=== PATIENT | female | born 1960 | race Caucasian/White ===

== ENCOUNTER 2018-12-04 14:02 | Outpatient (REF) | payer OTHER, SELFPAY ==
[2018-12-04 21:56] LABS: Abs Immature Grans 0.01 k/cumm (0.0-0.09); Absolute Basophil Count 0.02 k/cumm (0.0-0.2); Absolute Eosinophil Count 0.11 k/cumm (0.0-0.7); Absolute Monocyte Count 0.43 k/cumm (0.11-0.7); Absolute Neutrophil Count 2.83 k/cumm (1.2-6.7); Basophils % 0.4; Eosinophils % 2.3; HCT 44.7 % (36.0-46.0); HGB 14.9 g/dL (12.0-15.5); Immature Grans % 0.2; Lymphocytes % 27.7; Mean Corp. HGB Concentration 33.3 g/dL (32.0-36.0); Mean Corpuscular Volume 87.1 fL (80-95); Mean Platelet Volume 10.5 fL (8.0-11.0); Monocytes % 9.1; Neutrophils % 60.3; Platelet Count 174 x1000/uL (130-400); RBC 5.13 m/cumm (4.00-5.20); RBC Distribution Width 13.4 % (11.7-14.6)
[2018-12-04 22:00] LABS: Anion Gap 6.9 mmol/L (3-11); BUN 14 mg/dL (7-18); CO2 31.1 mmol/L (21.0-32.0); CREATININE 0.82 mg/dL (0.55-1.02); Calcium 9.5 mg/dL (8.5-10.1); Chloride 102 mmol/L (98-107); Glucose 89 mg/dL (70-100); Potassium 4.2 mmol/L (3.5-5.1); Sodium 140 mmol/L (136-145); TSH (W/Ref FT4) 2.33 uIU/mL (0.36-3.74)
[2018-12-05 05:48] LABS: Vitamin D 25 Total 16.3 ng/ml (30-100)
== END 2018-12-04 14:22 ==
LOC: NCHCN 14:02
PROVIDERS: PCP Physician Assistant Medical; Visit Provider Nurse Practitioner Family
DX: R53.83 Other fatigue (principal); R40.0 Somnolence
CPT/HCPCS: 80048; 82306; 84443; 85025

== ENCOUNTER 2020-01-02 01:05 | Outpatient (CLI) | payer OTHER, SELFPAY ==
--- NOTE | 2020-02-13 08:27 | ZIOP_ITS ---
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 Minimum heart rate was 53, maximum 119. There were very rare ventricular ectopic beats. There were rare atrial premature beats There was no atrial fibrillation. There was no supraventricular tachycardia. There were no pauses greater than 3 seconds. There was no high-grade AV block Patient events corresponded to sinus rhythm
== END 2020-01-02 01:25 ==
PROVIDERS: PCP Physician Assistant Medical; Visit Provider Nurse Practitioner Family
DX: R00.2 Palpitations (principal)
CPT/HCPCS: 0296T

== ENCOUNTER 2020-02-27 02:24 | Outpatient (CLI) | payer OTHER, SELFPAY ==
[2020-02-27 17:25] LABS: TSH 1.63 uIU/mL (0.36-3.74)
[2020-03-01 09:55] LABS: Hepatitis C Ab w Rflx HCV PCR Negative (Negative)
== END 2020-02-27 02:44 ==
LOC: LBO 02:24 → NCHCO 15:42
PROVIDERS: PCP Physician Assistant Medical; Visit Provider Family Medicine
DX: Z00.00 Encounter for general adult medical examination without abnormal findings (principal); Z13.29 Encounter for screening for other suspected endocrine disorder; Z11.59 Encounter for screening for other viral diseases
CPT/HCPCS: 36415; 86803; 84443

== ENCOUNTER 2020-03-31 17:29 | Outpatient (REF) | payer OTHER, SELFPAY ==
[2020-04-01 21:14] LABS: COVID-19 RT-PCR UVMMC Result Negative (Negative)
== END 2020-03-31 17:49 ==
LOC: NCHCN 17:29
PROVIDERS: PCP Physician Assistant Medical; Visit Provider Nurse Practitioner Family
DX: Z20.828 Contact with and (suspected) exposure to other viral communicable diseases (principal)
CPT/HCPCS: U0003

== ENCOUNTER 2020-05-21 16:50 | Outpatient (REF) | payer OTHER, SELFPAY ==
[2020-05-21 21:04] LABS: HCT 43.6 % (36.0-46.0); HGB 14.6 g/dL (11.2-15.7); MCH 29.5 pg (27.0-33.0); MCHC 33.5 % (32.0-36.0); MCV 88.1 fL (80-95); MPV 9.9 fL (8.0-11.0); Platelet Count 178 10^3/uL (130-400); RBC 4.95 10^6/uL (3.93-5.22); RDW 12.3 % (11.7-14.6); RDW-SD 39.6 fL; WBC 5.19 10^3/uL (4.4-10.8)
[2020-05-21 21:14] LABS: Anion Gap 4.8 mmol/L (3-11); BUN 13 mg/dL (7-18); CO2 31.2 mmol/L (21.0-32.0); CREATININE 0.7 mg/dL (0.55-1.02); Calcium 9.3 mg/dL (8.5-10.1); Chloride 103 mmol/L (98-107); Glucose 94 mg/dL (74-106); Potassium 4.1 mmol/L (3.5-5.1); Sodium 139 mmol/L (136-145)
== END 2020-05-21 16:51 | disposition home or self-care (01) ==
LOC: NCHCN 16:50
PROVIDERS: PCP Physician Assistant Medical; Visit Provider Nurse Practitioner Family
DX: I10 Essential (primary) hypertension (principal)
CPT/HCPCS: 80048; 85027

== ENCOUNTER 2020-08-17 01:26 | Outpatient (CLI) | payer OTHER, SELFPAY ==
--- NOTE | 2020-08-17 | DI.MAMMO_ITS ---
Exam(s) MAMMO SCREENING EXAM: MAMMO SCREENING CLINICAL HISTORY: SCREENING MAMMO Z12.31. TECHNIQUE: Bilateral full field digital CC and MLO mammographic images were obtained with 3D tomosyn thesis and utilizing computer aided detection (CAD). COMPARISON: Prior mammograms dating back to 2011, the most recent being May 2018. FINDINGS: There appears to been breast reduction after the May 2015 and prior to the May 2018 mammogram. No new spiculated masses. Increasing microcalcifications noted in both breasts which are possibly re lated to fat necrosis postop change. No new significant architectural distortion. IMPRESSION: Increasing microcalcifications which are probably related to postop changes. Recommend repeat bilate ral mammogram in 6 months. BI-RADS Category 3 - 6 month - Probably Benign Finding: Recommend follow-up mammography in 6 months Breast Density - Category B - Scattered areas of fibroglandular density Breast density Category C or D implies that the patient has dense breast tissue. Dense breast tissue can make it harder to find cancer on a mammogram. Dense breast tissue is also associated with an incr eased risk of breast cancer. This information about the result of the mammogram report was provided to the patient to raise their awareness. Use this report when you speak with the patient about their risks for breast cancer, which includes their family history. At that time, you may recommend additional screening tests (Ultrasoun d or MRI) as these tests may add significant information. A negative radiographic report should not delay biopsy if a dominant or clinically suspicious mass is present. Up to ten percent of cancers are not identified on mammography. A negative report may reinforce clinical impression. Adenosis and dense breasts may obscure an underlying neoplasm. False positive reports average 6 to 10%. Patient will receive a letter notifying them of these results.
== END 2020-08-17 01:46 ==
PROVIDERS: PCP Nurse Practitioner Family; Visit Provider Nurse Practitioner Family
DX: Z12.31 Encounter for screening mammogram for malignant neoplasm of breast (principal); R92.0 Mammographic microcalcification found on diagnostic imaging of breast
CPT/HCPCS: 77063; 77067

== ENCOUNTER 2021-05-12 00:46 | Outpatient (CLI) | payer OTHER, SELFPAY ==
--- NOTE | 2021-05-12 | DI.MAMMO_ITS ---
Exam(s) US BREAST RT LIMITED MG MAMMO DIAGNOSTIC BI EXAM: MG MAMMO DIAGNOSTIC BI and U/S breast RT limited CLINICAL HISTORY: F/U ABNL KARLA JULY 2020,INCREASING YANG CALCIFICATIONS, RT BREAST PAIN, N64.4. TECHNIQUE: Craniocaudal and mediolateral oblique Full Field Digital Mammography views of the right b reast with Computer Aided Diagnosis followed by Tomosynthesis and right breast ultrasound. COMPARISON: Priors available for comparison. FINDINGS: Mammography/Tomosynthesis: Masses/Architectural Distortion: None seen. Microcalcifictions: No suspicious pleomorphic-type are seen. Skin Thickening/Nipple Retraction: None. Limited right breast US: Echotexture: Normal appearance of the glandular tissue. Shadowing: No suspicious foci. Cyst: None. Solid lesions: None seen. Ductal dilation: None. IMPRESSION: 1. No evidence of malignancy is noted. 2. Unless there is more urgent need, follow-up screening mammography is recommended, as per [place] [employer] guidelines. 3. The findings were discussed with the patient on the date of the examination. BI-RADS Category 1 - Negative Breast Density - Category B - Scattered areas of fibroglandular density Breast density Category C or D implies that the patient has dense breast tissue. Dense breast tissue can make it harder to find cancer on a mammogram. Dense breast tissue is also associated with an incr eased risk of breast cancer. This information about the result of the mammogram report was provided to the patient to raise their awareness. Use this report when you speak with the patient about their risks for breast cancer, which includes their family history. At that time, you may recommend additional screening tests (Ultrasoun d or MRI) as these tests may add significant information. A negative radiographic report should not delay biopsy if a dominant or clinically suspicious mass is present. Up to ten percent of cancers are not identified on mammography. A negative report may reinforce clinical impression. Adenosis and dense breasts may obscure an underlying neoplasm. False positive reports average 6 to 10%. Patient will receive a letter notifying them of these results.
--- NOTE | 2021-05-12 15:24 | DI.RAD_ITS ---
Exam(s) XR THUMB LT EXAM: XR THUMB LT EXAM DATE/TIME: CLINICAL HISTORY: LT THUMB PAIN, M79.645. TECHNIQUE: 2D digital imaging was performed of the left finger. Three views were obtained. PA/AP, oblique, and lateral views were obtained. COMPARISON: None. FINDINGS: BONES: No acute fracture is present. No bony destructive lesion is seen. JOINTS: No dislocation is present. Mild degenerative changes are seen at the interphalangeal joint. SOFT TISSUE: Normal. IMPRESSION: Mild degenerative changes at the interphalangeal joint of the thumb. DATA REPOSITORY: RADIATION DOSE DELIVERED:
== END 2021-05-12 01:06 ==
PROVIDERS: PCP Nurse Practitioner Family; Visit Provider Nurse Practitioner Family
DX: M79.645 Pain in left finger(s) (principal); M19.042 Primary osteoarthritis, left hand; R92.8 Other abnormal and inconclusive findings on diagnostic imaging of breast; N64.59 Other signs and symptoms in breast; N64.4 Mastodynia
CPT/HCPCS: 76642; 77062; 77066; 73140; G0279

== ENCOUNTER 2021-06-08 18:55 | Outpatient (REF) | payer OTHER, SELFPAY ==
[2021-06-10 15:56] LABS: COVID-19 RT-PCR UVMMC Result Negative (Negative)
== END 2021-06-08 18:56 | disposition home or self-care (01) ==
LOC: NCHCN 18:55
PROVIDERS: PCP Nurse Practitioner Family; Visit Provider Nurse Practitioner Family
DX: R05.9 Cough, unspecified (principal); R06.02 Shortness of breath; R53.83 Other fatigue; Z20.822 Contact with and (suspected) exposure to COVID-19
CPT/HCPCS: U0003

== ENCOUNTER 2022-03-01 07:24 | Day surgery (SDC) | payer OTHER, SELFPAY ==
[2022-03-01] VITALS (13 sets, daily range): BP systolic 84–132; BP diastolic 41–68; PULSE 63–75; RESP 13–27; TEMP 36.1–36.5; O2SAT 89–100; BMI 39.2
--- NOTE | 2022-03-01 07:32 | W.PM.DSUDISC ---
Date of service: 03/01/22 Time of Service: 10:27 Discharge Plan Disposition Patient Disposition: HOME Condition: Good Discharge Details Reason For Visit: Left CMC DJD Attending Provider: Manuel Lyman Primary Care Provider: Qian Alejandra Home Meds and New Rx's Prescriptions: New acetaminophen 500 mg tablet 500 mg PO Q6H PRN (Reason: pain) Qty: 60 2RF ibuprofen 600 mg tablet 600 mg PO TID PRN (Reason: pain) Qty: 60 0RF oxycodone 5 mg tablet 5 mg PO Q6H PRN (Reason: severe post-operative pain) Qty: 6 0RF Rx Instructions: Take one tablet up to every 6 hours as needed for severe pain Continued sertraline 25 mg tablet 25 mg PO DAILY albuterol sulfate [ProAir HFA] 90 mcg/actuation HFA aerosol inhaler 2 puff inhalation Q6H PRN losartan [Cozaar] 100 mg tablet 50 mg PO DAILY hydrochlorothiazide 25 MG tablet 25 mg PO DAILY Discharge Instructions Additional Instructions: Thumb CMC Discharge Instructions Activity: You should keep the hand/thumb elevated as much as possible for the first few days. You may use the other fingers as tolerated but avoid trying to do too much too soon. You may perform light activities with the splint in place. Dressing/Cast: Your splint should stay in place at all times. Do NOT get it wet. You may loosen the JESUS wrap if you feel it is too tight and then rewrap more loosely. Medications: - You should take Tylenol and Ibuprofen for baseline pain control. - You have Oxycodone for breakthrough pain. - You may apply ice over the thumb. Follow-up: 10-14 days Equipment/Supplies: Splint Activity:: Elevate Remove Dressings/Wound Care:: Do Not Remove Shower/Bathe:: Cover Activity:: Activity as Tolerated Diet:: As Tolerated
--- NOTE | 2022-03-01 08:37 | ANES.PREOP_ITS ---
General Info Date of Service Date Performed: 03/01/22 Height: 5 ft 2 in Weight: 97.3 kg Body Mass Index (BMI): 39.2 Surgical Procedure: Operation Date: 03/01/22 09:55 Proposed Procedure Side Surgeon p CMC Arthroplasty 1st Finger Left Manuel Lyman MD Meds Allergies and Home Medications Allergies Allergy/AdvReac Type Severity Reaction Status Date / Time latex Allergy Mild Skin Rash Verified 03/01/22 07:35 steroids AdvReac Severe Other (See Uncoded 02/28/22 12:11 Comment) Home Medication Medication Instructions Recorded hydrochlorothiazide 25 mg tablet 25 mg PO DAILY 06/07/12 albuterol sulfate 90 mcg/actuation 2 puff inhalation Q6H PRN 05/25/21 aerosol inhaler (ProAir HFA) losartan 100 mg tablet (Cozaar) 50 mg PO DAILY 05/25/21 sertraline 25 mg tablet 25 mg PO DAILY 05/25/21 acetaminophen 500 mg tablet 500 mg PO Q6H PRN pain #60 tabs 03/01/22 ibuprofen 600 mg tablet 600 mg PO TID PRN pain #60 tabs 03/01/22 oxycodone 5 mg tablet 5 mg PO Q6H PRN severe 03/01/22 post-operative pain #6 tabs Current Visit Medications: Current Medications Generic Name Dose Route Start Last Admin Trade Name Andrez PRN Reason Stop Dose Admin Acetaminophen 650 mg 03/01/22 07:38 Acetaminophen 325 Mg Tab PO Q4H PRN PRN Ringer's Solution 1,000 mls @ 80 mls/hr 03/01/22 06:00 IV 03/30/22 23:59 [facility] Cefazolin Sodium/Dextrose 2 gm in 50 mls @ 100 mls/hr 03/01/22 06:00 Ancef Duplex IVPB 03/01/22 16:00 PREOP TIMMY IV Miscellaneous Supplies 1 each 03/01/22 06:00 Iv Access IV 03/30/22 23:59 DIRECTED TIMMY Oxycodone HCl 5 mg 03/01/22 07:38 Oxycodone 5 Mg Tab PO Q3H PRN PRN Pain Sodium Chloride 0 ml 03/01/22 06:00 Normal Saline Flush 10 Ml Syr IV 03/30/22 23:59 PRN PRN Sodium Chloride 0 ml 03/01/22 06:00 Normal Saline 10 Ml Vial IJ 03/30/22 23:59 DIRECTED PRN Sterile Water 0 ml 03/01/22 06:00 Water,Injection,Sterile 10 Ml Vial IJ 03/30/22 23:59 DIRECTED PRN PFSH Active Problems Active Problems: Problem Status Onset Code Abnormal mammogram of both breasts R92.8 Osteopenia M85.80 Hypertension I10 Obesity E66.9 Vitamin D deficiency E55.9 Depression with anxiety F41.8 Asthma, mild intermittent J45.20 Hyperlipidemia E78.5 GERD (gastroesophageal reflux disease) K21.9 Degenerative arthritis of carpometacarpal joint of thumb M18.9 Left carpal tunnel syndrome G56.02 Medical History Medical History Tobacco use Surgical History Surgical History H/O reduction mammoplasty H/O: hysterectomy History of section Tobacco Smoking/Tobacco Use Status: Former Tobacco Use Alcohol Alcohol Intake: never Substance Use Substance use: Never Substance use type: does not use Vital Signs and Lab Results Vital Signs Most Recent Vital Signs in EMR: Most Recent Vital Signs Temp Pulse Resp BP Pulse Ox 36.5 C 74 16 132/68 95 03/01/22 07:37 03/01/22 07:37 03/01/22 07:37 03/01/22 07:37 03/01/22 07:37 Lab Results Blood Type / Crossmatch: No Data to Display Complete Blood Count: No Data to Display Complete Metabolic Panel: No Data to Display Liver Function Panel: No Data to Display Coagulation Panel: No Data to Display Cardiac Panel: No Data to Display Arterial Blood Gas: No Data to Display Venous Blood Gas: No Data to Display Pancreas Panel: No Data to Display Thyroid Panel: No Data to Display Infectious Disease: No Data to Display Blood Cultures: No Data to Display Toxicology Panel: No Data to Display Anesthesia Assessment and Plan Anesthesia History Personal History: No History of Anesthesia Complications Family History: No Family History of Anesthesia Complications Exercise Tolerance Exercise Tolerance: Metabolic Equivalents>4 Pertinent Negatives Pertinent Negatives: No Symptoms of GERD and No Major Cardiovascular Symptoms or Complaints Cardiac & Pulmonary Exam Cardiac Exam: Normal S1/S2 Heart Sounds Pulmonary Exam: Clear Bilateral Breath Sounds Implantable Cardiac Device Does patient have a Pacemaker or an ICD?: No Airway Exam Known Difficult Airway: No Mallampati Class: 2 Mouth Opening: Normal (> 3cm) Thyromental Distance: Greater than 3 cm Neck Range of Motion: Full ROM Neck Circumference: Normal Teeth Condition: Normal Dentition ASA Classification ASA Score: ASA 2 Emergency Case?: No NPO Status NPO Status: NPO Clears >2 hours, Solids >8 hours Anesthesia Plan Resuscitation Status: Full Code Anesthesia Technique: General Anesthesia Airway Planned: LMA Monitors Used: Standard Monitors
--- NOTE | 2022-03-01 09:38 | W.PREOPHP ---
Assessment and Plan Assessment and plan (1) Degenerative arthritis of carpometacarpal joint of thumb: Status: Acute Assessment and plan: Gina is a 62-year-old [id number] female who has left thumb CMC arthritis. She has had continued pain about the left thumb which is interfering with daily activities and work. She has had an injection which provided relief but unfortunately symptoms returned. She has tried a host of nonoperative options but once again continues have pain about the left thumb. Therefore, I recommended CMC arthroplasty of the left thumb. I reviewed the technical details once again. I discussed the risk of the procedure to include bleeding, infection, pain, stiffness, subsidence, hardware prominence, heart failure, tendon rupture, damage nerves and vessels, damage to muscle and tendons, need for repeat procedures. Despite these risk, she elected to proceed. History of Present Illness History of Present Illness Chief Complaint: Left Thumb CMC arthroplasty Narrative: Gina is a 62-year-old who has had a persistent left thumb pain. She has been diagnosed with thumb CMC arthritis about the left hand. She also has some symptoms of carpal tunnel which are intermittent at this time. She is here today for left thumb CMC arthroplasty with suture suspension plasty. She is had no changes to her health. No change in her symptoms except continued pain at the base of the left thumb. She denies any numbness or tingling about the thumb on a persistent basis. She denies any new trauma. No sick contacts. No chest pain or shortness of breath. Review of Systems All systems reviewed & are unremarkable except as noted in HPI and below PFSH All Active Problems Abnormal mammogram of both breasts (Acute) Osteopenia (Acute) Hypertension (Chronic) Obesity (Chronic) Vitamin D deficiency (Acute) Depression with anxiety (Acute) Asthma, mild intermittent (Acute) Hyperlipidemia (Acute) GERD (gastroesophageal reflux disease) (Chronic) Degenerative arthritis of carpometacarpal joint of thumb (Acute) left thumb Injection: 07/04/2021 Left carpal tunnel syndrome (Acute) Medical History Tobacco use Surgical History H/O reduction mammoplasty H/O: hysterectomy History of section Social History Smoking/Tobacco Use Status: Former Tobacco Use Smoking risk assessment performed?: Yes Alcohol Intake: never Drug use: Never Substance use type: does not use Do you feel safe at home: Yes Do you feel safe in your relationship?: Yes Meds Allergies and Home Medications Allergies Allergy/AdvReac Type Severity Reaction Status Date / Time latex Allergy Mild Skin Rash Verified 03/01/22 07:35 steroids AdvReac Severe Other (See Uncoded 02/28/22 12:11 Comment) Home Medications Medication Instructions Recorded Confirmed Type hydrochlorothiazide 25 mg tablet 25 mg PO DAILY 06/07/12 02/28/22 History albuterol sulfate 90 mcg/actuation 2 puff inhalation Q6H PRN 05/25/21 02/28/22 History aerosol inhaler (ProAir HFA) losartan 100 mg tablet (Cozaar) 50 mg PO DAILY 05/25/21 02/28/22 History sertraline 25 mg tablet 25 mg PO DAILY 05/25/21 02/28/22 History acetaminophen 500 mg tablet 500 mg PO Q6H PRN pain #60 tabs 03/01/22 Rx ibuprofen 600 mg tablet 600 mg PO TID PRN pain #60 tabs 03/01/22 Rx oxycodone 5 mg tablet 5 mg PO Q6H PRN severe 03/01/22 Rx post-operative pain #6 tabs Exam Const General: cooperative, healthy appearing and comfortable Nutritional Appearance: average body habitus Resp Effort & Inspection: normal respiratory effort Auscultation: clear to auscultation bilaterally Cardio Rate: regular rate Rhythm: regular rhythm Results Last Vital Signs Temp 36.5 C 03/01/22 07:37 Pulse 74 03/01/22 07:37 Resp 16 03/01/22 07:37 BP 132/68 03/01/22 07:37 Pulse Ox 95 03/01/22 07:37
[2022-03-01] MEDS: ceFAZolin 2 GM/50 ML BAG IVPB (10:14)
[2022-03-01] MEDS: Lactated Ringers 1,000 ML 80 ML IV (11:00)
[2022-03-01] MEDS: Bupivacaine 0.25% Pres-Free 30 ML VIAL (11:16)
--- NOTE | 2022-03-01 12:09 | W.ANESPOSTOP ---
Postoperative Evaluation Date, Time and Location Date Performed: 03/01/22 Time Performed: 12:10 Patient Location: PACU Vital Signs Most Recent Imported Vital Signs: Most Recent Vital Signs Temp Pulse Resp BP Pulse Ox 36.4 C L 64 27 H 94/52 L 95 03/01/22 11:45 03/01/22 11:55 03/01/22 11:55 03/01/22 11:55 03/01/22 11:55 Pain Score Most Recent Pain Score: Most Recent Pain Score Pain Level 0 03/01/22 11:55 Assessment Mental Status: Awake (Alert & Oriented to Patient Baseline) Airway and Respiratory Function: Patent airway with normal (patient baseline) respiratory exam Cardiovascular Function: Hemodynamically Stable Hydration Status: Adequately Hydrated Nausea & Vomiting: No Nausea or Vomiting Pain: Pt. Denies Any Pain Peripheral Nerve Block: Patient did not receive a nerve block
[2022-03-01] MEDS: ePHEDrine 25 MG/5 ML Syringe IVP (12:20)
--- NOTE | 2022-03-01 12:57 | W.PM.OP ---
Date of service: 03/01/22 Time of Service: 11:00 Operative Note Operative Note DATE OF PROCEDURE: 03/01/22 PRE-OP DIAGNOSIS: Left Thumb CMC Arthritis POST-OP DIAGNOSIS: same PROCEDURE: Left trapezial resection arthroplasty with suture suspensionplasty SURGEON: Manuel Lyman NEW CLIENT BANKING SERVICES CLERK: Zoey Juarez ANESTHESIA TYPE: General LMA/ETT Refer to Anesthesia Record ESTIMATED BLOOD LOSS: 50 PATHOLOGY: none sent TOURNIQUET TIME: 0 COMPLICATIONS: None Patient was transported to: PACU Patient's condition: stable Indications: Gina is a 62 year old female who has had symptoms of thumb CMC arthritis with pain and decreased mobility. Nonoperative treatment options had been trialed. Given their failure, I offered operative intervention. I reviewed the technical details. I reviewed the risk of the procedure to include bleeding, infection, pain, stiffness, instability, subsidence, damage to neighboring arteries, damage to the superficial radial nerve, and weakness. Despite these risks, the patient elected to proceed. Findings: There is notable arthrosis between the trapezium and the first metacarpal. There was also a significant amount of synovitis which made visualization challenging. There are large osteophytes around the entirety of the trapezium. Procedure Description: Gina was greeted in the preoperative holding area. Name and surgical site were confirmed. The history and physical was completed. The consent was reviewed the patient and signed. She was taken back to the operating room. The patient was placed and monitored anesthesia care. The left was then prepped with ChloraPrep and draped in a standard fashion after a nonsterile tourniquet was placed high up onto the arm. Prophylactic antibiotics in the form of cefazolin were administered. A timeout was performed for safe surgery. The surgical site was drawn on the skin overlying the dorsal radial border of the wrist. The planned surgical field was anesthetized with 0.25% bupivacaine with epinephrine. A 3 cm incision was made longitudinally over the radial wrist from the level of the radial styloid to just past the base of the first metacarpal. The skin was incised only. The deep tissue and subcutaneous fat was dissected with a tenotomy scissors trying to protect branches of the superficial radial nerve. Any branches that were identified were retracted out of the way. The first compartment extensor tendons were then identified. The first extensor compartment was released. The interval between EPL and EPB was identified. The base of the first metacarpal was palpated. A needle was placed into the joint between the first metacarpal and the trapezium. A single x-ray was used to confirm appropriate positioning. The capsule of the trapezium was then incised. The radial border of the bone was identified. Soft tissues around trapezium were dissected bluntly to allow relaxation of vital arterial structures traversing the trapezium. Using a [place] blade the capsule was elevated off the trapezium in a subperiosteal fashion. Once it appeared to have all the capsular attachments released, the trapezium was then removed using a rongeur. The wound was inspected to make sure all portions of the trapezium were removed. X-ray was used to confirm appropriate removal of all bony fragments. The wound was then thoroughly irrigated. Using a 2-0 FiberWire then performed a suture suspension plasty. This was done by incorporating capsule and attachments of the APL at the base of the first metacarpal and creating a sling connected to the deep flexor carpi radialis tendon seen traversing deep within the wound towards the second metacarpal. This was done twice to create a crossing network of 2-0 suture. This was then tied overlying the base of the first metacarpal making sure not to over tighten and hourglass the tendons. This provided support to the first metacarpal to prevent any excessive subsidence. There was a consistent ooze during the case but no significant arterial bleeding. No tourniquet was used. The capsule of the trapezium was unable to be reapproximated. The deep tissues were closed with a 3-0 Vicryl and the skin was closed with a running 4-0 Monocryl in a subcuticular fashion. This was reinforced with skin glue. The hand was dressed with 4 x 4's, web roll, and JESUS wrap to make a soft thumb spica splint. All counts were correct. She was transferred back to PACU in a stable condition.
[2022-03-01] MEDS: Acetaminophen 325 MG TAB 650 MG PO (12:58)
== END 2022-03-01 13:33 | disposition home or self-care (01) ==
PROVIDERS: PCP Nurse Practitioner Family; Visit Provider Student in an Organized Health Care Education/Training Program
PROC: (CPT 25447; principal; 2022-03-01 09:45)
DX: M18.12 Unilateral primary osteoarthritis of first carpometacarpal joint, left hand (principal); J45.20 Mild intermittent asthma, uncomplicated; K21.9 Gastro-esophageal reflux disease without esophagitis
CPT/HCPCS: 25447; 26480; 76000; J0690; J1100; J1885; J2250; J2405; J2704

== ENCOUNTER 2022-04-07 11:27 | Emergency (ER) | payer OTHER, SELFPAY ==
--- NOTE | 2022-04-07 11:30 | RT.EKG_ITS ---
APPROVED REPORT Exam: Resting ECG Reason for Exam: [id number] Patient Location: E HR:100 bpm ECG Measurements Heart Rate 100 AXIS AL 147 P 60 QRSd 81 QRS 4 QT 339 T 55 QTc 438 Conclusion Sinus tachycardia...rate> 99 sinus tachycardia, normal axis, normal intervals, non ischemic
[2022-04-07 11:32] VITALS: BP 134/78; PULSE 102; RESP 20; TEMP 37.3; O2SAT 93
--- NOTE | 2022-04-07 11:45 | DI.RAD_ITS ---
Exam(s) XR PORTABLE CHEST AP EXAM: XR PORTABLE CHEST AP CLINICAL HISTORY: cough TECHNIQUE: 2D digital imaging was performed of the chest. One image was obtained. An AP view was ob tained. COMPARISON: CR CHEST 2 VIEWS PA,LAT from 05/10/2017 FINDINGS: MEDIASTINUM: Normal. HEART: Normal. PULMONARY VASCULATURE: Normal. LUNGS: Clear. PLEURAL SPACE: No pleural effusion or pneumothorax. BONE:Within normal limits for the patient's age. OTHER FINDINGS:Normal. IMPRESSION: No acute pulmonary findings. DATA REPOSITORY: RADIATION DOSE DELIVERED:
--- NOTE | 2022-04-07 11:47 | ED.GENADUL_ITS ---
Discharge Plan Disposition Patient Disposition: Home Condition: Improving Discharge Details Chief Complaint: RespSymp Clinical Impression: Cough Primary Care Provider: Qian Alejandra ED Provider: Richardson Gold Home Meds and New Rx's Prescriptions: No Action sertraline 25 mg tablet 25 mg PO DAILY albuterol sulfate [ProAir HFA] 90 mcg/actuation HFA aerosol inhaler 2 puff inhalation Q6H PRN losartan [Cozaar] 100 mg tablet 50 mg PO DAILY hydrochlorothiazide 25 MG tablet 25 mg PO DAILY acetaminophen 500 mg tablet 500 mg PO Q6H PRN (Reason: pain) Qty: 60 2RF ibuprofen 600 mg tablet 600 mg PO TID PRN (Reason: pain) Qty: 60 0RF Discharge Instructions Instructions: Acute Cough (ED) Additional Instructions: Please continue with albuterol at home. Follow-up with your primary care physician. Medical Decision Making 62-year-old female history of asthma, presents with dry cough, congestion, similar symptomatology to her currently, afebrile nontoxic slightly tachycardic on arrival dry cough during examination, lungs clear however slightly diminished bilaterally no wheezing appreciated. Likely viral syndrome exacerbating asthma must also consider early pneumonia. Will obtain flu COVID, will administer albuterol ipratropium. Likely home with close follow-up. Lower suspicion for cardiac process PE pneumothorax or pleural effusion 13: 14 patient resting comfortably no acute distress. Feeling improvement after nebs. X-ray clear. HPI General Date/Time Provider Initiated Documentation: 04/07/22 11:38 . HPI Narrative: 61-year-old female history of asthma presents with cough congestion over the past several days of note her has similar symptomatology. Nonproductive cough. Patient has had a bad reaction to steroids in the past. Has been taking albuterol at home Related Data Home Medications Medication Instructions Recorded Confirmed hydrochlorothiazide 25 mg tablet 25 mg PO DAILY 06/07/12 04/07/22 albuterol sulfate 90 mcg/actuation 2 puff inhalation Q6H PRN 05/25/21 04/07/22 aerosol inhaler (ProAir HFA) losartan 100 mg tablet (Cozaar) 50 mg PO DAILY 05/25/21 04/07/22 sertraline 25 mg tablet 25 mg PO DAILY 05/25/21 04/07/22 acetaminophen 500 mg tablet 500 mg PO Q6H PRN pain #60 tabs 03/01/22 04/07/22 ibuprofen 600 mg tablet 600 mg PO TID PRN pain #60 tabs 03/01/22 04/07/22 Previous Rx's Medication Instructions Recorded acetaminophen 500 mg tablet 500 mg PO Q6H PRN pain #60 tabs 03/01/22 ibuprofen 600 mg tablet 600 mg PO TID PRN pain #60 tabs 03/01/22 Allergies Allergy/AdvReac Type Severity Reaction Status Date / Time latex Allergy Mild Skin Rash Verified 04/07/22 11:35 steroids AdvReac Severe Other (See Uncoded 04/07/22 11:35 Comment) General Stated Complaint: RespSymp SARITA: 3 Review of Systems Narrative: Review of Systems Constitutional: negative Eyes: negative ENT: negative Cardiovascular: negative Respiratory: Cough, congestion Gastrointestinal: negative : negative Musculoskeletal: negative Skin: negative Neurologic: negative Psych: negative PFSH All Active Problems (Updated 04/07/22 @ 13:17 by Richardson Gold MD) Cough (Acute) Degenerative arthritis of carpometacarpal joint of thumb (Acute) status post left trapezial resection arthroplasty with suture suspensionplasty on 03/01/22. Injection: 07/04/2021 Abnormal mammogram of both breasts (Acute) Osteopenia (Acute) Hypertension (Chronic) Obesity (Chronic) Vitamin D deficiency (Acute) Depression with anxiety (Acute) Asthma, mild intermittent (Acute) Hyperlipidemia (Acute) GERD (gastroesophageal reflux disease) (Chronic) Left carpal tunnel syndrome (Acute) Medical History Tobacco use Surgical History H/O reduction mammoplasty H/O: hysterectomy History of section Social History Smoking/Tobacco Use Status: Former Tobacco Use Smoking risk assessment performed?: Yes Alcohol Intake: current Alcohol Intake frequency: holidays/special occasions only Drug use: Never Substance use type: does not use Do you feel safe at home: Yes Do you feel safe in your relationship?: Yes Exam Narrative Exam Narrative: Physical Examination General: alert, awake, cooperative, resting comfortably, no acute distress HEENT: normocephalic, atraumatic; PERRL, EOM intact, conjunctiva normal; no nasal discharge; moist mucous membranes, oral and pharyngeal mucosa normal, tolerating secretions Neck: supple, trachea midline; full ROM Chest: normal to inspection Respiratory: normal respiratory effort, speaking in full sentences, clear lungs however slightly diminished bilaterally, dry cough Cardiac: regular rate, regular rhythm, S1S2 intact, no murmurs rubs or gallops GI: abdomen soft, non-tender, non-distended; no palpable mass or hepatosplenomegaly Skin: no lesions, rashes or trauma appreciated Neuro: AAOx3, normal speech, moving all extremities Psych: Appropriate mood and affect Course Vital Signs Vital signs: Vital Signs Temperature 37.3 C 04/07/22 11:32 Pulse 102 H 04/07/22 11:32 Respiratory Rate 20 04/07/22 11:32 Blood Pressure 134/78 04/07/22 11:32 Pulse Oximetry 93 04/07/22 11:32 Temperature 37.3 C 04/07/22 11:32 Pulse 102 H 04/07/22 11:32 Respiratory Rate 20 04/07/22 11:32 Respiratory Effort 04/07/22 11:37 Blood Pressure 134/78 04/07/22 11:32 Blood Pressure Position Sitting 04/07/22 11:32 Pulse Oximetry 93 04/07/22 11:32 Oxygen Delivery Method Room Air 04/07/22 11:32 Oxygen Flow Rate 0 04/07/22 11:32 PAWSS Have you Been Recently Intoxicated or Drunk Within the Last 30 days?: No Have you Ever Experienced Previous Episodes of Alcohol Withdrawal?: No Have you ever Experienced Withdrawal Seizures?: No Have you ever Experienced Delirium Tremens(DT)s?: No Have you ever undergone Alcohol Rehabilitation Treatment (i.e, inpt ot outpatient treatment programs)?: No Have you ever Experienced Blackouts?: No Have you ever Combined Alcohol with other Downers within the last 90 days?: No Have you ever Combined Alcohol with any other Substance of Abuse during the last 90 days?: No Positive Blood Alcohol level on Presentation? [PCS.BAL]: No Evidence of Increased Autonomic Activity (i.e. HR>120, tremor, sweating, agitation, nausea)?: No Result: 0
[2022-04-07] MEDS: Albuterol/Ipratropium 3 ML UPD VIAL 9 ML UPD (12:06)
[2022-04-07 13:35] VITALS: BP 137/60; PULSE 91; RESP 20; O2SAT 93
== END 2022-04-07 13:37 | disposition home or self-care (01) ==
PROVIDERS: Emergency Provider Emergency Medicine; PCP Nurse Practitioner Family
DX: R05.9 Cough, unspecified (principal); J45.909 Unspecified asthma, uncomplicated; Z20.822 Contact with and (suspected) exposure to COVID-19
CPT/HCPCS: 93005; 94640; 99284; 71045; 93010; 99285; J7620

== ENCOUNTER 2022-04-25 13:55 | Outpatient (REF) | payer OTHER, SELFPAY ==
[2022-04-25 15:12] LABS: ALT 22 U/L (14-59); AST 21 U/L (15-37); Alkaline Phosphatase 97 U/L (46-116); Anion Gap 8.6 mmol/L (3-11); BUN 16 mg/dL (7-18); CO2 28.4 mmol/L (21.0-32.0); CREATININE 0.7 mg/dL (0.55-1.02); Calcium 9.8 mg/dL (8.5-10.1); Calculated LDL 144 mg/dL (<100); Chloride 103 mmol/L (98-107); Cholesterol 228 mg/dL (<200); Estimated GFR 97.12 (mL/min/1.73m2); Glucose 87 mg/dL (74-106); HDL Cholesterol 71 mg/dL (40-60); Potassium 3.8 mmol/L (3.5-5.1); Sodium 140 mmol/L (136-145); Triglyceride 69 mg/dL (<150)
[2022-04-25 15:57] LABS: Vitamin D 25 Total 19.1 ng/mL (30-100)
== END 2022-04-25 13:56 | disposition home or self-care (01) ==
LOC: NCHCN 13:55
PROVIDERS: PCP Nurse Practitioner Family; Visit Provider Nurse Practitioner Family
DX: Z00.00 Encounter for general adult medical examination without abnormal findings (principal); E78.5 Hyperlipidemia, unspecified; E66.8 Other obesity; E55.9 Vitamin D deficiency, unspecified
CPT/HCPCS: 80053; 80061; 82306; 85027

== ENCOUNTER 2022-05-01 15:48 | Outpatient (REF) | payer OTHER, SELFPAY ==
[2022-05-01 14:35] LABS: HCT 44.2 % (36.0-46.0); HGB 14.8 g/dL (11.2-15.7); MCH 28.9 pg (27.0-33.0); MCHC 33.5 % (32.0-36.0); MCV 86 fL (80-95); MPV 9.7 fL (8.0-11.0); Platelet Count 192 10^3/uL (130-400); RBC 5.12 10^6/uL (3.93-5.22); RDW-SD 40.5 fL; WBC 7.03 10^3/uL (4.4-10.8)
== END 2022-05-01 15:49 | disposition home or self-care (01) ==
LOC: NCHCN 15:48
PROVIDERS: PCP Nurse Practitioner Family; Visit Provider Nurse Practitioner Family
DX: R53.83 Other fatigue (principal)
CPT/HCPCS: 85027

== ENCOUNTER 2022-05-02 06:11 | Day surgery (SDC) | payer OTHER, SELFPAY ==
[2022-05-02 06:15] VITALS: BP 144/70; PULSE 74; RESP 18; TEMP 36.5; O2SAT 95
--- NOTE | 2022-05-02 06:39 | W.PM.DSUDISC ---
Date of service: 05/02/22 Time of Service: 06:40 Discharge Plan Disposition Patient Disposition: Home Condition: Good Discharge Details Reason For Visit: left carpal tunnel syndrome Attending Provider: Manuel Lyman Primary Care Provider: Qian Alejandra Home Meds and New Rx's Prescriptions: New hydrocodone-acetaminophen 5-325 mg tablet 1 tab PO Q6H PRN (Reason: pain) Qty: 4 0RF Continued sertraline 25 mg tablet 25 mg PO DAILY albuterol sulfate [ProAir HFA] 90 mcg/actuation HFA aerosol inhaler 2 puff inhalation Q6H PRN losartan [Cozaar] 100 mg tablet 50 mg PO DAILY hydrochlorothiazide 25 MG tablet 25 mg PO DAILY acetaminophen 500 mg tablet 500 mg PO Q6H PRN (Reason: pain) Qty: 60 2RF ibuprofen 600 mg tablet 600 mg PO TID PRN (Reason: pain) Qty: 60 0RF Discharge Instructions Stand Alone Forms: Jiska Amarjit. Tunnel Release Activity:: Elevate Remove Dressings/Wound Care:: 48 hours Shower/Bathe:: 48 hours Diet:: As Tolerated Discharge Orders Discharge Orders: Discharge Order (Routine); Ordered 05/02/22 Ordered By: Zoey Juarez
[2022-05-02] MEDS: Lactated Ringers 1,000 ML 80 ML IV (06:55)
--- NOTE | 2022-05-02 07:04 | ANES.PREOP_ITS ---
General Info Date of Service Date Performed: 05/02/22 Height: 5 ft 1 in Weight: 95.4 kg Body Mass Index (BMI): 39.7 Surgical Procedure: Operation Date: 05/02/22 07:40 Proposed Procedure Side Surgeon p Wrist ECTR Left Manuel Lyman MD Meds Allergies and Home Medications Allergies Allergy/AdvReac Type Severity Reaction Status Date / Time latex Allergy Mild Skin Rash Verified 05/02/22 06:26 steroids AdvReac Severe Other (See Uncoded 05/02/22 06:26 Comment) Home Medication Medication Instructions Recorded hydrochlorothiazide 25 mg tablet 25 mg PO DAILY 06/07/12 albuterol sulfate 90 mcg/actuation 2 puff inhalation Q6H PRN 05/25/21 aerosol inhaler (ProAir HFA) losartan 100 mg tablet (Cozaar) 50 mg PO DAILY 05/25/21 sertraline 25 mg tablet 25 mg PO DAILY 05/25/21 acetaminophen 500 mg tablet 500 mg PO Q6H PRN pain #60 tabs 03/01/22 ibuprofen 600 mg tablet 600 mg PO TID PRN pain #60 tabs 03/01/22 hydrocodone 5 mg-acetaminophen 325 1 tab PO Q6H PRN pain #4 tabs 05/02/22 mg tablet Current Visit Medications: Current Medications Generic Name Dose Route Start Last Admin Trade Name Freq PRN Reason Stop Dose Admin Acetaminophen 650 mg 05/02/22 06:38 Acetaminophen 325 Mg Tab PO Q4H PRN PRN Hydrocodone Bitart/Acetaminophen 0 tab 05/02/22 06:38 Hydrocodone 5/Acetaminophen 325 Tab PO Q3H PRN PRN Pain Ringer's Solution 1,000 mls @ 80 mls/hr 05/02/22 06:00 05/02/22 06:55 IV 05/31/22 23:59 80 mls/hr INFUSION TIMMY Administration Cefazolin Sodium/Dextrose 2 gm in 50 mls @ 100 mls/hr 05/02/22 06:00 Ancef Duplex IVPB 05/31/22 23:59 PREOP TIMMY IV Miscellaneous Supplies 1 each 05/02/22 06:00 Iv Access IV 05/31/22 23:59 DIRECTED TIMMY Sodium Chloride 0 ml 05/02/22 06:00 Normal Saline Flush 10 Ml Syr IV 05/31/22 23:59 PRN PRN Sodium Chloride 0 ml 05/02/22 06:00 Normal Saline 10 Ml Vial IJ 05/31/22 23:59 DIRECTED PRN Sterile Water 0 ml 05/02/22 06:00 Water,Injection,Sterile 10 Ml Vial IJ 05/31/22 23:59 DIRECTED PRN PFSH Active Problems Active Problems: Problem Status Onset Code Cough R05.9 Degenerative arthritis of carpometacarpal joint of thumb M18.9 Abnormal mammogram of both breasts R92.8 Osteopenia M85.80 Hypertension I10 Obesity E66.9 Vitamin D deficiency E55.9 Depression with anxiety F41.8 Asthma, mild intermittent J45.20 Hyperlipidemia E78.5 GERD (gastroesophageal reflux disease) K21.9 Left carpal tunnel syndrome G56.02 Medical History Medical History Tobacco use Surgical History Surgical History H/O reduction mammoplasty H/O: hysterectomy History of section Tobacco Smoking/Tobacco Use Status: Former Tobacco Use Alcohol Alcohol Intake: current Alcohol intake frequency: holidays/special occasions only Substance Use Substance use: Never Substance use type: does not use Vital Signs and Lab Results Vital Signs Most Recent Vital Signs in EMR: Most Recent Vital Signs Temp Pulse Resp BP Pulse Ox 36.5 C 74 18 144/70 H 95 05/02/22 06:15 05/02/22 06:15 05/02/22 06:15 05/02/22 06:15 05/02/22 06:15 Lab Results Blood Type / Crossmatch: No Data to Display Complete Blood Count: White Blood Count 7.03 10^3/uL (4.4-10.8) 05/01/22 12:50 Red Blood Count 5.12 10^6/uL (3.93-5.22) 05/01/22 12:50 Hemoglobin 14.8 g/dL (11.2-15.7) 05/01/22 12:50 Hematocrit 44.2 % (36.0-46.0) 05/01/22 12:50 Platelet Count 192 10^3/uL (130-400) 05/01/22 12:50 Complete Metabolic Panel: Sodium 140 mmol/L (136-145) 04/25/22 09:40 Potassium 3.8 mmol/L (3.5-5.1) 04/25/22 09:40 Chloride 103 mmol/L (98-107) 04/25/22 09:40 Carbon Dioxide 28.4 mmol/L (21.0-32.0) 04/25/22 09:40 BUN 16 mg/dL (7-18) 04/25/22 09:40 Creatinine 0.7 mg/dL (0.55-1.02) 04/25/22 09:40 Est GFR (CKD-EPI 2020) 97.12 (mL/min/1.73m2) 04/25/22 09:40 Calcium 9.8 mg/dL (8.5-10.1) 04/25/22 09:40 Albumin 4.0 g/dL (3.4-5.0) 04/25/22 09:40 Glucose 87 mg/dL (74-106) 04/25/22 09:40 Liver Function Panel: Alanine Aminotransferase (ALT/SGPT) 22 U/L (14-59) 04/25/22 09: 40 Aspartate Amino Transf (AST/SGOT) 21 U/L (15-37) 04/25/22 09:40 Coagulation Panel: No Data to Display Cardiac Panel: No Data to Display Arterial Blood Gas: No Data to Display Venous Blood Gas: No Data to Display Pancreas Panel: No Data to Display Thyroid Panel: No Data to Display Infectious Disease: No Data to Display Blood Cultures: No Data to Display Toxicology Panel: No Data to Display Anesthesia Assessment and Plan Anesthesia History Personal History: No History of Anesthesia Complications Family History: No Family History of Anesthesia Complications Exercise Tolerance Exercise Tolerance: Metabolic Equivalents>4 Pertinent Negatives Pertinent Negatives: No Symptoms of GERD, No Major Cardiovascular Symptoms or Complaints, No Major Pulmonary Symptoms or Complaints and No History of CVA/TIA Cardiac & Pulmonary Exam Cardiac Exam: Normal S1/S2 Heart Sounds Pulmonary Exam: Clear Bilateral Breath Sounds Implantable Cardiac Device Does patient have a Pacemaker or an ICD?: No Airway Exam Known Difficult Airway: No Mallampati Class: 3 Mouth Opening: Normal (> 3cm) Thyromental Distance: Greater than 3 cm Neck Range of Motion: Full ROM Neck Circumference: Normal Teeth Condition: Generalized Poor Dentition (one missing) ASA Classification ASA Score: ASA 2 Emergency Case?: No NPO Status NPO Status: NPO Clears >2 hours, Solids >8 hours Anesthesia Plan Resuscitation Status: Full Code Anesthesia Technique: General Anesthesia Airway Planned: Natural Airway Monitors Used: Standard Monitors
--- NOTE | 2022-05-02 07:16 | HPE_ITS ---
Assessment and Plan Assessment and plan (1) Left carpal tunnel syndrome: Status: Acute Assessment and plan: Gina is a 62-year-old who has carpal tunnel syndrome on the left side. He has failed other conservative options and is here today for carpal tunnel release. Due to the persistence of symptoms and their daily limitations with normal function, I offered a carpal tunnel release. I discussed the technical details of carpal tunnel release and that I perform an endoscopic release, but would make a larger, open, incision if necessary for visualization. I discussed the risks of the procedure to include, but not limited to, bleeding, infection, palmar pain, stiffness, damage to nerves, damage to vessels, damage to tendons, weakness, recurrence, and incomplete release. Given these risks, Gina desires to proceed. History of Present Illness History of Present Illness Chief Complaint: Left Carpal Tunnel Narrative: Gina is a 62-year-old [id number] female who had seen previously for left thumb CMC arthroplasty. She also has some complaints of numbness and tingling of the left hand which were consistent with carpal tunnel. This was initially treated conservatively as she underwent left thumb CMC arthroplasty. However, unfortunately she continued to have numbness and tingling. If anything , the symptoms have worsened. Given the persistence, I recommend we proceed with carpal tunnel release. She is here today for that procedure. She denies any changes to her health profile. No new medical issues. She has tolerated her left thumb surgery well. Review of Systems All systems reviewed & are unremarkable except as noted in HPI and below PFSH All Active Problems Cough (Acute) Degenerative arthritis of carpometacarpal joint of thumb (Acute) status post left trapezial resection arthroplasty with suture suspensionplasty on 03/01/22. Injection: 07/04/2021 Abnormal mammogram of both breasts (Acute) Osteopenia (Acute) Hypertension (Chronic) Obesity (Chronic) Vitamin D deficiency (Acute) Depression with anxiety (Acute) Asthma, mild intermittent (Acute) Hyperlipidemia (Acute) GERD (gastroesophageal reflux disease) (Chronic) Left carpal tunnel syndrome (Acute) Medical History Tobacco use Surgical History H/O reduction mammoplasty H/O: hysterectomy History of section Social History Smoking/Tobacco Use Status: Former Tobacco Use Quit Date: 03/26/91 Smoking risk assessment performed?: Yes Alcohol Intake: current Alcohol Intake frequency: holidays/special occasions only Drug use: Never Substance use type: does not use Do you feel safe at home: Yes Do you feel safe in your relationship?: Yes Meds Allergies and Home Medications Allergies Allergy/AdvReac Type Severity Reaction Status Date / Time latex Allergy Mild Skin Rash Verified 05/02/22 06:26 steroids AdvReac Severe Other (See Uncoded 05/02/22 06:26 Comment) Home Medications Medication Instructions Recorded Confirmed Type hydrochlorothiazide 25 mg tablet 25 mg PO DAILY 06/07/12 05/02/22 History albuterol sulfate 90 mcg/actuation 2 puff inhalation Q6H PRN 05/25/21 05/01/22 History aerosol inhaler (ProAir HFA) losartan 100 mg tablet (Cozaar) 50 mg PO DAILY 05/25/21 05/02/22 History sertraline 25 mg tablet 25 mg PO DAILY 05/25/21 05/02/22 History acetaminophen 500 mg tablet 500 mg PO Q6H PRN pain #60 tabs 03/01/22 05/01/22 Rx ibuprofen 600 mg tablet 600 mg PO TID PRN pain #60 tabs 03/01/22 05/01/22 Rx hydrocodone 5 mg-acetaminophen 325 1 tab PO Q6H PRN pain #4 tabs 05/02/22 Rx mg tablet Exam Const General: cooperative, healthy appearing, comfortable and no acute distress Resp Auscultation: clear to auscultation bilaterally Cardio Rate: regular rate Rhythm: regular rhythm Results Last Vital Signs Temp 36.5 C 05/02/22 06:15 Pulse 74 05/02/22 06:15 Resp 18 05/02/22 06:15 BP 144/70 H 05/02/22 06:15 Pulse Ox 95 05/02/22 06:15
[2022-05-02] MEDS: ceFAZolin 2 GM/50 ML BAG IVPB (07:27)
[2022-05-02 07:29] VITALS: BMI 39.7
[2022-05-02] MEDS: Lidocaine 1% Pres-Free W/EPI 1/200,000 10 ML VIAL (07:34)
[2022-05-02 07:47] VITALS: BP 144/70; PULSE 74; RESP 18; TEMP 36.5; O2SAT 94
[2022-05-02 08:06] VITALS: BP 105/55; PULSE 66; RESP 16; TEMP 36.3; O2SAT 95
--- NOTE | 2022-05-02 10:39 | W.ANESPOSTOP ---
Postoperative Evaluation Date, Time and Location Date Performed: 05/02/22 Time Performed: 08:06 Patient Location: Day Surgery Unit Vital Signs Most Recent Imported Vital Signs: Most Recent Vital Signs Temp Pulse Resp BP Pulse Ox 36.3 C L 66 16 105/55 L 95 05/02/22 08:06 05/02/22 08:06 05/02/22 08:06 05/02/22 08:06 05/02/22 08:06 Assessment Mental Status: Awake (Alert & Oriented to Patient Baseline) Airway and Respiratory Function: Patent airway with normal (patient baseline) respiratory exam Cardiovascular Function: Hemodynamically Stable Hydration Status: Adequately Hydrated Nausea & Vomiting: No Nausea or Vomiting Pain: Pt. Denies Any Pain Peripheral Nerve Block: Patient did not receive a nerve block
--- NOTE | 2022-05-02 13:29 | ROE_ITS ---
Date of service: 05/02/22 Time of Service: 07:45 Operative Note Operative Note DATE OF PROCEDURE: 05/02/22 PRE-OP DIAGNOSIS: Left Carpal Tunnel Syndrome POST-OP DIAGNOSIS: same PROCEDURE: Left Endoscopic Carpal Tunnel Release SURGEON: Manuel Lyman ANESTHESIA TYPE: General:No Airway Refer to Anesthesia Record ESTIMATED BLOOD LOSS: 0 PATHOLOGY: none sent TOURNIQUET TIME: 4 COMPLICATIONS: None Patient was transported to: same day Patient's condition: stable Indications: I have seen Gina in clinic for symptoms of carpal tunnel syndrome. The numbness, tingling, and pain limited function. Clinical exam findings with nerve conduction tests confirmed the diagnosis of carpal tunnel syndrome. Nonoperative measures such as bracing, time, activity modifications had been tried but disability and pain persisted. I discussed carpal tunnel release with the patient. I reviewed the risks of the procedure to include, but not limited to, bleeding, infection, pain, stiffness, incomplete release, damage to nerves or vessels, persistent numbness, recurrence. Despite these risks, the patient elected to proceed. Findings: There was tightened carpal tunnel. This was dilated and released successfully with the endoscopic with increased space within the tunnel. The antebrachial fascia was released proximally freeing the median nerve at the wrist. Procedure Description: Gina was greeted in the preoperative holding area where the correct side was identified and marked. The consent was reviewed with the patient and signed. The history and physical was updated. All questions were answered. She was taken back to the operating room. The patient was placed into the supine position on the operating room table with the left arm on an arm board. A nonsterile tourniquet was placed high onto the arm. All bony prominences were well padded. Prophylactic antibiotics in the form of Cefazolin were administered. The left arm was then prepped with Chloraprep and draped in a standard fashion with stockinette and extremity drape. A timeout to confirm correct identity, side and site, procedure, allergies, anesthesia, and medical concerns was performed. The surgical site was marked in the volar wrist creases in line with the radial border of the fourth ray. This area was anesthetized with approximately 6cc of 1% Lidocaine. The limb was then exsanguinated with an Esmarch. The skin was incised with a 15 blade, approximately 1cm. The skin only was cut and the deeper tissue was dissected bluntly with a tenotomy scissor, avoiding passing nerve and venous structures. The fascia was penetrated and opened bluntly. A two-prong skin hook was placed under this proximal fascial edge. A series of hamate finders were used to identify and dilate the carpal tunnel. Synovial elevator was used to free synovial attachments to the underside of the transverse carpal ligament. My thumb was kept in the palm to eliseo the distal extent of the carpal tunnel and correctly position the hand. The [employer] endoscope was inserted without difficulty and without resistance. Excellent visualization showed horizontally running fibers of the transverse carpal ligament (TCL). The distal extent of the TCL was visualized and the end of the scope palpated with the thumb. The blade was elevated and withdrawn from distal to proximal. The TCL was split into two flaps. The endoscope was reinserted to confirm complete release and any remnant ligament was incised. The scope was withdrawn and the proximal aspect of the carpal tunnel was grossly inspected and appeared release with the median nerve visible. The antebrachial fascia at the level of the wrist was then freed from the overlying skin and then the underlying median nerve with blunt dissection. This was transected longitudinally for about 3cm proximal to the wrist incision. The wound was then irrigated with easy flow of irrigant distally and proximally. The incision was closed with a single 4-0 Nylon suture. The wound was dressed w ith Xeroform, Gauze, Kerlix and Clayton. The tourniquet was deflated with the initial dressing and held with some pressure. Blood flow returned easily to all digits with capillary refill less than 2 seconds. The patient tolerated the procedure well and was returned to the Same Day Surgery area in a stable condition suffering no known complication.
== END 2022-05-02 09:00 | disposition home or self-care (01) ==
PROVIDERS: PCP Nurse Practitioner Family; Visit Provider Student in an Organized Health Care Education/Training Program
PROC: 01N54ZZ Release Median Nerve, Percutaneous Endoscopic Approach (ICD-10-PCS; CPT 29848; principal; 2022-05-02 07:30)
DX: G56.02 Carpal tunnel syndrome, left upper limb (principal)
CPT/HCPCS: 29848; J0690; J2250

== ENCOUNTER 2022-06-04 08:05 | Emergency (ER) | payer OTHER, SELFPAY ==
[2022-06-04 08:09] VITALS: BP 148/99; PULSE 85; RESP 25; TEMP 37; O2SAT 93
--- NOTE | 2022-06-04 08:56 | ED.GENADUL_ITS ---
Discharge Plan Disposition Patient Disposition: Home Condition: Stable Discharge Details Clinical Impression: Acute asthma exacerbation, Bronchitis, Otitis media Primary Care Provider: Qian Alejandra ED Provider: Solo Cavazos Home Meds and New Rx's Prescriptions: New doxycycline hyclate 100 mg tablet 100 mg PO BID Qty: 20 0RF Continued sertraline 25 mg tablet 25 mg PO DAILY albuterol sulfate [ProAir HFA] 90 mcg/actuation HFA aerosol inhaler 2 puff inhalation Q6H PRN losartan [Cozaar] 100 mg tablet 50 mg PO DAILY hydrochlorothiazide 25 MG tablet 25 mg PO DAILY acetaminophen 500 mg tablet 500 mg PO Q6H PRN (Reason: pain) Qty: 60 2RF ibuprofen 600 mg tablet 600 mg PO TID PRN (Reason: pain) Qty: 60 0RF fluticasone propionate [Flovent HFA] 44 mcg/actuation HFA aerosol inhaler 2 puff INHALATION BID Patient Comments: INHALE TWO PUFFS BY MOUTH TWICE A DAY Discharge Instructions Instructions: Asthma (ED), Ear Infection (ED), Acute Bronchitis (ED) Additional Instructions: Please drink plenty of fluid to stay hydrated. Allow for plenty of rest. Use your inhaler as prescribed 2 puffs every 4 hours. Be sure to use spacer with this device. Please contact your primary care physician to arrange follow-up. Return to the ER immediately for any worsening or new concerning symptoms. Stand Alone Forms: Work Release Referrals: Qian Alejandra [Primary Care Provider] - Medical Decision Making 62-year-old female with history of intermittent asthma, here with cough for the past 4 days, left greater than right earache, subjective fever and wheezing refractory to albuterol inhaler. Concern for acute asthma exacerbation with acute bronchitis. Plan to treat with DuoNeb and reassess. Patient has allergy to prednisone. I will cover for potential early bacterial infection given your findings with doxycycline. Chest x-ray was reviewed and interpreted by me: No acute process. Patient given initial neb treatment and wheeze significantly improved. She continues to have pulse ox in the low 90s. A second neb was given and she remained stable. Patient saturating 93% on room air with no respiratory distress. Plan for discharge with close outpatient follow-up. Disposition decision was made weighing the risks and benefits of hospitalization versus outpatient treatment, the risk for further decompensation, and the patient's wishes. The patient was stable and requested discharge. Prior to discharge, my usual and customary return precautions were reviewed with the patient - this included follow-up instructions and reason to return to the emergency department if condition worsens, does not improve as expected, or other new concerns arise. HPI General Date/Time Provider Initiated Documentation: 06/04/22 08:23 . Limitations to Documentation: no limitations . Information obtained by: patient . HPI Narrative: 62-year-old female with history of asthma, here with chief complaint of cough. Patient notes cough for the past 4 days. Cough seems croupy. She has asso ciated wheezing. She has been using her albuterol inhaler intermittently. She does not have a spacer. She notes associated subjective fever. She also notes earache left greater than right. No chest pain. No swelling. Related Data Home Medications Medication Instructions Recorded Confirmed hydrochlorothiazide 25 mg tablet 25 mg PO DAILY 06/07/12 06/04/22 albuterol sulfate 90 mcg/actuation 2 puff inhalation Q6H PRN 05/25/21 06/04/22 aerosol inhaler (ProAir HFA) losartan 100 mg tablet (Cozaar) 50 mg PO DAILY 05/25/21 06/04/22 sertraline 25 mg tablet 25 mg PO DAILY 05/25/21 06/04/22 acetaminophen 500 mg tablet 500 mg PO Q6H PRN pain #60 tabs 03/01/22 06/04/22 ibuprofen 600 mg tablet 600 mg PO TID PRN pain #60 tabs 03/01/22 06/04/22 doxycycline hyclate 100 mg tablet 100 mg PO BID #20 tabs 06/04/22 fluticasone propionate 44 2 puff inhalation BID 06/04/22 06/04/22 mcg/actuation HFA aerosol inhaler (Flovent HFA) Previous Rx's Medication Instructions Recorded acetaminophen 500 mg tablet 500 mg PO Q6H PRN pain #60 tabs 03/01/22 ibuprofen 600 mg tablet 600 mg PO TID PRN pain #60 tabs 03/01/22 doxycycline hyclate 100 mg tablet 100 mg PO BID #20 tabs 06/04/22 Allergies Allergy/AdvReac Type Severity Reaction Status Date / Time latex Allergy Mild Skin Rash Verified 06/04/22 08:13 steroids AdvReac Severe Other (See Uncoded 06/04/22 08:13 Comment) General Stated Complaint: RespSymp SARITA: 3 Review of Systems Constitutional Constitutional: Reports as per HPI and Reports fever(s) Respiratory Respiratory: Reports as per HPI PFSH All Active Problems Acute asthma exacerbation (Acute) Bronchitis (Acute) Otitis media (Acute) Degenerative arthritis of carpometacarpal joint of thumb (Acute) status post left trapezial resection arthroplasty with suture suspensionplasty on 03/01/22. Injection: 07/04/2021 Abnormal mammogram of both breasts (Acute) Osteopenia (Acute) Hypertension (Chronic) Obesity (Chronic) Vitamin D deficiency (Acute) Depression with anxiety (Acute) Asthma, mild intermittent (Acute) Hyperlipidemia (Acute) GERD (gastroesophageal reflux disease) (Chronic) Left carpal tunnel syndrome (Acute) S/P ECTR: 05/02/2022 Medical History Tobacco use Surgical History H/O reduction mammoplasty H/O: hysterectomy History of section Social History Smoking/Tobacco Use Status: Former Tobacco Use Quit Date: 03/26/91 Smoking risk assessment performed?: Yes Alcohol Intake: current Alcohol Intake frequency: holidays/special occasions only Drug use: Never Substance use type: does not use Do you feel safe at home: Yes Do you feel safe in your relationship?: Yes Exam Const General: cooperative and no acute distress HENMT Mouth: moist mucous membranes Eyes Conjunctivae: normal conjunctivae Sclera: normal sclerae Neck Neck: trachea midline and supple Resp Effort & Inspection: cough, not labored and not tachypneic Auscultation: no rales, no rhonchi and wheezes expiratory wheezes Cardio Rate: regular rate and not tachycardic Rhythm: regular rhythm Skin General skin exam: no rashes or lesions noted Neuro General: patient alert, patient awake and tone normal Extrem General: no calf tenderness bilaterally and no edema Course Vital Signs Vital signs: Vital Signs Temperature 37.0 C 06/04/22 08:09 Pulse 85 06/04/22 08:09 Respiratory Rate 25 H 06/04/22 08:09 Blood Pressure 148/99 H 06/04/22 08:09 Pulse Oximetry 93 06/04/22 08:09 Temperature 37.0 C 06/04/22 08:09 Temperature Source Oral 06/04/22 08:09 Pulse 85 06/04/22 08:09 Respiratory Rate 25 H 06/04/22 08:09 Respiratory Effort Normal 06/04/22 08:12 Blood Pressure 148/99 H 06/04/22 08:09 Blood Pressure Position Sitting 06/04/22 08:09 Pulse Oximetry 93 06/04/22 08:09 Oxygen Delivery Method Room Air 06/04/22 08:09 Oxygen Flow Rate 0 06/04/22 08:09 Pain Level 2 06/04/22 08:09
[2022-06-04] MEDS: Albuterol/Ipratropium 3 ML UPD VIAL UPD ×2 (09:03→10:27)
[2022-06-04 09:08] LABS: Source Nasal/Nares
[2022-06-04 09:41] LABS: COVID-19 PCR Negative (Negative)
--- NOTE | 2022-06-04 10:00 | DI.RAD_ITS ---
Exam(s) XR CHEST 2V PA LATERAL EXAM: XR CHEST 2V PA LATERAL CLINICAL HISTORY: cough TECHNIQUE: 2D digital imaging was performed. COMPARISON: CR XR PORTABLE CHEST AP from 04/07/2022 FINDINGS: HEART: Normal size. Aorta: Not dilated. PULMONARY VASCULATURE: Normal. LUNGS: Minimal scarring left lung base, clear. PLEURAL SPACE: No pleural effusion or pneumothorax. BONE:Unremarkable for age. IMPRESSION: No acute abnormality. DATA REPOSITORY: RADIATION DOSE DELIVERED:
--- NOTE | 2022-06-04 10:11 | DI.VRAD_ITS ---
PROCEDURE INFORMATION: Exam: XR Chest Exam date and time: 06/04/2022 9:54 AM Age: 62 years old Clinical indication: Cough TECHNIQUE: Imaging protocol: Radiologic exam of the chest. Views: 2 views. COMPARISON: CR XR PORTABLE CHEST AP 04/07/2022 11:34 AM FINDINGS: Lungs: Unremarkable. No consolidation. Pleural spaces: Unremarkable. No pleural effusion. No pneumothorax. Heart/Mediastinum: Unremarkable. No cardiomegaly. Bones/joints: Unremarkable. IMPRESSION: No acute findings. Dictated and Authenticated by: Rhys Posada MD. Ordering:MARIA R Banda MD
[2022-06-04] MEDS: Doxycycline Hyclate 100 MG CAP PO (10:27)
[2022-06-04 11:38] VITALS: BP 138/71; PULSE 88; RESP 16; O2SAT 95
== END 2022-06-04 11:42 | disposition home or self-care (01) ==
PROVIDERS: Emergency Provider Student in an Organized Health Care Education/Training Program; PCP Nurse Practitioner Family
DX: J45.901 Unspecified asthma with (acute) exacerbation (principal); H66.93 Otitis media, unspecified, bilateral; Z20.822 Contact with and (suspected) exposure to COVID-19
CPT/HCPCS: 87635; 94640; 99283; 71046; J7620

== ENCOUNTER 2022-06-07 17:46 | Emergency (ER) | payer OTHER, SELFPAY ==
[2022-06-07 17:58] VITALS: BP 157/74; PULSE 77; RESP 20; TEMP 36.8; O2SAT 96
--- NOTE | 2022-06-07 18:15 | DI.RAD_ITS ---
Exam(s) XR CHEST 2V PA LATERAL EXAM: XR CHEST 2V PA LATERAL CLINICAL HISTORY: cough, persistent TECHNIQUE: 2D digital imaging was performed. COMPARISON: CR,XR XR CHEST 2V PA LATERAL from 06/04/2022 FINDINGS: HEART: Normal size. Aorta: Not dilated. PULMONARY VASCULATURE: Normal. LUNGS: Minimal linear scarring at the left lung base as seen on prior. Lungs are other clear. PLEURAL SPACE: No pleural effusion or pneumothorax. BONE:Unremarkable for age. IMPRESSION: No acute abnormality. DATA REPOSITORY: RADIATION DOSE DELIVERED:
[2022-06-07] MEDS: Dexamethasone 4 MG/ML VIAL PO (18:39)
[2022-06-07] MEDS: Benzonatate 100 MG CAP 200 MG PO (18:40)
[2022-06-07] MEDS: Albuterol/Ipratropium 3 ML UPD VIAL 6 ML UPD (19:44)
--- NOTE | 2022-06-07 19:56 | DI.VRAD_ITS ---
PROCEDURE INFORMATION: Exam: XR Chest Exam date and time: 06/07/2022 7:32 PM Age: 62 years old Clinical indication: Cough; Additional info: Cough, persistent TECHNIQUE: Imaging protocol: Radiologic exam of the chest. Views: 2 views. COMPARISON: CR XR CHEST 2V PA LATERAL 06/04/2022 9:54 AM FINDINGS: Lungs: Unremarkable. No consolidation. Pleural spaces: Unremarkable. No pleural effusion. No pneumothorax. Heart/Mediastinum: Unremarkable. No cardiomegaly. Bones/joints: Unremarkable. IMPRESSION: No acute findings. Dictated and Authenticated by: Denys Walker MD. Ordering:YENIFER Chawla MD
[2022-06-07 20:33] VITALS: BP 149/61; PULSE 78; RESP 20; TEMP 36.6; O2SAT 93
--- NOTE | 2022-06-07 20:42 | ED.GENADUL_ITS ---
Discharge Plan Disposition Patient Disposition: Home Discharge Details Clinical Impression: Bronchitis, Asthma exacerbation Primary Care Provider: Qian Alejandra ED Provider: Cammy Rodrigues Home Meds and New Rx's Prescriptions: New dexamethasone 4 mg tablet 4 mg PO DAILY Qty: 3 0RF Continued sertraline 25 mg tablet 25 mg PO DAILY albuterol sulfate [ProAir HFA] 90 mcg/actuation HFA aerosol inhaler 2 puff inhalation Q6H PRN losartan [Cozaar] 100 mg tablet 50 mg PO DAILY hydrochlorothiazide 25 MG tablet 25 mg PO DAILY acetaminophen 500 mg tablet 500 mg PO Q6H PRN (Reason: pain) Qty: 60 2RF ibuprofen 600 mg tablet 600 mg PO TID PRN (Reason: pain) Qty: 60 0RF fluticasone propionate [Flovent HFA] 44 mcg/actuation HFA aerosol inhaler 2 puff INHALATION BID Patient Comments: INHALE TWO PUFFS BY MOUTH TWICE A DAY azithromycin 250 mg tablet 250 mg PO DAILY Patient Comments: TAKE TWO TABLETS BY MOUTH AT ONCE ON THE FIRST DAY THEN TAKE ONE DAILY THEREAFTER Discharge Instructions Instructions: Asthma (ED), Acute Bronchitis (ED) Additional Instructions: Use the Combivent inhaler 1 puff every 6 hours with spacer Stop using the albuterol inhaler Stop using the Flovent inhaler while you are on steroids, use the steroid once daily, you received a dose today, your next dose will be tomorrow I gave you a tablet of Ativan, you may take half a tablet as needed for anxiety if you feel jittery with the prednisone, I think this will help your symptoms Use a humidifier in your room at night, you may take some Mucinex [id number] for sputum production You may drink hot tea herbal tea at night with honey and lemon, I recommend having several cups of tea daily as this will help with the mucus production, drink at least eight 8 ounce glasses of water daily Please return earlier should you have new or worsening complaints Stand Alone Forms: Work Release Referrals: Qian Alejandra [Primary Care Provider] - Discharge Data Discharge Date/Time-TO BE ENTERED AT DEPARTURE: 06/07/22 21:18 Medical Decision Making This 62-year-old female presents for reassessment for cough, wheeze, shortness of breath Denies any dramatic change in symptoms, specifically states her symptoms have not improved and would like reassessment She states that she has been using her Flovent and albuterol as prescribed, she states she is unable to take prednisone as it makes her jittery She denies any current nausea, vomiting, or diarrhea. While this patient is a return visit, she is quite stable, her oxygenation is between 93 and 97% even with ambulation She is in no acute respiratory distress I considered pulmonary embolism, but she has no pleuritic chest pain and no hypoxia, no tachycardia, and no tachypnea, my suspicion for PE is low I did repeat chest x-ray to evaluate for pneumonia, this chest x-ray per radiology interpretation and my review does not show evidence of acute abnormal ity Patient received 2 DuoNeb treatments, Decadron, we discussed the risk of jitteriness with Decadron as it is a steroid, however she is willing to give this a try and I think the benefit outweighs the risk with her persistence of symptoms I will place her on 4 mg for the next several days She will continue on her azithromycin She will need recheck in 24 to 48 hours and return precautions reviewed and patient expressed understanding Low suspicion clinically for cardiac etiology of patient's complaints, she is declining having any current chest discomfort Medical Records Medical records reviewed: Yes I reviewed the patient's medical records. Lab Data Lab results reviewed: Yes I reviewed the patient's lab results. HPI General Date/Time Provider Initiated Documentation: 06/07/22 17:47 . HPI Narrative: This 62-year-old female presents with report of upper respiratory symptoms for which she was evaluated on Sunday. She received antibiotics, doxycycline for suspected bronchitis. She denies any improvement in symptoms. She actually had worsening symptoms initially secondary to nausea and vomiting which is likely induced by the doxycycline for patient. She was changed to azithromycin by her doctor. She presents tonight secondary to persistent cough and some shortness of breath. She adamantly denies any chest pain, calf pain, recent flights, surgeries, long drives. Related Data Home Medications Medication Instructions Recorded Confirmed hydrochlorothiazide 25 mg tablet 25 mg PO DAILY 06/07/12 06/07/22 albuterol sulfate 90 mcg/actuation 2 puff inhalation Q6H PRN 05/25/21 06/07/22 aerosol inhaler (ProAir HFA) losartan 100 mg tablet (Cozaar) 50 mg PO DAILY 05/25/21 06/07/22 sertraline 25 mg tablet 25 mg PO DAILY 05/25/21 06/07/22 acetaminophen 500 mg tablet 500 mg PO Q6H PRN pain #60 tabs 03/01/22 06/07/22 ibuprofen 600 mg tablet 600 mg PO TID PRN pain #60 tabs 03/01/22 06/07/22 fluticasone propionate 44 2 puff inhalation BID 06/04/22 06/07/22 mcg/actuation HFA aerosol inhaler (Flovent HFA) azithromycin 250 mg tablet 250 mg PO DAILY 06/07/22 06/07/22 dexamethasone 4 mg tablet 4 mg PO DAILY #3 tabs 06/07/22 Previous Rx's Medication Instructions Recorded acetaminophen 500 mg tablet 500 mg PO Q6H PRN pain #60 tabs 03/01/22 ibuprofen 600 mg tablet 600 mg PO TID PRN pain #60 tabs 03/01/22 dexamethasone 4 mg tablet 4 mg PO DAILY #3 tabs 06/07/22 Allergies Allergy/AdvReac Type Severity Reaction Status Date / Time latex Allergy Mild Skin Rash Verified 06/07/22 18:03 steroids AdvReac Severe Other (See Uncoded 06/07/22 18:03 Comment) General Stated Complaint: RespSymp SARITA: 3 PFSH All Active Problems Acute asthma exacerbation (Acute) Bronchitis (Acute) Otitis media (Acute) Bronchitis (Acute) Asthma exacerbation (Acute) Degenerative arthritis of carpometacarpal joint of thumb (Acute) status post left trapezial resection arthroplasty with suture suspensionplasty on 03/01/22. Injection: 07/04/2021 Abnormal mammogram of both breasts (Acute) Osteopenia (Acute) Hypertension (Chronic) Obesity (Chronic) Vitamin D deficiency (Acute) Depression with anxiety (Acute) Asthma, mild intermittent (Acute) Hyperlipidemia (Acute) GERD (gastroesophageal reflux disease) (Chronic) Left carpal tunnel syndrome (Acute) S/P ECTR: 05/02/2022 Medical History Tobacco use Surgical History H/O reduction mammoplasty H/O: hysterectomy History of section Social History Smoking/Tobacco Use Status: Former Tobacco Use Quit Date: 03/26/91 Smoking risk assessment performed?: Yes Alcohol Intake: current Alcohol Intake frequency: holidays/special occasions only Drug use: Never Substance use type: does not use Do you feel safe at home: Yes Do you feel safe in your relationship?: Yes Exam Const General: cooperative, comfortable and no acute distress Orientation: alert and oriented x3 Resp Effort & Inspection: normal respiratory effort and able to speak in complete sentences Auscultation: wheezes Cardio Rate: regular rate Rhythm: regular rhythm Heart Sounds: no murmurs Skin General skin exam: no rashes or lesions noted Neuro General: patient alert and patient oriented x3 Extrem Other: No calf swelling or tenderness, distal pulses intact Course Vital Signs Vital signs: Vital Signs Temperature 36.8 C 06/07/22 17:58 Pulse 77 06/07/22 17:58 Respiratory Rate 20 06/07/22 17:58 Blood Pressure 157/74 H 06/07/22 17:58 Pulse Oximetry 96 06/07/22 17:58 Temperature 36.6 C 06/07/22 20:33 Temperature Source Oral 06/07/22 20:33 Pulse 78 06/07/22 20:33 Respiratory Rate 20 06/07/22 20:33 Respiratory Effort Normal 06/07/22 18:09 Respiratory Depth Normal 06/07/22 18:09 Blood Pressure 149/61 H 06/07/22 20:33 Blood Pressure Position Sitting 06/07/22 17:58 Pulse Oximetry 93 06/07/22 20:33 Oxygen Delivery Method Room Air 06/07/22 20:33 Oxygen Flow Rate 0 06/07/22 20:33 Pain Level 0 06/07/22 20:33
[2022-06-07] MEDS: Ipratropium/Albuterol 4 GM 120 PUFF INH IH (21:01)
[2022-06-07] MEDS: LORazepam 1 MG TAB PO (21:01)
== END 2022-06-07 21:18 | disposition home or self-care (01) ==
PROVIDERS: Emergency Provider Physician Assistant; PCP Nurse Practitioner Family
DX: J45.901 Unspecified asthma with (acute) exacerbation (principal); Z79.51 Long term (current) use of inhaled steroids; Z87.891 Personal history of nicotine dependence
CPT/HCPCS: 94640; 96374; 99284; 71046; J1100; J3490; J7620

== ENCOUNTER 2022-06-19 13:06 | Outpatient (CLI) | payer OTHER, SELFPAY ==
[2022-06-19] MEDS: Albuterol HFA 18 GM 200 PUFF INH IH (16:30)
[2022-06-19] MEDS: Inhaler, Assist Device 1 EACH MC (16:31)
--- NOTE | 2022-06-20 09:13 | W.PFT ---
Date of service: 06/19/22 Time of Service: 13:09 Pulmonary Function Test Result Requesting Provider Qian Alejandra Indications: Asthma Interpretation Spirometry: There is moderate airflow limitation. There is no significant bronchodilator response. Lung Volumes: Normal lung volumes. Diffusion Capacity: Normal diffusion. Airway Pressure: Normal airways resistance Impression Moderate airflow obstruction with normal diffusion. This may represent COPD (chronic bronchitis) or poorly controlled asthma. Note: When compared to 07/19/2010, lung function has declined, even when accounting for aging. Clinical Correlation therefore is recommended.
== END 2022-06-19 13:07 | disposition home or self-care (01) ==
PROVIDERS: PCP Nurse Practitioner Family; Visit Provider Nurse Practitioner Family
DX: J45.20 Mild intermittent asthma, uncomplicated (principal)
CPT/HCPCS: 94060; 94726; 94729

== ENCOUNTER 2023-08-03 21:01 | Outpatient (REF) | payer OTHER, SELFPAY ==
[2023-08-03 21:24] LABS: Bacteria Rare HPF (Negative); C & S Indicated? C&S Done As Ordered; Casts Negative LPF (Negative); Crystals Negative HPF (Negative); Epithelial Cells Rare HPF (Negative); Mucus Trace (Negative); RBC Negative HPF (0-2); WBC 0-2 HPF (0-5)
== END 2023-08-03 21:02 | disposition home or self-care (01) ==
LOC: LBN 21:01
PROVIDERS: PCP Nurse Practitioner Family; Visit Provider Physician Assistant Medical
DX: R30.0 Dysuria (principal); R82.89 Other abnormal findings on cytological and histological examination of urine
CPT/HCPCS: 81015; 87086

== ENCOUNTER 2023-08-22 21:40 | Outpatient (REF) | payer OTHER, SELFPAY ==
[2023-08-22 22:33] LABS: Epithelial Cells Few HPF (Negative); Other Cells Rare Transitional (Negative); RBC Negative HPF (0-2)
[2023-08-22 22:34] LABS: Bacteria Rare HPF (Negative); C & S Indicated? C&S Done As Ordered; Casts Negative LPF (Negative); Crystals Negative HPF (Negative); Mucus Negative (Negative)
== END 2023-08-22 21:41 | disposition home or self-care (01) ==
LOC: NCHCN 21:40
PROVIDERS: PCP Nurse Practitioner Family; Visit Provider Physician Assistant Medical
DX: R35.0 Frequency of micturition (principal)
CPT/HCPCS: 81015; 87086

== ENCOUNTER 2023-11-12 12:44 | Emergency (ER) | payer OTHER, SELFPAY ==
[2023-11-12 12:59] VITALS: BP 154/78; PULSE 73; RESP 14; TEMP 36.6; O2SAT 95
--- NOTE | 2023-11-12 13:19 | ED.GENADUL_ITS ---
Discharge Plan Disposition Patient Disposition: Home Discharge Details Clinical Impression: Cordoba cyst Primary Care Provider: Qian Alejandra ED Provider: Jocelyn Maldonado Home Meds and New Rx's Prescriptions: Continued sertraline 25 mg tablet 25 mg PO DAILY albuterol sulfate [ProAir HFA] 90 mcg/actuation HFA aerosol inhaler 2 puff inhalation Q6H PRN losartan [Cozaar] 100 mg tablet 50 mg PO DAILY hydrochlorothiazide 25 MG tablet 25 mg PO DAILY acetaminophen 500 mg tablet 500 mg PO Q6H PRN (Reason: pain) Qty: 60 2RF ibuprofen 600 mg tablet 600 mg PO TID PRN (Reason: pain) Qty: 60 0RF fluticasone propionate [Flovent HFA] 44 mcg/actuation HFA aerosol inhaler 2 puff INHALATION BID Patient Comments: INHALE TWO PUFFS BY MOUTH TWICE A DAY azithromycin 250 mg tablet 250 mg PO DAILY Patient Comments: TAKE TWO TABLETS BY MOUTH AT ONCE ON THE FIRST DAY THEN TAKE ONE DAILY THEREAFTER Discharge Instructions Instructions: Cordoba's Cyst (DC) Additional Instructions: Please call your primary care provider for reassessment if you do not feel significantly better in 1 to 2 weeks. I recommend that you use ibuprofen 400 mg 2-3 times a day as needed for discomfort. Ice packs for 20 minuts at a time, rest, and knee support with an JESUS bandage may be helpful. Return to emergency care if developing new weakness or coolness/color change in your foot, difficulty extending your leg or bending your leg, fevers associated with knee pain, redness and swelling all over your knee, or if you are very worried and need to be rechecked in 1 week Stand Alone Forms: Work Release HPI General Date/Time Provider Initiated Documentation: 11/12/23 12:58 . HPI Narrative: Gina is a 63-year-old female presents to the emergency department today for evaluation of left lower leg pain. She reports this started a couple weeks ago, has been on and off but described as a feeling like a toothache. Today she noticed that her calf appeared bit swollen. She spends a lot of time standing up and squatting down at work. No known trauma or previous history of pain like this. She denies associated fever/chills, chest pain, shortness of breath, dizziness, distal numbness/tingling, change. No history of blood clots, hormone use, recent surgery/immobility, malignancy. Physical exam reassuring. Patient is alert and oriented, no acute distress. Left calf circumference 41 cm versus 40 cm on the right. No obvious warmth or redness. Mild tenderness with palpation of calf, significant swelling and discomfort behind the knee in the popliteal fossa. Normal gait. Sensation intact to foot, distal pulses intact. DDx includes but is not limited to DVT, Cordoba's cyst, muscle strain Ultrasound performed ; cordoba's cyst noted. No red flags concerning for neurovascular compromise. Discussed findings with patient, including follow-up with PCP, symptomatic management, and red flags indicate need for return to emergency care. She voices agreement with plan of care, will follow-up with PCP as needed. Related Data Home Medications ?Medication ?Instructions ?Recorded ?Confirmed hydrochlorothiazide 25 mg tablet 25 mg PO DAILY 06/07/12 09/18/22 albuterol sulfate 90 mcg/actuation 2 puff inhalation Q6H PRN 05/25/21 09/18/22 aerosol inhaler (ProAir HFA) losartan 100 mg tablet (Cozaar) 50 mg PO DAILY 05/25/21 09/18/22 sertraline 25 mg tablet 25 mg PO DAILY 05/25/21 09/18/22 acetaminophen 500 mg tablet 500 mg PO Q6H PRN pain #60 tabs 03/01/22 09/18/22 ibuprofen 600 mg tablet 600 mg PO TID PRN pain #60 tabs 03/01/22 09/18/22 fluticasone propionate 44 2 puff inhalation BID 06/04/22 09/18/22 mcg/actuation HFA aerosol inhaler (Flovent HFA) azithromycin 250 mg tablet 250 mg PO DAILY 06/07/22 09/18/22 Previous Rx's ?Medication ?Instructions ?Recorded acetaminophen 500 mg tablet 500 mg PO Q6H PRN pain #60 tabs 03/01/22 ibuprofen 600 mg tablet 600 mg PO TID PRN pain #60 tabs 03/01/22 Allergies Allergy/AdvReac Type Severity Reaction Status Date / Time latex Allergy Mild Skin Rash Verified 06/19/22 08:28 steroids AdvReac Severe Other (See Uncoded 06/19/22 08:28 Comment) General Stated Complaint: Vascular SARITA: 3 Review of Systems Narrative: see HPI Exam Const General: cooperative, healthy appearing, comfortable, no acute distress and well developed Nutritional Appearance: average body habitus Resp Effort & Inspection: normal respiratory effort and able to speak in complete sentences Skin General skin exam: no rashes or lesions noted Neuro Gait: normal gait Motor: muscle tone normal throughout Sensory Exam: no sensory deficits noted Extrem General: normal to inspection, full ROM, no pedal edema and normal gait Left lower extremity: knee Details: swelling Location: of the popliteal fossa and lower leg Details: tenderness; no erythema, no localized swelling, no palpable cords, no ecchymosis, no crepitus, no deformity and no unusual warmth Course Vital Signs Vital signs: Vital Signs Temperature 36.6 C 11/12/23 12:59 Pulse 73 11/12/23 12:59 Respiratory Rate 14 11/12/23 12:59 Blood Pressure 154/78 H 11/12/23 12:59 Pulse Oximetry 95 11/12/23 12:59 Temperature 36.6 C 11/12/23 12:59 Temperature Source Oral 11/12/23 12:59 Pulse 73 11/12/23 12:59 Respiratory Rate 14 11/12/23 12:59 Blood Pressure 154/78 H 11/12/23 12:59 Blood Pressure Position Sitting 11/12/23 12:59 Pulse Oximetry 95 11/12/23 12:59 Oxygen Delivery Method Room Air 11/12/23 12:59 Oxygen Flow Rate 0 11/12/23 12:59 Pain Level 8 11/12/23 12:59 Medical Decision Making Imaging Data Radiologic Study: Radiologist's impression: Exam(s) US LOWER EXTREMITY VENOUS LT EXAM: US LOWER EXTREMITY VENOUS LT CLINICAL HISTORY: DVT vs bakers cyst, swelling to L calf x 2 weeks. TECHNIQUE: Lower extremity venous ultrasound performed using grayscale, color- flow, and spectral Doppler analysis. COMPARISON: No exams were available for comparison FINDINGS: The common femoral, femoral and popliteal veins demonstrate normal compressibility, augmentation, and color Doppler. The posterior tibial veins are patent. No saphenous vein thrombosis or other superficial venous thrombosis is seen. Cordoba's cyst measuring 2.7 x 1.6 x 1.5 centimeter. IMPRESSION: Cordoba cyst. No evidence of DVT. Quality:SDOH Health Related Social Needs: No Data to Display PFSH All Active Problems (Updated 11/12/23 @ 14:46 by Jocelyn Fleming Cordoba cyst (Acute) Abnormal mammogram of both breasts (Acute) Osteopenia (Acute) Hypertension (Chronic) Obesity (Chronic) Vitamin D deficiency (Acute) Depression with anxiety (Acute) Asthma, mild intermittent (Acute) Hyperlipidemia (Acute) GERD (gastroesophageal reflux disease) (Chronic) Medical History Tobacco use Surgical History (Updated 09/18/22 @ 20:04 by RAQUEL Wick) History of section Left carpal tunnel syndrome S/P ECTR: 05/02/2022 Degenerative arthritis of carpometacarpal joint of thumb status post left trapezial resection arthroplasty with suture suspensionplasty on 03/01/22. Injection: 07/04/2021 H/O reduction mammoplasty H/O: hysterectomy Social History Smoking/Tobacco Use Status: Former Tobacco Use Quit Date: 03/26/91 Smoking risk assessment performed?: Yes Alcohol Intake: current Alcohol Intake frequency: holidays/special occasions only Drug use: Never Substance use type: does not use Do you feel safe at home: Yes Do you feel safe in your relationship?: Yes
--- NOTE | 2023-11-12 13:30 | DI.US_ITS ---
Exam(s) US LOWER EXTREMITY VENOUS LT EXAM: US LOWER EXTREMITY VENOUS LT CLINICAL HISTORY: DVT vs bakers cyst, swelling to L calf x 2 weeks. TECHNIQUE: Lower extremity venous ultrasound performed using grayscale, color-flow, and spectral Do ppler analysis. COMPARISON: No exams were available for comparison FINDINGS: The common femoral, femoral and popliteal veins demonstrate normal compressibility, augmentation, and color Doppler. The posterior tibial veins are patent. No saphenous vein thrombosis or other superfi cial venous thrombosis is seen. Cordoba's cyst measuring 2.7 x 1.6 x 1.5 centimeter. IMPRESSION: Cordoba cyst. No evidence of DVT. DATA REPOSITORY:
--- OUTSIDE RECORDS SUMMARY | 2023-11-12 14:58 | XMS_ITS | Encounter Summary ---
Author Organization [facility] Address [address] [place] [address] Care Team Providers Care Nurse Case Manager Name Role Phone NoblesAmara benavides [place] Primary Care Provider [phone] Encounter Details Date Type Department Care Team (Late st Contact Info) Description 06/09/2021 Lab Requisition [facility] Pathology & Laboratory Medicine - [facility] [address] [place] [address] Outr Resulting Lab, Provider Social History Tobacco Use Types Packs/Day Years Used Date Smoking Tobacco: Never Assessed Sex and Gender Information Value Date Recorded Sex Assigned at Not on file Gender Identity Not on file Sexual Orientation Not on file documented as of this encounter Plan of Treatment Not on file documented as of this encounter Procedures Procedure Name Priority Date/Time Associated Diagnosis Comments [facility]OVID[facility]19 TEST [facility] Today 06/08/2021 11:30 EDT COVID-19 TESTING Routine 06/08/2021 11:3 0 EDT documented in this encounter Results * COVID-19 TEST [facility] PCR (06/08/2021 11:30 EDT) Swab 06/08/2021 11:3 0 EDT 06/09/2021 21:38 EDT Provider Outr Resulting Lab MICROBIOLOGY - GENERAL ORDERABLES [facility] [address] [place] [address] * COVID-19 TESTING (06/08/2021 11:30 EDT) COVID-19 rt-PCR Result Negative Negative 06/10/2021 15:51 EDT [facility] Comment: This test has not been FDA cleared or approved. This test has been authorized by FDA under an EUA for use by authorized laboratories. This test has been authorized only for detection of nucleic acid from 2019-nCoV, not for any other viruses or pathogens. This test is only authorized for the duration of the declaration that circumstances exist justifying the authorization of emergency use of in vitro diagnostic tests for detection and/or diagnosis of 2019-nCoV under section 564(b)(1) of Act, 21 U.S.C ?? 360bbb-3(b) (1), unless the authorization is terminated or revoked sooner. Negative results do not preclude 2019-nCoV infection and should not be used as the sole basis for treatment or other patient management decisions. Negative results must be combined with clinical observations, patient history, and epidemiological information. Testing was performed using the maria eugenia SARS-CoV-2 assay ([employer] on the Maria Eugenia 6800 System Performing Lab Maria Eugenia [address] [facility] Lab 06/10/2021 15:51 EDT [facility] Swab 06/08/2021 11:3 0 EDT 06/09/2021 21:38 EDT Provider Outr Resulting Lab MICROBIOLOGY - GENERAL ORDERABLES [facility] [address] [place] [address] documented in this encounter Visit Diagnoses Not on filedocumented in this encounter Care Teams Nurse Case Manager Relationship Specialty Start Date End Date Amara Dign NP [facility] [address] [place], [place] [id number] PCP - General 01/30/15 documented as of this encounter
--- OUTSIDE RECORDS SUMMARY | 2023-11-12 14:58 | XMS_ITS | Clinical Summary ---
Author Organization [facility] Address [address] [place] [address] Care Team Providers Care Oncology Navigator Name Role Phone Amara Ding NP Primary Care Provider [phone] Social History Tobacco Use Types Packs/Day Years Used Date Smoking Tobacco: Never Assessed Sex and Gender Information Value Date Recorded Sex Assigned at Not on file Gender Identity Not on file Sexual Orientation Not on file Plan of Treatment Health Maintenance Due Date Last Done Comments RSV Immunization ( o r 60+ Years) (1 - 1-dose 60+ series) 2019 COVID-19 Vaccine ( season) 2022 Hepatitis C Screen Completed 02/27/2020 Procedures Procedure Name Priority Date/Time Associated Diagnosis Comments HEPATITIS C AB W REFLEX TO HCV RNA BY PCR Routine 02/27/2020 15:46 EST from Last 3 Months or Most Recently Relevant to Health Maintenance Results * HEPATITIS C AB W REFLEX TO HCV RNA BY PCR (02/27/2020 15:46 EST) Hep C Antibody Negative Negative 03/01/2020 9:51 EST [facility] Blood VENOUS BLOOD / Unknown 02/27/2020 15:46 EST 02/29/2020 17:20 EST Provider Outr Resulting Lab CHEMISTRY & BLOOD GAS ORDERABLES [facility] [address] [place] [address] from Last 3 Months or Most Recently Relevant to Health Maintenance Care Teams Oncology Navigator Relationship Specialty Start Date End Date Amara Ding NP [facility] [address] [place] [address] PCP - General 01/30/15
--- OUTSIDE RECORDS SUMMARY | 2023-11-12 14:58 | XMS_ITS | Referral Summary ---
Author Organization [facility] Address [address] [place] [address] Care Team Providers Care Director Private Music Therapy Agency Name Role Phone Amara Ding NP Primary Care Provider [phone] Social History Tobacco Use Types Packs/Day Years Used Date Smoking Tobacco: Never Assessed Sex and Gender Information Value Date Recorded Sex Assigned at Not on file Gender Identity Not on file Sexual Orientation Not on file Plan of Treatment Not on file Procedures Procedure Name Priority Date/Time Associated Diagnosis Comments HEPATITIS C AB W REFLEX TO HCV RNA BY PCR Routine 02/27/2020 15:46 EST from Last 3 Months or Most Recently Relevant to Health Maintenance Results * HEPATITIS C AB W REFLEX TO HCV RNA BY PCR (02/27/2020 15:46 EST) Hep C Antibody Negative Negative 03/01/2020 9:[address] [facility] Blood VENOUS BLOOD / Unknown 02/27/2020 15:46 EST 02/29/2020 17:20 EST Provider Outr Resulting Lab CHEMISTRY & BLOOD GAS ORDERABLES [facility] [address] [place] [address] from Last 3 Months or Most Recently Relevant to Health Maintenance Care Teams Director Private Music Therapy Agency Relationship Specialty Start Date End Date Amara Ding, [facility] [address] [place] [address] PCP - General 01/30/15
--- OUTSIDE RECORDS SUMMARY | 2023-11-12 14:59 | XMS_ITS | Encounter Summary ---
[place] [address] Care Team Providers Care Delivery Analyst Name Role Phone Jelena Harris Primary Care Provider [phone] Reason for Visit * Reason Comments Skin Check Encounter Details Date Type Department Care Team (Late st Contact Info) Description 05/27/2014 2:45 PM EST Office Visit Dermatology at [address] [phone] Wilder Holt MD [address] [facility] [place] [address] Irritant hand dermatitis Discharge Disposition: Home Social History Tobacco Use Types Packs/Day Years Used Date Smoking Tobacco: Never Sex and Gender Information Value Date Recorded Sex Assigned at Not on file Gender Identity Not on file Sexual Orientation Not on file documented as of this encounter Patient Instructions * Patient Instructions* Jaymie Peoples LPN - 05/27/2014 2:59 PM EST Images from the original note were not included. [facility] Dermatitis: After Your Visit Your Care Instructions Dermatitis is the general name used for any rash or inflammation of the skin. Different kinds of dermatitis cause different kinds of rashes. Common causes of a rash include new medicines, plants (such as poison oak or poison robina), heat, stress, and allergies to soaps, cosmetics, detergents, chemicals, and fabrics. Certain illnesses can also cause a rash. Unless caused by an infection, these rashes cannot be spread from person to person. How long your rash will last depends on what caused it. Rashes may last a few days or months. Follow-up care is a lomeli part of your treatment and safety. Be sure to make and go to all appointments, and call your doctor if you are having problems. It???s also a good idea to know your test results and keep a list of the medicines you take. How can you care for yourself at home? ?? Do not scratch. Cut your nails short, and file them smooth. Or you may wear gloves if this helpskeep you from scratching. ?? If you use soap on the rash, choose a gentle soap and use as little as possible. ?? Put cold, wet cloths on the rash to reduce itching. ?? Keep cool, and stay out of the sun. Heat makes itching worse. ?? Leave the rash open to the air when you can. If your clothes have to cover the rash, wear cottonor silk. ?? If the rash itches, use hydrocortisone cream. Follow the directions on the label. Calamine lotion may help for plant rashes. ?? Try an elss-rvu-nhyebui antihistamine such as diphenhydramine (Benadryl) or chlorpheniramine (Chlor-Trimeton). Follow the directions on the label. ?? If you get a prescription steroid cream or pills, use them as directed. When should you call for help? Call your doctor now or seek immediate medical care if: ?? You have signs of infection, such as: ?? Increased pain, swelling, warmth, or redness. ?? Red streaks leading from the rash. ?? Pus draining from the rash. ?? A fever. ?? You have joint pain along with the rash. ?? The rash gets worse or spreads to other parts of your body. Watch closely for changes in your health, and be sure to contact your doctor if: ?? You do not get better after 2 to 3 weeks of home treatment. Where can you learn more? Visit our health information library at [email or web address] You can also view health information on [employer], your personal patient account. Log in or sign up today. Enter F270 in the search box to learn more about Dermatitis: After Your Visit. ?? [id number] [facility] [employer]. Care instructions adapted under license by [facility]. This care instruction is for use with your licensed healthcare professional. If you have questions about a medical condition or this instruction, always ask your healthcare professional. [employer] disclaims any warranty or liability for your use of this information. Content Version: 10.3.440771; Current as of: June 04, 2013 documented in this encounter Progress Notes * Wilder Holt MD - 05/27/2014 3:08 PM EST Problem: Irritant hand dermatitis. Gina follows up after last seeing me in 2007. 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 She is exposed to some grease and dust and so does wear Nitrile powder-free, non-sterile, ambidextrous gloves, which are entirely latex free, and under these she wears a cotton glove. About three weeks ago, she started developing an itchy rash on her hands, which she has been unable to clear with regular emollient creams. She has had no problems with hand dermatitis since I last saw her in May 2007. Physical examination reveals a pleasant, 54-year-old woman who has irritant, eczematous dermatitis most prominently over the left dorsal hand, mostly sparing the fingers, but with erythematous patches in between the joint spaces dorsally. She has a few small, erythematous patches on the right dorsal hand. There are a few spongiotic, excoriated papules, but for the most part this is non-exudative. She does not have any involvement on her palmar hands. Assessment and Plan: Eczematous dermatitis, dorsal hands, new onset. a. I suspect irritant contact dermatitis, although localization to dorsal hands is certainly good for allergic contactant. However, despite careful history taking, no obvious triggers for her dermatitis. b. I recommended that she begin Topicort 0.25% ointment, applying on a b.i.d. basis to affected hands for the next couple of weeks; 45 grams dispensed with two refills. I expect that this will bring about good resolution of her dermatitis, and then switch to simple good emollient cream. She is using a [place] product. c. Continue to wear cotton gloves with Nitrile gloves over these at work to keep her hands out of grease, etc. Avoid water contact at home. Her will again help her by doing the dishes. They do have a picking machine operator helper. d. Return to clinic here p.r.n. for new lesions/concerns. COPY: Jelena Kennedy P.A.-C. documented in this encounter Plan of Treatment Not on file documented as of this encounter Visit Diagnoses Diagnosis Irritant hand dermatitis Contact dermatitis and other eczema, due to unspecified cause documented in this encounter Care Teams Delivery Analyst Relationship Specialty Start Date End Date Jelena Harris PA [address] [place] [address] PCP - General 05/27/14 06/04/18 documented as of this encounter
--- OUTSIDE RECORDS SUMMARY | 2023-11-12 14:59 | XMS_ITS | Encounter Summary ---
[place] [address] Care Team Providers Care Behavior Interventionist Name Role Phone Jelena Harris Primary Care Provider [phone] Reason for Visit * Auth/Cert Specialty Diagnoses / Procedures Referred By Tonya hall Referred To Contact Diagnoses N62 - macromastia Tentative DOS - 02/21/2016 CPT: 31173 - yang Procedures PRO REDUCTION OF LARGE BREAST REDUCTION MAMMOPLASTY, YANG Referral ID Status Reason Start Date Expiration Date Visits Re quested Visits Authorized [id number] 1 1 Encounter Details Date Type Department Care Team (Late st Contact Info) Description 03/23/2016 7:30 AM EST - 03/23/2016 10:13 AM EST Surgery [place] [address] Michael Jenkins MD [facility] [place] [place] [address] REDUCTION MAMMOPLASTY, YANG (WRVU 16.03) Social History Tobacco Use Types Packs/Day Years Used Date Smoking Tobacco: Former Smokeless Tobacco: Never Alcohol Use Standard Drinks/Week Comments Yes 0 (1 standard drink = 0.6 oz pur e alcohol) Sex and Gender Information Value Date Recorded Sex Assigned at Not on file Gender Identity Not on file Sexual Orientation Not on file documented as of this encounter Last Filed Vital Signs Vital Sign Reading Time Taken Comments Blood Pressure 134/75 03/23/2016 10:00 AM EST Pulse 72 03/23/2016 6:09 AM EST Temperature 36.3 ??C (97.3 ??F) 03/23/2016 10:[address] Respiratory Rate 20 03/23/2016 10:00 AM EST Oxygen Saturation 91% 03/23/2016 10:00 AM EST Inhaled Oxygen Concentration - - Weight 95.5 kg (210 lb 8.6 oz) 03/23/2016 6:09 A M EST Height 154.9 cm (5' 1) 03/23/2016 6:09 AM EST Body Mass Index 39.78 03/23/2016 6:09 AM EST documented in this encounter Discharge Summaries * Dagoberto Alexis MD - 03/24/2016 3:11 PM EST Images from the original note were not included. PLASTIC SURGERY DISCHARGE SUMMARY Patient Name: Gina Henderson Patient Age: 56 y.o. Language: Russian Race: White Ethnicity: Not nor Admit date: 03/23/2016 Discharge date: 03/25/16 Attending Physician: Michael Jenkins MD Discharge Physician: Same Discharge Diagnoses (Hospital Problems) and Secondary Diagnoses (Chronic Problems): Active Hospital Problems Diagnosis ??? Macromastia Resolved Hospital Problems Diagnosis Date Resolved No resolved problems to display. Active Non-Hospital Problems Diagnosis ??? Irritant hand dermatitis Operations/Major Procedures: Procedure(s): REDUCTION MAMMOPLASTY, YANG (WRVU 16.03) MODIFIER ROBERTS 03/23/2016 History of Presentation: History obtained through patient interview, review of relevant records, and/or discussion with referring provider. Symptomatic macromastia Past Medical History Past Medical History Diagnosis Date ??? HTN (hypertension) Past Surgical History Past Surgical History Procedure Laterality Date ??? Hysterectomy ??? section ??? Pro reduction of large breast Bilateral 03/23/2016 REDUCTION MAMMOPLASTY, YANG (WRVU 16.03) performed by Michael Jenkins MD at [facility] MAIN OR Procedures: 03/23/2016 Surgeon(s) and Role: * Michael Jenkins MD - Primary * Dagoberto Alexis MD - Resident-Surgeon Ishaan * Ortiz Lopez MD - Resident-Surgeon Ishaan: Procedure(s): REDUCTION MAMMOPLASTY, YANG (WRVU 16.03) MODIFIER ROBERTS Hospital Course: [place] [facility] [place] and underwent the above procedure. The patient tolerated the above procedure well and was admitted post-operatively for low oxygen sats. CXR negative. Patient seen by medicine who believe her low oxygen sats are secondary to obesity hypoventilation syndrome. Her hospital course was uncomplicated. Pt remainedafebrile, with stable vital signs throughout her hospital stay. Today, POD#2 she has met all criteria for discharge home: her pain is well controlled with medications by mouth, she is tolerating a regular diet, is voiding spontaneously without difficulties, and is up and ambulating without complicat ions. Pt has been deemed safe for discharge to home. Drains removed prior to discharge. Patient instructed to see PCP regarding nocturnal oxygen sat evaluation. Vital Signs at Discharge: Wt Readings from Last 1 Encounters: 03/23/16 95.5 kg (210 lb 8.6 oz) Ht Readings from Last 1 Encounters: 03/23/16 154.9 cm (5' 1) Body mass index is 39.78 kg/(m^2). Last value Range last 24 hrs Temperature Temp: 36.9 ??C (98.4 ??F) Temp: [36.8 ??C (98.2 ??F)-37.1 ??C (98.8 ??F)] Heart Rate Heart Rate: 72 Heart Rate: -- Blood Pressure BP: 131/71 BP: (93-141)/(56-73) Respiratory Rate Resp: 18 Resp: [15-18] SpO2 SpO2: 90 % SpO2: [85 %-97 %] Physical Exam on d/c: Intake/Output Summary (Last 24 hours) at 03/25/16 0844 Last data filed at 03/25/16 0745 Gross per 24 hour Intake 1585 ml Output 70 ml Net 1515 ml General: well developed, well nourished, appearing in no acute distress Respiratory: nonlabored, symmetric chest movement, 95% on RA Cardiovascular: no peripheral edema, no clubbing Abdomen: soft, nontender, nondistended Breasts: postop bra in place, NAC insensate bilaterally, incisions clean/dry/intact, stable ecchymosis at IMF bilaterally and vertical incisions bilaterally, no evidence of infection/hematoma/seromaExtremities: no cyanosis, no edema Functional and Cognitive Status: Ambulating and cognitively intact. Important Studies and Lab Data: Labs:Last 3 wbc, hgb, hct plt No results for input(s): WBC, HGB, HCT, PLATELET in the last 7068 hours. Recent Results (from the past 72 hour(s)) POCT HGB Result Value Ref Range POC Hemoglobin 15 g/dL BLOOD GAS 2 ARTERIAL Result Value Ref Range pH Art 7.25 (CRIT) 7.35 - 7.45 pCO2 Art 64 (CRIT) 35 - 45 mmHg pO2 Art 47 (CRIT) 85 - 104 mmHg HCO3 Art 27.0 (H) 20.0 - 26.0 mmol/L BE Art -0.4 -3.0 - 3.0 mmol/L Hgb Blood Gas 14.2 11.7 - 15.5 gm/dL O2HB Art 80.4 (L) 94.0 - 97.0 % COHB Art 0.9 % METHB Art 0.3 <=1.5 % Na Whole Blood 139 135 - 145 mmol/L K Whole Blood 4.1 3.5 - 5.0 mmol/L ICa Whole Blood 1.22 1.15 - 1.33 mmol/L CL Whole Blood 102 98 - 107 mmol/L Gluc Whole Bld 148 65 - 199 mg/dL Lactate WB 2.0 0.5 - 2.2 mmol/L EKG 12 Lead Result Value Ref Range Ventricular rate 92 BPM Atrial Rate 92 BPM P-R Interval 134 ms QRS Duration 80 ms Q-T Interval 346 ms QTC Calculated (Bezet) 427 ms Calculated P Comstock 54 degrees Calculated R Comstock -2 degrees Calculated T Comstock 32 degrees INTERPRETATION Normal sinus rhythm Normal ECG No previous ECGs available Confirmed by MD SALGADO BRUCE ([id number]) on 03/24/2016 5:38:41 PM Studies: CXR 03/23 FINDINGS: Lung volumes are low. No focal consolidation, pleural effusion, or pneumothorax. Cardiomediastinal silhouette, lee ann, and pulmonary vasculature are normal. No acute osseous abnormalities. Pending Studies and Lab Data: No current labs Medications: Your Medications Notice Some of the medications listed here do not show instructions, such as how often to take the medication. Ask your doctor or nurse how to use these medications. Specifically ask about this and similar medications: CIS Free Text Med - Inderal New Medications Dose Details oxyCODONE 5 mg Tab Commonly known as: ROXICODONE Take 1 tablet by mouth every 4 hours as needed for Pain. 5 mg Quantity: 40 tablet Refills: 0 Continued medications, unchanged Dose Details CIS FREE TEXT MED ?nk?wn!?? Refills: 0 hydroCHLOROthiazide 12.5 mg Tab Commonly known as: HYDRODIURIL Take 12.5 mg by mouth daily. 12.5 mg Refills: 0 losartan 100 mg Tab Commonly known as: COZAAR Take 100 mg by mouth daily. 100 mg Refills: 0 Allergies: No Known Allergies Immunizations Given this Hospitalization: There is no immunization history on file for this patient. Smoking Status at Discharge: History Smoking Status ??? Former Smoker Smokeless Tobacco ??? Never Used Discharge to: Home Discharge Instructions: Patient Instructions PLASTIC SURGERY DISCHARGE INSTRUCTIONS What to Expect.... ?? The healing process after breast reduction surgery varies with each person. You should expect tofeel tired for the first 2 - 3 weeks due to anesthesia and the healing process. Rest often during the day and get a good night sleep. Pain (short term and rn long term care) ?? With any surgery there is some discomfort or pain. We will prescribe pain medication. Take as prescribed and only as needed. OK to take prescription medication or Tylenol. Do not take both. ?? We recommend taking an hedj-geh-Zjfurid stool softener, such as Colace (docusate) or a gentle laxative while taking your narcotic pain reliever. This will help to maintain bowel regularity and prevent straining. Drink plenty of water. ?? You will may have nerve pain after your surgery because the nerve endings have been disturbed. Nerve pain may feel like a burning sensation, itching or a shooting, electric shock pain. This is normal and will get better as you heal. Swelling ?? Moderate bruising and swelling is normal in the first few weeks after surgery. The swelling willgradually go down, but it may remain for 3 to 6 months. ?? To help with swelling wear your compression bra. Drains ?? Record drain output and bring to your first clinic appointment with you. Based on the nursing assessment, your drain will likely be removed at this appointment. ?? The nurses will show you how to care for the drains Showering ?? You may shower tomorrow. ?? Do not take a bath or use a hot tub until incisions are completely healed. ?? If you have drains in place, tie a shoe lace or string around your neck and attach the drains tothis to prevent accidental removal. ?? Have someone nearby during your first shower. Incisions/Dressings ?? You may have some red, pink, yellow/clear drainage from your incisions for the first 1-2 weeks. Change gauze as needed. Continue to use dressings until there is no more drainage. ?? You had a vertical reduction (lollipop incision) and you have a xeroform gauze with tape at the bottom of your incision. You need to make sure xeroform gauze is always in place and paper tape to encourage the dog-ear to settle. DO???S AND DON???TS FOR THE NEXT 6 WEEKS ?? Do not drive a motor vehicle for 1-2 weeks or until you can handle the steering wheel without discomfort. Do not drive while taking your narcotic. You will be able to wear a seat belt if you placea small pillow over your chest area. ?? Do not engage in sexual activity for at least 1 week. ?? Do not smoke or be around anyone who smokes for 2 weeks after your surgery. Smoking delays healing and can lead to infection. ?? Do not lift more than 5 pounds or bend at the waist to lift for 6 weeks. ?? Do not participate in strenuous activities such as running or aerobics for 6 weeks. ?? Do resume walking at a gentle pace. ?? Protect your incisions from the sun for 6 months. ?? You may return to work in 1-6 weeks (average time is 3 weeks) depending upon your work activity. GETTING A GOOD NIGHT SLEEP ?? Your surgeon may ask you to sleep on your back for a few weeks. Here are some suggestions for a good nights sleep. ?? Try sleeping in a recliner. ?? Have extra pillows in your bed for support: two along your side and one under your knees to relieve lower back pressure. Buy a large body pillow or a pillow with arm rests for sitting up in bed. GETTING OUT OF BED ?? You will be asked to limit the use of your arms for a few weeks after surgery. This can be a problem when trying to get out of bed. The following suggestions help you get out of bed with minimal use of your arms. ?? When in bed, pull your knees up towards your chest and tip to the side, gently rolling out of bed. Take care not to roll onto your breasts. ?? Create a nest of pillows to prop you in a semi-upright position helps give you that extra boost to get out of bed. ?? Have someone put gentle pressure to your lower shoulder blades as you sit up. This gives you theextra power you need to get to your feet. Complications: Call your doctor with the following signs of infection: ?? A temperature over 100.4 F or 38 C ?? Redness at the incision line that spreads away from the incision after the first 48 tara thick yellow, foul smelling drainage ?? Increasing pain that is not relieved by your pain medicine ?? One breast becomes much larger and more firm than the other Contact your Doctor ?? To make an appointment or for questions about scheduling, please contact our administrative offices at [phone] ?? For clinical questions, please call our nurses at [phone] ?? Both offices are open Sunday thru Sunday 8a - 5p. With emergencies after hours, call the hospital pulpit operator at [phone] and ask for the Plastic Surgery Resident transportation consultant. MEDICATIONS: Your Medications Notice Some of the medications listed here do not show instructions, such as how often to take the medication. Ask your doctor or nurse how to use these medications. Specifically ask about this and similar medications: CIS Free Text Med - Inderal New Medications Dose Details oxyCODONE 5 mg Tab Commonly known as: ROXICODONE Take 1 tablet by mouth every 4 hours as needed for Pain. 5 mg Quantity: 40 tablet Refills: 0 Continued medications, unchanged Dose Details CIS FREE TEXT MED ?nk?wn!?? Refills: 0 hydroCHLOROthiazide 12.5 mg Tab Commonly known as: HYDRODIURIL Take 12.5 mg by mouth daily. 12.5 mg Refills: 0 losartan 100 mg Tab Commonly known as: COZAAR Take 100 mg by mouth daily. 100 mg Refills: 0 NARCOTICS: You may be given a prescription for a narcotic medication immediately following your surgery. Narcotics are prescribed for short-term use to help treat your pain. Surgical pain requiring narcotics will usually be greatly decreased 2-3 days after surgery & should be mild to absent by 10-14 days. We will only prescribe a narcotic pain reliever for 2 weeks following your surgery. This will be determined by your surgeon. Narcotics do not reduce inflammation and it is inflammation that is usually a major cause of pain after surgery. Narcotics have many side effects such as constipation, lightheadedness, dizziness, sedation, confusion, nausea and vomiting. Driving and the use of alcohol are not recommended while you are using narcotic pain medications. Non-steroidal anti-inflammatories (NSAIDS) such as aspirin, Aleve and ibuprofen (Advil, Motrin) aremedications that reduce pain and inflammation. If you find your pain is not adequately controlled with the prescribed dose of your narcotic pain medication, NSAIDS may be used 48 hours after surgery with your narcotic to help alleviate the pain caused by inflammation. As you progress through your post-operative period, your pain should decrease and the use of narcotic medications should be less necessary. To reduce your chance of side effects, it is recommended that you save your narcotic medication for nighttime use and switch to NSAIDS or Acetaminophen (Tylenol) during the day. Alternative means of pain relief such as rest and relaxation, positioning, as well as decreasing stimulants such as coffee, tea, soft drinks, and nicotine may also help to alleviate pain. If you continue to experience significant pain 4-5 days after your procedure, it may be necessary to be re-evaluated by your physician. PRESCRIPTION RENEWALS: Renewal requests should be called in to our prescription line at [phone]. Narcotic renewals may be requested from 8am-4pm Sunday through Sunday. Due to patient safety, narcotic renewals will not be honored after hours or on weekends. It is best to make your request 2-3 days before you run out of your medication as it will take at least 24 hours for physician approval and nurse follow-up. Note that certain prescriptions, such as Percocet, Oxycodone, Vicodin, & Hydrocodone can not becalled in to a pharmacy and must be picked up by the patient. CONTACT INFORMATION: During office hours: Sunday through Sunday 8 am to 5 pm Call [phone] On weekends or after hours: Call [phone] and ask the pulpit operator to page the Plastic Surgery Resident transportation consultant. General Instructions SAME DAY SURGERY JONATHAN DRAIN CARE INSTRUCTIONS Drains help to keep fluid from collecting by removing the extra blood and fluid from under the skin. A drain is temporary. It stays in place until the drainage has slowed down or stopped. Your doctor or nurse will decide when each drain should be removed: This is usually after each drain has 30cc or less in 24 hours for 2 days in a row. When this happens, you should call the Plastic Surgery Clinic to schedule an appointment with the nurses to have it/them removed. This is usually not painful and only takes a few seconds. How do I care for the drains at home? Pin your drains to your clothing by using a safety pin through the plastic loop on the top of the bulb. If the drain is not attached to your clothing, it may pull out from under your skin. Also, a drain usually feels more comfortable when it???s attached. To care for the drain at home, you will have to empty the drain, ???strip?? the drain tubing, and changethe dressing if applicable. * See the following pages for instructions on how to do this. What problems may I have with my drain? The bulb is not compressed- The bulb may not be squeezed tightly enough, the plug may not be closed securely, or the tube has slipped out a bit and is leaking. Follow the instructions on how to empty the drain. If the bulb remains expanded, then notify your doctor or nurse during business hours. ??? No drainage or sudden decrease in amount of drainage- This is usually due to clots in the drain. Follow the instructions on how to strip the drain tubing. ??? The tube accidentally falls out- If this happens, place a dry gauze dressing over the drain site and notify your doctor or nurse during business hours. ??? Increased redness, swelling, or heat around the tube insertion site- This may be a sign of infection. Take your temperature: if it is higher than 101F or 38.8C, call your doctor or nurse immediately. Otherwise, notify your doctor or nurse during business hours and keep the dressing clean and dry. Post-Surgical Drain Care After surgery, you will have one or two drains, called a Calvin-Valle (JONATHAN) drain, placed near the incision. This device collects fluid, under suction, from your surgical area. The drain promotes healing and recovery, and reduces the chance of infection. The drain will be in place until the drainage slows enough for your body to reabsorb fluid on its own. While you are hospitalized the nursing staff will care for the drain and teach you to continue to do so at home. How to Empty Your JONATHAN Drain Note: Wash your hands thoroughly before emptying your drain(s). 1. Have the plastic measuring cup from the hospital ready to collect and measure the drainage. Please measure the output at the same two times every 24 hours and record the amount. 2. Unpin the drain from your clothing. 3. Open the top of the drain. Turn the drain upside down and squeeze the contents of the bulb into the measuring cup. Be sure to empty the bulb as completely as possible. Flush the contents in the toilet. 4. Use the drain output log chart to record the amount of drainage twice a day or any time the bulbis full. Record the total for 24 hours for each drain you have. 5. If you have more than one drain, remember to record the drainage from each drain separately. 6. To prevent infection, do not let the stopper or top of the bottle touch the measuring cup or anyother surface. 7. Use one hand to squeeze all of the air from the drain. With the drain still squeezed, use your other hand to replace the top. This creates the suction necessary to remove the fluids from your body. 8. Pin the drain back on your clothing to avoid pulling it out accidently. 9. Wash your hands again. Remember to wash your hands before and after the procedure to reduce the risk of infection. Stripping the Tube Often products of healing will not flow out of the narrow tube and prevent proper draining. If you do not have drainage, then: ??? Hold the tube near where it is inserted in to the skin with your one hand. ??? Use the other hand to hold a pencil and gently squeeze the tubing with the pencil while moving it down toward the drain away from your skin. This forces the more sold material into the bulb for better drainage. ??? Repeat as necessary to start the draining again. Removal of the Tube ??? The tube may be removed once a single tube output is less than 30cc (1 oz.) in 24 hours. ??? Please call the office if the output becomes thicker or has a bad odor. Calvin-Valle Drainage Record NAME: Date of Surgery: Date: Time: If more than one drain, which one: Drainage Amount (per drain) Total Amount (per drain; in 24 hours) POST ANESTHESIA INSTRUCTIONS Go home, rest, use caution on stairs. Change positions slowly. Do not smoke if you are alone. Diet light to regular as tolerated today. If nausea occurs start with clear liquids and progress slowly. No driving, operating machinery, alcoholic beverages and no important decisions for 24 hours. Monitor IV site for signs and symptoms of infection: increasing redness, swelling, foul drainage, if occurs contact M.D. Patients who have had endotrachial tubes (this tube, used by anesthesia department, is passed down your throat after you are asleep, to ensure safe air passage during your operation). A sore throat is normal due to the tube. Cold liquids or soothing lozenges will help ease the discomfort. The generalized muscle aches are due to the medication given to you just before the tube is inserted. As the medication wears off, you may develop muscle soreness, which usually goes away in 12-24 hours. Discharge Medications: Your Medications Notice Some of the medications listed here do not show instructions, such as how often to take the medication. Ask your doctor or nurse how to use these medications. Specifically ask about this and similar medications: CIS Free Text Med - Inderal New Medications Dose Details oxyCODONE 5 mg Tab Commonly known as: ROXICODONE Take 1 tablet by mouth every 4 hours as needed for Pain. 5 mg Quantity: 40 tablet Refills: 0 Continued medications, unchanged Dose Details CIS FREE TEXT MED ?nk?wn!?? Refills: 0 hydroCHLOROthiazide 12.5 mg Tab Commonly known as: HYDRODIURIL Take 12.5 mg by mouth daily. 12.5 mg Refills: 0 losartan 100 mg Tab Commonly known as: COZAAR Take 100 mg by mouth daily. 100 mg Refills: 0 Follow-up plan: No future appointments. Primary Care Provider: RAQUEL Beatty [phone] VNA: No discharge procedures on file. General Instructions SAME DAY SURGERY JONATHAN DRAIN CARE INSTRUCTIONS Drains help to keep fluid from collecting by removing the extra blood and fluid from under the skin. A drain is temporary. It stays in place until the drainage has slowed down or stopped. Your doctor or nurse will decide when each drain should be removed: This is usually after each drain has 30cc or less in 24 hours for 2 days in a row. When this happens, you should call the Plastic Surgery Clinic to schedule an appointment with the nurses to have it/them removed. This is usually not painful and only takes a few seconds. How do I care for the drains at home? Pin your drains to your clothing by using a safety pin through the plastic loop on the top of the bulb. If the drain is not attached to your clothing, it may pull out from under your skin. Also, a drain usually feels more comfortable when it???s attached. To care for the drain at home, you will have to empty the drain, ???strip?? the drain tubing, and changethe dressing if applicable. * See the following pages for instructions on how to do this. What problems may I have with my drain? The bulb is not compressed- The bulb may not be squeezed tightly enough, the plug may not be closed securely, or the tube has slipped out a bit and is leaking. Follow the instructions on how to empty the drain. If the bulb remains expanded, then notify your doctor or nurse during business hours. ??? No drainage or sudden decrease in amount of drainage- This is usually due to clots in the drain. Follow the instructions on how to strip the drain tubing. ??? The tube accidentally falls out- If this happens, place a dry gauze dressing over the drain site and notify your doctor or nurse during business hours. ??? Increased redness, swelling, or heat around the tube insertion site- This may be a sign of infection. Take your temperature: if it is higher than 101F or 38.8C, call your doctor or nurse immediately. Otherwise, notify your doctor or nurse during business hours and keep the dressing clean and dry. Post-Surgical Drain Care After surgery, you will have one or two drains, called a Calvin-Valle (JONATHAN) drain, placed near the incision. This device collects fluid, under suction, from your surgical area. The drain promotes healing and recovery, and reduces the chance of infection. The drain will be in place until the drainage slows enough for your body to reabsorb fluid on its own. While you are hospitalized the nursing staff will care for the drain and teach you to continue to do so at home. How to Empty Your JONATHAN Drain Note: Wash your hands thoroughly before emptying your drain(s). 10. Have the plastic measuring cup from the hospital ready to collect and measure the drainage. Please measure the output at the same two times every 24 hours and record the amount. 11. Unpin the drain from your clothing. 12. Open the top of the drain. Turn the drain upside down and squeeze the contents of the bulb intothe measuring cup. Be sure to empty the bulb as completely as possible. Flush the contents in the toilet. 13. Use the drain output log chart to record the amount of drainage twice a day or any time the bulb is full. Record the total for 24 hours for each drain you have. 14. If you have more than one drain, remember to record the drainage from each drain separately. 15. To prevent infection, do not let the stopper or top of the bottle touch the measuring cup or any other surface. 16. Use one hand to squeeze all of the air from the drain. With the drain still squeezed, use your other hand to replace the top. This creates the suction necessary to remove the fluids from your body. 17. Pin the drain back on your clothing to avoid pulling it out accidently. 18. Wash your hands again. Remember to wash your hands before and after the procedure to reduce therisk of infection. Stripping the Tube Often products of healing will not flow out of the narrow tube and prevent proper draining. If you do not have drainage, then: ??? Hold the tube near where it is inserted in to the skin with your one hand. ??? Use the other hand to hold a pencil and gently squeeze the tubing with the pencil while moving it down toward the drain away from your skin. This forces the more sold material into the bulb for better drainage. ??? Repeat as necessary to start the draining again. Removal of the Tube ??? The tube may be removed once a single tube output is less than 30cc (1 oz.) in 24 hours. ??? Please call the office if the output becomes thicker or has a bad odor. Calvin-Valle Drainage Record NAME: Date of Surgery: Date: Time: If more than one drain, which one: Drainage Amount (per drain) Total Amount (per drain; in 24 hours) POST ANESTHESIA INSTRUCTIONS Go home, rest, use caution on stairs. Change positions slowly. Do not smoke if you are alone. Diet light to regular as tolerated today. If nausea occurs start with clear liquids and progress slowly. No driving, operating machinery, alcoholic beverages and no important decisions for 24 hours. Monitor IV site for signs and symptoms of infection: increasing redness, swelling, foul drainage, if occurs contact M.D. Patients who have had endotrachial tubes (this tube, used by anesthesia department, is passed down your throat after you are asleep, to ensure safe air passage during your operation). A sore throat is normal due to the tube. Cold liquids or soothing lozenges will help ease the discomfort. The generalized muscle aches are due to the medication given to you just before the tube is inserted. As the medication wears off, you may develop muscle soreness, which usually goes away in 12-24 hours. Your care was managed by the Plastic SurgeryTeam at [facility]. If you haveany questions or concerns, please feel free to contact us. Provider Contact Information: [place] [facility] [place] documented in this encounter Discharge Instructions * Discharge Instructions* Sadie Jones RN - 03/23/2016 10:36 AM EST Images from the original note were not included. SAME DAY SURGERY JONATHAN DRAIN CARE INSTRUCTIONS Drains help to keep fluid from collecting by removing the extra blood and fluid from under the skin. A drain is temporary. It stays in place until the drainage has slowed down or stopped. Your doctor or nurse will decide when each drain should be removed: This is usually after each drain has 30cc or less in 24 hours for 2 days in a row. When this happens, you should call the Plastic Surgery Clinic to schedule an appointment with the nurses to have it/them removed. This is usually not painful and only takes a few seconds. How do I care for the drains at home? Pin your drains to your clothing by using a safety pin through the plastic loop on the top of the bulb. If the drain is not attached to your clothing, it may pull out from under your skin. Also, a drain usually feels more comfortable when it???s attached. To care for the drain at home, you will have to empty the drain, ???strip?? the drain tubing, and changethe dressing if applicable. * See the following pages for instructions on how to do this. What problems may I have with my drain? The bulb is not compressed- The bulb may not be squeezed tightly enough, the plug may not be closed securely, or the tube has slipped out a bit and is leaking. Follow the instructions on how to empty the drain. If the bulb remains expanded, then notify your doctor or nurse during business hours. ??? No drainage or sudden decrease in amount of drainage- This is usually due to clots in the drain. Follow the instructions on how to strip the drain tubing. ??? The tube accidentally falls out- If this happens, place a dry gauze dressing over the drain site and notify your doctor or nurse during business hours. ??? Increased redness, swelling, or heat around the tube insertion site- This may be a sign of infection. Take your temperature: if it is higher than 101F or 38.8C, call your doctor or nurse immediately. Otherwise, notify your doctor or nurse during business hours and keep the dressing clean and dry. Post-Surgical Drain Care After surgery, you will have one or two drains, called a Calvin-Valle (JONATHAN) drain, placed near the incision. This device collects fluid, under suction, from your surgical area. The drain promotes healing and recovery, and reduces the chance of infection. The drain will be in place until the drainage slows enough for your body to reabsorb fluid on its own. While you are hospitalized the nursing staff will care for the drain and teach you to continue to do so at home. How to Empty Your JONATHAN Drain Note: Wash your hands thoroughly before emptying your drain(s). 1. Have the plastic measuring cup from the hospital ready to collect and measure the drainage. Please measure the output at the same two times every 24 hours and record the amount. 2. Unpin the drain from your clothing. 3. Open the top of the drain. Turn the drain upside down and squeeze the contents of the bulb into the measuring cup. Be sure to empty the bulb as completely as possible. Flush the contents in the toilet. 4. Use the drain output log chart to record the amount of drainage twice a day or any time the bulbis full. Record the total for 24 hours for each drain you have. 5. If you have more than one drain, remember to record the drainage from each drain separately. 6. To prevent infection, do not let the stopper or top of the bottle touch the measuring cup or anyother surface. 7. Use one hand to squeeze all of the air from the drain. With the drain still squeezed, use your other hand to replace the top. This creates the suction necessary to remove the fluids from your body. 8. Pin the drain back on your clothing to avoid pulling it out accidently. 9. Wash your hands again. Remember to wash your hands before and after the procedure to reduce the risk of infection. Stripping the Tube Often products of healing will not flow out of the narrow tube and prevent proper draining. If you do not have drainage, then: ??? Hold the tube near where it is inserted in to the skin with your one hand. ??? Use the other hand to hold a pencil and gently squeeze the tubing with the pencil while moving it down toward the drain away from your skin. This forces the more sold material into the bulb for better drainage. ??? Repeat as necessary to start the draining again. Removal of the Tube ??? The tube may be removed once a single tube output is less than 30cc (1 oz.) in 24 hours. ??? Please call the office if the output becomes thicker or has a bad odor. Calvin-Valle Drainage Record NAME: Date of Surgery: Date: Time: If more than one drain, which one: Drainage Amount (per drain) Total Amount (per drain; in 24 hours) POST ANESTHESIA INSTRUCTIONS Go home, rest, use caution on stairs. Change positions slowly. Do not smoke if you are alone. Diet light to regular as tolerated today. If nausea occurs start with clear liquids and progress slowly. No driving, operating machinery, alcoholic beverages and no important decisions for 24 hours. Monitor IV site for signs and symptoms of infection: increasing redness, swelling, foul drainage, if occurs contact M.D. Patients who have had endotrachial tubes (this tube, used by anesthesia department, is passed down your throat after you are asleep, to ensure safe air passage during your operation). A sore throat is normal due to the tube. Cold liquids or soothing lozenges will help ease the discomfort. The generalized muscle aches are due to the medication given to you just before the tube is inserted. As the medication wears off, you may develop muscle soreness, which usually goes away in 12-24 hours. * Patient Instructions* Dagoberto Alexis MD - 03/23/2016 7:37 AM EST PLASTIC SURGERY DISCHARGE INSTRUCTIONS What to Expect.... ?? The healing process after breast reduction surgery varies with each person. You should expect tofeel tired for the first 2 - 3 weeks due to anesthesia and the healing process. Rest often during the day and get a good night sleep. Pain (short term and rn long term care) ?? With any surgery there is some discomfort or pain. We will prescribe pain medication. Take as prescribed and only as needed. OK to take prescription medication or Tylenol. Do not take both. ?? We recommend taking an [id number] stool softener, such as Colace (docusate) or a gentle laxative while taking your narcotic pain reliever. This will help to maintain bowel regularity and prevent straining. Drink plenty of water. ?? You will may have nerve pain after your surgery because the nerve endings have been disturbed. Nerve pain may feel like a burning sensation, itching or a shooting, electric shock pain. This is normal and will get better as you heal. Swelling ?? Moderate bruising and swelling is normal in the first few weeks after surgery. The swelling willgradually go down, but it may remain for 3 to 6 months. ?? To help with swelling wear your compression bra. Drains ?? Record drain output and bring to your first clinic appointment with you. Based on the nursing assessment, your drain will likely be removed at this appointment. ?? The nurses will show you how to care for the drains Showering ?? You may shower tomorrow. ?? Do not take a bath or use a hot tub until incisions are completely healed. ?? If you have drains in place, tie a shoe lace or string around your neck and attach the drains tothis to prevent accidental removal. ?? Have someone nearby during your first shower. Incisions/Dressings ?? You may have some red, pink, yellow/clear drainage from your incisions for the first 1-2 weeks. Change gauze as needed. Continue to use dressings until there is no more drainage. ?? You had a vertical reduction (lollipop incision) and you have a xeroform gauze with tape at the bottom of your incision. You need to make sure xeroform gauze is always in place and paper tape to encourage the dog-ear to settle. DO???S AND DON???TS FOR THE NEXT 6 WEEKS ?? Do not drive a motor vehicle for 1-2 weeks or until you can handle the steering wheel without discomfort. Do not drive while taking your narcotic. You will be able to wear a seat belt if you placea small pillow over your chest area. ?? Do not engage in sexual activity for at least 1 week. ?? Do not smoke or be around anyone who smokes for 2 weeks after your surgery. Smoking delays healing and can lead to infection. ?? Do not lift more than 5 pounds or bend at the waist to lift for 6 weeks. ?? Do not participate in strenuous activities such as running or aerobics for 6 weeks. ?? Do resume walking at a gentle pace. ?? Protect your incisions from the sun for 6 months. ?? You may return to work in 1-6 weeks (average time is 3 weeks) depending upon your work activity. GETTING A GOOD NIGHT SLEEP ?? Your surgeon may ask you to sleep on your back for a few weeks. Here are some suggestions for a good nights sleep. ?? Try sleeping in a recliner. ?? Have extra pillows in your bed for support: two along your side and one under your knees to relieve lower back pressure. Buy a large body pillow or a pillow with arm rests for sitting up in bed. GETTING OUT OF BED ?? You will be asked to limit the use of your arms for a few weeks after surgery. This can be a problem when trying to get out of bed. The following suggestions help you get out of bed with minimal use of your arms. ?? When in bed, pull your knees up towards your chest and tip to the side, gently rolling out of bed. Take care not to roll onto your breasts. ?? Create a nest of pillows to prop you in a semi-upright position helps give you that extra boost to get out of bed. ?? Have someone put gentle pressure to your lower shoulder blades as you sit up. This gives you theextra power you need to get to your feet. Complications: Call your doctor with the following signs of infection: ?? A temperature over 100.4 F or 38 C ?? Redness at the incision line that spreads away from the incision after the first 48 tara thick yellow, foul smelling drainage ?? Increasing pain that is not relieved by your pain medicine ?? One breast becomes much larger and more firm than the other Contact your Doctor ?? To make an appointment or for questions about scheduling, please contact our administrative offices at [phone] ?? For clinical questions, please call our nurses at [phone] ?? Both offices are open Sunday thru Sunday 8a - 5p. With emergencies after hours, call the hospital pulpit operator at [phone] and ask for the Plastic Surgery Resident transportation consultant. MEDICATIONS: Your Medications Notice Some of the medications listed here do not show instructions, such as how often to take the medication. Ask your doctor or nurse how to use these medications. Specifically ask about this and similar medications: CIS Free Text Med - Inderal New Medications Dose Details oxyCODONE 5 mg Tab Commonly known as: ROXICODONE Take 1 tablet by mouth every 4 hours as needed for Pain. 5 mg Quantity: 40 tablet Refills: 0 Continued medications, unchanged Dose Details CIS FREE TEXT MED ?nk?wn!?? Refills: 0 hydroCHLOROthiazide 12.5 mg Tab Commonly known as: HYDRODIURIL Take 12.5 mg by mouth daily. 12.5 mg Refills: 0 losartan 100 mg Tab Commonly known as: COZAAR Take 100 mg by mouth daily. 100 mg Refills: 0 NARCOTICS: You may be given a prescription for a narcotic medication immediately following your surgery. Narcotics are prescribed for short-term use to help treat your pain. Surgical pain requiring narcotics will usually be greatly decreased 2-3 days after surgery & should be mild to absent by 10-14 days. We will only prescribe a narcotic pain reliever for 2 weeks following your surgery. This will be determined by your surgeon. Narcotics do not reduce inflammation and it is inflammation that is usually a major cause of pain after surgery. Narcotics have many side effects such as constipation, lightheadedness, dizziness, sedation, confusion, nausea and vomiting. Driving and the use of alcohol are not recommended while you are using narcotic pain medications. Non-steroidal anti-inflammatories (NSAIDS) such as aspirin, Aleve and ibuprofen (Advil, Motrin) aremedications that reduce pain and inflammation. If you find your pain is not adequately controlled with the prescribed dose of your narcotic pain medication, NSAIDS may be used 48 hours after surgery with your narcotic to help alleviate the pain caused by inflammation. As you progress through your post-operative period, your pain should decrease and the use of narcotic medications should be less necessary. To reduce your chance of side effects, it is recommended that you save your narcotic medication for nighttime use and switch to NSAIDS or Acetaminophen (Tylenol) during the day. Alternative means of pain relief such as rest and relaxation, positioning, as well as decreasing stimulants such as coffee, tea, soft drinks, and nicotine may also help to alleviate pain. If you continue to experience significant pain 4-5 days after your procedure, it may be necessary to be re-evaluated by your physician. PRESCRIPTION RENEWALS: Renewal requests should be called in to our prescription line at [phone]. Narcotic renewals may be requested from 8am-4pm Sunday through Sunday. Due to patient safety, narcotic renewals will not be honored after hours or on weekends. It is best to make your request 2-3 days before you run out of your medication as it will take at least 24 hours for physician approval and nurse follow-up. Note that certain prescriptions, such as Percocet, Oxycodone, Vicodin, & Hydrocodone can not becalled in to a pharmacy and must be picked up by the patient. CONTACT INFORMATION: During office hours: Sunday through Sunday 8 am to 5 pm Call [phone] On weekends or after hours: Call [phone] and ask the pulpit operator to page the Plastic Surgery Resident transportation consultant. documented in this encounter Medications at Time of Discharge Medication Sig Dispensed Refills Start Date End Date losartan (COZAAR) 100 mg Tablet Take 100 mg by mouth daily. hydrochlorothiazide (HYDRODIURIL) 12.5 mg Tablet Take 12.5 mg by mouth daily. CIS Free Text Med - Inderal 11/29/2000 oxyCODONE (ROXICODONE) 5 mg Tablet Take 1 tablet by mouth every 4 hours as needed for Pain. 40 tablet 03/23/2016 03/30/2016 documented as of this encounter Progress Notes * Breanna Márquez RN - 03/25/2016 12:24 PM EST Pt d/c to home per MD order. Patient AOx4, hrr, lung sounds clear, no n/v, sob or chest pain at time of discharge. +bs, LBM 03/23/16, voiding clear yellow urine. Patient ambulating independently at this time. Pain well controlled with Tylenol. All LDA's removed. All belongings home with patient. All discharge instructions reviewed with patient and . All questions answered. Please see flowsheet for full assessment. * Michael Jenkins MD - 03/24/2016 8:38 AM EST PLASTIC SURGERY INPATIENT PROGRESS NOTE Attending: MICHAEL JENKINS Hospital Admission Date: 03/23/2016 ID: Gina Henderson is a 56 y.o. female patient s/p BBR. Postoperatively pt was persistently with low SpO2 on RA with sats in 80s, denied dyspnea, appeared in no distress. ABGs drawn. CXR ordered. OnNC with sats in 90s. POD1. S: No events overnight. Pt denies dyspnea/SOB. Pain controlled. Tolerating diet. No nausea/emesis. O: Temp: [36.3 ??C (97.3 ??F)-37.2 ??C (99 ??F)] Resp: [17-20] BP: (94-134)/(48-85) Intake/Output Summary (Last 24 hours) at 03/24/16 0838 Last data filed at 03/24/16 0751 Gross per 24 hour Intake 2240 ml Output 703 ml Net 1537 ml Drains: L breast 38SS, R 65 SS General: well developed, well nourished, appearing in no acute distress Respiratory: nonlabored, symmetric chest movement Cardiovascular: no peripheral edema, no clubbing Abdomen: soft, nontender, nondistended Breasts: postop bra in place, NAC insensate bilaterally, incisions clean/dry/intact, stable ecchymosis at IMF bilaterally and vertical incisions bilaterally, no evidence of infection/hematoma/seroma,bilateral JONATHAN drains with SS output, Extremities: no cyanosis, no edema Labs: Last 3 Lytes No results for input(s): NA, K, CL, CO2, BUN, CREATININE in the last 7068 hours. Last 3 wbc, hgb, hct plt No results for input(s): WBC, HGB, HCT, PLATELET in the last 7068 hours. Recent Results (from the past 24 hour(s)) BLOOD GAS 2 ARTERIAL Result Value Ref Range pH Art 7.25 (CRIT) 7.35 - 7.45 pCO2 Art 64 (CRIT) 35 - 45 mmHg pO2 Art 47 (CRIT) 85 - 104 mmHg HCO3 Art 27.0 (H) 20.0 - 26.0 mmol/L BE Art -0.4 -3.0 - 3.0 mmol/L Hgb Blood Gas 14.2 11.7 - 15.5 gm/dL O2HB Art 80.4 (L) 94.0 - 97.0 % COHB Art 0.9 % METHB Art 0.3 <=1.5 % Na Whole Blood 139 135 - 145 mmol/L K Whole Blood 4.1 3.5 - 5.0 mmol/L ICa Whole Blood 1.22 1.15 - 1.33 mmol/L CL Whole Blood 102 98 - 107 mmol/L Gluc Whole Bld 148 65 - 199 mg/dL Lactate WB 2.0 0.5 - 2.2 mmol/L Imaging: CXR 03/23 FINDINGS: Lung volumes are low. No focal consolidation, pleural effusion, or pneumothorax. Cardiomediastinal silhouette, lee ann, and pulmonary vasculature are normal. No acute osseous abnormalities. IMPRESSION No acute cardiopulmonary abnormality. A/P: Gina Henderson is a 56 y.o. female patient s/p BBR POD1 with low oxygen sats. This morning on2L NS with sats in 90s. BP and HR normal. Pt has no complaints. CXR negative. No concerns for PE. Pt reports she had a cold prior to OR. Will remove drains at time of discharge. Continue q1hr IS. Hospital medicine consulted for recommendations Elizabeth Mensah PA-C Plastic Surgery Pager [phone] Attn: continues to require supplemental O2 but has no symptoms of SOB. Will ask medical team to seeher. * Vinayak Luna MD - 03/23/2016 7:27 PM EST General Surgery Post-Operative Note Gina Henderson is a 56 y.o. female who is s/p reduction mammoplasty, bilateral. Patient states that pain is well controlled. Denies cp/sob, n/v/d. Prefers to only use Tylenol and not oxycodone. Temp: [36.7 ??C (98.1 ??F)-36.9 ??C (98.4 ??F)] Heart Rate: -- Resp: [18] BP: (94-118)/(48-74) SpO2: [84 %-96 %] Heart Rate from SPO2: [79 bpm-90 bpm] Intake/Output Summary (Last 24 hours) at 03/23/161926 Last data filed at 03/23/161919 Gross per 24 hour Intake 2000 ml Output 350 ml Net 1650 ml No results for input(s): WBC, HGB, HCT, PLATELET, PT, INR, PTT in the last 72 hours. No results for input(s): NA, K, CL, CO2, BUN, CREATININE, GLUCOSE, CALCIUM, MAGNESIUM, PHOS in the last 72 hours. Physical Examination Gen: Alert, arousable and cooperative Cardio: RRR. No additional sounds or murmurs heard Pulm:NVBS heard in all areas. Extremities: warm, FROM, sensation/motor intact ABD: soft, non tender and not distended. JONATHAN with s/s drainage, bulb to suction, mammoplasty bra in place, dry. Assessment and plan: - -progressing well post-operatively -continue current management -encouraged patient to stay ahead of pain with use of prns * Julissa Romero RN - 03/23/2016 6:07 PM EST Patient arrived to unit at 1715 from PACU, report given by YE Smiley. Patient was assessed per doc flow. Patient is denying pain and SOB. Patient came in on 3L of O2. Patient is now on 2L with SpO2 between 91-96%. Patient displays proper use of incentive spirometer. Patient has a stable gait and istolerating a regular diet. IV remains intact. Incisions have gauze and surgical bra on. The surgical site remains clean, dry, and has no drainage. Please refer to doc flow and MAR for further information on assessment and medications. * Michael Jenkins MD - 03/23/2016 5:26 PM EST PLASTIC SURGERY INPATIENT PROGRESS NOTE ID: Gina Henderson is a 56 y.o. female patient s/p BBR POD 0 now with low oxygen sats. S: Patient without complaints. No SOB or palpitations. O: Temp: [36.3 ??C (97.3 ??F)-36.9 ??C (98.4 ??F)] Heart Rate: [72] Resp: [16-20] BP: (94-143)/(48-85) Intake/Output Summary (Last 24 hours) at 03/23/16 1726 Last data filed at 03/23/16 1649 Gross per 24 hour Intake 2000 ml Output 50 ml Net 1950 ml NAD, A/O Nonlabored, symmetric chest movement Soft, NT/ND B/L breast incisions CDI, no SOI, JPs SS Recent Results (from the past 24 hour(s)) POCT HGB Result Value Ref Range POC Hemoglobin 15 g/dL BLOOD GAS 2 ARTERIAL Result Value Ref Range pH Art 7.25 (CRIT) 7.35 - 7.45 pCO2 Art 64 (CRIT) 35 - 45 mmHg pO2 Art 47 (CRIT) 85 - 104 mmHg HCO3 Art 27.0 (H) 20.0 - 26.0 mmol/L BE Art -0.4 -3.0 - 3.0 mmol/L Hgb Blood Gas 14.2 11.7 - 15.5 gm/dL O2HB Art 80.4 (L) 94.0 - 97.0 % COHB Art 0.9 % METHB Art 0.3 <=1.5 % Na Whole Blood 139 135 - 145 mmol/L K Whole Blood 4.1 3.5 - 5.0 mmol/L ICa Whole Blood 1.22 1.15 - 1.33 mmol/L CL Whole Blood 102 98 - 107 mmol/L Gluc Whole Bld 148 65 - 199 mg/dL Lactate WB 2.0 0.5 - 2.2 mmol/L A/P: Gina Henderson is a 56 y.o. female patient s/p BBR POD 0 now with low oxygen sats. Patient currently on 3L NC with O2 sat of high 80's to low 90's. BP and HR normal. No complaints. CXR negative. No concern for PE. Patient does note that she had a cold prior to the OR. Patient to be admitted for observation. Q1H incentive spirometry. Will continue to monitor patient. Dagoberto Alexis MD Plastic Surgery Resident, PGY-7 Attn: seen and examined . She is asymptomatic and has been so since surgery. Discussed at length with anesthesia team. He ABG and sx do not endorse an embolic event. Given remote history of lung issues, likely pulmonary in nature. Will observe overnight and reevaluate in the am. * Aiyana Farah RN - 03/23/2016 1:52 PM EST Patient out of bed. Positive void. Incentive spirometry encouraged. Pulse ox in the high 90s to low 90s then back into 80s. Dr. Melendez here. ABG done. Chest xray ordered. * Sadie Jones RN - 03/23/2016 1:18 PM EST Patient being weaned off O2, but oxygen saturation dipping into the 60's/70's on RA. Patient bouncing right back up to the 90's within seconds. Patient given IS and encouraged to cough and deep breath. Patient taken on and off NC 3L to help bring O2 back up. MD Melendez made aware and monitored patient in room. Patient is warm, with pink color to skin/lips, no SOB, and feels fine and ready to go home. Patient monitored on two different monitors to see if there is a discrepancy; one on the ear and one on the hand, monitors show similiar numbers. Patient given nebulizer treatment; O2 saturation between 86- 92%, but not holding in the 90's. MD Melendez to draw ABG before sending patient home. Will continue to monitor. * Sadie Jones RN - 03/23/2016 1:14 PM EST Discharge instructions reviewed with patient and . No questions at this time. Sadie Jones RN * Aiyana Farah RN - 03/23/2016 10:13 AM EST JONATHAN drains are intact/draining blood. Side rails are up. Call evans within reach. Pt. Follows simple commands. Head of bed is elevated. Dressings are clean dry and intact. Upper airway''sounds.'' Dr. Melendez here/assessed pt. Report given to Sherice BELCHER documented in this encounter H&P Notes * Ortiz Lopez MD - 03/23/2016 7:02 AM EST INTERVAL H&P S: Gina Henderson's condition unchanged since H&P originally performed Denies any new ED visits, hospitalizations, trauma, or new events. Has been overall doing well. O: Patient Vitals for the past 24 hrs: BP Temp Temp src Pulse Resp SpO2 Height Weight 03/23/16 0609 143/71 36.3 ??C (97.3 ??F) Oral 72 16 96 % 154.9 cm (5' 1) 95.5 kg (210 lb 8.6 oz) NAD, A&Ox3 Non-labored respirations, clear to auscultation bilaterally Regular rate and rhythm, no murmur on auscultation Site marked AP: 56 y.o. female with macromastia. - After extensive discussion of the risks, benefits, and alteratives of surgical intervention, the patient consented to proceed with surgery. - IV antibiotics ordered - Proceed to OR for: Procedure(s): REDUCTION MAMMOPLASTY, YANG (WRVU 16.03) MODIFIER ROBERTS Ortiz Lopez MD Plastic Surgery Resident, PGY-6 * Dagoberto Alexis MD - 03/23/2016 6:40 AM EST 24 HOUR INTERVAL H&P S: Gina Henderson's condition unchanged since H&P originally performed Denies any new ED visits, hospitalizations, trauma, or new events. Has been overall doing well. O: Patient Vitals for the past 24 hrs: BP Temp Temp src Pulse Resp SpO2 Height Weight 03/23/16 0609 143/71 36.3 ??C (97.3 ??F) Oral 72 16 96 % 154.9 cm (5' 1) 95.5 kg (210 lb 8.6 oz) NAD Non-labored Reg rate Site marked AP: 56 y.o. female with macromastia. - After extensive discussion of the risks, benefits, and alteratives of surgical intervention, the patient consented to proceed with surgery. - IV antibiotics ordered - Proceed to OR for: Procedure(s): REDUCTION MAMMOPLASTY, YANG (WRVU 16.03) MODIFIER ROBERTS Dagoberto Alexis MD Plastic Surgery Resident, PGY-7 documented in this encounter Miscellaneous Notes * Plan of Care - Veronica Melissa RN - 03/25/2016 3:18 AM EST Problem: Patient Care Overview Goal: Plan of Care Review 03/24/1610603/25/16 0300 Plan of Care Review Progress improving -- Coping/Psychosocial Plan Of Care Reviewed With -- patient Comments: OUTCOME EVALUATION NOTE: OUTCOME SUMMARY: The patient is resting comfortably this shift and denies the need for pain medication. The patient was placed on 2l NC while sleeping for lowe oxygen level into the mid 80's. Rn noted that when the patient is sleeping she snores heavily, when awake and talking her oxygen levels arein the low to mid 90's. The patient was encouraged to continue to use her IS. PLAN MOVING FORWARD:monitor oxygen requirement, encourage IS, increase mobility INDIVIDUALIZED FALL PREVENTION INTERVENTIONS: Patient-specific fall risk factors per assessment: [current deficits]: Surgery, pain Assistance [level of assistance required for transfers and ambulation]: Stand by Supervision [direct monitoring required during toileting and ADLs]: Eyes on Surveillance [continuous indirect monitoring]: Masimo, hourly rounding Patient-specific fall prevention interventions for sensory deficits provided, if applicable: [X] N/A CPG GOAL OUTCOME EVALUATION: * Plan of Care - Dolores Huang RN - 03/24/2016 8:08 PM EST Problem: Patient Care Overview Goal: Plan of Care Review Outcome: Ongoing (Interventions Implemented as Appropriate) 03/24/16 01003/24/16 1336 Plan of Care Review Progress improving -- Coping/Psychosocial Plan Of Care Reviewed With -- patient OUTCOME EVALUATION NOTE: OUTCOME SUMMARY: Pt. disappointed to not be discharged today. Kept for observation due to hypoxia. Working hard ambulating and using IS. PLAN MOVING FORWARD: DC planning. INDIVIDUALIZED FALL PREVENTION INTERVENTIONS: Patient-specific fall risk factors per assessment: [current deficits]: Generalized weakness. Assistance [level of assistance required for transfers and ambulation]: Independent. Supervision [direct monitoring required during toileting and ADLs]: Independent. Surveillance [continuous indirect monitoring]: Se. Patient-specific fall prevention interventions for sensory deficits provided, if applicable: [X] N/A CPG GOAL OUTCOME EVALUATION: * Initial Assessments - Nagi Shaw RN - 03/24/2016 12:41 PM EST Office of Care Management Initial Assessment NAGI SHAW RN reviewed record and discussed patient with Care Team. Source of Information: Patient Introduced self/reviewed role; services accepted. Reason for Hospitalization: Macromastia. 03/23/16: Preoperative diagnosis: macromastia ?? Postoperative diagnosis: macromastia ?? Procedure(s): REDUCTION MAMMOPLASTY, YANG MODIFIER ROBERTS Past Medical History Diagnosis Date ??? HTN (hypertension) Past Surgical History Procedure Laterality Date ??? Hysterectomy ??? section ??? Pro reduction of large breast Bilateral 03/23/2016 REDUCTION MAMMOPLASTY, YANG (WRVU 16.03) performed by Michael Jenkins MD at [facility] Hospitalizations Within the Past 30 Days: None at [facility] nor at outside hospitals. Anticipated Length Of Stay : Anticipate discharge home tomorrow, 03/25. IPI order cosigned by Dr.Gary Jenkins on 03/23/16 @ 1726. Current Decision-Making Capacity: Patient alert and oriented; capable decision maker. Advance Care Planning: Not on file in [facility], nor elsewhere. Current Coping/Education/Information Needs: Coping effectively. The staff are absolutely wonderful. I mean phenomenal. Current Functional Ability: On room air during my visit. Pt resting in bed. They think I probably haven't been taking deep breaths for years. Order for a [address] Pt looking comfortable. 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 Home Environment: Lives with her , Shaw, in [place], [place]. Social & Family Supports/Community Resources: Emergency Contact 1 Emergency Contact 2 ? Shaw Hednerson (Spouse) [address] [facility] [id number] (H) [phone] (W) Stefani Li (Child) [phone] (H) Behavioral Health History: None per H&P. Substance Use/Abuse: Former smoker. EtOH: 2 glasses of wine/week. No illicit drug use. Other Pertinent/Service Specific Information: None Health/Prescription Coverage: Primary Insurance: [facility] Secondary Insurance: None Prescription Coverage: Yes Preferred Pharmacy: [facility], [place], [place] Other: None Primary Care Provider: RAQUEL Beatty [phone] Patient/Caregiver Goals of Treatment: To return home with her and to resume work when givenmedical clearance. Potential Needs for Transition of Care: Rehab/SNF: N/A Home Health: Declined VNA services. ([facility] serves her area). DME: N/A Dialysis: N/A Community Resources: None Transportation: Pt's will transport pt home at discharge. Other: None Anticipated Barriers to Discharge/Special Considerations: None identified. Plan: A member of the Care Management team will continue to monitor progress, follow for continuity of care and assist with transition of care planning. NAGI SHAW RN Pager: [phone] for today. Assisting Rebeca Lee Pt's Primary Chip Applying Machine Tender, pager [phone] * Consult Note - Adri Parra - 03/24/2016 9:36 AM EST Medicine Consult Note, Pager [phone] Patient Name: Gina Henderson Patient Age: 56 y.o. Admit date: 03/23/2016 Attending Physician: Michael Jenkins MD PCP: RAQUEL Beatty Problem List: Active Hospital Problems Diagnosis ??? Macromastia Resolved Hospital Problems Diagnosis Date Resolved No resolved problems to display. Active Non-Hospital Problems Diagnosis ??? Irritant hand dermatitis ID: Gina Henderson is a 56 y.o. female with a history of obesity, macromastia, HTN, mild intermittent asthma and mild obstructive airway disease, admitted 03/23 for bilateral breast reduction, foundto have post-operative oxygen saturations in the mid-80s on room air. Medicine is consulted for evaluation of hypoxemia. Reason for consult: Hypoxemia Consulting service: Plastic surgery History of Present Illness (obtained from patient and eDH chart review): Gina reports that she has not been able to breathe easy since at least her mid-30s, but that her current respiratory status is about 40% worse than her baseline. She notes that minimal exertionhas historically made her fairly short of breath, and that this has very gradually worsened over time; currently, she becomes short of breath and has to rest for several minutes if she walks up a hill, walks at her 's pace for more than a short distance, or does activities like pushing the lawnmower or raking leaves. She states that she had a bad episode of pneumonia in infancy, and was told that her lungs would never be good. She adds that she has frequent colds in the winter months and that they always go to my lungs--but that she has always had improvement with inhalers and occasional antibiotics. She has an approximately 5 pack year history, as she smoked about 1/2 PPD from ages 14 - 24. She was also exposed to second-hand smoke throughout her childhood, as her father was asmoker. She reports that she snores, but denies waking up gasping for air, and her has not been aware of any episodes of apnea at night. Her weight has been stable, and she has not noted PND,orthopnea, or lower extremity swelling. She denies fevers, chills, cough, wheeze or sputum production at this time. She has not had any prolonged travel, does not have a known malignancy, is not , and has been ambulatory since her bilateral breast reduction. She denies any family history ofblood clots or lung problems beyond COPD in her brother, who is a smoker. PFTs performed in June 2010 showed mild obstructive airway disease with no significant bronchodilator response (FVC 86% predicted, FEV1 78% predicted, FEV1/FVC 90% predicted, DLCO 101% predicted). Her last oxygen saturation,measured at her outpatient clinic in July 2015, was 98% on room air, and her last outpatient peak flow in June 2015 was reduced at 300. On presentation, her oxygen saturation was 96% on room air; post-operatively, it has been significantly lower--reportedly in the 60s-70s initially, and rapidly rising to the low 90s on 2-3 L of supplemental O2. It has not significantly improved in the context of incentive spirometry use or nebulizer treatment. She is not tachycardic, and is not on a beta-grant. She reports feeling slightly short of breath. She does report intermittent exertional chest pain, which is like indigestion and is brought on by the same activities that make her short of breath. She states that the pain is present in the center of her chest, reaches up to 6 out of 10 in intensity, does not radiate, is occasionally associated with lightheadedness, and resolves with rest. She thinks that the chest pain has been provoked by less intense activities as time goes by. An exercise ECG in July 2010 was non-diagnostic as she was unable to reach the target heart rate, and a subsequent myocardial perfusion imaging study showed normal perfusion with normal LV wall motion and an EF of 76%. Review of Systems (positives in bold) Constitutional: appetite change, fatigue, fevers, chills, night sweats HEENT: speech changes, dysphagia Respiratory: cough, wheeze, shortness of breath Cardiovascular: exertional chest pain, palpitations, paroxysmal nocturnal dyspnea, dyspnea on exertion, orthopnea, leg swelling Gastrointestinal: abdominal pain, nausea, vomiting, diarrhea, baseline constipation, hematochezia, melena Genitourinary: dysuria, urgency, frequency, hematuria Skin: rash, lesions, pruritus Neurological: headaches, dizziness, lightheadedness with chest pain, tingling, numbness, extremity weakness Past Medical History: - HTN - mild intermittent asthma - obesity Past Surgical History: - R tibia fracture 1985 - hysterectomy for fibroids in the mid- - bilateral breast reduction February 2016 Prior To Admission Medications: - losartan 100 mg PO daily - HCTZ 25 mg PO daily - citalopram 40 mg PO daily - albuterol 90 mcg 1-2 puffs q4-6 h PRN wheezing - MVI daily - OTC stool softeners Allergies: No Known Allergies Family History: - Mother: HTN, hypothyroidism - Father: valvular heart disease, CAD s/p stenting x 3, - Brother: HTN, COPD, tobacco abuse Social History and Habits: - , lives in [facility] with her of 30+ years - 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 - tobacco: 5 pack year history - alcohol: rare social intake, 1 glass of wine - illicits: denies Physical Exam: Last value Range last 24 hrs Temperature Temp: 36.8 ??C (98.2 ??F) Temp: [36.3 ??C (97.3 ??F)-37.2 ??C (99 ??F)] Heart Rate Heart Rate: 72 Heart Rate: -- Blood Pressure BP: 104/50 BP: (94-134)/(48-85) Respiratory Rate Resp: 17 Resp: [17-20] SpO2 SpO2: 95 % SpO2: [84 %-96 %] General: Pleasant, conversant, obese middle aged woman in no acute distress, with at bedside HEENT: NC/AT, EOMI, sclera anicteric, MMM Cardiovascular/Chest: Somewhat distant heart sounds, RRR, normal S1/S2, no M/R/G appreciated; chestbandaged with bilateral drains draining scant serosanguinous fluid Pulmonary: Somewhat diminished breath sounds throughout, no wheezes, rales or rhonchi; able to speak in full sentences, not using accessory muscles, does not appear to be in respiratory distress Abdomen: Soft, obese, NABS Extremities: Warm, well-perfused, symmetric, no edema Skin: Warm, dry, no concerning lesions or rashes Neuro: A&Ox4, CN II - XII grossly intact, no focal deficits Laboratory (Last 24 Hours): Recent Results (from the past 24 hour(s)) BLOOD GAS 2 ARTERIAL Result Value Ref Range pH Art 7.25 (CRIT) 7.35 - 7.45 pCO2 Art 64 (CRIT) 35 - 45 mmHg pO2 Art 47 (CRIT) 85 - 104 mmHg HCO3 Art 27.0 (H) 20.0 - 26.0 mmol/L BE Art -0.4 -3.0 - 3.0 mmol/L Hgb Blood Gas 14.2 11.7 - 15.5 gm/dL O2HB Art 80.4 (L) 94.0 - 97.0 % COHB Art 0.9 % METHB Art 0.3 <=1.5 % Na Whole Blood 139 135 - 145 mmol/L K Whole Blood 4.1 3.5 - 5.0 mmol/L ICa Whole Blood 1.22 1.15 - 1.33 mmol/L CL Whole Blood 102 98 - 107 mmol/L Gluc Whole Bld 148 65 - 199 mg/dL Lactate WB 2.0 0.5 - 2.2 mmol/L Radiology: - CXR 03/23: Lung volumes are low. No focal consolidation, pleural effusion, or pneumothorax. Cardiomediastinal silhouette, lee ann, and pulmonary vasculature are normal. No acute osseous abnormalities.No acute cardiopulmonary abnormality. Assessment: Gina Henderson is a 56 y.o. female with a history of obesity, macromastia, HTN, mild intermittent asthma and mild obstructive lung disease, admitted 03/23 for bilateral breast reduction, found to havepost-operative oxygen saturations in the mid-80s on room air. Medicine is consulted for evaluation of hypoxemia. While she has a longstanding history of mild baseline exertional shortness of breath, she noted an acute change in her perceived shortness of breath post- operatively, including the development of mild dyspnea at rest. Her post- operative ABG showed significant CO2 retention, most consistent with hypoventilation. Since that time, she has gradually experienced a decreased oxygen need; her sats are currently in the mid-high 80s on room air, with improvement to the mid-high 90s with deep inspiration. While the differential diagnosis for post-operative hypoxemia is broad and includes aspiration PNA, CHF, atelectasis, PE, pneumothorax--her overall picture seems most consistent with obesity hypoventilation syndrome, which has been exacerbated by her post- operative sedation and pain. In the absence of a clinical history, exam findings or imaging (CXR) that raise concern for PNA, atelectasis, CHF or pneumothorax, and given the low likelihood of an immediate post-operative PE capable of causing hypoxemia in the absence of tachycardia, hemodynamic instability or other symptoms, it seems most likely that her hypoxemia is due to obesity hypoventilation syndrome, which should improve following breast reduction and as pain resolves. Recommendations: - stat EKG ordered (low suspicion for cardiac causes) - encourage use of incentive spirometry, frequent ambulation, deep breathing while at rest - may require supplemental oxygen in the short-term until post-operative pain resolves - would recommend checking noctural O2 saturation on an outpatient basis Case discussed with Dr. Stallworth. Thank you for this consult. Please contact the consult pager at [phone] with any questions. Adri Parra MD PGY-3, Department of Internal Medicine Consult Pager [phone] 03/24/2016 Associated attestation - Santiago Stallworth MD - 03/24/2016 11:14 PM EST Attending Staff New Consult Documentation We have been asked to see this patient in consultation by Dr. Jenkins from Plastic Surgery Please see Dr. Parra's note for details of the patient history of presentation and data. I have discussed, reviewed and agree with the documented history with ROS, social and family history, medication list, physical findings, labs/studies, Assessment and Plan of care. I have examined the patient myself and reviewed all labs and studies personally. Additions to the history, physical, assessment and plan include the following: Issues: Interesting case of a 56 yo female admitted for an elective breast reduction procedure who was found to be mildly hypoxic post op. Evaluation has been complete and included an ABG demonstrating hypoventilation, a clear CXR, no cough, and she is asymptomatic. Notably, her O2 sat normalizes when she is asked to take deep breaths (after a short delay). Reviewing her whole picture, the most likely explanation is Obesity Hypoventilation syndrome. She (and her ) deny significant snoring to suggest ELISHA. Obesity Hypoventilation is a combination of poor lung mechanics due to obesity plus a central decreased ventilatory drive that is not well explained. Most likely she has this syndrome, and the surgery has triggered a slight worsening (due to pain from her procedure, lying in bed, pain medications, etc). Or, her hypoventilation wasn't noted preop, as she had only a single O2 sat measured. In any case, there is no specific treatment for this. If her O2 sat is low enough to qualify for home O2, a short course might be helpful. If not, then she can be sent home and we can pursue an overnight oximetry as an outpatient (vs a full sleep study). I contacted her PCP to review, and she is willing to help arrange this if needed. I do not think this is a PE. She is asymptomatic, not tachycardic, and her PCO2 is elevated all which argue against it. Plus, she had a low risk procedure and has been mostly ambulatory. * Plan of Care - Nikki Davis RN - 03/24/2016 2:17 AM EST Problem: Patient Care Overview Goal: Plan of Care Review Outcome: Ongoing (Interventions Implemented as Appropriate) 03/23/16 2132 03/24/16 0107 Plan of Care Review Progress -- improving Coping/Psychosocial Plan Of Care Reviewed With patient -- OUTCOME EVALUATION NOTE: OUTCOME SUMMARY: Pt unable to be weaned off oxygen this shift. Pt effectively using IS this shift, however at this time remains on 1L O2 with sats in the high 80s when off oxygen. Pt states she is shocked at how little pain she has, denying need for pharmacological intervention at this time. Surgical bra in place. PLAN MOVING FORWARD: Continue to monitor pain, encourage ambulation, encourage deep breathing and use of IS INDIVIDUALIZED FALL PREVENTION INTERVENTIONS: Patient-specific fall risk factors per assessment: [current deficits]: Surgery, POD 0, hospital environment, oxygen tubing Assistance [level of assistance required for transfers and ambulation]: Independent Supervision [direct monitoring required during toileting and ADLs]: Arms reach Surveillance [continuous indirect monitoring]: Masimo, purposeful rounding, bedside NKE, Patient-specific fall prevention interventions for sensory deficits provided, if applicable: CPG GOAL OUTCOME EVALUATION: * Op Note - Michael Jenkins MD - 03/23/2016 9:33 AM EST [facility] [place] Patient Name: Gina Henderson : 1960 MR#: [id number] Case Date: 03/23/2016 Surgeon: Surgeon(s) and Role: MD Sarina - Primary MD Jessica Preoperative diagnosis: macromastia Postoperative diagnosis: macromastia Procedure(s): REDUCTION MAMMOPLASTY, YANG (WRVU 16.03) MODIFIER ROBERTS Anesthesia: gen Estimated Blood Loss: 150cc Specimens removed during surgery: b/l breast tissue R 770g L 580g Drains: b/l 15 Art Surgical Closure: monocryl Implant(s): none Disposition: awakened from anesthesia, extubated and taken to the recovery room in a stable condition, having suffered no apparent untoward event. Condition: doing well without problems (Please see the Surgical Encounter Summary for any Implant and Specimen details pertinent to this patient.) Post-Op Plan: 1-3 days: Drain removal based on nursing assessment 7-10 days: Return for wound check, suture removal, give patient pathology report, niko bra fitting, review post-op activity restrictions 6 months: roasterman f/u with surgeon Indication for procedure: This is a woman with back and neck pain from bilateral breast hypertrophy. She presents for reduction. In the holding area she was marked for a Roberts mammaplasty with a superomedial pedicle. Procedure: The patient was brought to the Operating Room where she was placed supine on the Operating Room table. SCDs were placed on bilateral lower extremities. After the induction of general endotracheal anesthesia, the chest wall was prepared and draped. She was given a single prophylactic dose of antibiotics. Through small stab wounds, the breasts were infiltrated with tumescent solution of saline, epinephrine and xylocaine. The precise outline of the medial pedicle was designed and the areolar diameter was marked using a 42 mm template. Methylene blue was tattooed (using a 25 gauge needle) into the keyanatomic landmarks and quadrants of the areolar diameter. A tourniquet was then wrapped around the base of each breast and the pedicle was deepithelialized. The remainder of the incisions were made through skin and superficial subcutaneous tissue. Beginning infero-medially, the tissue to be excisedwas from the pectoralis fascia and then developed contiguously with the inferior pole of the breast and the inferolateral extension. The medial pedicle was then incised and developed down to the pec fascia. Excision of excess breast tissue then proceeded inferiorly in a transverse fashion, laterally and superiorly. Once the tissue had been excised bilaterally, the weights of the excisedtissue were recorded and additional tissue taken to ensure symmetry. Right breast tissue removed = 770g g. Left breast tissue removed = 580 g. The breast wounds were then irrigated with normal saline. Hemostasis was achieved with Bovie electrocautery. Closure was first begun by approximating the 12 o'clock position of the NAC with a deep dermal stitch of 4-0 PDS. The rest of the wound closure was achieved with insorb staplers and running 4-0 Monocryl. The dressing consisted of moist sterile gauze and fluffs. The breasts were symmetricalat the end of the case and there was good color/perfusion of the NAC complex bilaterally. Sponge and needle counts were all correct at the end of the case. There were no intraoperative complications. The patient was awakened from anesthesia without any difficulties. Dr. Jenkins was present for the entirety of the case. Ortiz Lopez MD Plastic Surgery, PGY-6 Attestation: Case Date: 03/23/2016 I was present and I participated during the entire procedure (does not need to include opening and closing). MICHAEL JENKINS MD 03/23/2016 * Brief Op Note - Ortiz Lopez MD - 03/23/2016 9:32 AM EST [facility] [place] Patient Name: Gina Henderson : 1960 MR#: [id number] Case Date: 03/23/2016 Surgeon: Surgeon(s) and Role: MD Sarina - Primary MD Jessica Preoperative diagnosis: macromastia Postoperative diagnosis: macromastia Procedure(s): REDUCTION MAMMOPLASTY, YANG (WRVU 16.03) MODIFIER ROBERTS Anesthesia: gen Estimated Blood Loss: 150cc Specimens removed during surgery: b/l breast tissue R 770g L 580g Drains: b/l 15 Art Surgical Closure: monocryl Implant(s): none Disposition: awakened from anesthesia, extubated and taken to the recovery room in a stable condition, having suffered no apparent untoward event. Condition: doing well without problems (Please see the Surgical Encounter Summary for any Implant and Specimen details pertinent to this patient.) Post-Op Plan: 1-3 days: Drain removal based on nursing assessment 7-10 days: Return for wound check, suture removal, give patient pathology report, niko bra fitting, review post-op activity restrictions 6 months: jail f/u with surgeon Ortiz Lopez MD Plastic Surgery, PGY-6 documented in this encounter Plan of Treatment Not on file documented as of this encounter Procedures Procedure Name Priority Date/Time Associated Diagnosis Comments EKG 12-LEAD STAT 03/24/2016 1:46 PM EST H/O exertional chest pain XR CHEST ONE VIEW STAT 03/23/2016 2:0 1 PM EST BLOOD GAS ARTERIAL POC Routine 03/23/2016 1:33 PM EST SPECIMEN TO PATHOLOGY Routine 03/23/2016 8:37 AM EST SURGICAL PATHOLOGY REPORT Routine 03/23/2016 8:36 AM EST SPECIMEN TO PATHOLOGY Routine 03/23/2016 8:36 AM EST MODIFIER ROBERTS 03/23/2016 7:36 AM EST macromastia REDUCTION MAMMOPLASTY, YANG (WRVU 16.03) 03/23/2016 7:36 AM EST macromastia POCT HGB Routine 03/23/2016 documented in this encounter Results * EKG 12 Lead (03/24/2016 1:46 PM EST) Ventricular rate 92 BPM MUSE SYSTEM Atrial Rate 92 BPM MUSE SYSTEM P-R Interval 134 ms MUSE SYSTEM QRS Duration 80 ms MUSE SYSTEM Q-T Interval 346 ms MUSE SYSTEM QTC Calculated (Bezet) 427 ms MUSE SYSTEM Calculated P Comstock 54 degrees MUSE SYSTEM Calculated R Comstock -2 degrees MUSE SYSTEM Calculated T Comstock 32 degrees MUSE SYSTEM INTERPRETATION Normal sinus rhythm Normal ECG No previous ECGs available Confirmed by MD SALGADO BRUCE ([id number]) on 03/24/2016 5:38:41 PM MUSE SYSTEM 03/24/2016 1:46 PM EST 03/24/2016 5:38 PM EST Santiago Stallworth MD ECG ORDERABLES MUSE SYSTEM * XR Chest PA or AP 1 view (03/23/2016 2:01 PM EST) Anatomical Region Laterality Modality Chest N/A Digital Radiogra phy Impressions 03/23/2016 2:31 PM EST No acute cardiopulmonary abnormality. I have personally reviewed the image(s) and the residents interpretation and agree with the findings, Gayle Ann at 03/23/2016 2:31 PM Narrative 03/23/2016 2:31 PM EST EXAMINATION: XR CHEST PA OR AP 1 VIEW CLINICAL HISTORY: hypoxemia, post-op TECHNIQUE: AP semiupright view of the chest COMPARISON: None FINDINGS: Lung volumes are low. No focal consolidation, pleural effusion, or pneumothorax. Cardiomediastinal silhouette, lee ann, and pulmonary vasculature are normal. No acute osseous abnormalities. Procedure Note Gayle Ann MD - 03/23/2016 EXAMINATION: XR CHEST PA OR AP 1 VIEW CLINICAL HISTORY: hypoxemia, post-op TECHNIQUE: AP semiupright view of the chest COMPARISON: None FINDINGS: Lung volumes are low. No focal consolidation, pleural effusion, orpneumothorax. Cardiomediastinal silhouette, lee ann, and pulmonary vasculature are normal.No acute osseous abnormalities. IMPRESSION No acute cardiopulmonary abnormality. I have personally reviewed the image(s) and the residents interpretationand agree with the findings, Gayle Ann at 03/23/2016 2:31 PM Solo Melendez MD IMG DX ORDERABLES * (ABNORMAL) BLOOD GAS 2 ARTERIAL (03/23/2016 1:33 PM EST) pH, Arterial 7.25(Criti anderson) 7.35 - 7.45 [facility] Comment:Noted by instrumentation and controls designer. PCO2, Arterial 64(Critica l) 35 - 45 mmHg [facility] Comment:Noted by instrumentation and controls designer. PO2, Arterial 47(Critica l) 85 - 104 mmHg [facility] Comment:Noted by instrumentation and controls designer. Bicarbonate, Arterial 27.0(H) 20.0 - 26.0 mmol/L [facility] Base Excess, Arterial -0.4 -3.0 - 3.0 mmol/L [facility] Hgb Blood Gas 14.2 11.7 - 15.5 gm/dL [facility] Oxyhemoglobin, Arterial 80.4(L) 94.0 - 97.0 % [facility] Carboxyhemoglob in, Arterial 0.9 % [facility] Comment: Nonsmokers: 0.5-1.5% COHB Smokers: Variable, but usually less than 10% Toxic: 20-30% COHB Lethal: Greater than 60% COHB Methemoglobin, Arterial 0.3 <=1.5 % [facility] Na Whole Blood 139 135 - 145 mmol/L [facility] K Whole Blood 4.1 3.5 - 5.0 mmol/L [facility] Comment: Please note: Patients with WBC >100,000 may have falsely elevated Potassium levels. Contact the Clinical Chemistry Laboratory if there are any questions. ICa Whole Blood 1.22 1.15 - 1.33 mmol/L [facility] Comment: Note: ??Total bilirubin higher than 20 mg/dL may lead to falsely low ionized calcium. CL Whole Blood 102 98 - 107 mmol/L [facility] Gluc Whole Bld 148 65 - 199 mg/dL [facility] Comment:Diabetes: >=200 mg/d L plus symptoms. Lactate WB 2.0 0.5 - 2.2 mmol/L [facility] Blood specimen (specimen) 03/23/2016 1:33 PM EST 03/23/2016 1:33 PM EST Michael Jenkins MD POINT OF CARE TEST O KAYLA Performing Organization Address [facility] Co de Phone Number [facility] [place] [address] * Specimen to Pathology (surgical or derm) (03/23/2016 8:37 AM EST) AP Specimen 03/23/2016 8:37 AM EST 03/23/2016 8:37 AM EST Narrative [facility] - 03/23/2016 8:37 AM EST Specimen requisition ordered. ??Separate Pathology report to follow Michael Jenkins MD PATHOLOGY/CYTOLOGY O KAYLA Performing Organization Address [facility]/State/ZIP Co de Phone Number [facility] [place] [address] * Surgical Pathology Report (03/23/2016 8:36 AM EST) Final Diagnosis [id number] ?Location: 3T; [facility]; B The signing pathologist has (i) examined the relevant preparation(s) for the specimen(s) and (ii) rendered or confirmed the diagnosis(es). . ?Surgical Pathology DIAGNOSIS A - Left breast tissue reduction: Benign breast tissue. B - Right breast tissue reduction Benign breast tissue. Electronically signed by: ??Rosalva Frank DO Verified: ??03/28/2016 ?Pathologist CLINICAL INFORMATION Specimen Submitted: A - Left breast tissue reduction B - Right breast tissue reduction Clinical History: Macromastia Clinical Diagnosis: Same SPECIMEN PROCESSING A - ??Labeled/Fixat simba: Left breast tissue reduction, fresh. Qty/Size/Weight : Multiple, 17.0 x 16.0 x 6.0 cm, 582 grams. Tissue Description: Fibrofatty breast tissue with attached and detached orellana-pink skin. Skin: Unremarkable. Parenchyma: Adipose and dense, bustillo-white fibrous tissue. Sections/Proces sing: (R3) B - ??Labeled/Fixat simba: Right breast tissue reduction, fresh. Qty/Size/Weight : Multiple, 22.0 x 17.0 x 4.0 cm, 770 grams. Tissue Description: Fibrofatty breast tissue with attached and detached orellana-pink skin. Skin: Unremarkable. Parenchyma: Adipose and dense, bustillo-white fibrous tissue. Sections/Proces sing: (R3) ?? yal 03/28/2016 11:05 AM EST [facility] BREAST STRUCTURE / Unknown 03/23/2016 8:36 AM EST 03/23/2016 8:36 AM EST BREAST STRUCTURE / Unknown 03/23/2016 8:36 AM EST 03/23/2016 8:36 AM EST Michael Jenkins MD PATHOLOGY/CYTOLOGY O RDERAMARK Performing Organization Address City/[facility]/ZIP Co de Phone Number [facility] [place] [address] * Specimen to Pathology (surgical or derm) (03/23/2016 8:36 AM EST) AP Specimen 03/23/2016 8:36 AM EST 03/23/2016 8:36 AM EST Narrative [facility] - 03/23/2016 8:36 AM EST Specimen requisition ordered. ??Separate Pathology report to follow Michael Jenkins MD PATHOLOGY/CYTOLOGY O KAYLA Performing Organization Address [facility] [place] [address] * POCT HGB (03/23/2016) POC Hemoglobin 15 g/dL 03/23/2016 Michael Jenkins MD POINT OF CARE TEST O KAYLA documented in this encounter Visit Diagnoses Not on filedocumented in this encounter Admitting Diagnoses Diagnosis Macromastia Hypertrophy of breast documented in this encounter Administered Medications Inactive Administered Medications - up to 3 most recent administrations Medication Order MAR Action Action Date Dose Rate Site acetaminophen (TYLENOL) tablet 1,000 mg 1,000 mg, Oral, ONCE, 1 dose, On Mary Ellen 03/23/16 at 0645, Day of Surgery (Day of Procedure), Routine Given 03/23/2016 6:25 AM EST 1,000 mg acetaminophen (TYLENOL) tablet 1,000 mg 1,000 mg, Oral, EVERY 8 HOURS PRN, Starting on 03/24/16 at 1332, Until 03/25/16 at 1508, Pain, Day of Surgery (Day of Procedure), Routine Given 03/25/2016 7:45 AM EST 1,000 mg Given 03/24/2016 10:24 PM EST 1,000 mg Given 03/24/2016 1:36 PM EST 1,000 mg albuterol (PROVENTIL) 2.5 mg /3 mL (0.083 %) nebulizer solution 1 dose, Starting on Mary Ellen 03/23/16 at 1246, Until Mary Ellen 03/23/16 at 1315, SADIE JONES: cabinet override Given 03/23/2016 1:15 PM EST 2.5 mg ceFAZolin (ANCEF) 1g in dextrose 5% 50mL 1,000 mg (1 g), Intravenous, EVERY 8 HOURS, 2 doses, First dose on Mary Ellen 03/23/16 at 1800, Last dose on Sun03/24/16 at 0200, Administer over 30 Minutes, *Beta-lactam based antibiotics (eg. Ampicillin, Cefazolin, Aztreonam) should be administered within 4 hours of the preceding intraoperative dose. *Vancomycin, Flouroquinolones, Clindamycin, Gentamicin, and Metronidazole should be administered within 8 hours of the preceding intraoperative dose., Recovery (Recovery-Hospital Unit), Indication for (Active or Suspected): Prophylaxis Given 03/24/2016 1:25 AM EST 1,000 mg 100 mL/ hr Given 03/23/2016 5:40 PM EST 1,000 mg 100 mL/hr docusate sodium (COLACE) capsule 100 mg 100 mg, Oral, 2 TIMES DAILY, First dose (after last reorder) on Mary Ellen 03/23/16 at 2100, Until Discontinued, Routine Given 03/25/2016 8:10 AM EST 100 mg Given 03/24/2016 8:07 PM EST 100 mg Given 03/24/2016 8:06 AM EST 100 mg fentaNYL (PF) 50 mcg/mL 2mL syringe 25 mcg, Intravenous, EVERY 5 MIN PRN, Pain, for 1-4 pain score, Starting on Mary Ellen 03/23/16 at 1019, Until Mary Ellen 03/23/16 at 1709, for 1-4 pain score Hold for respiratory rate less than 10 per minute. Maximum dose: 250 mcg over one hour., PACU Recovery Given 03/23/2016 11:19 AM EST 25 mcg Given 03/23/2016 10:50 AM EST 25 mcg hydroCHLOROthiazide (HYDRODIURIL) tablet 12.5 mg 12.5 mg, Oral, DAILY, First dose on Sun03/24/16 at 0900, Until Discontinued, Routine Given 03/25/2016 8:10 AM EST 12.5 mg Given 03/24/2016 8:05 AM EST 12.5 mg lactated ringers infusion 1,000 mL 1,000 mL, at 100 mL/hr, Intravenous, CONTINUOUS, Starting on Mary Ellen 03/23/16 at 0645, Until Mary Ellen 03/23/16 at 1709, Day of Surgery (Day of Procedure) New Bag 03/23/2016 7:32 AM EST New Bag 03/23/2016 6:45 AM EST 1,000 mLs 100 mL/hr lactobacillus (BACID) tablet 1 tablet 1 tablet, Oral, DAILY, First dose on Mary Ellen 03/23/16 at 2045, Until Discontinued, Routine Given 03/25/2016 8:10 AM EST 1 tablet Given 03/24/2016 8:05 AM EST 1 tablet Given 03/23/2016 9:15 PM EST 1 tablet lidocaine (XYLOCAINE) 10 mg/mL (1 %) injection ONCE PRN, Starting on Mary Ellen 03/23/16 at 0855, Until 03/25/16 at 1508, Intra-Operative (Intra-Procedure), Routine Given 03/23/2016 8:55 AM EST 1 mL 19- Surgical Site losartan (COZAAR) tablet 100 mg 100 mg, Oral, DAILY, First dose on Sun03/24/16 at 0900, Until Discontinued, Routine Given 03/25/2016 8:10 AM EST 100 mg Given 03/24/2016 8:06 AM EST 100 mg ondansetron (ZOFRAN) injection 4 mg 4 mg, Intravenous, EVERY 30 MIN PRN, Starting on Mary Ellen 03/23/16 at 1019, Until Mary Ellen 03/23/16 at 1709, Nausea, May repeat 4 mg once in 30 minutes. If multiple antiemetics ordered, use ondansetron first and if ineffective use prochlorperazine second and if ineffective use promethazine, PACU Recovery Given 03/23/2016 10:49 AM EST 4 mg ondansetron (ZOFRAN) injection 4 mg 4 mg, Intravenous, EVERY 8 HOURS PRN, Starting on Mary Ellen 03/23/16 at 1709, Until 03/25/16 at 1508, Nausea, May repeat times one in 30 minutes if ineffective. If multiple antiemetics are ordered, use ondanstron first, Recovery (Recovery-Hospital Unit) ondansetron (ZOFRAN) tablet 4 mg 4 mg, Oral, EVERY 8 HOURS PRN, Starting on Mary Ellen 03/23/16 at 1709, Until 03/25/16 at 1508, Nausea, Vomiting, If multiple antiemetics are ordered, use ondansetron first. PO Preferred. If patient unable to take PO, may give IV if ordered. May repeat times one in 45 minutes if ineffective., Recovery (Recovery-Hospital Unit), Routine oxyCODONE (ROXICODONE) immediate release tablet 5 mg 5 mg, Oral, EVERY 4 HOURS PRN, Starting on Mary Ellen 03/23/16 at 0552, Until Mary Ellen 03/23/16 at 1709, Pain, Routine Given 03/23/2016 3:44 PM EST 5 mg Given 03/23/2016 10:52 AM EST 5 mg oxyCODONE (ROXICODONE) immediate release tablet 5 mg 5 mg, Oral, EVERY 4 HOURS PRN, Starting on Mary Ellen 03/23/16 at 1709, Until 03/25/16 at 1508, Pain, Routine Given 03/24/2016 7:03 AM EST 5 mg sodium chloride 0.9 % flush 5 mL 5 mL, Intravenous, 2 TIMES DAILY, First dose on Mary Ellen 03/23/16 at 2100, Until Discontinued, Recovery (Recovery-Hospital Unit), Routine Given 03/25/2016 8:11 AM EST 5 mLs Given 03/24/2016 8:07 PM EST 5 mLs Given 03/24/2016 8:08 AM EST 5 mLs documented in this encounter Active and Recently Administered Medications Times are shown in EST. Scheduled Medication Order 03/23/2016 03/24/2016 03/25/2016 acetaminophen (TYLENOL) tablet 1,000 mg (COMPLETED) 1,000 mg, Oral, ONCE, 1 dose, On Mary Ellen 03/23/16 at 0645, Day of Surgery (Day of Procedure), Routine 0625 (Given - Provider: Jamee Langley RN) ceFAZolin (ANCEF) 1g in dextrose 5% 50mL (COMPLETED) 1,000 mg (1 g), Intravenous, EVERY 8 HOURS, 2 doses, First dose on Mary Ellen 03/23/16 at 1800, Last dose on Sun03/24/16 at 0200, Administer over 30 Minutes, *Beta-lactam based antibiotics (eg. Ampicillin, Cefazolin, Aztreonam) should be administered within 4 hours of the preceding intraoperative dose. *Vancomycin, Flouroquinolones, Clindamycin, Gentamicin, and Metronidazole should be administered within 8 hours of the preceding intraoperative dose., Recovery (Recovery-Hospital Unit), Indication for (Active or Suspected): Prophylaxis 1740 (Given - Provider: Julissa Romero RN) 0125 (Given - Provider: Nikki Davis RN) ceFAZolin (ANCEF) 2g in dextrose 5% 50 mL 2 g, Intravenous, ONCE, 1 dose, On Mary Ellen 03/23/16 at 0615, Administer over 30 Minutes, Indication for (Active or Suspected): Prophylaxis 0750 (Given - Provider: Mat Mar CRNA) docusate sodium (COLACE) capsule 100 mg 100 mg, Oral, 2 TIMES DAILY, First dose (after last reorder) on Mary Ellen 03/23/16 at 2100, Until Discontinued, Routine 2114 (Given - Provider: Nikki Davis RN) 08 (Given - Provider: Dolores Huang RN)2006 (Given - Provider: Alex Rosado RN) 0810 (Given - Provider: Breanna Márquez RN) hydroCHLOROthiazide (HYDRODIURIL) tablet 12.5 mg 12.5 mg, Oral, DAILY, First dose on Sun03/24/16 at 0900, Until Discontinued, Routine 08 (Given - Provider: Dolores Huang RN) 0810 (Given - Provider: Breanna Márquez, YE) lactobacillus (BACID) tablet 1 tablet 1 tablet, Oral, DAILY, First dose on Sun03/23/16 at 2045, Until Discontinued, Routine 2114 (Given - Provider: Nikki Davis RN) 08 (Given - Provider: Dolores Huang RN) 0810 (Given - Provider: Breanna Márquez, YE) losartan (COZAAR) tablet 100 mg 100 mg, Oral, DAILY, First dose on Sun03/24/16 at 0900, Until Discontinued, Routine 805 (Given - Provider: Dolores Huang RN) 0810 (Given - Provider: Breanna Márquez RN) sodium chloride 0.9 % flush 5 mL 5 mL, Intravenous, 2 TIMES DAILY, First dose on Mary Ellen 03/23/16 at 2100, Until Discontinued, Recovery (Recovery-Hospital Unit), Routine 2116 (Given - Provider: Nikki Davis, YE) 0808 (Given - Provider: Dolores Huang RN)2006 (Given - Provider: Alex Rosado, RN) 0811 (Given - Provider: Breanna Márquez, RN) Continuous Medication Order 03/23/2016 03/24/2016 03/25/2016 lactated ringers infusion 1,000 mL 1,000 mL, at 100 mL/hr, Intravenous, CONTINUOUS, Starting on Mary Ellen 03/23/16 at 0645, Until Mary Ellen 03/23/16 at 1709, Day of Surgery (Day of Procedure) 0645 (New Bag - Provider: Jamee Langley RN)0732 (New Bag - Provider: Mat Mar CRNA)0859 (Anesthesia Volume Adjustment - Provider: Mat Mar CRNA)0930 (Anesthesia Volume Adjustment - Provider: Mat Mar CRNA)1400 (Stopped - Provider: Sadie Jones RN) PRN Medication Order 03/23/2016 03/24/2016 03/25/2016 acetaminophen (TYLENOL) tablet 1,000 mg 1,000 mg, Oral, EVERY 8 HOURS PRN, Starting on 03/24/16 at 1332, Until 03/25/16 at 1508, Pain, Day of Surgery (Day of Procedure), Routine 1336 (Given - Provider: Dolores Huang RN)2224 (Given - Provider: Alex Rosado, RN) 0745 (Given - Provider: Breanna Márquez, YE) bisacodyl (DULCOLAX) suppository 10 mg 10 mg, Rectal, DAILY PRN, Starting on Mary Ellen 03/23/16 at 1709, Until 03/25/16 at 1508, Constipation, Administer if needed per patient's routine or if no bowel movement within 48 hours to achieve: 1) One bowel movement at least every 48 hours, AND 2) Without straining. If multiple bowel medications ordered, consider adding if docusate or milk of magnesia not sufficient., Routine fentaNYL (PF) 50 mcg/mL 2mL syringe (CANCELED)(Linked Group 1) 25 mcg, Intravenous, EVERY 5 MIN PRN, Pain, for 1-4 pain score, Starting on Mary Ellen 12/29/16 at 1019, Until Mary Ellen 03/23/16 at 1709, for 1-4 pain score Hold for respiratory rate less than 10 per minute. Maximum dose: 250 mcg over one hour., PACU Recovery 1050 (Given - Provider: Sadie Jones RN)1119 (Given - Provider: Sadie Jones RN) lidocaine (XYLOCAINE) 10 mg/mL (1 %) injection 3 mg 3 mg (0.3 mL), Subcutaneous, ONCE PRN, 1 dose, Starting on Mary Ellen 16 at 0620, Until Mary Ellen 16 at 1709, for discomfort with PIV insertion, Day of Surgery (Day of Procedure), Routine lidocaine (XYLOCAINE) 10 mg/mL (1 %) injection 3 mg 3 mg (0.3 mL), Subcutaneous, ONCE PRN, 1 dose, Starting on Mary Ellen 16 at 1709, Until 03/25/16 at 1508, for discomfort with PIV insertion, Recovery (Recovery-Hospital Unit), Routine lidocaine (XYLOCAINE) 10 mg/mL (1 %) injection (CANCELED) ONCE PRN, Starting on Mary Ellen 16 at 0855, Until 03/25/16 at 1508, Intra-Operative (Intra-Procedure), Routine 0855 (Given - Provider: Michael Jenkins MD - Comment: tumescent solution: 1000 ml NaCl 1 ml epinephrine 1:1000 50 ml. 1% lidocaine Total of mixture given: 125 ml) ondansetron (ZOFRAN) injection 4 mg (CANCELED) 4 mg, Intravenous, EVERY 30 MIN PRN, Starting on Mary Ellen 16 at 1019, Until Mary Ellen 16 at 1709, Nausea, May repeat 4 mg once in 30 minutes. If multiple antiemetics ordered, use ondansetron first and if ineffective use prochlorperazine second and if ineffective use promethazine, PACU Recovery 1049 (Given - Provider: Sadie Jones, YE) ondansetron (ZOFRAN) injection 4 mg(Linked Group 2) 4 mg, Intravenous, EVERY 8 HOURS PRN, Starting on Mary Ellen 03/23/16 at 1709, Until 03/25/16 at 1508, Nausea, May repeat times one in 30 minutes if ineffective. If multiple antiemetics are ordered, use ondanstron first, Recovery (Recovery-Hospital Unit) ondansetron (ZOFRAN) tablet 4 mg(Linked Group 2) 4 mg, Oral, EVERY 8 HOURS PRN, Starting on Mary Ellen 03/23/16 at 1709, Until 03/25/16 at 1508, Nausea, Vomiting, If multiple antiemetics are ordered, use ondansetron first. PO Preferred. If patient unable to take PO, may give IV if ordered. May repeat times one in 45 minutes if ineffective., Recovery (Recovery-Hospital Unit), Routine oxyCODONE (ROXICODONE) immediate release tablet 5 mg 5 mg, Oral, EVERY 4 HOURS PRN, Starting on Mary Ellen 03/23/16 at 0552, Until Mary Ellen 03/23/16 at 1709, Pain, Routine 1052 (Given - Provider: Sadie Jones, YE)1544 (Given - Provider: Sadie Jones, YE) oxyCODONE (ROXICODONE) immediate release tablet 5 mg 5 mg, Oral, EVERY 4 HOURS PRN, Starting on Mary Ellen 03/23/16 at 1709, Until 03/25/16 at 1508, Pain, Routine 0703 (Given - Provider: Nikki Davis RN) sodium chloride 0.9 % flush 5-20 mL 5-20 mL, Intravenous, EVERY 1 MIN PRN, Starting on Mary Ellen 03/23/16 at 0620, Until Mary Ellen 03/23/16 at 1709, flush, Flush pertains to all indwelling lines. Flush per protocol found in the job aid using the link provided on this medication record., Day of Surgery (Day of Procedure), Routine sodium chloride 0.9 % flush 5-20 mL 5-20 mL, Intravenous, EVERY 1 MIN PRN, Starting on Mary Ellen 16 at 1709, Until 03/25/16 at 1508, flush, Flush pertains to all indwelling lines. Flush per protocol found in the job aid using the link provided on this medication record., Recovery (Recovery-Hospital Unit), Routine No Frequency Medication Order 03/23/2016 03/24/2016 03/25/2016 albuterol (PROVENTIL) 2.5 mg /3 mL (0.083 %) nebulizer solution (COMPLETED) 1 dose, Starting on Mary Ellen 03/23/16 at 1246, Until Mary Ellen 03/23/16 at 1315, SADIE JONES: cabinet override 1315 (Given - Provider: Sadie Jones RN - Comment: 2.5 mg/ 3 ml) Linked Groups Order Group 1: fentaNYL (PF) 50 mcg/mL 2mL syringe (CANCELED)Jump to med 25 mcg, Intravenous, EVERY 5 MIN PRN, Pain, for 1-4 pain score, Starting on Mary Ellen 03/23/16 at 1019, Until Mary Ellen 03/23/16 at 1709, for 1-4 pain score Hold for respiratory rate less than 10 per minute. Maximum dose: 250 mcg over one hour., PACU Recovery Or fentaNYL (PF) 50 mcg/mL 2mL syringe (CANCELED) 50 mcg, Intravenous, EVERY 5 MIN PRN, Pain, for 5-10 pain score, Starting on Mary Ellen 03/23/16 at 1019, Until Mary Ellen 03/23/16 at 1709, for 5-10 pain score Hold for respiratory rate less than 10 per minute. Maximum dose: 250 mcg over one hour., PACU Recovery [facility] 2: ondansetron (ZOFRAN) tablet 4 mgJump to med 4 mg, Oral, EVERY 8 HOURS PRN, Starting on Mary Ellen 03/23/16 at 1709, Until 03/25/16 at 1508, Nausea, Vomiting, If multiple antiemetics are ordered, use ondansetron first. PO Preferred. If patient unable to take PO, may give IV if ordered. May repeat times one in 45 minutes if ineffective., Recovery (Recovery-Hospital Unit), Routine Or ondansetron (ZOFRAN) injection 4 mgJump to med 4 mg, Intravenous, EVERY 8 HOURS PRN, Starting on Mary Ellen 16 at 1709, Until 03/25/16 at 1508, Nausea, May repeat times one in 30 minutes if ineffective. If multiple antiemetics are ordered, use ondanstron first, Recovery (Recovery- Hospital Unit) documented in this encounter Care Teams Behavior Interventionist Relationship Specialty Start Date End Date Jelena Harris PA [address] [place] [address] PCP - General 05/27/14 06/04/18 documented as of this encounter
--- OUTSIDE RECORDS SUMMARY | 2023-11-12 14:59 | XMS_ITS | Encounter Summary ---
Author Organization [facility] Address [address] [place] [address] Care Team Providers Care Stringer Up Soldering Machine Name Role Phone Unavailable Primary Care Provider Unavailabl e Encounter Details Date Type Department Care Team (Late st Contact Info) Description 06/01/2006 Results Only [facility] [place] conversion [address] [place] [address] Ortiz eWi, DO [address] [facility] [address] [place] [address] Social History Tobacco Use Types Packs/Day Years Used Date Smoking Tobacco: Never Assessed Sex and Gender Information Value Date Recorded Sex Assigned at Not on file Gender Identity Not on file Sexual Orientation Not on file documented as of this encounter Plan of Treatment Not on file documented as of this encounter Procedures Procedure Name Priority Date/Time Associated Diagnosis Comments SURGICAL PATHOLOGY Routine 06/01/2006 0:00 EST documented in this encounter Results * SURGICAL PATHOLOGY (06/01/2006 0:00 EST) Pathology Report: SURGICAL PATHOLOGY REPORT Reports generated via electronic interface contain original data; however they are lacking the format of the original report. Caution should be taken when reading/interpreti ng unformatted reports. Name: ? GINA HENDERSON ? Accession #: ? [id number] ? : ? 1960 (Age: 46) ??F ? Collect Date: ? 06/01/2006 ? Location: ? [facility] ? Receive Date: ? 06/01/2006 ? Provider: ORTIZ WEI DO Copy to: PRINCESS ARZOLA LICENSED RETAIL SUPERVISOR ? Final Pathologic Diagnosis: ? Skin of abdomen, right, excision: - Follicular cyst, infundibular type with evidence of rupture. Document reviewed and electronically signed by: Zoey Kenyon MD Report ??Date: 06/04/2006 15:05 By the signature above, the attending physician certifies that he/she has personally conducted a gross and/or microscopic examination of the described specimens and rendered or confirmed the above diagnosis. Specimen(s) Received: ? Sebaceous cyst R side abd Clinical History: ? Recurrent sebaceous cyst R side abd Gross Description: ? Received in formalin labelled Santiago and sebaceous cyst, R side abd is an unoriented, elliptical ellipse of skin that measures 2.9 x 1.0 cm and is excised to a depth of 1.0 cm. ??There is a centrally located defect measuring 0.2 x 0.1 cm. ??The specimen is inked black, serially sectioned, and entirely submitted as follows: BLOCK PARKER A1, A2 ?Central sections A3 ?Distal tips, reverse en face (Dr. Lozano)/[facility] End of Report PEG [facility] 06/01/2006 06/01/2006 15: 03 EST Ortiz Wei DO PATHOLOGY ORDER [facility] [address] [place] [address] documented in this encounter Visit Diagnoses Not on filedocumented in this encounter
--- OUTSIDE RECORDS SUMMARY | 2023-11-12 14:59 | XMS_ITS | Encounter Summary ---
[place] [address] Care Team Providers Care Tool Lapper Hand Name Role Phone Jelena Harris Primary Care Provider +1- [phone] Encounter Details Date Type Department Care Team (Late st Contact Info) Description 03/24/2016 [place] [id number] Jany Trejo, RN Social History Tobacco Use Types Packs/Day Years Used Date Smoking Tobacco: Former Smokeless Tobacco: Never Alcohol Use Standard Drinks/Week Comments Yes 0 (1 standard drink = 0.6 oz pur e alcohol) Sex and Gender Information Value Date Recorded Sex Assigned at Not on file Gender Identity Not on file Sexual Orientation Not on file documented as of this encounter Miscellaneous Notes * Telephone Encounter - Jany Trejo RN - 03/24/2016 1:30 PM EST Call received from [facility] F/U on info fax to [facility]. They called the wrong office and transferred them to Dr Branch's office. documented in this encounter Plan of Treatment Not on file documented as of this encounter Visit Diagnoses Not on filedocumented in this encounter Care Teams Tool Lapper Hand Relationship Specialty Start Date End Date Jelena Harris PA [address] [place] [address] PCP - General 05/27/14 06/04/18 documented as of this encounter
--- OUTSIDE RECORDS SUMMARY | 2023-11-12 14:59 | XMS_ITS | Encounter Summary ---
[place] [address] Care Team Providers Care Residential Leasing Manager Name Role Phone Jelena Harris Primary Care Provider [phone]- [phone] Reason for Visit * Reason Comments Advice Only bbr * Consultation (Routine) - Closed Specialty Diagnoses / Procedures Referred By Tonya hall Referred To Contact Plastic Surgery Diagnoses macromastia Jelena Harris PA [address] [place] [address] [facility] [address] [address] Referral ID Status Reason Start Date Expiration Date V isits Requested Visits Authorized [id number] Closed Consult, Test & Treat [facility] 12/24/2015 12/23/2016 1 1 Encounter Details Date Type Department Care Team (Late st Contact Info) Description 01/17/2016 4:30 PM EDT Office [place] [address] Michael Jenkins MD [facility] [place] [address] Macromastia Social History Tobacco Use Types Packs/Day Years Used Date Smoking Tobacco: Former Smokeless Tobacco: Never Tobacco Cessation:Ready to Q uit: No Alcohol Use Standard Drinks/Week Comments Yes 0 (1 standard drink = 0.6 oz pur e alcohol) Sex and Gender Information Value Date Recorded Sex Assigned at Not on file Gender Identity Not on file Sexual Orientation Not on file documented as of this encounter Last Filed Vital Signs Vital Sign Reading Time Taken Comments Blood Pressure - - Pulse - - Temperature - - Respiratory Rate - - Oxygen Saturation - - Inhaled Oxygen Concentration - - Weight 97 kg (213 lb 12.8 oz) 01/17/2016 4:37 PM EDT Height 154.9 cm (5' 1) 01/17/2016 4:37 PM EDT Body Mass Index 40.4 01/17/2016 4:37 PM EDT documented in this encounter Progress Notes * Michael Jenkins MD - 01/17/2016 4:30 PM EDT Plastic Surgery Consultation Note Michael Jenkins MD PCP: RAQUEL HERNANDEZ Requesting Physician: as above Reason for office visit: Symptomatic macromastia HPI: Gina Henderson is a 55 y.o. female who presents today for evaluation of symptomatic macromastia. Her PCP is RAQUEL HERNANDEZ and has requested the consultation. She is accompanied by her for today???s visit. Pt reports a longstanding history of back and shoulder pain due to her pendulous breast weight. Shehas chronic headaches which she attributes to the size of her breasts, she wears a size 32D. She has undergone historic treatments with a chiropractor for her symptoms. She reports feeling physicallyuncomfortable most of the time. She states she had a shoulder injury and went through PT, and her therapist immediately recommended a breast reduction for her. She will get rashes underneath her breasts during the summer. She has painful shoulder grooves from her bra straps. She reports it is very difficult to exercise. She has tried non narcotic medications with minimal relief. She denies any known history of breast disease. 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 She does not perform any heavy lifting. She has completed a breast specific questionnaire: Pertinent findings to emphasize are: PLASTICS BREAST QUESTIONS 01/17/2016 Headaches? Some of the time Pain in your breast area? A little of the time Lack of energy? Some of the time Difficulty doing vigorous physical activities (e.g. running or exercising)? All of the time Feeling physically unbalanced? Most of the time Shoulder pain? Most of the time Difficulty sleeping because of discomfort in your breast area? Most of the time Neck pain? Some of the time Painful gouges or grooves in your shoulders from your bra straps? All of the time Feeling physically uncomfortable? Most of the time Rashes under your breasts? None of the time Back pain? Most of the time Arm pain? Some of the time Pain, numbness or tingling in your hands because of your breast size? None of the time Satisfaction with Breasts 18 PsychoSocial Well-being 30 Sexual Well-being 0 Physical Well-being 53 Conservative Therapy Treatments: [facility] PLASTICS CONSERVATIVE THERAPY TREATMENTS 01/17/2016 Physical therapy was effective at relieving my symptoms. Some Relief How many months did you try this treatment? 3 to 6 months Use of custom support bras relieved my symptoms. Never Tired Treatment by a chiropractor relieved my symptoms. No Relief How many months did you try this treatment? Less than 3 months Weight loss relieved my symptoms. No Relief How many months did you try this treatment? 3 to 6 months Non-narcotic medications (such as Tylenol, Aspirin, Ibuprofen, Aleve, etc) have relieved my symptoms. Some Relief How many months did you try this treatment? 3 to 6 months Narcotic pain relievers (such as Tylenol #3, Percocet, etc) have relieved my symptoms. Never Tried Other Treatments have relieved my symptoms. Never Tried Over the counter or prescription medication has relieved the rashes under my breasts. Never Tried Past Medical History Diagnosis Date ??? HTN (hypertension) Past Surgical History Procedure Laterality Date ??? Hysterectomy ??? section Family History Problem Relation Age of Onset ??? Breast Cancer Neg Hx Examination: BMI: Ht 154.9 cm (5' 1) Wt 97 kg (213 lb 12.8 oz) BMI 40.4 kg/m2 BSA: Body surface area is 2.04 meters squared. General: On my examination today, the patient appears to be in good health. Her emotional outlook is positive and she asked appropriate questions throughout the visit. Musculoskeletal: Her back is straight without evidence of kyphosis. Gross full ROM x 4 extrem, ambulating, no lesions Resp: No stridor, no wheezes, regular rate Abd: Rotund, soft non-distended/non-tender. Extrem: wwp, no cyanosis/clubbing/or edema. Breasts: Bra size: D Goal cup size: C Her most recent mammogram was two years ago and was normal Breast Measurements Right Left SN-N (cm) 33 33 IMF-N (cm) 13 13 Base diameter 16 16 Breast Vol (estimate in cc) 1500 1450 Resection (estimate in gms) 750 700 Impression: Symptomatic bilateral breast hypertrophy. Bilateral breast reduction is indicated for relief of her breast-related symptoms. This is a medically necessary procedure to correct her physical symptomatology. I advised at her current BMI she may experience surgical and/or wound healing complications due to her increased risk. We discussed ideally reaching a BMI <35. I advised it would be ideal to achieve her goal weight prior to surgery, but if she is unable to do this I am happy to proceed with the surgery, in the understanding she carries an increased risk of complications. She accepts this. I discussed to notice her existing asymmetries between breasts in addition to her axillary tissue, and to expect both to persist following surgery. She watched the [employer] video on breast reduction, and was provided with an ASPS brochure and informed consent on breast reduction. It reviews the surgical risks, alternate skin incisions and pedicle versus free nipple graft techniques. It also discusses the option of volume reduction by liposuction alone, which does not alter the nipple-areolar complex position. It talks about the impact of this surgery on decreasing breast cancer risk. We reviewed the timing of surgery relative to weight fluctuations and I've advised that surgery is best done at a realistic retirement stable weight. We talked about the outpatient nature of the surgery, drains, postoperative recovery, and time required off work (2-3 weeks). The following risks were reviewed in the video or in our discussion: Surgical Risks which are greater with open reduction: bleeding with risk of hematoma (<5%); numbness, which may be temporary or permanent; scarring, including abnormal scarring; infection (5-10%);fat necrosis resulting in a breast mass and possible need for revision. I stressed the likelihood of minor problems with delayed wound healing (~30%) and the rare complication of nippleareolar necrosis. She is also aware that there may be some residual pain after the surgery and that there may possibly be some asymmetry. Vertical or Lollipop Incision: Less scarring on breast, but slightly greater risk for delayed healing and desire for scar revision. (She was informed that her insurer might not cover secondary revisions for scarring or asymmetry.) Erickson or [place] Pattern Incision: More scarring on breast, but lower risk for scar revision. (She was informed that her insurer might not cover secondary revisions for scarring or asymmetry.) Pedicle Technique: volume of reduction may be limited by need to provide an adequate blood supply to the nipple. There is a very small risk of nipple loss. Most women (~60%) will be able to breast-feed. Free Nipple Graft: The grafts will initially have no sensation and once fully healed may not respond to temperature and touch as they do now. She has also been informed that they may not look entirely normal and may have patchy hypopigmentation. She will not be able to breast feed with this technique. After fully discussing the options, she has opted to pursue a: Bilateral Breast Reduction Vertical, Pedicle X Bilateral Breast Reduction Erickson, Pedicle Bilateral Breast Reduction Erickson, FNG Anticipated resection: 750 grams right breast 700 grams left breast BSA [employer]/[place] Medicaid All other / Schnur 2.00 935 628 2.01 950 2.02 965 2.03 985 2.04 1000 2.05 1000 687 She would like to proceed with surgery and I will inform her PCP of this plan. Photos taken today with informed signed consent Surgery Booking Information: Surgeon: Sarina Duration: 2.5 hours Timeframe: Elective Procedure: Bilateral breast reduction CPT: 54117 Surgical Technique: Erickson Surgical site: Breasts Side: Bilateral Anesthesia: General Follow up: 1-3 days for drain removal; 7-10 days for HCK PAT: Yes, need pre-op mammogram IKatharina, am acting as scribe for Dr. Jenkins. All work documented was performed by Dr. Jenkins. ???I performed the above scribed service and agree with the accuracy of the note?? MICHAEL JENKINS MD * Ayala Stafford RN - 01/17/2016 4:30 PM EDT Pre-Op Teaching for Surgery Surgery: bbr Written and verbal pre-operative instructions were given and reviewed with patient: Patient was advised to discontinue use of NSAIDS and aspirin products (unless otherwise advised by patient's PCP/Dental Laboratory Technology Teacher for cardiac symptoms), fish oil, Vitamin E and herbal supplements for 14 days prior to surgery, to perform the pre-op scrub, and to coordinate a ride home following surgery. Smoking status and medications were further reviewed to rule out/address current use of Nicotine, Coumadin, Plavix, Estrogen or Tamoxifen. Photos were taken Patient was instructed to call the clinic at with any questions or concerns prior tosurgery. documented in this encounter Plan of Treatment Not on file documented as of this encounter Procedures Procedure Name Priority Date/Time Associated Diagnosis Comments REDUCTION MAMMOPLASTY, BILATERAL Routine 01/20/2016 9:06 PM EDT documented in this encounter Visit Diagnoses Diagnosis Macromastia Hypertrophy of breast documented in this encounter Care Teams Residential Leasing Manager Relationship Specialty Start Date End Date Jelena Harris PA [address] [place] [address] PCP - General 05/27/14 06/04/18 documented as of this encounter
--- OUTSIDE RECORDS SUMMARY | 2023-11-12 14:59 | XMS_ITS | Encounter Summary ---
Author Organization [facility] [place] [address] Care Team Providers Care Shank Tapper Name Role Phone Jelena Harris Primary Care Provider [phone]- [phone] Encounter Details Date Type Department Care Team (Latest Contact Info) Description 06/09/2014 - 06/09/2014 11:59 PM EDT Hospital Encounter [place] [address] Michael Branch MD [facility] [place] [address] Pain Discharge Disposition: Home Social History Tobacco Use Types Packs/Day Years Used Date Smoking Tobacco: Never Sex and Gender Information Value Date Recorded Sex Assigned at Not on file Gender Identity Not on file Sexual Orientation Not on file documented as of this encounter Medications at Time of Discharge Medication Sig Dispensed Refills Start Date End Date losartan (COZAAR) 100 mg Tablet Take 100 mg by mouth daily. hydrochlorothiazide (HYDRODIURIL) 12.5 mg Tablet Take 12.5 mg by mouth daily. CIS Free Text Med - Inderal 11/29/2000 documented as of this encounter Plan of Treatment Not on file documented as of this encounter Procedures Procedure Name Priority Date/Time Associated Diagnosis Comments FILM LIBRARY STORAGE ONLY MAMMO Routine 06/09/2014 12:00 AM EDT Pain documented in this encounter Results * Film Library- Storage Only Mammo (06/09/2014 12:00 AM EDT) Narrative RAD - 03/16/2016 11:07 AM EST This exam is for storage only and is auto-finalizing. Michael Branch MD IMG FILM LIBRARY ORD ERABLES Performing Organization Address City/State/[facility] Co de Phone Number [place], [place] documented in this encounter Visit Diagnoses Diagnosis Pain Generalized pain documented in this encounter Care Teams Shank Tapper Relationship Specialty Start Date End Date Jelena Harris PA [address] [place] [address] PCP - General 05/27/14 06/04/18 documented as of this encounter
--- OUTSIDE RECORDS SUMMARY | 2023-11-12 14:59 | XMS_ITS | Encounter Summary ---
Author Organization [facility] Address [address] [place] [address] Care Team Providers Care Wink Cutter Operator Name Role Phone ClarionAmara benavides [place] Primary Care Provider [phone] Encounter Details Date Type Department Care Team (Late st Contact Info) Description 03/31/2020 Lab Requisition [facility] Pathology & Laboratory Medicine - [facility] [address] [place] [address] Outr Resulting Lab, Provider Social History Tobacco [...] Priority Date/Time Associated Diagnosis Comments ZZCOVID-19 TEST [facility] PCR Today 03/31/2020 13:00 EST COVID-19 TESTING Routine 03/31/2020 13:0 0 EST documented in this encounter Results * COVID-19 TEST [facility] PCR (03/31/2020 13:00 EST) Swab ENTIRE NASOPHARYNX / Unknown 03/31/2020 13:00 EST 03/31/2020 15:43 EST Provider Outr Resulting Lab MICROBIOLOGY - GENERAL ORDERABLES [facility] [address] [place] [address] * COVID-19 TESTING (03/31/2020 13:00 EST) COVID-19 rt-PCR Result Negative Negative 04/01/2020 21:08 EST [facility] Comment: Negative results do not preclude 2019-nCoV infection and should not be used as the sole basis for treatment or other patient management decisions. Negative results must be combined with clinical observations, patient history, and epidemiological information. This test was developed and its performance characteristics determined by [facility]. It has not been cleared or approved by the US Food and Drug Administration. FDA does not require this test to go through premarket FDA review. This test is used for clinical purposes. It should not be regarded as investigational or for research. This laboratory is certified under the Clinical Laboratory Improvement Amendments (CLIA) as qualified to perform high complexity clinical laboratory testing. This test is based on the [facility][NOTE 2] COVID-19 Emergency Use Authorization (EUA) assay, with minor modification as defined by the FDA Performed on the [facility] Flex. Performing Lab [facility] Lab 04/01/2020 21:08 EST [facility] Swab 03/31/2020 13:0 0 EST 03/31/2020 15:43 EST Provider Outr Resulting Lab MICROBIOLOGY - GENERAL ORDERABLES [facility] [address] [place] [address] documented in this encounter Visit Diagnoses Not on filedocumented in this encounter Care Teams Wink Cutter Operator Relationship Specialty Start Date End Date Amara Ding NP [facility] [address] [place] [address] PCP - General 01/30/15 documented as of this encounter
--- OUTSIDE RECORDS SUMMARY | 2023-11-12 14:59 | XMS_ITS | Clinical Summary ---
[facility] Organization [facility] [place] [address] Care Team Providers Care Plywood Factory Worker Name Role Phone Justyn Qian MARY Primary Care Provider [phone] Allergies No known active allergies Medications Medication Sig Dispensed Refills Start Date End Date Status CIS Free Text Med - Inderal 11/29/2000 Active losartan (COZAAR) 100 mg Tablet Take 100 mg by mouth daily. Active hydrochlorothiazide (HYDRODIURIL) 12.5 mg Tablet Take 12.5 mg by mouth daily. Active Active Problems Problem Noted Date Diagnosed Date Macromastia 03/23/2016 Irritant hand dermatitis 05/27/2014 Family History Medical History Relation Comments Breast Cancer Neg Hx Social History Tobacco Use Types Packs/Day Years Used Date Smoking Tobacco: Former Smokeless Tobacco: Never Tobacco Cessation:Ready to Q uit: No Alcohol Use Standard Drinks/Week Comments Yes 0 (1 standard drink = 0.6 oz pur e alcohol) Sex and Gender Information Value Date Recorded Sex Assigned at Not on file Gender Identity Not on file Sexual Orientation Not on file Last Filed Vital Signs Vital Sign Reading Time Taken Comments Blood Pressure 131/71 03/25/2016 8:10 AM EST Pulse 72 03/23/2016 6:09 AM EST Temperature 36.9 ??C (98.4 ??F) 03/25/2016 8:10 AM ES T Respiratory Rate 18 03/25/2016 8:10 AM EST Oxygen Saturation 90% 03/25/2016 8:10 AM EST Inhaled Oxygen Concentration - - Weight 95.5 kg (210 lb 8.6 oz) 03/23/2016 6:09 A M EST Height 154.9 cm (5' 1) 03/23/2016 6:09 AM EST Body Mass Index 39.78 03/23/2016 6:09 AM EST Plan of Treatment Health Maintenance Due Date Last Done Comments CT Colonography 1960 Colonoscopy 1960 Colorectal Cancer Screening 1960 FIT DNA 1959 FIT 1960 Sigmoidoscopy (10 year) with FIT yearly 1960 Sigmoidoscopy 1960 HIV screen 1977 Hepatitis C Screening 1977 Tdap adult 1978 Tetanus vaccine 1978 HPV test 1989 PAP Smear 1989 Breast Cancer Share Decision Needed 1999 Zoster vaccine (1 of 2) 2009 Advance Directive 2014 Breast Cancer screening 06/05/2020 06/05/2018 Covid-19 Vaccine ( - season) 2022 Influenza (Flu) vaccine (1 o f 1 - Influenza standard series) 11/25/2023 Procedures Procedure Name Priority Date/Time Associated Diagnosis Comments MAMMO SCREENING CAD AND ANTHONY BILATERAL Routine 06/05/2018 3:50 PM EDT Visit for screening mammogram from Last 3 Months or Most Recently Relevant to Health Maintenance Results * Mammo Screening Cad and Anthony Bilateral (06/05/2018 3:50 PM EDT) Anatomical Region Laterality Modality Breast Bilateral Mammography Narrative 06/06/2018 7:39 AM EDT BILATERAL MAMMOGRAPHY REASON FOR EXAM: Screening TECHNIQUE: CC and MLO views were obtained of each breast using standard 2-D mammography as well as 3-D tomosynthesis. Computer aided detection was used. Comparison: This is compared with prior images. FINDINGS: There are scattered areas of fibroglandular density. There are no suspicious microcalcifications, masses, or areas of distortion. The pattern is stable. Expected and benign-appearing reduction change. CONCLUSION: No mammographic evidence of malignancy. RECOMMENDATION: Routine screening. A result letter has been sent to this patient by the [facility]. BIRADS CATEGORY 2: Benign findings. * ??The [employer] and The Society of Breast Imaging recommend annual screening beginning at age 40 for the general female population. * ??Screening should continue as long as a woman is in good health and is expected to live 10 more years or longer. * ??All women should be familiar with the known benefits, limitations, and potential harms linked to breast cancer screening. They also should know how their breasts normally look and feel and report any breast changes to a health care provider right away. * ??Some women, because of their family history, a genetic tendency, or certain other factors, should be screened with MRIs along with mammograms. (The number of women who fall into this category is very small.) The patient and health care provider should discuss the patient history and decide if earlier screening and breast MRI are appropriate. Thank you for letting us participate in the care of this patient. For questions regarding this report, please contact the number below. ? Electronically signed by: Amor Hollingsworth [facility] ([phone]), at 06/06/2018 7:39 AM Qian Alejandra APRN IMG MAMMO ORDERABLES from Last 3 Months or Most Recently Relevant to Health Maintenance Advance Directives * Full Code (Latest Code Status on File) Date Activated Date Inactivated Comments 03/23/2016 4:10 PM 03/25/2016 3:09 PM Question Answer Comments Does patient have capacity to make decision: Yes Care Teams Plywood Factory Worker Relationship Specialty Start Date End Date Qian Alejandra APRN [address] [place] [address] PCP - General Family Medicine 06/05/18
--- OUTSIDE RECORDS SUMMARY | 2023-11-12 14:59 | XMS_ITS | Encounter Summary ---
[place] [address] Care Team Providers Care Angiography Technologist Name Role Phone Jelena Harris Primary Care Provider [phone] Reason for Visit * Auth/Cert Specialty Diagnoses / Procedures Referred By Tonya hall Referred To Contact Diagnoses N62 - macromastia Tentative DOS - 02/21/2016 CPT: 74265 - yang Procedures PRO REDUCTION OF LARGE BREAST REDUCTION MAMMOPLASTY, YANG Referral ID Status Reason Start Date Expiration Date Visits Re quested Visits Authorized [id number] 1 1 Encounter Details Date Type Department Care Team (Latest Contact Info) Description 03/23/2016 5:44 AM EST - 03/25/2016 1:08 PM [facility] Hospital Encounter [address] [place] [address] Michael Jenkins MD [facility] [place] [address] H/O exertional chest pain Discharge Disposition: Home Social History Tobacco Use [...] Gina Henderson Patient Age: 56 y.o. Language: Tamazight Race: White Ethnicity: Not nor Admit date: [...] 16.03) performed by Michael Jenkins MD at [facility] MAIN OR Procedures: 03/23/2016 Surgeon(s) and Role: * Michael Jenkins MD - Primary * Dagoberto Alexis MD - Resident-Surgeon Ishaan * Ortiz Lopez MD - Resident-Surgeon Ishaan: Procedure(s): REDUCTION MAMMOPLASTY, YANG (WRVU 16.03) MODIFIER ROBERTS Hospital Course: Patient was admitted electively to [facility] via the same day surgery program and [...] QTC Calculated (Bezet) 427 ms Calculated P Dallas 54 degrees Calculated R Dallas -2 degrees Calculated T Dallas 32 degrees INTERPRETATION Normal sinus rhythm Normal ECG No previous ECGs available Confirmed by MD DAMIAN, RICHELLE ([id number]) on 03/24/2016 5:38:41 PM Studies: CXR [...] good night sleep. Pain (short term and senior care) ?? With any surgery there is some discomfort or pain. We will prescribe pain medication. Take as prescribed and only as needed. OK to take prescription medication or Tylenol. Do not take both. ?? We recommend taking an tvfv-kho-Mlwaxhx stool softener, such as Colace (docusate) or [...] scheduling, please contact our administrative offices at [phone] ?? For clinical questions, please call our nurses at [phone] ?? Both offices are open Sunday thru Sunday 8a - 5p. With emergencies after hours, call the hospital steam drier operator at [phone] and ask for the Plastic Surgery Resident production support supervisor. MEDICATIONS: Your Medications Notice Some of the [...] called in to our prescription line at [phone]. Narcotic renewals may be requested from 8am-4pm [...] Sunday 8 am to 5 pm Call [phone] On weekends or after hours: Call [phone] and ask the steam drier operator to page the Plastic Surgery Resident production support supervisor. General Instructions SAME DAY SURGERY JONATHAN DRAIN [...] future appointments. Primary Care Provider: RAQUEL Beatty [phone] VNA: No discharge procedures on file. General [...] was managed by the Plastic [facility]Team at [facility]. If you haveany questions or concerns, please feel free to contact us. Provider Contact Information: Plastic Surgery Clinic: [facility] (after business hours): documented in this encounter [...] good night sleep. Pain (short term and senior care) ?? With any surgery there is some discomfort or pain. We will prescribe pain medication. Take as prescribed and only as needed. OK to take prescription medication or Tylenol. Do not take both. ?? We recommend taking an osxv-mlh-Mmukmuo stool softener, such as Colace (docusate) or [...] scheduling, please contact our administrative offices at [phone] ?? For clinical questions, please call our nurses at [phone] ?? Both offices are open Sunday thru Sunday 8a - 5p. With emergencies after hours, call the hospital steam drier operator at [phone] and ask for the Plastic Surgery Resident production support supervisor. MEDICATIONS: Your Medications Notice Some of the [...] called in to our prescription line at [phone]. Narcotic renewals may be requested from 8am-4pm [...] Sunday 8 am to 5 pm Call [phone] On weekends or after hours: Call [phone] and ask the steam drier operator to page the Plastic Surgery Resident production support supervisor. documented in this encounter Medications at Time [...] recommendations Elizabeth Mensah PA-C Plastic Surgery Pager [phone] Attn: continues to require supplemental O2 but [...] questions at this time. Sadie Jones RN R * Aiyana Farah RN - 03/23/2016 10:13 [...] Review Outcome: Ongoing (Interventions Implemented as Appropriate) 03/24/1610603/24/16 1336 Plan of Care Review Progress improving [...] 16.03) performed by Michael Jenkins MD at [facility] MAIN OR Hospitalizations Within the Past 30 Days: None at [facility], nor at outside hospitals. Anticipated Length Of Stay : Anticipate discharge home tomorrow, 03/25. IPI order cosigned by Dr.Gary Jenkins on 03/23/16 @ 1726. Current Decision-Making Capacity: Patient alert and oriented; capable decision maker. Advance Care Planning: Not on file in eD, nor elsewhere. Current Coping/Education/Information Needs: Coping effectively. The staff are absolutely wonderful. I mean phenomenal. Current Functional Ability: On room air during my visit. Pt resting in bed. They think I probably haven't been taking deep breaths for years. Order for a [address] Pt looking comfortable. 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 Home Environment: Lives with her , Shaw, in [place], [place]. Social & Family Supports/Community Resources: Emergency Contact 1 Emergency Contact 2 ? Shaw Henderson (Spouse) [address] [facility] [id number] (H) [phone] (W) Stefani Li (Child) [phone] (H) Behavioral Health History: None per H&P. Substance Use/Abuse: Former smoker. EtOH: 2 glasses of wine/week. No illicit drug use. Other Pertinent/Service Specific Information: None Health/Prescription Coverage: Primary Insurance: Ogin Secondary Insurance: None Prescription Coverage: Yes Preferred Pharmacy: [facility], [place], [place] Other: None Primary Care Provider: RAQUEL Beatty [phone] Patient/Caregiver Goals of Treatment: To return home with her and to resume work when givenmedical clearance. Potential Needs for Transition of Care: Rehab/SNF: N/A Home Health: Declined VNA services. ([facility] serves her area). DME: N/A Dialysis: N/A Community Resources: None Transportation: Pt's will transport pt home at discharge. Other: None Anticipated Barriers to Discharge/Special Considerations: None identified. Plan: A member of the Care Management team will continue to monitor progress, follow for continuity of care and assist with transition of care planning. NAGI SHAW RN Pager: [phone] for today. Assisting Rebeca Lee Pt's Primary Tire Buffer, pager [phone] * Consult Note - Adri Parra - 03/24/2016 9:36 AM EST Medicine Consult Note, Pager [phone] Patient Name: Gina Henderson Patient Age: 56 [...] History and Habits: - , lives in [facility] with her of 30+ years [...] consult. Please contact the consult pager at [phone] with any questions. Adri Parra MD PGY-3, Department of Internal Medicine Consult Pager [phone] 03/24/2016 Associated attestation - Santiago Stallworth MD [...] - 03/23/2016 9:33 AM EST [facility] Operative Note Patient Name: Gina Henderson : 1960 MR#: [id number] Case Date: 03/23/2016 Surgeon: Surgeon(s) and Role: [...] fitting, review post-op activity restrictions 6 months: charge histotechnologist f/u with surgeon Indication for procedure: This [...] - 03/23/2016 9:32 AM EST [facility] Brief Operative Note Patient Name: Gina Henderson : 1960 MR#: [id number] Case Date: 03/23/2016 Surgeon: Surgeon(s) and Role: [...] fitting, review post-op activity restrictions 6 months: charge histotechnologist f/u with surgeon Ortiz Lopez MD Plastic [...] (Bezet) 427 ms MUSE SYSTEM Calculated P Dallas 54 degrees MUSE SYSTEM Calculated R Dallas -2 degrees MUSE SYSTEM Calculated T Dallas 32 degrees MUSE SYSTEM INTERPRETATION Normal sinus rhythm Normal ECG No previous ECGs available Confirmed by MD DAMIAN, RICHELLE ([id number]) on 03/24/2016 5:38:41 PM MUSE SYSTEM [...] pH, Arterial 7.25(Criti anderson) 7.35 - 7.45 [facility] Comment:Noted by optical instrument repairer. PCO2, Arterial 64(Critica l) 35 - 45 mmHg [facility] Comment:Noted by optical instrument repairer. PO2, Arterial 47(Critica l) 85 - 104 mmHg [facility] Comment:Noted by optical instrument repairer. Bicarbonate, Arterial 27.0(H) 20.0 - 26.0 mmol/L [facility] Base Excess, Arterial -0.4 -3.0 - 3.0 mmol/L [facility] Hgb Blood Gas 14.2 11.7 - 15.5 gm/dL [facility] Oxyhemoglobin, Arterial 80.4(L) 94.0 - 97.0 % [facility] Carboxyhemoglob in, Arterial 0.9 % [facility] Comment: Nonsmokers: 0.5-1.5% COHB Smokers: Variable, but usually less than 10% Toxic: 20-30% COHB Lethal: Greater than 60% COHB Methemoglobin, Arterial 0.3 <=1.5 % [facility] Na Whole Blood 139 135 - 145 mmol/L [facility] K Whole Blood 4.1 3.5 - 5.0 mmol/L [facility] Comment: Please note: Patients with WBC >100,000 may have falsely elevated Potassium levels. Contact the Clinical Chemistry Laboratory if there are any questions. ICa Whole Blood 1.22 1.15 - 1.33 mmol/L [facility] Comment: Note: ??Total bilirubin higher than 20 mg/dL may lead to falsely low ionized calcium. CL Whole Blood 102 98 - 107 mmol/L [facility] Gluc Whole Bld 148 65 - 199 mg/dL [facility] Comment:Diabetes: >=200 mg/d L plus symptoms. Lactate WB 2.0 0.5 - 2.2 mmol/L [facility] Blood specimen (specimen) 03/23/2016 1:33 PM EST 03/23/2016 1:33 PM EST Michael Jenkins MD POINT OF CARE TEST O KAYLA Performing Organization Address [facility] Co de Phone Number [facility] [place] [address] * Specimen to Pathology (surgical or derm) (03/23/2016 8:37 AM EST) AP Specimen 03/23/2016 8:37 AM EST 03/23/2016 8:37 AM EST Narrative [facility] - 03/23/2016 8:37 AM EST Specimen requisition ordered. ??Separate Pathology report to follow Michael Jenkins MD PATHOLOGY/CYTOLOGY O KAYLA Performing Organization Address [facility] Co de Phone Number [facility] [address] * Surgical Pathology Report (03/23/2016 8:36 AM EST) Final Diagnosis [id number] ?Location: 3WST; 0318; B The signing pathologist has (i) examined [...] (R3) ?? yal 03/28/2016 11:05 AM EST [facility] BREAST STRUCTURE / Unknown 03/23/2016 8:36 AM EST 03/23/2016 8:36 AM EST BREAST STRUCTURE / Unknown 03/23/2016 8:36 AM EST 03/23/2016 8:36 AM EST Michael Jenkins MD PATHOLOGY/CYTOLOGY O RDERABLES Performing Organization Address [facility]/ZIP Co de Phone Number [facility] [place] [address] * Specimen to Pathology (surgical or derm) (03/23/2016 8:36 AM EST) AP Specimen 03/23/2016 8:36 AM EST 03/23/2016 8:36 AM EST Narrative [facility] - 03/23/2016 8:36 AM EST Specimen requisition ordered. ??Separate Pathology report to follow Michael Jenkins MD PATHOLOGY/CYTOLOGY O RDALE Performing Organization Address [facility] [place] [address] * POCT HGB (03/23/2016) POC Hemoglobin 15 g/dL 03/23/2016 Michael Jenkins MD POINT OF CARE TEST O RDERAMARK documented in this encounter Visit Diagnoses Diagnosis H/O exertional chest pain Personal history of other specified diseases Macromastia Hypertrophy of breast documented in this encounter Admitting Diagnoses Diagnosis Macromastia [...] Oral, EVERY 8 HOURS PRN, Starting on Sun03/24/16 at 1332, Until 03/25/16 at 1508, Pain, [...] Given 03/23/2016 9:15 PM EST 1 tablet losartan (COZAAR) tablet 100 mg 100 mg, Oral, DAILY, First dose on Sun03/24/16 at 0900, Until Discontinued, Routine Given 03/25/2016 8:1 0 AM EST 100 mg Given 03/24/2016 8:06 [...] Procedure), Routine 0625 (Given - Provider: Jamee Moses V RN) ceFAZolin (ANCEF) 1g in dextrose 5% [...] 2114 (Given - Provider: Nikki Davis RN) 0805 (Given - Provider: Dolores Huang RN) 0810 (Given - Provider: Breanna Márquez, YE) losartan (COZAAR) tablet 100 mg 100 mg, Oral, DAILY, First dose on Sun03/24/16 at 0900, Until Discontinued, Routine 08 (Given - Provider: Dolores Huang RN) 0810 (Given - Provider: Breanna Márquez RN) sodium chloride 0.9 % flush 5 mL 5 mL, Intravenous, 2 TIMES DAILY, First dose on Sun03/23/16 at 2100, Until Discontinued, Recovery (Recovery-Hospital Unit), Routine 2116 (Given - Provider: Nikki Davis RN) 08 (Given - Provider: Dolores Huang RN)2006 (Given - Provider: Alex Rosado RN) 0811 (Given - Provider: Breanna Márquez, [...] Dolores Huang RN)2224 (Given - Provider: Alex Rosado RN) 0745 (Given - Provider: Breanna Márquez, [...] PRN, 1 dose, Starting on Mary Ellen 12/16 at 0620, Until Mary Ellen 16 at 1709, for discomfort with PIV insertion, Day of Surgery (Day of Procedure), Routine lidocaine (XYLOCAINE) 10 mg/mL (1 %) injection 3 mg 3 mg (0.3 mL), Subcutaneous, ONCE PRN, 1 dose, Starting on Mary Ellen 12/16 at 1709, Until 03/25/16 at 1508, for discomfort with PIV insertion, Recovery (Recovery-Hospital Unit), Routine lidocaine (XYLOCAINE) 10 mg/mL (1 %) injection (CANCELED) ONCE PRN, Starting on Mary Ellen 03/23/16 [...] Ellen 03/23/16 at 1019, Until Mary Ellen 1216 at 1709, Nausea, May repeat 4 mg once in 30 minutes. If multiple antiemetics ordered, use ondansetron first and if ineffective use prochlorperazine second and if ineffective use promethazine, PACU Recovery 1049 (Given - Provider: Sadie Jones RN) ondansetron (ZOFRAN) injection 4 mg(Linked Group 2) 4 mg, Intravenous, EVERY 8 HOURS PRN, Starting on Mary Ellen 16 at 1709, Until Sat 1216 at 1508, Nausea, May repeat times one [...] Sadie Jones, YE)1544 (Given - Provider: Sadie Jones RN) oxyCODONE (ROXICODONE) immediate release tablet 5 mg [...] 03/23/16 at 1709, Until 03/25/16 at 1508, flush, [...] 1-4 pain score, Starting on Mary Ellen 12/16 at 1019, Until Mary Ellen 12/16 at 1709, for 1-4 pain score Hold for respiratory rate less than 10 per minute. Maximum dose: 250 mcg over one hour., PACU Recovery Or fentaNYL (PF) 50 mcg/mL 2mL syringe (CANCELED) 50 mcg, Intravenous, EVERY 5 MIN PRN, Pain, for 5-10 pain score, Starting on Mary Ellen 12/16 at 1019, Until Mary Ellen 03/23/16 at [...] on Mary Ellen 16 at 1709, Until Sat 16 at 1508, Nausea, May repeat times one in 30 minutes if ineffective. If multiple antiemetics are ordered, use ondanstron first, Recovery (Recovery- Hospital Unit) documented in this encounter Care Teams Angiography Technologist Relationship Specialty Start Date End Date Jelena Harris PA [address] [place] [address] PCP - General 05/27/14 06/04/18 documented as of this encounter
--- OUTSIDE RECORDS SUMMARY | 2023-11-12 14:59 | XMS_ITS | Encounter Summary ---
[place] [address] Care Team Providers Care Store Protection Specialist Name Role Phone Jelena Harris Primary Care Provider [phone] Encounter Details Date Type Department Care Team (Late st Contact Info) Description 03/16/2016 External Results [place] [address] Anna Kimble MD [facility] [place] [address] Social History Tobacco Use Types Packs/Day Years [...] Procedure Name Priority Date/Time Associated Diagnosis Comments MAMMOGRAM SCAN Routine 03/15/2016 documented in this encounter Results * Scan Doc: Mammogram (03/15/2016) Anatomical Region Laterality Modality Other Anna Kimble MD MEDIA MGR SCAN EXT ORDR/RSLT documented in this encounter Visit Diagnoses Not on filedocumented in this encounter Care Teams Store Protection Specialist Relationship Specialty Start Date End Date Jelena Harris PA [address] [place] [address] PCP - General 05/27/14 06/04/18 documented as of this encounter
--- OUTSIDE RECORDS SUMMARY | 2023-11-12 14:59 | XMS_ITS | Encounter Summary ---
Author Organization [facility] Address [address] [place] [address] Care Team Providers Care Die Set Up Worker Name Role Phone Amara Ding NP Primary Care Provider [phone] Encounter Details Date Type Department Care Team (Late st Contact Info) Description 02/28/2020 Lab Requisition [facility] Pathology & Laboratory Medicine - [facility] [address] [place] [address] Outr Resulting Lab, Provider Social History Tobacco [...] RNA BY PCR Routine 02/27/2020 15:46 EST documented in this encounter Results * HEPATITIS C AB W REFLEX TO HCV RNA BY PCR (02/27/2020 15:46 EST) Hep C Antibody Negative Negative 03/01/2020 9:51 EST [facility] Blood VENOUS BLOOD / Unknown 02/27/2020 15:46 EST 02/29/2020 17:20 EST Provider Outr Resulting Lab CHEMISTRY & BLOOD GAS ORDERABLES [facility] [address] [place] [address] documented in this encounter Visit Diagnoses Not on filedocumented in this encounter Care Teams Die Set Up Worker Relationship Specialty Start Date End Date Amara Ding NP [facility] [address] [place] [address] PCP - General 01/30/15 documented as of this encounter
--- OUTSIDE RECORDS SUMMARY | 2023-11-12 14:59 | XMS_ITS | Encounter Summary ---
Author Organization [facility] Address [address] [place] [address] Care Team Providers Care Dramatic Agent Name Role Phone Unavailable Primary Care Provider Unavailabl e Encounter Details Date Type Department Care Team (Late st Contact Info) Description 08/25/2004 Results Only [facility] conversion [address] [place] [address] Alice Abraham MD [address] [place] [address] [place] [address] Social History Tobacco Use Types Packs/Day Years Used Date Smoking Tobacco: Never Assessed Sex and Gender Information Value Date Recorded Sex Assigned at Not on file Gender Identity Not on file Sexual Orientation Not on file documented as of this encounter Plan of Treatment Not on file documented as of this encounter Procedures Procedure Name Priority Date/Time Associated Diagnosis Comments SURGICAL PATHOLOGY Routine 08/25/2004 0:00 EDT documented in this encounter Results * SURGICAL PATHOLOGY (08/25/2004 0:00 EDT) Pathology Report: SURGICAL PATHOLOGY REPORT Reports generated via electronic interface contain original data; however they are lacking the format of the original report. Caution should be taken when reading/interpreting unformatted reports. Name: ? GINA HENDERSON ? Accession #: ? [id number] ? : ? 1960 (Age: 44) ??F ? Collect Date: ? 08/25/2004 ? Location: ? [facility] ? Receive Date: ? 08/26/2004 ? Provider: ALICE ABRAHAM MD Copy to: ? Final Pathologic Diagnosis: ? Uterus, simple hysterectomy: 1. ?Endometrium: ? - ??Proliferative. 2. ?Myometrium: ? - ??Leiomyoma, cellular (4.5 cm). - ??Adenomyosis. 3. ?Cervix: ? - Squamous metaplasia. ??See comment. 4. ?Serosa: ? - ??Fibrous adhesions with mesothelial inclusion cysts. Comment: ? Team [employer] Sales Associate sections have been reviewed at intradepartmental consultation conference. ??On gross and microscopic inspection, ectocervix is not definitively represented in the specimen. ??The findings have been discussed with Dr. Abraham via telephone on August 30, 2004. ?? (Dr. Vogel)/[facility] Document reviewed and electronically signed by: NICOLE VOGEL MD Report ??Date: 08/30/2004 16:24 By the signature above, the attending physician certifies that he/she has personally conducted a gross and/or microscopic examination of the described specimens and rendered or confirmed the above diagnosis. Specimen(s) Received: ? Uterus & cervix Clinical History: ? Received in formalin labeled Santiago and uterus cervix is a 135 gram, previously incised simple hysterectomy specimen which measures 8.5 cm lower uterine segment to fundus, 8.5 cm cornu to cornu, and 4.7 cm anterior to posterior. The serosa is orellana-pink and focally trabeculated with patchy hemorrhagic adhesions. ??The endometrium is orellana-brown, glistening, , and ranges from 0.1 to 0.4 cm in thickness. ??The orellana-pink, trabeculated myometrium averages 1.7 cm. ??There is a single, 4.5 cm in greatest dimension, orellana-pink homogeneous trabeculated fundic intramural nodule. ??Numerous blood-filled cystic spaces within the myometrium are also identified. ??The 3.0 x 3.0 x 1.9 cm cervix displays a central, patent os and a orellana-white, smooth, and glistening canal. The surface of the cervix is diffusely trabecular and an intact smooth region that would be consistent with ectocervix is not identified. ??[employer] Sales [employer] sections are submitted as follows: BLOCK PARKER A1, A2 ?[employer] Sales Associate anterior/posterior cervix ? A3-A6 ? [employer] lateral endomyometrium (A3, A4 contiguous full-thickness sections; A5, A6 contiguous full-thickness sections) ? A7 ?[employer] Sales Associate fundic intramural nodule A8 ?[employer] Sales Associate serosa to include hemorrhagic adhesions A9-A12 ?Additional perpendicular sections of cervix (A. Pierce)/[facility] End of Report [facility] 08/25/2004 08/26/2004 9:0 9 EDT Alice Abraham MD PATHOLOGY ORDERABLES [facility] [address] [place] [address] documented in this encounter Visit Diagnoses Not on filedocumented in this encounter
--- OUTSIDE RECORDS SUMMARY | 2023-11-12 14:59 | XMS_ITS | Encounter Summary ---
Author Organization [facility] [place] [address] Care Team Providers Care Director Independent Name Role Phone Jelena Harris Primary Care Provider [phone]- [phone] Encounter Details Date Type Department Care Team (Late st Contact Info) Description 03/21/2016 External Results [place] [address] Amor Hollingsworth MD [facility] [place] [address] Social History Tobacco Use Types Packs/Day Years [...] Date/Time Associated Diagnosis Comments MAMMOGRAM SCAN Routine 06/09/2014 MAMMOGRAM SCAN Routine 12/18/2011 MAMMOGRAM SCAN Routine 07/13/2010 MAMMOGRAM SCAN Routine 07/16/2008 MAMMOGRAM SCAN Routine 07/13/2008 MAMMOGRAM SCAN Routine 10/05/2004 MAMMOGRAM SCAN Routine 07/06/2003 documented in this encounter Results * Scan Doc: Mammogram (06/09/2014) Anatomical Region Laterality Modality Other Amor Hollingsworth MD MEDIA MGR SCAN EXT O RDR/RSLT * Scan Doc: Mammogram (12/18/2011) Anatomical Region Laterality Modality Other Amor Hollingsworth MD MEDIA MGR SCAN EXT O RDR/RSLT * Scan Doc: Mammogram (07/13/2010) Anatomical Region Laterality Modality Other Amor Hollingsworth MD MEDIA MGR SCAN EXT O RDR/RSLT * Scan Doc: Mammogram (07/16/2008) Anatomical Region Laterality Modality Other Amor Hollingsworth MD MEDIA MGR SCAN EXT O RDR/RSLT * Scan Doc: Mammogram (07/13/2008) Anatomical Region Laterality Modality Other Amor Hollingsworth MD MEDIA MGR SCAN EXT O RDR/RSLT * Scan Doc: Mammogram (10/05/2004) Anatomical Region Laterality Modality Other Amor Hollingsworth MD MEDIA MGR SCAN EXT O RDR/RSLT * Scan Doc: Mammogram (07/06/2003) Anatomical Region Laterality Modality Other Amor Hollingsworth MD MEDIA MGR SCAN EXT O RDR/RSLT documented in this encounter Visit Diagnoses Not on filedocumented in this encounter Care Teams Director Independent Relationship Specialty Start Date End Date Jelena Harris PA [address] [place] [address] PCP - General 05/27/14 06/04/18 documented as of this encounter
--- OUTSIDE RECORDS SUMMARY | 2023-11-12 14:59 | XMS_ITS | Encounter Summary ---
Author Organization [facility] Address [address] [place] [address] Care Team Providers Care Braid Cutter Name Role Phone Unavailable Primary Care Provider Unavailabl e Encounter Details Date Type Department Care Team (Late st Contact Info) Description 06/18/2002 Results Only [facility] conversion [address] [place] [address] Amara Arzola, WAIVER ANALYST [facility] [address] [place] [address] Social History Tobacco Use Types Packs/Day Years Used Date Smoking Tobacco: Never Assessed Sex and Gender Information Value Date Recorded Sex Assigned at Not on file Gender Identity Not on file Sexual Orientation Not on file documented as of this encounter Plan of Treatment Not on file documented as of this encounter Procedures Procedure Name Priority Date/Time Associated Diagnosis Comments CYTOPATHOLOGY Routine 06/18/2002 0:00 EST documented in this encounter Results * CYTOPATHOLOGY (06/18/2002 0:00 EST) Pathology Report: CYTOPATHOLOGY REPORT Reports generated via electronic interface contain original data; however they are lacking the format of the original report. Caution should be taken when reading/interpreti ng unformatted reports. Name: ? GINA HENDERSON ? Accession #: ? [id number] : ? 1960 (Age: 42) ??F ?Collect Date: ? 06/18/2002 Location: ? [facility] ? Receive Date: ? 06/20/2002 Provider: ?AMARA ARZOLA WAIVER ANALYST Copy to: ? Specimen/Source: ?ThinPrep Pap Test, Cervix/Endocervix Last Menstrual Period: ? 05/20/02 ? SPECIMEN ADEQUACY ? Satisfactory for Evaluation - transformation zone component present GENERAL CATEGORIZATION ? Negative for Intraepithelial Lesion or Malignancy ? Document reviewed and electronically signed by: ? DANAY Fallon(ASCP) ? Report Date: ??06/24/2002 10:53 End of Report [facility] 06/18/2002 06/20/2002 Amara Arzola NP PATHOLOGY ORDERABLES [facility] [address] [place] [address] documented in this encounter Visit Diagnoses Not on filedocumented in this encounter
--- OUTSIDE RECORDS SUMMARY | 2023-11-12 14:59 | XMS_ITS | Encounter Summary ---
Author Organization [facility] Address [address] [place] [address] Care Team Providers Care Manager Adobe Name Role Phone Unavailable Primary Care Provider Unavailabl e Encounter Details Date Type Department Care Team (Late st Contact Info) Description 06/24/2003 Results Only [facility] conversion [address] [place] [address] Amara Arzola, UNIT DIRECTOR [facility] [address] [place] [address] Social History Tobacco Use Types [...] Priority Date/Time Associated Diagnosis Comments CYTOPATHOLOGY Routine 06/24/2003 0:00 EST documented in this encounter Results * CYTOPATHOLOGY (06/24/2003 0:00 EST) Pathology Report: CYTOPATHOLOGY REPORT Reports generated via electronic interface contain original data; however they are lacking the format of the original report. Caution should be taken when reading/interpreti ng unformatted reports. Name: ? GINA HENDERSON ? Accession #: ? [id number] : ? 1960 (Age: 43) ??F ?Collect Date: ? 06/24/2003 Location: ? [facility] ? Receive Date: ? 06/26/2003 Provider: ?AMARA ARZOLA UNIT DIRECTOR Copy to: ? Specimen/Source: ?ThinPrep Pap Test, Cervix/Endocervix Last Menstrual Period: ? 2/ ? SPECIMEN ADEQUACY ? Satisfactory for Evaluation - transformation zone component present - scant squamous epithelial component secondary to excessive mucus GENERAL CATEGORIZATION ? Negative for Intraepithelial Lesion or Malignancy ? Document reviewed and electronically signed by: ? DANAY Delgadillo(ASCP) ? Report Date: ??07/01/2003 07:51 End of Report [facility] 06/24/2003 06/26/2003 Amara Arzola NP PATHOLOGY ORDERABLES [facility] [address] [place] [address] documented in this encounter Visit Diagnoses Not on filedocumented in this encounter
--- OUTSIDE RECORDS SUMMARY | 2023-11-12 14:59 | XMS_ITS | Encounter Summary ---
Author Organization [facility] Address [address] [place] [address] Care Team Providers Care Tractor Crane Engineer Name Role Phone Unavailable Primary Care Provider Unavailabl e Encounter Details Date Type Department Care Team (Late st Contact Info) Description 06/29/2006 Results Only [facility] conversion [address] [place] [address] Amara Arzola, SWATCH PASTER [facility] [address] [place] [address] Social History Tobacco Use Types [...] Priority Date/Time Associated Diagnosis Comments CYTOPATHOLOGY Routine 06/29/2006 0:00 EDT documented in this encounter Results * CYTOPATHOLOGY (06/29/2006 0:00 EDT) Pathology Report: CYTOPATHOLOGY REPORT Reports generated via electronic interface contain original data; however they are lacking the format of the original report. Caution should be taken when reading/interpreti ng unformatted reports. Name: ? GINA HENDERSON ? Accession #: ? [id number] : ? 1960 (Age: 46) ??F ?Collect Date: ? 06/29/2006 Location: ? [facility] ? Receive Date: ? 07/03/2006 Provider: ?AMARA ARZOLA SWATCH PASTER Copy to: ? Specimen/Source: ?ThinPrep Pap Test, Cervix Scar, processed on Shareable [employer] Imaging System, with manual evaluation Last Menstrual Period: ? 2004 Treatment History: ? Hysterectomy: 2004 for fibroids ? SPECIMEN ADEQUACY ? Satisfactory for Evaluation - transformation zone component absent GENERAL CATEGORIZATION ? Negative for Intraepithelial Lesion or Malignancy ? Document reviewed and electronically signed by: ? King Win, DANAY(ASCP) ? Report Date: ??07/04/2006 12:49 End of Report [facility] 06/29/2006 07/03/2006 Amara Arzola NP PATHOLOGY ORDERABLES [facility] [address] [place] [address] documented in this encounter Visit Diagnoses Not on filedocumented in this encounter
--- OUTSIDE RECORDS SUMMARY | 2023-11-12 14:59 | XMS_ITS | Encounter Summary ---
[place] [address] Care Team Providers Care Surgery Manager Name Role Phone Jelena Harris Primary Care Provider +1- [phone] Encounter Details Date Type Department Care Team (Late st Contact Info) Description 05/06/2018 Telephone Mammography/[place] [id number] Qian Alejandra APRN [address] [place] [address] Social History Tobacco Use Types Packs/Day Years [...] on filedocumented in this encounter Care Teams Surgery Manager Relationship Specialty Start Date End Date Jelena Harris PA [address] [place] [address] PCP - General 05/27/14 06/04/18 documented as of this encounter
--- OUTSIDE RECORDS SUMMARY | 2023-11-12 14:59 | XMS_ITS | Encounter Summary ---
[place] [address] Care Team Providers Care Mother Tester Name Role Phone Jelena Harris Primary Care Provider +1- [phone] Reason for Visit * Auth/Cert Specialty Diagnoses / Procedures Referred By Tonya hall Referred To Contact Diagnoses N62 - macromastia Tentative DOS - 02/21/2016 CPT: 61387 - yang Procedures PRO REDUCTION OF LARGE BREAST REDUCTION MAMMOPLASTY, YANG Referral ID Status Reason Start Date Expiration Date Visits Re quested Visits Authorized [id number] 1 1 Encounter Details Date Type Department Care Team (Late st Contact Info) Description 03/23/2016 7:32 AM EST Anesthesia [place] [address] Solo Melendez MD [facility] [place] [address] Anesthesia Record Procedure Summary Procedure Name Responsible Anesthesiologist Anesthesia Start Time Anesthesia Stop Time REDUCTION MAMMOPLASTY, YANG (WRVU 16.03) (Bilateral: Breast) Solo Melendez MD 03/23/16 0732 03/23/16 1002 Events Date Time Event Comment 03/23/2016 0713 0732 Start 0737 AN Verify 0737 An Start Data 0740 An Induction 0748 An Intubation 0750 Anesthesia Ready 0808 Quick Note Local tumescent given by surgical team. 0840 Break/Relief In ANETA M QU ILL, NUCLEAR CARDIOLOGY TECHNOLOGIST 0857 Break/Relief Out 0953 Extubation/LMA Out 0953 an stop data 1002 Recovery or ICU Handoff Sonal ent care was transferred to the destination unit staff after review of the patient's medical history, current anesthetic/surgical status and plan, according to the Provider Handoff Checklist. 1002 Stop Meds Name Total Midazolam 2 mg fentaNYL 100 mcg IV Lidocaine 60 mg Propofol 250 mg Rocuronium 50 mg ePHEDrine 15 mg Ondansetron 8 mg Dexamethasone 8 mg Neostigmine 3 mg Glycopyrrolate 0.4 mg ceFAZolin (ANCEF) 2g in dextrose 5% 50 m L 2 g Propofol INF 444.08 mg HYDROmorphone 0.6 mg lactated ringers infusion 1,000 mL 900 m L * Agents Name O2 Air N2O Sevoflurane (et) * Blood No blood administrations on file. Lines, Drains, and Airways Type Details Placement Removal (RETIRED) Peripheral IV Line - Single Lumen 03/23/16; 0708; median cubital vein (antecubital fossa), right; 18 gauge; Sheri; intradermal injection; 1 (Regina Moses); 03/25/16; 1212 03/23/16 0708 by Jamee Moses RN 03/25/16 1212 by My Strong RN ETT Mask Ventilation: Adjunct (2); ETT Type: Cuffed, Oral; ETT Size: 7 mm; Indirect: Video; Notes: Asleep, Pre-O2, Stylette; Attempts: 1; Laryngoscopy Grade: 1; ETT Placement Verified By: Auscultation, Capnometry, Visual; Secured at Teeth: 22 cm; Inserted by: Kip Chase FP-C; Removal Date: 03/23/16; Removal Time: 95203/23/16 0748 by Mat Mar, NUCLEAR CARDIOLOGY TECHNOLOGIST 03/23/16 0953 by Mat Mar, PINKY Incision 03/23/16; 08; alexy st; 11/21/21 (LDA cleanup utility RA#[id number]); 171 (LDA cleanup utility RA#[id number]) 03/23/16 0813 by Mildred Castellanos RN 11/21/21 171 by Reid Mejia Incision 03/23/16; 08; alexy st; 11/21/21 (LDA cleanup utility RA#[id number]); 1715 (LDA cleanup utility RA#[id number]) 03/23/16 0813 by Mildred Castellanos RN 11/21/21 1715 by Reid Mejia Drain/Device Site 03/23/16; 0852; Left ; breast; collapsible closed device; 15 arely; 03/25/16 03/23/16 0852 by Mildred Castellanos RN 03/25/16 0000 by Breanna Márquez RN Drain/Device Site 03/23/16; 0853; Righ t; breast; collapsible closed device; 15 arely drain; 03/25/16 03/23/16 0853 by Mildred Castellanos RN 03/25/16 0000 by Breanna Márquez RN documented in this encounter Social History Tobacco Use Types Packs/Day Years Used Date Smoking Tobacco: Former Smokeless Tobacco: Never Alcohol Use Standard Drinks/Week Comments Yes 0 (1 standard drink = 0.6 oz pur e alcohol) Sex and Gender Information Value Date Recorded Sex Assigned at Not on file Gender Identity Not on file Sexual Orientation Not on file documented as of this encounter OR Notes * Anesthesia Postprocedure Evaluation - Solo Melendez MD - 03/23/2016 11:26 AM EST [facility] Department of Anesthesiology Post-procedure Note Patient: Gina Henderson Procedure Summary Date Anesthesia Start Anesthesia Stop Room / Location 03/23/[address] [place] [address] OR / [facility] MAIN OR Procedure Diagnosis Surgeon Responsible Provider REDUCTION MAMMOPLASTY, YANG (WRVU 16.03) (Bilateral Breast); MODIFIER ROBERTS (N/A ) (macromastia) Michael Branch MD Pouliot, Ryan C, MD All Anesthesia Providers: Anesthesiologist: Solo Melendez MD NUCLEAR CARDIOLOGY TECHNOLOGIST: Mat Mar CRNA Last (1hr) Vitals: BP 102/85 (03/23/16 1115) Temp Pulse Resp SpO2 96 % (03/23/16 1115) Patient Location: PACU/[facility] Level of Consciousness: Awake and Alert Pain Management: Satisfactory Analgesia PONV: None Cardiovascular Status: Hemodynamically Stable and At Baseline Respiratory Status: Supplemental O2 (NC or FM) and Stable Respiratory Status Postoperative Fluid Status: Intravascular EUvolemia Possible Anesthetic Complications: NONE apparent at time of evaluation Final Primary Anesthesia Type: General (The anesthetic type performed was the same as planned.) Comments: Notified of patient having persistent low SpO2 on RA with sats in 80s. Patient examined, reported tolerable pain at surgical site. Denied any dyspnea. Appears in no distress. Speaks in fullsentences with clear lungs, able to reach 2L on IS. Saturation increases occasionally in the 90s spontaneously and with cough. Se pulse ox with similar findings. ABG drawn with confirmation (pO2 47mmHg). Placed on supplemental oxygen via NC with sats in 90s. Discussed with primary team and will plan to admit for closer observation, CXR ordered. Will continue to monitor. Solo Melendez MD * Anesthesia Preprocedure Evaluation - Solo Melendez MD - 03/23/2016 6:46 AM EST Pre-Anesthesia Evaluation for: Gina Henderson a 56 y.o. female. Procedure(s): REDUCTION MAMMOPLASTY, YANG (WRVU 16.03) MODIFIER ROBERTS Patient Active Problem List Diagnosis ??? Irritant hand dermatitis Past Medical History Diagnosis Date ??? HTN (hypertension) Past Surgical History Procedure Laterality Date ??? Hysterectomy ??? section Social History Substance Use Topics ??? Smoking status: Former Smoker ??? Smokeless tobacco: Never Used ??? Alcohol use Yes 2 Glasses of wine per week History Drug Use No No Known Allergies Medications: MAR and/or home medications have been reviewed. Physical Exam: Vitals: 03/23/16 0609 BP: 143/71 Pulse: 72 Resp: 16 Temp: 36.3 ??C (97.3 ??F) Body mass index is 39.78 kg/(m^2). Height: 154.9 cm (5' 1) Weight - Scale: 95.5 kg (210 lb 8.6 oz) Airway Assessment: Mallampati: III TM distance: >3 FB Neck ROM: full Cardiovascular Assessment: Pulmonary Assessment: Dental Assessment: - normal exam Misc Assessment: IV access: Peripheral line Anesthesia Plan: ASA 2 general, with a(n) intravenous induction 56 y/o woman with a PMH of HTN/HLD, obesity, asthma and macromastia who presents for bilateral breast reduction. No problems with GA in the past. Denied cardiac disease, rare asthma symptoms and MDI use (with URIs). Appropriate NPO status. Plan for GA, ETT. Region - Other Informed Consent: Anesthetic plan and risks discussed with patient and spouse. Plan discussed with NUCLEAR CARDIOLOGY TECHNOLOGIST. PAT Staff Note documented in this encounter Plan of Treatment Not on file documented as of this encounter Visit Diagnoses Not on filedocumented in this encounter Administered Medications Inactive Administered Medications - up to 3 most recent administrations Medication Order MAR Action Action Date Dose Rate Site ceFAZolin (ANCEF) 2g in dextrose 5% 50 mL 2 g, Intravenous, ONCE, 1 dose, On Mary Ellen 03/23/16 at 0615, Administer over 30 Minutes, Indication for (Active or Suspected): Prophylaxis Given 03/23/2016 7:50 AM EST 2 g dexamethasone (DECADRON) injection PRN, Starting on Mary Ellen 03/23/16 at 0745, Until Mary Ellen 03/23/16 at 1002, Anesthesia Intra-op, Routine Given 03/23/2016 7:45 AM EST 8 mg ePHEDrine 5 mg/mL multi-dose injection PRN, Starting on Mary Ellen 03/23/16 at 0806, Until Mary Ellen 03/23/16 at 1002, Anesthesia Intra-op, Routine Given 03/23/2016 8:54 AM EST 5 mg Given 03/23/2016 8:06 AM EST 10 mg fentaNYL 50 mcg/mL multi-dose injection PRN, Starting on Mary Ellen 03/23/16 at 0740, Until Amry Ellen 03/23/16 at 1002, Pain, Anesthesia Intra-op, Routine Given 03/23/2016 8:02 AM EST 50 mcg Given 03/23/2016 7:40 AM EST 50 mcg glycopyrrolate (ROBINUL) multi-dose injection PRN, Starting on Mary Ellen 03/23/16 at 0921, Until Mary Ellen 03/23/16 at 1002, Anesthesia Intra-op, Routine Given 03/23/2016 9:21 AM EST 0.4 mg HYDROmorphone (DILAUDID) injection PRN, Starting on Mary Ellen 03/23/16 at 0937, Until Mary Ellen 03/23/16 at 1002, Pain, Anesthesia Intra-op, Routine Given 03/23/2016 9:37 AM EST 0.6 mg lactated ringers infusion 1,000 mL 1,000 mL, at 100 mL/hr, Intravenous, CONTINUOUS, Starting on Mary Ellen 03/23/16 at 0645, Until Mary Ellen 03/23/16 at 1709, Day of Surgery (Day of Procedure) New Bag 03/23/2016 7:32 AM EST New Bag 03/23/2016 6:45 AM EST 1,000 mLs 100 mL/hr lidocaine (PF) (XYLOCAINE) 100 mg/5 mL (2 %) injection PRN, Starting on Mary Ellen 03/23/16 at 0740, Until Mary Ellen 03/23/16 at 1002, Anesthesia Intra-op, Routine Given 03/23/2016 7:40 AM EST 60 mg midazolam (PF) (VERSED) 1 mg/mL multi-dose injection PRN, Starting on Mary Ellen 03/23/16 at 0732, Until Mary Ellen 03/23/16 at 1002, Sleep, Anesthesia Intra-op, Routine Given 03/23/2016 7:32 AM EST 2 mg neostigmine (PROSTIGMINE) multi-dose injection PRN, Starting on Mary Ellen 03/23/16 at 0921, Until Mary Ellen 03/23/16 at 1002, Anesthesia Intra-op, Routine Given 03/23/2016 9:21 AM EST 3 mg ondansetron (ZOFRAN) injection PRN, Starting on Mary Ellen 03/23/16 at 0921, Until Mary Ellen 03/23/16 at 1002, Nausea, Anesthesia Intra-op, Routine Given 03/23/2016 9:21 AM EST 8 mg propofol (DIPRIVAN) 10 mg/mL bolus injection (Anesthesia) PRN, Starting on Mary Ellen 03/23/16 at 0740, Until Mary Ellen 03/23/16 at 1002, Anesthesia Intra-op Given 03/23/2016 7:40 AM EST 250 mg propofol (DIPRIVAN) infusion CONTINUOUS PRN, Starting on Mary Ellen 03/23/16 at 0751, Until Mary Ellen 03/23/16 at 1002, Anesthesia Intra-op, Routine New Bag 03/23/2016 7:51 AM EST 50 mcg/kg/min 28.7 mL/hr rocuronium (ZEMURON) multi-dose injection PRN, Starting on Mary Ellen 03/23/16 at 0744, Until Mary Ellen 03/23/16 at 1002, Anesthesia Intra-op, Routine Given 03/23/2016 7:44 AM EST 50 mg documented in this encounter Care Teams Mother Tester Relationship Specialty Start Date End Date Jelena Harris PA [address] [place] [address] PCP - General 05/27/14 06/04/18 documented as of this encounter
--- OUTSIDE RECORDS SUMMARY | 2023-11-12 14:59 | XMS_ITS | Encounter Summary ---
Author Organization [facility] Address [address] [place] [address] Care Team Providers Care Passenger Interline Clerk Name Role Phone Unavailable Primary Care Provider Unavailabl e Encounter Details Date Type Department Care Team (Late st Contact Info) Description 06/09/2009 Results Only [facility] Laboratory Services - [facility] ([facility] [address] [place] [address], [place] [id number] Amara Arzola, YONG [facility] [address] [place] [address] Social History Tobacco Use Types [...] Priority Date/Time Associated Diagnosis Comments CYTOPATHOLOGY Routine 06/09/2009 0:00 EDT documented in this encounter Results * CYTOPATHOLOGY (06/09/2009 0:00 EDT) Pathology Report: CYTOPATHOLOGY REPORT ? Reports generated via electronic interface contain original data; ? however they are lacking the format of the original report. ? Caution should be taken when reading/interpreti ng unformatted reports. ? Name: ? GINA HENDERSON ? Accession #: ? [id number] ? : ? 1960 (Age: 49) ??F ?Collect Date: ? 06/09/2009 ? Location: ? [facility] ? Receive Date: ? 06/11/2009 ? Provider: ?AMARA ARZOLA NP ? Copy to: ? Specimen/Source: ?Pap Test, Vagina, ThinPrep Imaging System with manual ?? evaluation ? Last Menstrual Period: ? 2005 ? Treatment History: ? Hysterectomy: S/P 2005 ? SPECIMEN ADEQUACY ? Satisfactory for Evaluation ? - assessment of transformation zone component not applicable ( e.g. atrophy, ? vaginal sample, hysterectomy) ? GENERAL CATEGORIZATION ? Negative for Intraepithelial Lesion or Malignancy ? Document reviewed and electronically signed by: ? Brayan Stumler, CT(ASCP) ? Report Date: ??06/14/2009 12:54 ? End of Report ? [facility] 06/09/2009 06/11/2009 Amara Arzola NP PATHOLOGY ORDERABLES [facility] [address] [place] [address] documented in this encounter Visit Diagnoses Not on filedocumented in this encounter
--- OUTSIDE RECORDS SUMMARY | 2023-11-12 14:59 | XMS_ITS | Encounter Summary ---
Author [place] [address] Care Team Providers Care Regasification Plant Operator Name Role Phone Jelena Harris Primary Care Provider [phone] Reason for Visit * Reason Comments Follow-up still having a lot o f tenderness /BBR Encounter Details Date Type Department Care Team (Late st Contact Info) Description 10/23/2016 4:15 PM EDT Office [place] [address] Michael Jenkins MD [facility] [place] [address] Macromastia Social History Tobacco Use Types Packs/Day [...] this encounter Patient Instructions * Patient Instructions* Liset Clemons - 10/23/2016 4:15 PM EDT Plan: 1. Follow up: as needed 2. Resume normal mammogram schedule documented in this encounter Progress Notes * Michael Jenkins MD - 10/23/2016 4:15 PM EDT Plastic Surgery Post Op Note Reason for visit: F/U status post procedure Date of surgery: 03/23/16 Procedure(s): bilateral breast reduction (Erickson) R 770 g, L 580g Complications: None reported HPI: Pt reports she has been very well, she has episodic episodes of achiness at hier right lateralbreast. This resolves quickly. She reports having noticed improvement in her posture and ability tobreathe. She is having some life stress. PLASTICS BREAST QUESTIONS 01/17/2016 Headaches? Some of [...] 30 Sexual Well-being 0 Physical Well-being 53 Examination: Patient is alert, conversant, comfortable, ambulating Incision: CDI, healing well. Good breast symmetry in size and position No collection, no erythema, no evidence of cellulitis. Impression: Gina Henderson is a 56 y.o. female who was seen today for follow-up after the above procedure. Please see the operative note for details. She is doing well to date, happy to have undergone surgery. Plan: 1. Follow up: as needed 2. Resume normal mammogram schedule I, Katharina Clemons, am acting as scribe for Dr. Jenkins. All work documented was performed by Dr. Jenkins. ???I performed the above scribed service and agree with the accuracy of the note?? MICHAEL JENKINS MD documented in this encounter Plan of Treatment Not on file documented as of this encounter Visit Diagnoses Diagnosis Macromastia Hypertrophy of breast documented in this encounter Care Teams Regasification Plant Operator Relationship Specialty Start Date End Date Jelena Harris PA [address] [place] [address] PCP - General 05/27/14 06/04/18 documented as of this encounter
--- OUTSIDE RECORDS SUMMARY | 2023-11-12 14:59 | XMS_ITS | Encounter Summary ---
Author Organization [facility] Address [address] [place] [address] Care Team Providers Care Carburetor Rebuilder Name Role Phone Unavailable Primary Care Provider Unavailabl e Encounter Details Date Type Department Care Team (Late st Contact Info) Description 12/11/2011 Results Only [facility] Laboratory Services - [facility] [place] [address] [place], [place] [id number] Gamaliel Norton FNP [address] [place], [place] [id number] Social History Tobacco Use Types Packs/Day Years Used Date Smoking Tobacco: Never Assessed Sex and Gender Information Value Date Recorded Sex Assigned at Not on file Gender Identity Not on file Sexual Orientation Not on file documented as of this encounter Plan of Treatment Not on file documented as of this encounter Procedures Procedure Name Priority Date/Time Associated Diagnosis Comments PAP TEST- RESULT ONLY Routine 12/11/2011 0:00 EDT documented in this encounter Results * PAP TEST- RESULT ONLY (12/11/2011 0:00 EDT) Pathology Report: CYTOPATHOLOGY REPORT Reports generated via electronic interface contain original data; however they are lacking the format of the original report. Caution should be taken when reading/interpreti ng unformatted reports. Name: ? GINA HENDERSON ? Accession #: ? [id number] : ? 1960 (Age: 51) ??F ?Collect Date: ? 12/11/2011 Location: ? [facility] ? Receive Date: ? 12/13/2011 Provider: ?GAMALIEL NORTON CUSTOM BIKE BUILDER Copy to: ? Specimen/Source: ?Pap Test, Cervix, ThinPrep Imaging System with manual evaluation Last Menstrual Period: ? CHON Treatment History: ? Hysterectomy: Partial s/p ovaries spared ? SPECIMEN ADEQUACY ? Satisfactory for Evaluation - assessment of transformation zone component not applicable ( e.g. atrophy, vaginal sample, hysterectomy) GENERAL CATEGORIZATION ? Negative for Intraepithelial Lesion or Malignancy ? Document reviewed and electronically signed by: ? DANAY Jung(ASCP) ? Report Date: ??12/19/2011 16:44 End of Report [facility] 12/11/2011 12/13/2011 Gamaliel Norton CUSTOM BIKE BUILDER PATHOLOGY ORDERABLES [facility] [address] [place] [address] documented in this encounter Visit Diagnoses Not on filedocumented in this encounter
--- OUTSIDE RECORDS SUMMARY | 2023-11-12 14:59 | XMS_ITS | Encounter Summary ---
[place] [address] Care Team Providers Care Branch Manager Name Role Phone Qian Alejandra APRN Primary Care Provider [phone] Encounter Details Date Type Department Care Team (Latest Contact Info) Description 06/05/2018 3:33 PM EDT - 06/05/2018 11:59 PM EDT Hospital Encounter Mammography/[place] [address] Qian Alejandra APRN [address] [place] [address] Visit for screening mammogram Discharge Disposition: Home Social History Tobacco Use [...] 3:50 PM EDT Visit for screening mammogram documented in this encounter Results * Mammo Screening Cad and Anthony [...] BIRADS CATEGORY 2: Benign findings. * ??[employer] [place] [employer] of [...] report, please contact the number below. ? Qian Alejandra APRN IMG MAMMO ORDERABLES documented in this encounter Visit Diagnoses Diagnosis Visit for screening mammogram Other screening mammogram documented in this encounter Care Teams Branch Manager Relationship Specialty Start Date End Date Qian Alejandra APRN [address] [place] [address] PCP - General Family Medicine 06/05/18 documented as of this encounter
--- OUTSIDE RECORDS SUMMARY | 2023-11-12 14:59 | XMS_ITS | Encounter Summary ---
[place] [address] Care Team Providers Care Bottle Dealer Name Role Phone Jelena Harris Primary Care Provider [phone] Reason for Visit * Reason Comments Follow Up Surgery 03/23/16 BBR Encounter Details Date Type Department Care Team (Latest Contact Info) Description 03/30/2016 2:00 PM EST Clinical Support [place] [id number] Surgery follow-up Social History Tobacco Use Types Packs/Day Years [...] this encounter Patient Instructions * Patient Instructions* Rema Ospina RN - 03/30/2016 2:00 PM EST Signs of Infection : A temperature over 100.4 F or 38 C. Redness at the incision line that is beginning to spread away from the incision after the first 48 hours. Yellow pus-like or foul smelling drainage larger than a dime size from the incision or drain sites. Increased pain / discomfort that is not relieved by your pain medicine. For any of these symptoms please call our nurse's line at [phone] M - F 8 - 5 -SCAR MASSAGE TECHNIQUE: to begin 4-6 weeks following surgery What is a scar? When an injury occurs, the body immediately begins to repair itself & the area becomes swollen & sore. Eventually small collagen fibers form, becoming a solid tissue that results in a scar. This scar will continue to change in appearance for 1-2 years. Ideally, a scar is smooth & flat, blending in with the surrounding skin. However, some scars may become highly visible & unattractive due to factors such as your age, scar location & size, nutrition, genetics, or infection. A hypertrophic scar occurs when there is an excess production of collagen tissue that is elevated but remains within the wound boundaries. The scar is tense, red, & can be associated with itching & tenderness. A hypertrophic scar can be ordinary (usually stabilizes in 3 months & may even get smaller and smoother) or keloid. The keloid scar invades nearby tissue that was not part of the original wound, tends to enlarge even after 6 months & does not get softer. Will scar massage make my scars disappear? Nothing can make scars disappear. However, massaging the scar assists the body in breaking down thescar tissue to give it a flatter, softer, appearance. Massage also mobilizes the scar, preventing it from adhering to underlying tissue, tendons, & nerves. You can make the greatest difference in the appearance of the scar if you massage it in the first 3months. What should I use on my scars? You will hear many recommendations. This clinic finds that it is the massage itself that reduces the scar & not necessarily the choice of ointments or creams. We do discourage the use of Vitamin E oil, however, due to studies that have reported scar inflammation & deterioration. How do I massage my scars? Generously apply the lotion or cream into the scar 3-4 times a day for 8 weeks on new scars, and 3-4 times per day for 3 to 6 months on existing scars. Using your finger, apply pressure to the scar in a crosswise & circular direction, bearing down as hard as tolerated. Remember to protect your scar from the sun, especially in the first 6-12 months, by using a moisturizer with sunblock and wearing a physical barrier (ie: a hat) when possible documented in this encounter Progress Notes * Rema Ospina RN - 03/30/2016 2:00 PM EST Plastic Surgery Post Op Note Gina Henderson returned to our office today for post surgical follow-up Date of surgery: 03/23/16 Procedure(s): Bilateral breast reduction rudolph Complications: None reported Pain: 07/03, pt reports that she has not needed any narcotics, and is just using extra strength tylenol with good effect. HPI: She reports she is doing well without complaints. She already feels substantial relief of her back pain. Physical Examination: General: Alert, comfortable, conversant, ambulating Breasts: Good symmetry and good perfusion of NAC's bilaterally. Incisions healing well. Dog ears settling nicely. No evidence of redness, or fluid collection, mild swelling bilateral breasts. We discussed her path report indicating benign breast tissue. Plan: Instructed in care of incision lines, and activity restrictions as outlined in our post op brochure We reviewed signs and symptoms of infection. Begin scar massage at 4-6 weeks post op- instructions provided Prescriptions provided: None Supplies: a niko surgical bra was provided Follow up: [address] Branch or sooner if needed documented in this encounter Plan of Treatment Not on file documented as of this encounter Visit Diagnoses Diagnosis Surgery follow-up Follow-up examination, following unspecified surgery documented in this encounter Care Teams Bottle Dealer Relationship Specialty Start Date End Date Jelena Harris PA [address] [place] [address] PCP - General 05/27/14 06/04/18 documented as of this encounter
--- OUTSIDE RECORDS SUMMARY | 2023-11-12 14:59 | XMS_ITS | Encounter Summary ---
[place] [address] Care Team Providers Care System Administration Manager Name Role Phone Jelena Harris Primary Care Provider [phone] Encounter Details Date Type Department Care Team (Late st Contact Info) Description 05/09/2018 Telephone Mammography/[place] [id number] Qian Alejandra APRN [address] [place] [address] Social History Tobacco Use Types [...] on filedocumented in this encounter Care Teams System Administration Manager Relationship Specialty Start Date End Date Jelena Harris PA [address] [place] [address] PCP - General 05/27/14 06/04/18 documented as of this encounter
--- OUTSIDE RECORDS SUMMARY | 2023-11-12 14:59 | XMS_ITS | Encounter Summary ---
Author Organization [facility] [address] Care Team Providers Care Juvenile Justice Officer Name Role Phone Amara Ding Guero HERNANDEZ Primary Care Provider [phone] Encounter Details Date Type Department Care Team (Latest Contact Info) Description 12/18/2011 - 12/18/2011 11:59 PM EDT Hospital Encounter [place] [address] Amor Hollingsworth MD [facility] [place] [address] Pain Discharge Disposition: Home Social History Tobacco Use Types Packs/Day Years Used Date Smoking Tobacco: Never Assessed Sex and Gender Information Value Date Recorded Sex Assigned at Not on file Gender Identity Not on file Sexual Orientation Not on file documented as of this encounter Medications at Time of Discharge Medication Sig Dispensed Refills Start Date End Date CIS Free Text Med - Inderal 11/29/2000 documented as of this encounter Plan of Treatment Not on file documented as of this encounter Procedures Procedure Name Priority Date/Time Associated Diagnosis Comments FILM LIBRARY STORAGE ONLY MAMMO Routine 12/18/2011 12:00 AM EDT Pain documented in this encounter Results * Film Library- Storage Only Mammo (12/18/2011 12:00 AM EDT) Narrative [facility] - 03/21/2016 10:54 AM EST This exam is for storage only and is auto-finalizing. Amor Hollingsworth MD IMG FILM LIBRARY ORD ERABLES [place], [place] documented in this encounter Visit Diagnoses Diagnosis Pain Generalized pain documented in this encounter Care Teams Juvenile Justice Officer Relationship Specialty Start Date End Date Amara Ding APRN PCP - General 02/15/10 05/26/14 documented as of this encounter
--- OUTSIDE RECORDS SUMMARY | 2023-11-12 14:59 | XMS_ITS | Encounter Summary ---
Author Organization [facility] [place] [address] Care Team Providers Care Medical Record Administrator Name Role Phone Jelena Harris Primary Care Provider [phone] Encounter Details Date Type Department Care Team (Latest Contact Info) Description 03/15/2016 - 03/15/2016 11:59 PM EST Hospital Encounter [place] [address] Michael Branch MD [facility] [place] [address] Pain Discharge Disposition: Home Social History Tobacco [...] 03/23/2016 03/30/2016 documented as of this encounter Plan of Treatment Not on file documented as of this encounter Procedures Procedure Name Priority Date/Time Associated Diagnosis Comments FILM LIBRARY STORAGE ONLY MAMMO Routine 03/15/2016 12:00 AM EST Pain documented in this encounter Results * Film Library- Storage Only Mammo (03/15/2016 12:00 AM EST) Narrative [facility] - 03/16/2016 11:05 AM EST This exam is for storage only and is auto-finalizing. Michael Branch MD G FILM LIBRARY ORD ERABLES Performing Organization Address City/State/[facility] Co de Phone Number [place], [place] documented in this encounter Visit Diagnoses Diagnosis Pain Generalized pain documented in this encounter Care Teams Medical Record Administrator Relationship Specialty Start Date End Date Jelena Harris PA [address] [place] [address] PCP - General 05/27/14 06/04/18 documented as of this encounter
--- OUTSIDE RECORDS SUMMARY | 2023-11-12 14:59 | XMS_ITS | Encounter Summary ---
[place] [address] Care Team Providers Care Mastic Man Name Role Phone Jelena Harris Primary Care Provider [phone] Reason for Visit * Reason Comments Follow-up BBR Encounter Details Date Type Department Care Team (Latest Contact Info) Description 04/07/2016 10:00 AM EST Clinical Support [place] [address] Surgery follow-up Social History Tobacco Use Types [...] this encounter Patient Instructions * Patient Instructions* Iman Jean RN - 04/07/2016 10:00 AM EST Follow up with Dr. Branch in September. But, do not hesitate to call us if you have any questions prior to that appointment. Continue to wear a support bra /7 for six weeks post op. No underwire for at least three months or until you have sensation under your breasts. The area of redness has been outlined. Keep an eye on it and call if you note redness spreading past the outline. Review the pink and white breast reduction brochure. Continue with activity restrictions for six weeks post op. Signs of Infection : A temperature over [...] symptoms please call our nurse's line at [phone] Sunday - Sunday 8 - 5. On nights, weekends, or holidays call the [facility] number [phone] and ask for the PlasticSurgeon sales contract administrator. documented in this encounter Progress Notes * Iman Jean RN - 04/07/2016 10:00 AM EST Images from the original note were not included. Gina presents today, accompanied by her , for c/o pain noted in her right breast. She is s/p BBR on 03/23/2016. She had her drains removed last week. She reports that her right breast is painful and the band of the bra seems to 'dig' into her underneath her breast. She is using a Louie XL bra. Pain began one week ago. states the appearance of the breast redness began at the same timeas the pain. He does not think the redness has spread. Incision lines are clean, dry, and intact. Temp 98.3 Both breast are equal in size with minimal--> moderate post op swelling and bruising noted. NAC sensation present. Area of redness outlined on each breast. Fitted for a comfort bra which Gina states is much more comfortable. Julia Montero NP in to confer. Left breast Right breast Plan: Follow up with Dr. Branch in September. But, do not hesitate to call us if you have any questions prior to that appointment. Continue to wear a support bra 16/10 for six weeks post op. No underwire for at least three months or until you have sensation under your breasts. The area of redness has been outlined. Keep an eye on it and call if you note redness spreading past the outline. Review the pink and white breast reduction brochure. Continue with activity restrictions for six weeks post op. Gina expressed understanding and agreement with this plan. She has correct phone numbers for contact if she has any concerns prior to her next appointment. documented in this encounter Plan of Treatment Not on file documented as of this encounter Visit Diagnoses Diagnosis Surgery follow-up Follow-up examination, following unspecified surgery documented in this encounter Care Teams Mastic Man Relationship Specialty Start Date End Date Jelena Harris PA [address] [place] [address] PCP - General 05/27/14 06/04/18 documented as of this encounter
--- OUTSIDE RECORDS SUMMARY | 2023-11-12 14:59 | XMS_ITS | Encounter Summary ---
Author Organization [facility] [place] [address] Care Team Providers Care Urology Surgeon Name Role Phone Qian Alejandra MARY Primary Care Provider [phone] Reason for Referral * Consultation (Routine) - Closed Specialty Diagnoses / Procedures Referred By Tonya hall Referred To Contact Orthopaedics Diagnoses Osteoarthritis of first carpometacarpal (CMC) joint of one hand Carpal tunnel syndrome, left upper limb W/C INJ Procedures W/C INJ Dada Juarez MD [address] [place] [address] Andreas Pyle MD [facility] [place] [address] Referral ID Status Reason Start Date Expiration Date V isits Requested Visits Authorized [id number] Closed Consult, Test & Treat PCP Updated and/or Approved 01/18/2022 01/18/2023 6 6 Encounter Details Date Type Department Care Team (Latest Contact Info) Description 01/18/2022 Transcribe Orders eDH Incoming Referrals [phone] Dada Juarez MD [address] [place] [address] Osteoarthritis of first carpometacarpal (CMC) joint of one hand; Carpal tunnel syndrome, left upper limb Social History Tobacco Use Types Packs/Day Years Used Date Smoking Tobacco: Former Smokeless Tobacco: Never Alcohol Use Standard Drinks/Week Comments Yes 0 (1 standard drink = 0.6 oz pur e alcohol) Sex and Gender Information Value Date Recorded Sex Assigned at Not on file Gender Identity Not on file Sexual Orientation Not on file documented as of this encounter Plan of Treatment Scheduled Referrals Name Type Priority Associated Diagnoses Orde r Schedule Referral to Orthopaedics Outpatient Referral Routine Osteoarthritis of first carpometacarpal (CMC) joint of one hand Carpal tunnel syndrome, left upper limb Ordered: 01/18/2022 documented as of this encounter Visit Diagnoses Diagnosis Osteoarthritis of first carpometacarpal (CMC) joint of one hand Carpal tunnel syndrome, left upper limb documented in this encounter Care Teams Urology Surgeon Relationship Specialty Start Date End Date Qian Alejandra APRN [address] [place] [address] PCP - General Family Medicine 06/05/18 documented as of this encounter
--- OUTSIDE RECORDS SUMMARY | 2023-11-12 14:59 | XMS_ITS | Encounter Summary ---
Author Organization [facility] Address [address] [place] [address] Care Team Providers Care Staff Editor Name Role Phone Unavailable Primary Care Provider Unavailabl e Encounter Details Date Type Department Care Team (Late st Contact Info) Description 06/29/2004 Results Only [facility] conversion [address] [place] [address] Amara Arzola, COURT SUPERVISOR [facility] [address] [place] [address] Social History Tobacco Use Types [...] Priority Date/Time Associated Diagnosis Comments CYTOPATHOLOGY Routine 06/29/2004 0:00 EDT documented in this encounter Results * CYTOPATHOLOGY (06/29/2004 0:00 EDT) Pathology Report: CYTOPATHOLOGY REPORT Reports generated via electronic interface contain original data; however they are lacking the format of the original report. Caution should be taken when reading/interpreti ng unformatted reports. Name: ? GINA HENDERSON ? Accession #: ? [id number] : ? 1960 (Age: 44) ??F ?Collect Date: ? 06/29/2004 Location: ? [facility] ? Receive Date: ? 07/04/2004 Provider: ?AMARA ARZOLA NP Copy to: ? Specimen/Source: ?ThinPrep Pap Test, Cervix/Endocervix Last Menstrual Period: ? 06/25/04 ? SPECIMEN ADEQUACY ? Satisfactory for Evaluation - transformation zone component present GENERAL CATEGORIZATION ? Other, see interpretation INTERPRETATION ? Endometrial cells present in a woman equal to or greater than age 40. Negative for Intraepithelial Lesion or Malignancy. EDUCATIONAL NOTES/RECOMMENDATI ONS ? Benign appearing endometrial cells on Pap tests are usually a normal finding in women with regular menstrual cycles, especially if the Pap test was collected during the first half of the menstrual cycle. There is data showing that endometrial cells on Pap tests may be associated with endometrial/uterin e abnormalities in post menopausal women or in perimenopausal women with abnormal bleeding. There is limited data on the significance of benign endometrial cells in post menopausal women on HRT. ??Clinical correlation is recommended. Note: ??The Pap test is not an accurate test for the screening of endometrial lesions and should not be used as a follow up in patients with clinical suspicion of endometrial pathology. ? Document reviewed and electronically signed by: ? DANAY Celestin(ASCP) ? Report Date: ??07/08/2004 09:44 End of Report [facility] 06/29/2004 07/04/2004 Amara Arzola NP PATHOLOGY ORDERABLES [facility] [address] [place] [address] documented in this encounter Visit Diagnoses Not on filedocumented in this encounter
--- OUTSIDE RECORDS SUMMARY | 2023-11-12 15:00 | XMS_ITS | Encounter Summary ---
Author Organization [facility] [place] [address] Care Team Providers Care Armature Winder Repair Name Role Phone LagrangeAmara benavides Guero HERNANDEZ Primary Care Provider [phone] Encounter Details Date Type Department Care Team (Latest Contact Info) Description 07/13/2010 - 07/13/2010 11:59 PM EDT Hospital Encounter [place] [address] Amor Hollingsworth MD [facility] [place] [address] Pain Discharge Disposition: Home Social History Tobacco [...] Comments FILM LIBRARY STORAGE ONLY MAMMO Routine 07/13/2010 12:00 AM EDT Pain documented in this encounter Results * Film Library- Storage Only Mammo (07/13/2010 12:00 AM EDT) Narrative [facility] - 03/21/2016 11:05 AM EST This exam is for storage only and is auto-finalizing. Amor Hollingsworth MD IMG FILM LIBRARY ORD ERABLES [place], [place] documented in this encounter Visit Diagnoses Diagnosis Pain Generalized pain documented in this encounter Care Teams Armature Winder Repair Relationship Specialty Start Date End Date Amara Ding APRN PCP - General 02/15/10 05/26/14 documented as of this encounter
--- OUTSIDE RECORDS SUMMARY | 2023-11-12 15:00 | XMS_ITS | Encounter Summary ---
Author Organization [facility] [place] [address] Care Team Providers Care Commercial Credit Analyst Name Role Phone Unavailable Primary Care Provider Unavailabl e Encounter Details Date Type Department Care Team (Latest Contact Info) Description 07/16/2008 12:15 AM EDT - 07/16/2008 11:59 PM EDT Hospital Encounter [place] [address] Amor Hollingsworth MD [facility] [place] [address] Pain Discharge Disposition: Home Social History Tobacco [...] Comments FILM LIBRARY STORAGE ONLY MAMMO Routine 07/16/2008 12:15 AM EDT Pain documented in this encounter Results * Film Library- Storage Only Mammo (07/16/2008 12:15 AM EDT) Narrative [facility] - 03/21/2016 11:07 AM EST This exam is for storage only and is auto-finalizing. Amor Hollingsworth MD [facility] FILM LIBRARY ORD ERABLES Performing Organization Address City/State/[facility] Co de Phone Number [place], [place] documented in this encounter Visit Diagnoses Diagnosis Pain Generalized pain documented in this encounter
--- OUTSIDE RECORDS SUMMARY | 2023-11-12 15:00 | XMS_ITS | Encounter Summary ---
Author Organization [facility] [place] [place] [address] Care Team Providers Care Tile And Mottle Supervisor Name Role Phone Unavailable Primary Care Provider Unavailabl e Encounter Details Date Type Department Care Team (Latest Contact Info) Description 07/16/2008 - 07/16/2008 12:14 AM EDT Hospital Encounter [place] [address] Amor Hollingsworth MD [facility] [place] [address] Pain Discharge Disposition: Home Social History Tobacco [...] FILM LIBRARY STORAGE ONLY MAMMO Routine 07/16/2008 12:00 AM EDT Pain documented in this encounter Results * Film Library- Storage Only Mammo (07/16/2008 12:00 AM EDT) Narrative [facility] - 03/21/2016 10:56 AM EST This exam is for storage only and is auto-finalizing. Amor Hollingsworth MD [facility] [place] FILM LIBRARY ORD ERABLES [place], [place] documented in this encounter Visit Diagnoses Diagnosis Pain Generalized pain documented in this encounter
--- OUTSIDE RECORDS SUMMARY | 2023-11-12 15:00 | XMS_ITS | Encounter Summary ---
Author Organization [facility] [place] [address] Care Team Providers Care Exit Booth Agent Name Role Phone Unavailable Primary Care Provider Unavailabl e Encounter Details Date Type Department Care Team (Latest Contact Info) Description 07/13/2008 - 07/13/2008 11:59 PM EDT Hospital Encounter [place] [address] Amor Hollingsworth MD [facility] [address] [place] [address] Pain Discharge Disposition: Home Social History Tobacco [...] Comments FILM LIBRARY STORAGE ONLY MAMMO Routine 07/13/2008 12:00 AM EDT Pain documented in this encounter Results * Film Library- Storage Only Mammo (07/13/2008 12:00 AM EDT) Narrative [facility] - 03/21/2016 10:57 AM EST This exam is for storage only and is auto-finalizing. Amor Hollingsworth MD [facility] [place] FILM LIBRARY ORD ERABLES [place], [place] documented in this encounter Visit Diagnoses Diagnosis Pain Generalized pain documented in this encounter
--- OUTSIDE RECORDS SUMMARY | 2023-11-12 15:00 | XMS_ITS | Encounter Summary ---
Author Organization [facility] [place] [address] Care Team Providers Care Senior Business Development Manager Name Role Phone Unavailable Primary Care Provider Unavailabl e Encounter Details Date Type Department Care Team (Latest Contact Info) Description 10/05/2004 - 10/05/2004 11:59 PM EDT Hospital Encounter [place] [address] Amor Hollingsworth MD [facility] [place] [address] Pain Discharge Disposition: Home Social History Tobacco [...] Comments FILM LIBRARY STORAGE ONLY MAMMO Routine 10/05/2004 12:00 AM EDT Pain documented in this encounter Results * Film Library- Storage Only Mammo (10/05/2004 12:00 AM EDT) Narrative [facility] - 03/21/2016 10:59 AM EST This exam is for storage only and is auto-finalizing. Amor Hollingsworth MD [facility] [place] FILM LIBRARY ORD ERABLES [place], [place] documented in this encounter Visit Diagnoses Diagnosis Pain Generalized pain documented in this encounter
[2023-11-12 15:02] VITALS: BP 137/92; PULSE 67; RESP 16; O2SAT 95
== END 2023-11-12 15:37 | disposition home or self-care (01) ==
LOC: ER 14:57
PROVIDERS: Emergency Provider Nurse Practitioner Family; PCP Nurse Practitioner Family
DX: M71.22 Synovial cyst of popliteal space [Baker], left knee (principal)
CPT/HCPCS: 99284; 93971; 99283

== ENCOUNTER 2024-01-14 01:07 | Observation (INO) | payer OTHER, SELFPAY ==
[2024-01-14] VITALS (159 sets, daily range): BP systolic 113–190; BP diastolic 53–87; PULSE 56–78; RESP 9–31; TEMP 36.5–37.3; O2SAT 84–100
--- NOTE | 2024-01-14 01:00 | RT.EKG_ITS ---
APPROVED REPORT Exam: Resting ECG Reason for Exam: chest pain Patient Location: E HR:66 bpm ECG Measurements Heart Rate 66 AXIS IN 162 P 58 QRSd 82 QRS 2 QT 397 T 59 QTc 417 Conclusion Sinus rhythm...normal P axis, V-rate 60- 99 Physician: no significant ST elevation or depression, no Q waves. No STEMI
[2024-01-14 01:24] LABS: Abs Immature Grans 0.01 10^3/uL (0.0-0.06); Absolute Basophil Count 0.04 10^3/uL (0.0-0.2); Absolute Eosinophil Count 0.18 10^3/uL (0.0-0.7); Absolute Lymphocyte Count 1.34 10^3/uL (1.2-3.4); Absolute Monocyte Count 0.51 10^3/uL (0.1-0.8); Absolute Neutrophil Count 2.29 10^3/uL (1.2-6.7); Basophils % 0.9 %; Eosinophils % 4.1 %; HCT 43.5 % (36.0-46.0); HGB 14.1 g/dL (11.2-15.7); Immature Grans % 0.2 %; Lymphocytes % 30.7 %; MCH 29.1 pg (27.0-33.0); MCHC 32.4 % (32.0-36.0); MCV 90 fL (80-95); MPV 9.6 fL (8.0-11.0); Monocytes % 11.7 %; Neutrophils % 52.4 %; Platelet Count 163 10^3/uL (130-400); RBC 4.85 10^6/uL (3.93-5.22); RDW 12.8 % (11.7-14.6); RDW-SD 42.2 fL; WBC 4.37 10^3/uL (4.4-10.8)
[2024-01-14] MEDS: MORPHine 4 MG/ML SYR IVP ×2 (01:29→02:47)
[2024-01-14] MEDS: Ondansetron 4 MG/2 ML VIAL IVP (01:29)
[2024-01-14] MEDS: Ketorolac 15 MG/ML VIAL IVP (01:30)
--- NOTE | 2024-01-14 01:36 | W.ED.GENAD ---
Discharge Plan Disposition Patient Disposition: Admit to [facility] Condition: Good Discharge Details Chief Complaint: Chest Pain Clinical Impression: Right upper quadrant abdominal pain, Acute cholecystitis Primary Care Provider: Qian Alejandra ED Provider: Lc Diaz Home Meds and New Rx's Prescriptions: No Action sertraline 25 mg tablet 25 mg PO DAILY albuterol sulfate [ProAir HFA] 90 mcg/actuation HFA aerosol inhaler 2 puff inhalation Q6H PRN losartan [Cozaar] 100 mg tablet 50 mg PO DAILY hydrochlorothiazide 25 MG tablet 25 mg PO DAILY acetaminophen 500 mg tablet 500 mg PO Q6H PRN (Reason: pain) Qty: 60 2RF ibuprofen 600 mg tablet 600 mg PO TID PRN (Reason: pain) Qty: 60 0RF fluticasone propionate [Flovent HFA] 44 mcg/actuation HFA aerosol inhaler 2 puff INHALATION BID Patient Comments: INHALE TWO PUFFS BY MOUTH TWICE A DAY HPI General Date/Time Provider Initiated Documentation: 01/14/24 01:11. HPI Narrative: This is a pleasant 63-year-old female with a past medical history of asthma, GERD, high cholesterol, hypertension, obesity, and a past surgical history of hysterectomy, presents today for evaluation of right upper quadrant abdominal pain/chest pain. Patient states that about 2 weeks ago she had hot dogs and developed sharp burning right upper quadrant and chest pain. This eventually resolved on its own. This evening the pain began again at around 6 PM. She describes it as a sharp burning sensation in the right upper quadrant, worse with breathing, palpation, and certain movements. She denies any shortness of breath. She denies any exertional dyspnea. She denies any vomiting but does have nausea. She denies any diarrhea. She denies any previous history of cardiac problems. She does not smoke. Family history is positive for cardiac disease. No estrogen use currently, no recent long trips or surgeries. Patient states describes the pain as sharp, and coming and going in a colicky like nature. Related Data Home Medications ?Medication ?Instructions ?Recorded ?Confirmed hydrochlorothiazide 25 mg tablet 25 mg PO DAILY 06/07/12 01/14/24 albuterol sulfate 90 mcg/actuation 2 puff inhalation Q6H PRN 05/25/21 01/14/24 aerosol inhaler (ProAir HFA) losartan 100 mg tablet (Cozaar) 50 mg PO DAILY 05/25/21 01/14/24 sertraline 25 mg tablet 25 mg PO DAILY 05/25/21 01/14/24 acetaminophen 500 mg tablet 500 mg PO Q6H PRN pain #60 tabs 03/01/22 01/14/24 ibuprofen 600 mg tablet 600 mg PO TID PRN pain #60 tabs 03/01/22 01/14/24 fluticasone propionate 44 2 puff inhalation BID 06/04/22 01/14/24 mcg/actuation HFA aerosol inhaler (Flovent HFA) Previous Rx's ?Medication ?Instructions ?Recorded acetaminophen 500 mg tablet 500 mg PO Q6H PRN pain #60 tabs 03/01/22 ibuprofen 600 mg tablet 600 mg PO TID PRN pain #60 tabs 03/01/22 Allergies Allergy/AdvReac Type Severity Reaction Status Date / Time latex Allergy Mild Skin Rash Verified 01/14/24 01:52 Penicillins Allergy Unknown Verified 01/14/24 01:52 steroids AdvReac Severe Other (See Uncoded 01/14/24 01:52 Comment) General Stated Complaint: Chest Pain SARITA: 3 Review of Systems All systems reviewed & are unremarkable except as noted in HPI and below Exam Narrative Exam Narrative: 1.Const: Well-nourished, Well-developed, appearing stated age 2.Eyes: PERRL, no conjunctival injection, and symmetrical lids. 3.ENT: Atraumatic external nose and ears. Moist MM. Neck: Symmetric, trachea midline, No thyromegaly. 4.CVS: +S1/S2, Peripheral pulses 2+ and equal in all extremities. Brisk capillary refill in all extremities. 5.RESP: Unlabored respiratory effort. Clear to auscultation bilaterally. No wheezes rales or rhonchi 6.GI: Soft, nondistended, no guarding or rebound. Mild to moderate right upper quadrant tenderness, positive Rosado sign. No pain at McBurney's point. No left-sided abdominal tenderness. Minimal epigastric discomfort. No flank tenderness. No reproducible chest pain. 7.MSK: Normocephalic/Atraumatic, Extremities w/o deformity or ttp No cyanosis or clubbing, Normal movement of all extremities 8.Skin: Warm, Dry. No rashes or lesions. 9.Neuro: enterprise project manager II-XII grossly intact. Sensation grossly intact, no focal neurologic deficits. 10.Psych: (AAO) x3. Appropriate mood and affect Course Vital Signs Vital signs: Vital Signs Temperature 36.6 C 01/14/24 01:09 Pulse 69 01/14/24 01:09 Respiratory Rate 16 01/14/24 01:09 Pulse Oximetry 100 01/14/24 01:09 Temperature 36.6 C 01/14/24 01:09 Temperature Source Temporal Artery Scan 01/14/24 01:09 Pulse 69 01/14/24 01:09 Respiratory Rate 16 01/14/24 01:09 Respiratory Effort Short of Breath 01/14/24 01:16 Respiratory Depth Normal 01/14/24 01:16 Respiratory Pattern Normal 01/14/24 01:16 Pulse Oximetry 100 01/14/24 01:09 Oxygen Delivery Method Room Air 01/14/24 01:09 Oxygen Flow Rate 0 01/14/24 01:09 Pain Level 9 01/14/24 01:30 Lab/Test Results Lab/Test Results: Laboratory Tests Range/Units 01/14/24 01:15 WBC (4.4-10.8) 10^3/uL 4.37 L RBC (3.93-5.22) 10^6/uL 4.85 Hgb (11.2-15.7) g/dL 14.1 Hct (36.0-46.0) % 43.5 MCV (80-95) fL 90 MCH (27.0-33.0) pg 29.1 MCHC (32.0-36.0) % 32.4 RDW (11.7-14.6) % 12.8 Plt Count (130-400) 10^3/uL 163 MPV (8.0-11.0) fL 9.6 Immature Gran % % 0.2 Neutrophils % % 52.4 Lymphocytes % % 30.7 Monocytes % % 11.7 Eosinophils % % 4.1 Basophils % % 0.9 Nucleated RBC % (0.0-0.3) % 0.0 Absolute Neutrophils (1.2-6.7) 10^3/uL 2.29 Absolute Lymphocytes (1.2-3.4) 10^3/uL 1.34 Absolute Monocytes (0.1-0.8) 10^3/uL 0.51 Absolute Eosinophils (0.0-0.7) 10^3/uL 0.18 Absolute Basophils (0.0-0.2) 10^3/uL 0.04 Medical Decision Making This is a pleasant 63-year-old female with a past medical history of asthma, GERD, high cholesterol, hypertension, obesity, and a past surgical history of hysterectomy, presents today for evaluation of right upper quadrant abdominal pain/chest pain. Patient states that about 2 weeks ago she had hot dogs and developed sharp burning right upper quadrant and chest pain. This eventually resolved on its own. This evening the pain began again at around 6 PM. She describes it as a sharp burning sensation in the right upper quadrant, worse with breathing, palpation, and certain movements. She denies any shortness of breath. She denies any exertional dyspnea. She denies any vomiting but does have nausea. She denies any diarrhea. She denies any previous history of cardiac problems. She does not smoke. Family history is positive for cardiac disease. No estrogen use currently, no recent long trips or surgeries. Patient states describes the pain as sharp, and coming and going in a colicky like nature. Exam demonstrates reproducible right upper quadrant chest pain, worse with palpation, positive Rosado sign. Differential is highest for biliary colic, cholecystitis, cholelithiasis. Less likely pancreatitis, less likely cardiac etiology. EKG benign, no evidence of STEMI. Symptoms appear clinically inconsistent with PE with no tachycardia or hypoxemia. Will get a CT scan of the chest and abdomen, treat the patient's pain, treat her nausea, monitor closely and reassess. 5 AM Laboratory workup has returned, no white count or bandemia. Electrolytes are stable, renal function good, ALT slightly elevated at 95, alk phos slightly high at 176 however bilirubin is normal. Lipase normal. Initial and repeat troponin normal with a level of 4, not indicative of need for additional testing. Patient's CAT scan has returned and shows biliary sludge, as well as adjacent hazy fat stranding which certainly correlates well with her symptomatology of notable colicky right upper quadrant abdominal pain. Pain initially was not controlled with Toradol and 4 of morphine, and additional 4 mg of morphine was given as well as Ofirmev which has improved the pain and brought it down to a 3 out of 10. EKG benign, no evidence of STEMI. Symptoms inconsistent with PE. Symptoms are concerning for cholecystitis. No bilirubin elevation to suggest choledocholithiasis with ascending cholangitis. We will start Cipro and Flagyl secondary to the patient's penicillin allergy. I did contact our surgeon and he agrees on the potential need for surgical intervention. Unfortunately we do not have any beds at this time, however there may be potential morning discharges on the medicine service. I did contact Dr. Mendez the night hospitalist, and at this time he is not aware of which patients would have potential discharge in the a.m. We will reach out to the daytime hospitalist when they arrive at 7 AM. I did discuss options of transfer versus waiting to see if there would be availability here, and patient and prefer not to be transferred and would prefer to have their care provided here. We will continue to monitor. Patient remained stable hemodynamically. 7:27 AM Discussed the case with the daytime hospitalist, and does sound like there may be for potential discharges today which would get bed availability. I did contact surgery Dr. Reynoso, and reviewed the case with him. He also does feel that surgery would potentially be an appropriate option for the patient. Patient certainly does not require emergent surgery with stat transition to the OR right now, however surgery later in the day would certainly be reasonable next step due to her current stability, lack of fever or septicemia. Patient will be admitted for further surgical management. I have extensively reviewed the treatment plan with the patient. I have addressed all patient concerns at this time. I have also discussed the plan with the admitting physician and they agree with the current assessment and plan and have agreed to assume responsibility for the patient. All parties demonstrate verbal understanding and agreement with our assessment and plan at this time. The documentation in this chart was dictated using [employer] dictation software. Please excuse any dictation errors. FINDINGS: Thyroid: Thyroid gland partially excluded from view but grossly unremarkable through its visualized portion. Lungs: No pulmonary consolidation. Pleural spaces: No pleural effusion or pneumothorax. Heart: Normal-sized heart. Lymph nodes: No pathologically enlarged mediastinal or hilar lymph nodes. Vasculature: No thoracic aortic aneurysm or dissection. No pulmonary embolism identified. Bones/joints: No acute fracture seen among the bones of the chest. Soft tissues: No gross soft tissue mass or fluid collection seen in the chest wall. IMPRESSION: No active disease is seen in the chest FINDINGS: Liver: Normal appearing liver. Gallbladder and biliary ducts: Prominent gallbladder distension. Layering intermediate density material in the gallbladder suspicious for gallstones and/or sludge. Faint hazy fat stranding adjacent to the gallbladder versus artifact. No biliary dilatation. Pancreas: Normal appearing pancreas. Spleen: Normal appearing spleen. Adrenal glands: Normal appearing adrenal glands. Kidneys and ureters: Small indeterminate hypoattenuating renal lesions, not well characterized but statistically most likely renal cysts. No hydronephrosis. No obstructing ureteral stones. Stomach and bowel: No oral contrast. Stomach partially distended with fluid and gas. No small bowel dilatation to suggest obstruction. Normal-appearing colon. No evidence of diverticulitis or colitis. Appendix: Normal appendix. Intraperitoneal space: No gross ascites or free air. Vasculature: No abdominal aortic aneurysm. Lymph nodes: No pathologically enlarged mesenteric, retroperitoneal, or pelvic sidewall lymph nodes. Urinary bladder: Normal appearing urinary bladder. Reproductive: Prior hysterectomy. Normal-appearing ovaries. Bones/joints: No acute fracture seen among the bones of the abdomen or pelvis. Soft tissues: No significant ventral or inguinal hernia. IMPRESSION Prominent gallbladder distension with suspected noncalcified gallstones and sludge. Suggestion of faint adjacent hazy fat stranding versus artifact. Acute cholecystitis is suspected although clinical correlation is recommended. No biliary dilatation. Thank you for allowing us to participate in the care of your patient. Dictated and Authenticated by: Abhishek Cali MD 01/14/2024 3:26 AM Eastern Time ([place] & [place]) Quality:SDOH Health Related Social Needs: No Data to Display PFSH All Active Problems (Updated 01/14/24 @ 05:09 by Lc Diaz DO) Acute cholecystitis (Acute) Right upper quadrant abdominal pain (Acute) Abnormal mammogram of both breasts (Acute) Osteopenia (Acute) Hypertension (Chronic) Obesity (Chronic) Vitamin D deficiency (Acute) Depression with anxiety (Acute) Asthma, mild intermittent (Acute) Hyperlipidemia (Acute) GERD (gastroesophageal reflux disease) (Chronic) Medical History Tobacco use Surgical History History of section Left carpal tunnel syndrome S/P ECTR: 05/02/2022 Degenerative arthritis of carpometacarpal joint of thumb status post left trapezial resection arthroplasty with suture suspensionplasty on 03/01/22. Injection: 07/04/2021 H/O reduction mammoplasty H/O: hysterectomy Social History Smoking/Tobacco Use Status: Former Tobacco Use Quit Date: 03/26/91 Smoking risk assessment performed?: Yes Alcohol Intake: current Alcohol Intake frequency: holidays/special occasions only Drug use: Never Substance use type: does not use Do you feel safe at home: Yes Do you feel safe in your relationship?: Yes
[2024-01-14 01:42] LABS: ALT 95 U/L (14-59); AST 32 U/L (15-37); Albumin 3.5 g/dL (3.4-5.0); Alkaline Phosphatase 176 U/L (46-116); Anion Gap 5.7 mmol/L (3-11); BUN 15 mg/dL (7-18); Bilirubin, Total 0.69 mg/dL (0.2-1.0); CO2 31.3 mmol/L (21.0-32.0); CREATININE 0.9 mg/dL (0.55-1.02); Chloride 107 mmol/L (98-107); Estimated GFR 71.39 (mL/min/1.73m2); Glucose 112 mg/dL (74-106); Lipase 62 U/L (16-77); Potassium 3.7 mmol/L (3.5-5.1); Sodium 144 mmol/L (136-145); Total Protein 6.8 g/dL (6.4-8.2); Troponin I 4 ng/L (<or=51)
[2024-01-14 01:46] LABS: Calcium 9.4 mg/dL (8.5-10.1)
[2024-01-14] MEDS: Omnipaque 350 MG/ML 100 ML BTL IJ (02:15)
[2024-01-14] MEDS: Normal Saline - Diluent 50 ML VIAL IJ (02:16)
--- NOTE | 2024-01-14 02:16 | DI.CT_ITS ---
Exam(s) CT CHEST/ABD/PEL W EXAM: CT CHEST/ABD/PEL W CLINICAL HISTORY: RUQ pain, eval GB. TECHNIQUE: Imaging Protocol: Axial computed tomography images with coronal and sagittal reformatted images were created and reviewed CONTRAST MATERIAL: Intravenous: Omnipaque 350 Contrast volume:100 ml Oral: None COMPARISON: No exams were available for comparison FINDINGS: CHEST: LUNGS: There is a solitary round noncalcified 4 millimeter nodule in the left lower lobe (series 4/im age 47). No other lung nodules. No infiltrates. No pleural effusions.. MEDIASTINUM: There is no hilar nor mediastinal adenopathy. CARDIAC: Heart size is normal. There is no pericardial effusion.Caliber of the thoracic aorta is wit hin normal limits. OSSEOUS: No significant osseous lesions.No fractures. ABDOMEN: There is no ascites. LIVER: There are no focal hepatic lesions nor dilatation of intrahepatic ducts. GALLBLADDER/BILIARY: Cholelithiasis. There appears to be a large gallstone within the gallbladder lauren men. Gallbladder wall is mildly edematous. No pericholecystic fluid. There are no dilated intrahep atic ducts. PANCREAS: No evidence of pancreatic mass nor dilatation of the pancreatic duct. SPLEEN: Spleen is not enlarged. There are no intrasplenic lesions. Splenic and portal veins are key nt. ADRENALS: There are no significant adrenal masses. KIDNEYS: No calculi nor hydronephrosis. No solid renal masses. There are few small sub cm 9 cortical cysts in both kidneys. These do not require further imaging workup. ABDOMINAL AORTA: Abdominal aorta is calcified but not enlarged. LYMPH NODES: There is no retroperitoneal nor paraaortic adenopathy. ABDOMINAL WALL: No evidence of significant anterior abdominal wall nor inguinal hernia. GI: There is no evidence of bowel obstruction. PELVIS: LYMPH NODES: There is no intrapelvic nor inguinal adenopathy. GI: No evidence of appendicitis.No evidence of sigmoid diverticulitis. URINARY BLADDER: No calculi nor masses evident REPRODUCTIVE: Uterus is surgically absent. Ovaries appear age-appropriate OSSEOUS: No significant osseous lesions. IMPRESSION: 1. Cholelithiasis and mild gallbladder wall edema. Correlation with clinical signs of acute cholecys titis recommended. The cystic duct and CBD are not dilated. Pancreas unremarkable. 2. Uterus is surgically absent. Ovaries appear present and unremarkable. 3. Appendix unremarkable. 4. There is no evidence of bowel obstruction nor ascites. RADIATION DOSE DELIVERED: 631.8mGy.cm Total DLP DATA REPOSITORY: All CT scans at this facility are submitted to the National Radiology Data Registry (NRDR) Dose Index Registry (DIR) with the [employer] ([employer]). RADIATION OPTIMIZATION: All CT scans at this facility use at least one of these dose optimization te chniques: automated exposure control; mA and/or kV adjustment per patient size (includes targeted exa ms where dose is matched to clinical indication); or iterative reconstruction.
[2024-01-14 02:37] LABS: Troponin I 4 ng/L (<or=51)
[2024-01-14] MEDS: ACETAMINOPHEN 1,000 MG/100 ML BTL 400 MG IVPB ×2 (02:48→17:15)
--- NOTE | 2024-01-14 03:27 | DI.VRAD_ITS ---
PROCEDURE INFORMATION: Exam: CT Chest With Contrast; Diagnostic Exam date and time: 01/14/2024 2:03 AM Age: 63 years old Clinical indication: Abdominal pain; Localized; Right upper quadrant (ruq); Chest pressure; Patient HX: Ruq pain, chest pain, eval gallbladder TECHNIQUE: Imaging protocol: Diagnostic computed tomography of the chest with contrast. Radiation optimization: All CT scans at this facility use at least one of these dose optimization techniques: automated exposure control; mA and/or kV adjustment per patient size (includes targeted exams where dose is matched to clinical indication); or iterative reconstruction. Contrast material: [id number]; Contrast volume: 100 ml; Contrast route: INTRAVENOUS (IV); COMPARISON: CR XR CHEST 2V PA LATERAL 06/07/2022 7:32 PM FINDINGS: Thyroid: Thyroid gland partially excluded from view but grossly unremarkable through its visualized portion. Lungs: No pulmonary consolidation. Pleural spaces: No pleural effusion or pneumothorax. Heart: Normal-sized heart. Lymph nodes: No pathologically enlarged mediastinal or hilar lymph nodes. Vasculature: No thoracic aortic aneurysm or dissection. No pulmonary embolism identified. Bones/joints: No acute fracture seen among the bones of the chest. Soft tissues: No gross soft tissue mass or fluid collection seen in the chest wall. IMPRESSION: No active disease is seen in the chest. PROCEDURE INFORMATION: Exam: CT Abdomen And Pelvis With Contrast Exam date and time: 01/14/2024 2:03 AM Age: 63 years old Clinical indication: Abdominal pain; Localized; Right upper quadrant (ruq); Chest pressure; Patient HX: Ruq pain, chest pain, eval gallbladder TECHNIQUE: Imaging protocol: Computed tomography of the abdomen and pelvis with contrast. Radiation optimization: All CT scans at this facility use at least one of these dose optimization techniques: automated exposure control; mA and/or kV adjustment per patient size (includes targeted exams where dose is matched to clinical indication); or iterative reconstruction. Contrast material: [id number]; Contrast volume: 100 ml; Contrast route: INTRAVENOUS (IV); COMPARISON: CR XR CHEST 2V PA LATERAL 06/07/2022 7:32 PM FINDINGS: Liver: Normal appearing liver. Gallbladder and biliary ducts: Prominent gallbladder distension. Layering intermediate density material in the gallbladder suspicious for gallstones and/or sludge. Faint hazy fat stranding adjacent to the gallbladder versus artifact. No biliary dilatation. Pancreas: Normal appearing pancreas. Spleen: Normal appearing spleen. Adrenal glands: Normal appearing adrenal glands. Kidneys and ureters: Small indeterminate hypoattenuating renal lesions, not well characterized but statistically most likely renal cysts. No hydronephrosis. No obstructing ureteral stones. Stomach and bowel: No oral contrast. Stomach partially distended with fluid and gas. No small bowel dilatation to suggest obstruction. Normal-appearing colon. No evidence of diverticulitis or colitis. Appendix: Normal appendix. Intraperitoneal space: No gross ascites or free air. Vasculature: No abdominal aortic aneurysm. Lymph nodes: No pathologically enlarged mesenteric, retroperitoneal, or pelvic sidewall lymph nodes. Urinary bladder: Normal appearing urinary bladder. Reproductive: Prior hysterectomy. Normal-appearing ovaries. Bones/joints: No acute fracture seen among the bones of the abdomen or pelvis. Soft tissues: No significant ventral or inguinal hernia. IMPRESSION: Prominent gallbladder distension with suspected noncalcified gallstones and sludge. Suggestion of faint adjacent hazy fat stranding versus artifact. Acute cholecystitis is suspected although clinical correlation is recommended. No biliary dilatation. Dictated and Authenticated by: Abhishek Cali MD. Ordering:ANNETTA Platt MD
[2024-01-14] MEDS: metroNIDAZOLE 500 MG/100 ML BAG 100 MG IVPB (04:00)
[2024-01-14] MEDS: CIPROFLOXACIN 400 MG/200 ML BAG 200 MG IVPB (05:00)
--- NOTE | 2024-01-14 15:43 | HPE_ITS ---
Date of service: 01/14/24 Time of Service: 15:43 Assessment and Plan Assessment and plan (1) Acute cholecystitis: Status: Acute Assessment and plan: Although her normal labs are certainly reassuring, the inflammation seen on the CAT scan, and her history and physical exam all seem consistent with acute cholecystitis. I suspect gallstones as a source of this. We talked about the natural history of these, what to expect in terms of prognosis. At this point, I think cholecystectomy is probably in her best interest. We talked about the nature of the operation, what to expect in terms of the risk and recovery. Unfortunately, we have had some challenges securing a hospital bed, and multiple emergencies have prevented us from getting into the operating room today. At this point, I think it is reasonable to delay surgery until tomorrow morning. I explained all of this to her and her , and I think they have a good understanding of the situation. Obviously, if anything changes in the interim, we could revisit a more urgent operation if needed History of Present Illness History of Present Illness Chief Complaint: Abdominal pain Narrative: Gina is 63 years old. She comes to the emergency department complaining of increasing abdominal pain, mostly in the mid epigastrium and radiating towards right upper quadrant. It started late last night, and worsened through the evening time into this morning. She describes it as sharp, stabbing, and a slightly gnawing feeling. She did experience this 1 other time. She thinks that was about 2 weeks ago, and she distinctly remembers after eating hot dogs. She has a little bit of nausea but no vomiting. Labs are reassuring in the ER, but she did undergo a CT scan that demonstrated some inflammation around the gallbladder consistent with acute cholecystitis. Past surgical history includes a hysterectomy Review of Systems Constitutional Constitutional: Reports fatigue, Denies fever(s), Reports lethargy, Reports poor appetite and Denies weight loss Eyes Eyes: Reports system reviewed and no additional complaints, except as documented ENT Ears, Nose, Mouth, and Throat: Reports system reviewed and no additional complaints, except as documented Cardiovascular Cardiovascular: Denies chest pain and Denies dyspnea Respiratory Respiratory: Denies dyspnea Gastrointestinal Gastrointestinal: Reports abdominal pain, Denies change in stool character, Reports nausea and Denies vomiting Genitourinary Genitourinary: Reports system reviewed and no additional complaints, except as documented Musculoskeletal Musculoskeletal: Reports system reviewed and no additional complaints, except as documented Neurologic Neurologic: Reports system reviewed and no additional complaints, except as documented Endocrine Endocrine: Reports fatigue Hematologic/Lymphatic Hematologic/Lymphatic: Denies easy bleeding and Denies easy bruising PFSH All Active Problems (Updated 01/14/24 @ 05:09 by Lc Diaz DO) Acute cholecystitis (Acute) Right upper quadrant abdominal pain (Acute) Abnormal mammogram of both breasts (Acute) Osteopenia (Acute) Hypertension (Chronic) Obesity (Chronic) Vitamin D deficiency (Acute) Depression with anxiety (Acute) Asthma, mild intermittent (Acute) Hyperlipidemia (Acute) GERD (gastroesophageal reflux disease) (Chronic) Medical History Tobacco use Surgical History History of section Left carpal tunnel syndrome S/P ECTR: 05/02/2022 Degenerative arthritis of carpometacarpal joint of thumb status post left trapezial resection arthroplasty with suture suspensionplasty on 03/01/22. Injection: 07/04/2021 H/O reduction mammoplasty H/O: hysterectomy Social History Smoking/Tobacco Use Status: Former Tobacco Use Quit Date: 03/26/91 Smoking risk assessment performed?: Yes Alcohol Intake: current Alcohol Intake frequency: holidays/special occasions only Drug use: Never Substance use type: does not use Do you feel safe at home: Yes Do you feel safe in your relationship?: Yes Meds Allergies and Home Medications Allergies Allergy/AdvReac Type Severity Reaction Status Date / Time latex Allergy Mild Skin Rash Verified 01/14/24 01:52 Penicillins Allergy Unknown Verified 01/14/24 01:52 steroids AdvReac Severe Other (See Uncoded 01/14/24 01:52 Comment) Home Medications ?Medication ?Instructions ?Recorded ?Confirmed ?Type hydrochlorothiazide 25 mg tablet 25 mg PO DAILY 06/07/12 01/14/24 History albuterol sulfate 90 mcg/actuation 2 puff inhalation Q6H PRN 05/25/21 01/14/24 History aerosol inhaler (ProAir HFA) losartan 100 mg tablet (Cozaar) 50 mg PO DAILY 05/25/21 01/14/24 History sertraline 25 mg tablet 25 mg PO DAILY 05/25/21 01/14/24 History acetaminophen 500 mg tablet 500 mg PO Q6H PRN pain #60 tabs 03/01/22 01/14/24 Rx ibuprofen 600 mg tablet 600 mg PO TID PRN pain #60 tabs 03/01/22 01/14/24 Rx fluticasone propionate 44 2 puff inhalation BID 06/04/22 01/14/24 History mcg/actuation HFA aerosol inhaler (Flovent HFA) Exam Const General: cooperative and comfortable Orientation: alert, awake and oriented x3 HENMT Head: normal to inspection Eyes General: appearance normal, both eyes and all related structures Neck Neck: normal visual inspection, full ROM and no lymphadenopathy Resp Effort & Inspection: normal respiratory effort and able to speak in complete sentences Auscultation: clear to auscultation bilaterally GI Inspection: normal to inspection and non-distended Palpation: soft, no hernias and tender (Right upper quadrant) Results Labs 01/14/24 01:15 01/14/24 01:15 Labs: Laboratory Results - last 24 hr 01/14/24 01/14/24 01/14/24 01:15 02:16 04:17 WBC 4.37 L RBC 4.85 Hgb 14.1 Hct 43.5 MCV 90 MCH 29.1 MCHC 32.4 RDW 12.8 Plt Count 163 MPV 9.6 Immature Gran % 0.2 Neutrophils % 52.4 Lymphocytes % 30.7 Monocytes % 11.7 Eosinophils % 4.1 Basophils % 0.9 Nucleated RBC % 0.0 Absolute Neutrophils 2.29 Absolute Lymphocytes 1.34 Absolute Monocytes 0.51 Absolute Eosinophils 0.18 Absolute Basophils 0.04 Sodium 144 Potassium 3.7 Chloride 107 Carbon Dioxide 31.3 Anion Gap 5.7 BUN 15 Creatinine 0.9 Est GFR (CKD-EPI 2020) 71.39 Glucose 112 H Calcium 9.4 Total Bilirubin 0.69 AST 32 ALT 95 H Alkaline Phosphatase 176 H Troponin I 4 4 Cancelled Total Protein 6.8 Albumin 3.5 Lipase 62 Last Vital Signs Temp 97.8 F 01/14/24 01:09 Pulse 69 01/14/24 15:30 Resp 19 01/14/24 15:31 BP 136/53 L 01/14/24 15:30 Pulse Ox 96 01/14/24 15:31 Time Spent Time spent with Patient: >75 minutes Time was spent: preparing to see the patient(eg.review tests), referring, communicating with other health daycare assistant, indepentently interpreting results, counseling the patient and care coordination
--- OUTSIDE RECORDS SUMMARY | 2024-01-14 17:58 | XMS_ITS | Encounter Summary ---
[place] [address] Care Team Providers Care Bariatric Coordinator Name Role Phone Jelena Harris Primary Care Provider +1- [phone] Reason for Visit * Auth/Cert Specialty Diagnoses / Procedures Referred By Tonya hall Referred To Contact Diagnoses N62 - macromastia Tentative DOS - 02/21/2016 CPT: 62400 - yang Procedures PRO REDUCTION OF LARGE BREAST REDUCTION MAMMOPLASTY, YANG Referral ID Status Reason Start Date Expiration Date Visits Re quested Visits Authorized [id number] 1 1 Encounter Details Date Type Department Care Team (Late st Contact Info) Description 03/23/2016 7:30 AM EST - 03/23/2016 10:13 AM EST [place] [address] Michael Jenkins MD [facility] [place] [address] REDUCTION MAMMOPLASTY, YANG (WRVU 16.03) Social History [...] Gina Henderson Patient Age: 56 y.o. Language: Brazilian Race: White Ethnicity: Not nor Admit date: 03/23/2016 Discharge date: 03/25/16 Attending Physician: Michael Jenkins MD Discharge Physician: Same Discharge Diagnoses (Hospital Problems) and Secondary Diagnoses (Chronic Problems): Active Hospital Problems Diagnosis ??? Macromastia Resolved Hospital Problems Diagnosis Date Resolved No resolved problems to display. Active Non-Hospital Problems Diagnosis ??? Irritant hand dermatitis Operations/Major Procedures: Procedure(s): REDUCTION MAMMOPLASTY, AYNG (WRVU 16.03) MODIFIER ROBERTS 03/23/2016 History of [...] 16.03) performed by Michael Jenkins MD at [facility] OR Procedures: 03/23/2016 Surgeon(s) and Role: * Michael Jenkins MD - Primary * Dagoberto Alexis MD - Resident-Surgeon Ishaan * Ortiz Lopez MD - Resident-Surgeon Ishaan: Procedure(s): REDUCTION MAMMOPLASTY, YANG (WRVU 16.03) MODIFIER ROBERTS Hospital Course: Patient was admitted electively to [facility] via the same day surgery program and [...] QTC Calculated (Bezet) 427 ms Calculated P [place] 54 degrees Calculated R [place]ok[place] -2 degrees Calculated T [place]ok[place] 32 degrees INTERPRETATION Normal sinus rhythm Normal [...] take both. ?? We recommend taking an enmk-ewp-Mfxzlyb stool softener, such as Colace (docusate) or [...] scheduling, please contact our administrative offices at [phone] ?? For clinical questions, please call our nurses at [phone] ?? Both offices are open Sunday thru Sunday 8a - 5p. With emergencies after hours, call the hospital cutting table operator at [phone] and ask for the Plastic Surgery Resident vice president of contracts. MEDICATIONS: Your Medications Notice Some of the [...] called in to our prescription line at [phone]. Narcotic renewals may be requested from 8am-4pm [...] Sunday 8 am to 5 pm Call [phone] On weekends or after hours: Call [phone] and ask the cutting table operator to page the Plastic Surgery Resident vice president of contracts. General Instructions SAME DAY SURGERY JONATHAN DRAIN [...] future appointments. Primary Care Provider: RAQUEL Beatty [phone] VNA: No discharge procedures on file. General [...] by the Plastic SurgeryTeam at [facility]. If you haveany questions or concerns, please feel free to contact us. Provider Contact Information: Plastic Surgery Clinic: [facility] (after business hours): documented in this encounter [...] take both. ?? We recommend taking an cbfn-sgp-Dmpoqhe stool softener, such as Colace (docusate) or [...] scheduling, please contact our administrative offices at [phone] ?? For clinical questions, please call our nurses at [phone] ?? Both offices are open Sunday thru Sunday 8a - 5p. With emergencies after hours, call the hospital cutting table operator at [phone] and ask for the Plastic Surgery Resident vice president of contracts. MEDICATIONS: Your Medications Notice Some of the [...] called in to our prescription line at [phone]. Narcotic renewals may be requested from 8am-4pm [...] Sunday 8 am to 5 pm Call [phone] On weekends or after hours: Call [phone] and ask the cutting table operator to page the Plastic Surgery Resident vice president of contracts. documented in this encounter Medications at Time [...] recommendations Elizabeth Mensah PA-C Plastic Surgery Pager [phone] Attn: continues to require supplemental O2 but [...] of pain with use of prns * Julisas Romero RN - 03/23/2016 6:07 PM EST [...] 16.03) performed by Michael Jenkins MD at [facility] MA[facility] OR Hospitalizations Within the Past 30 Days: None at [facility], nor at outside hospitals. Anticipated Length Of Stay : Anticipate discharge home tomorrow, 03/25. IPI order cosigned by Dr.Gary Jenkins on 03/23/16 @ 1726. Current Decision-Making Capacity: Patient alert and oriented; capable decision maker. Advance Care Planning: Not on file in [facility], nor elsewhere. Current Coping/Education/Information Needs: Coping effectively. The staff are absolutely wonderful. I mean phenomenal. Current Functional Ability: On room air during my visit. Pt resting in bed. They think I probably haven't been taking deep breaths for years. Order for a [address] Pt looking comfortable. 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 Home Environment: Lives with her , Shaw, in [place], [place]. Social & Family Supports/Community Resources: Emergency Contact 1 Emergency Contact 2 ? Shaw Henderson (Spouse) [address] [facility] [phone] (H) [phone] (W) Stefani Li (Child) [phone] (H) Behavioral Health History: None per H&P. Substance Use/Abuse: Former smoker. EtOH: 2 glasses of wine/week. No illicit drug use. Other Pertinent/Service Specific Information: None Health/Prescription Coverage: Primary Insurance: [facility] Secondary Insurance: None Prescription Coverage: Yes Preferred Pharmacy: [facility], [place], [place] Other: None Primary Care Provider: RAQUEL Beatty [phone] Patient/Caregiver Goals of Treatment: To return home with her and to resume work when givenmedical clearance. Potential Needs for Transition of Care: Rehab/SNF: N/A Home Health: Declined VNA services. ([facility] serves her area). DME: N/A Dialysis: N/A Community Resources: None Transportation: Pt's will transport pt home at discharge. Other: None Anticipated Barriers to Discharge/Special Considerations: None identified. Plan: A member of the Care Management team will continue to monitor progress, follow for continuity of care and assist with transition of care planning. NAGI SHAW RN Pager: [phone] for today. Assisting Rebeca Lee Pt's Primary Rn Bariatric, pager [phone] * Consult Note - Adri Parra - 03/24/2016 9:36 AM EST Medicine Consult Note, Pager [phone] Patient Name: Gina Henderson Patient Age: 56 [...] History and Habits: - , lives in [facility] with her of 30+ years - Works [...] consult. Please contact the consult pager at [phone] with any questions. 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 Indication for procedure: This [...] Lopez MD - 03/23/2016 9:32 AM EST [facility] Brief Operative Note Patient Name: Gina Henderson : 1960 MR#: [id number] Case Date: 03/23/2016 Surgeon: Surgeon(s) and Role: [...] fitting, review post-op activity restrictions 6 months: halfway f/u with surgeon Ortiz Lopez MD Plastic [...] (Bezet) 427 ms MUSE SYSTEM Calculated P [place]ok[place] 54 degrees MUSE SYSTEM Calculated R [place]ok[place] -2 degrees MUSE SYSTEM Calculated T [place] 32 degrees MUSE SYSTEM INTERPRETATION Normal sinus [...] pH, Arterial 7.25(Criti anderson) 7.35 - 7.45 [facility] Comment:Noted by instrument maintenance supervisor. PCO2, Arterial 64(Critica l) 35 - 45 mmHg [facility] Comment:Noted by instrument maintenance supervisor. PO2, Arterial 47(Critica l) 85 - 104 mmHg [facility] Comment:Noted by instrument maintenance supervisor. Bicarbonate, Arterial 27.0(H) 20.0 - 26.0 mmol/L [facility] Base Excess, Arterial -0.4 -3.0 - 3.0 mmol/L [facility] Hgb Blood Gas 14.2 11.7 - 15.5 gm/dL [facility] Oxyhemoglobin, Arterial 80.4(L) 94.0 - 97.0 % [facility] Carboxyhemoglob in, Arterial 0.9 % [facility] Comment: Nonsmokers: 0.5-1.5% COHB Smokers: Variable, but usually less than 10% Toxic: 20-30% COHB Lethal: Greater than 60% COHB Methemoglobin, Arterial 0.3 <=1.5 % [facility] Na Whole Blood 139 135 - 145 mmol/L [facility] K Whole Blood 4.1 3.5 - 5.0 mmol/L [facility] Comment: Please note: Patients with WBC >100,000 may have falsely elevated Potassium levels. Contact the Clinical Chemistry Laboratory if there are any questions. ICa Whole Blood 1.22 1.15 - 1.33 mmol/L [facility] Comment: Note: ??Total bilirubin higher than 20 mg/dL may lead to falsely low ionized calcium. CL Whole Blood 102 98 - 107 mmol/L [facility] Gluc Whole Bld 148 65 - 199 mg/dL [facility] Comment:Diabetes: >=200 mg/d L plus symptoms. Lactate WB 2.0 0.5 - 2.2 mmol/L [facility] Blood specimen (specimen) 03/23/2016 1:33 PM EST 03/23/2016 1:33 PM EST Michael Jenkins MD POINT OF CARE TEST O KAYLA Performing Organization Address [facility] Co de Phone Number [facility] [place] [address] * Specimen to Pathology (surgical or derm) (03/23/2016 8:37 AM EST) AP Specimen 03/23/2016 8:37 AM EST 03/23/2016 8:37 AM EST Narrative [facility] - 03/23/2016 8:37 AM EST Specimen requisition ordered. ??Separate Pathology report to follow Michael Jenkins MD PATHOLOGY/CYTOLOGY O KAYLA Performing Organization Address [facility]/State/ZIP Co de Phone Number [facility] [place] [address] * Surgical Pathology Report (03/23/2016 8:36 AM EST) Final Diagnosis [id number] ?Location: 3T; [facility]; B The signing pathologist has (i) examined [...] (R3) ?? yal 03/28/2016 11:05 AM EST [facility] BREAST STRUCTURE / Unknown 03/23/2016 8:36 AM EST 03/23/2016 8:36 AM EST BREAST STRUCTURE / Unknown 03/23/2016 8:36 AM EST 03/23/2016 8:36 AM EST Michael Jenkins MD PATHOLOGY/CYTOLOGY O RDERAMARK Performing Organization Address City/[facility]/ZIP Co de Phone Number [facility] [place] [address] * Specimen to Pathology (surgical or derm) (03/23/2016 8:36 AM EST) AP Specimen 03/23/2016 8:36 AM EST 03/23/2016 8:36 AM EST Narrative [facility] - 03/23/2016 8:36 AM EST Specimen requisition ordered. ??Separate Pathology report to follow Michael Jenkins MD PATHOLOGY/CYTOLOGY O KAYLA Performing Organization Address [facility] [place] [address] * POCT HGB (03/23/2016) POC Hemoglobin 15 [...] Oral, EVERY 4 HOURS PRN, Starting on Mar Yellen 03/23/16 at 0552, Until Mary Ellen 03/23/16 [...] Unit) documented in this encounter Care Teams Bariatric Coordinator Relationship Specialty Start Date End Date Jelena Harris PA [address] [place] [address] PCP - General 05/27/14 06/04/18 documented as of this encounter
--- OUTSIDE RECORDS SUMMARY | 2024-01-14 17:58 | XMS_ITS | Encounter Summary ---
Author Organization [facility] Address [address] [place] [address] Care Team Providers Care Advertising Material Distributor Name Role Phone SchuylkillAmara benavides Guero BAECH Primary Care Provider [phone] Encounter Details Date Type Department Care Team (Late st Contact Info) Description 03/31/2020 Lab Requisition [facility] Pathology & Laboratory Medicine - [facility] [address] [place] [address] Outr Resulting Lab, Provider Social History Tobacco [...] Outr Resulting Lab MICROBIOLOGY - GENERAL ORDERABLES [facility] [address] [place] [address] * COVID-19 TESTING (03/31/2020 13:00 EST) COVID-19 rt-PCR Result Negative Negative 04/01/2020 21:08 EST [facility] Comment: Negative results do not preclude 2019-nCoV infection and should not be used as the sole basis for treatment or other patient management decisions. Negative results must be combined with clinical observations, patient history, and epidemiological information. This test was developed and its performance characteristics determined by [facility]. It has not been cleared or approved [...] testing. This test is based on the [facility] COVID-19 Emergency Use Authorization (EUA) assay, with minor modification as defined by the FDA Performed on the [employer] Flex. Performing Lab [facility] 04/01/2020 21:08 EST [facility] Swab 03/31/2020 13:0 0 EST 03/31/2020 15:43 EST Provider Outr Resulting Lab MICROBIOLOGY - GENERAL ORDERABLES [facility] [address] [place] [address] documented in this encounter Visit Diagnoses Not on filedocumented in this encounter Care Teams Advertising Material Distributor Relationship Specialty Start Date End Date Amara Ding NP [facility] [address] [place] [address] PCP - General 01/30/15 documented as of this encounter
--- OUTSIDE RECORDS SUMMARY | 2024-01-14 17:58 | XMS_ITS | Encounter Summary ---
Author Organization [facility] Address [address] [place] [address] Care Team Providers Care Pelt Shearer Name Role Phone Unavailable Primary Care Provider Unavailabl e Encounter Details Date Type Department Care Team (Late st Contact Info) Description 06/29/2006 Results Only [facility] conversion [address] [place] [address] Amara Arzola, [facility] [address] [place] [address] Social History Tobacco Use Types [...] ? GINA HENDERSON ? Accession #: ? [id number] : ? 1960 (Age: 46) ??F ?Collect Date: ? 06/29/2006 Location: ? [facility] ? Receive Date: ? 07/03/2006 Provider: ?AMARA ARZOLA [facility] Copy to: ? Specimen/Source: ?ThinPrep Pap Test, Cervix Scar, processed on [employer] CI[employer]rep Imaging System, with manual evaluation Last Menstrual [...] Arzola NP PATHOLOGY ORDERABLES [facility] [address] [place] [address] documented in this encounter Visit Diagnoses Not on filedocumented in this encounter
--- OUTSIDE RECORDS SUMMARY | 2024-01-14 17:58 | XMS_ITS | Encounter Summary ---
[place] [address] Care Team Providers Care Income Tax Preparer Name Role Phone Jelena Harris Primary Care Provider [phone] Encounter Details Date Type Department Care Team (Late st Contact Info) Description 05/06/2018 Telephone Mammography/[place] [id number] Qian Alejandra APRN [address] [place] [address] Social History Tobacco Use Types [...] on filedocumented in this encounter Care Teams Income Tax Preparer Relationship Specialty Start Date End Date Jelena Harris PA [address] [place] [address] PCP - General 05/27/14 06/04/18 documented as of this encounter
--- OUTSIDE RECORDS SUMMARY | 2024-01-14 17:58 | XMS_ITS | Encounter Summary ---
Author Organization [facility] Address [address] [place] [address] Care Team Providers Care Microstrategy Reports Developer Name Role Phone Unavailable Primary Care Provider Unavailabl e Encounter Details Date Type Department Care Team (Late st Contact Info) Description 08/25/2004 Results Only [facility] conversion [address] [place] [address] Alice Abraham MD [address] [place] [address] [place], [place] Social History Tobacco Use Types Packs/Day Years [...] ? GINA HENDERSON ? Accession #: ? [id number] ? : ? 1960 (Age: 44) ??F [...] adhesions with mesothelial inclusion cysts. Comment: ? Astronomy Department Chair sections have been reviewed at intradepartmental consultation conference. ??On gross and microscopic inspection, ectocervix is not definitively represented in the specimen. ??The findings have been discussed with Dr. Abraham via telephone on August 30, 2004. ?? (Dr. Vogel)/[facility] Document reviewed and electronically signed [...] be consistent with ectocervix is not identified. ??Astronomy Department Chair sections are submitted as follows: BLOCK PARKER A1, A2 ?Astronomy Department Chair anterior/posterior cervix ? A3-A6 ? Astronomy Department Chair lateral endomyometrium (A3, A4 contiguous full-thickness sections; A5, A6 contiguous full-thickness sections) ? A7 ?Astronomy Department Chair fundic intramural nodule A8 ?Astronomy Department Chair serosa to include hemorrhagic adhesions A9-A12 ?Additional perpendicular sections of cervix (A. Pierce)/[facility] End of Report [facility] 08/25/2004 08/26/2004 9:0 9 EDT Alice Abraham MD PATHOLOGY ORDERABLES [facility] [address] [place] [address] documented in this encounter Visit Diagnoses Not on filedocumented in this encounter
--- OUTSIDE RECORDS SUMMARY | 2024-01-14 17:58 | XMS_ITS | Encounter Summary ---
Author Organization [facility] Address [address] [place] [address] Care Team Providers Care Farm General Manager Name Role Phone Amara Ding NP Primary Care Provider [phone] Encounter Details Date Type Department Care Team (Late st Contact Info) Description 02/28/2020 Lab Requisition [facility] Pathology & Laboratory Medicine - [facility] [address] [place] [address] Outr Resulting Lab, Provider Social History Tobacco [...] C Antibody Negative Negative 03/01/2020 9:51 EST [facility] Blood VENOUS BLOOD / Unknown 02/27/2020 15:46 EST 02/29/2020 17:20 EST Provider Outr Resulting Lab CHEMISTRY & BLOOD GAS ORDERABLES [facility] [address] [place] [address] documented in this encounter Visit Diagnoses Not on filedocumented in this encounter Care Teams Farm General Manager Relationship Specialty Start Date End Date Amara Ding NP [facility] [address] [place] [address] PCP - General 01/30/15 documented as of this encounter
--- OUTSIDE RECORDS SUMMARY | 2024-01-14 17:58 | XMS_ITS | Encounter Summary ---
Author Organization [facility] Address [address] [place] [address] Care Team Providers Care Accounts Receivable Assistant Name Role Phone LeslieAmara benavides Guero BEACH Primary Care Provider [phone] Encounter Details Date Type Department Care Team (Late st Contact Info) Description 06/09/2021 Lab Requisition [facility] Pathology & Laboratory Medicine - [facility] [address] [place] [address] Outr Resulting Lab, Provider Social History Tobacco [...] Priority Date/Time Associated Diagnosis Comments [facility] Today 06/08/2021 11:30 EDT COVID-19 TESTING Routine 06/08/2021 11:3 0 EDT documented in this encounter Results * COVID-19 TEST [facility] LAB PCR (06/08/2021 11:30 EDT) Swab 06/08/2021 11:3 0 EDT 06/09/2021 21:38 EDT Provider Outr Resulting Lab MICROBIOLOGY - GENERAL ORDERABLES [facility] [address] [place] [address] * COVID-19 TESTING (06/08/2021 11:30 EDT) COVID-19 rt-PCR Result Negative Negative 06/10/2021 15:51 EDT [facility] Comment: This test has [...] performed using the maria eugenia SARS-CoV-2 assay ([employer] on the Maria Eugenia 6800 System Performing Lab Maria Eugenia [address] [facility] Lab 06/10/2021 15:51 EDT [facility] Swab 06/08/2021 11:3 0 EDT 06/09/2021 21:38 EDT Provider Outr Resulting Lab MICROBIOLOGY - GENERAL ORDERABLES [facility] [address] [place] [address] documented in this encounter Visit Diagnoses Not on filedocumented in this encounter Care Teams Accounts Receivable Assistant Relationship Specialty Start Date End Date Amara Ding NP [facility] [address] [place], [place] [address] PCP - General 01/30/15 documented as of this encounter
--- OUTSIDE RECORDS SUMMARY | 2024-01-14 17:58 | XMS_ITS | Encounter Summary ---
[place] [address] Care Team Providers Care Engineering Faculty Member Name Role Phone Jelena Harris Primary Care Provider [phone] Reason for Visit * Reason Comments Follow Up Surgery 03/23/16 BBR Encounter Details Date Type Department Care Team (Latest Contact Info) Description 03/30/2016 2:00 PM EST Clinical Support [place] [id number] Surgery follow-up Social History Tobacco Use Types [...] symptoms please call our nurse's line at [phone] M - F 8 - 5 -SCAR [...] surgery documented in this encounter Care Teams Engineering Faculty Member Relationship Specialty Start Date End Date Jelena Harris PA [address] [place] [address] PCP - General 05/27/14 06/04/18 documented as of this encounter
--- OUTSIDE RECORDS SUMMARY | 2024-01-14 17:58 | XMS_ITS | Encounter Summary ---
[place] [address] Care Team Providers Care Fresh Work Wrapper Layer Name Role Phone Qian Alejandra APRN Primary Care Provider Encounter Details Date Type Department Care Team (Latest Contact Info) Description 06/05/2018 3:33 PM EDT - 06/05/2018 11:59 PM EDT Hospital Encounter Mammography/[place] [address] Qian Alejandra APRN [address] [place] [address] Visit for screening mammogram Discharge [...] BIRADS CATEGORY 2: Benign findings. * ??[employer] and The Society of [...] mammogram documented in this encounter Care Teams Fresh Work Wrapper Layer Relationship Specialty Start Date End Date Qian Alejandra APRN [address] [place] [address] PCP - General Family Medicine 06/05/18 documented as of this encounter
--- OUTSIDE RECORDS SUMMARY | 2024-01-14 17:58 | XMS_ITS | Encounter Summary ---
Author Organization [facility] Address [address] [place] [address] Care Team Providers Care Elocution Teacher Name Role Phone Unavailable Primary Care Provider Unavailabl e Encounter Details Date Type Department Care Team (Late st Contact Info) Description 06/09/2009 Results Only [facility] Laboratory Services - [facility] ([facility]) [address] [place] [address], [place] [id number] Amara Arzola, [facility] [address] [place] [address] Social History Tobacco Use Types [...] ? GINA HENDERSON ? Accession #: ? [id number] ? : ? 1960 (Age: 49) ??F [...] Arzola NP PATHOLOGY ORDERABLES [facility] [address] [place] [address] documented in this encounter Visit Diagnoses Not on filedocumented in this encounter
--- OUTSIDE RECORDS SUMMARY | 2024-01-14 17:58 | XMS_ITS | Encounter Summary ---
Author Organization Formerly [facility], [facility] [place] [address] Care Team Providers Care Weapons Electrical Engineering Officer Name Role Phone Qian Alejandra MARY Primary Care Provider [phone] Reason for Referral * Consultation (Routine) - Closed Specialty Diagnoses / Procedures Referred By Tonya hall Referred To Contact Orthopaedics Diagnoses Osteoarthritis of first carpometacarpal (CMC) joint of one hand Carpal tunnel syndrome, left upper limb W/C INJ Procedures W/C INJ Dada Juarez MD [address] [place] [address] Andreas Pyle MD [facility] [place] [address] Referral ID Status Reason Start Date Expiration Date V isits Requested Visits Authorized [id number] Closed Consult, Test & Treat PCP Updated and/or Approved 01/18/2022 01/18/2023 6 6 Encounter Details Date Type Department Care Team (Latest Contact Info) Description 01/18/2022 Transcribe Orders eDH Incoming Referrals [phone] Dada Juarez MD [address] [place] [address] Osteoarthritis of first carpometacarpal (CMC) [...] limb documented in this encounter Care Teams Weapons Electrical Engineering Officer Relationship Specialty Start Date End Date Qian Alejandra APRN [address] [place] [address] PCP - General Family Medicine 06/05/18 documented as of this encounter
--- OUTSIDE RECORDS SUMMARY | 2024-01-14 17:58 | XMS_ITS | Encounter Summary ---
[place] [address] Care Team Providers Care Rn Recruitment Name Role Phone Jelena Harris Primary Care Provider [phone]- [phone] Reason for Visit * Reason Comments Follow-up BBR Encounter Details Date Type Department Care Team (Latest Contact Info) Description 04/07/2016 10:00 AM EST Clinical [place] [address] Surgery follow-up Social History Tobacco Use Types [...] symptoms please call our nurse's line at [phone] Sunday - Sunday 8 - 5. On nights, weekends, or holidays call the [facility] number [phone] and ask for the PlasticSurgeon director long term care. documented in this encounter Progress Notes * [...] surgery documented in this encounter Care Teams Rn Recruitment Relationship Specialty Start Date End Date Jelena Harris [address] [place] [address] PCP - General 05/27/14 06/04/18 documented as of this encounter
--- OUTSIDE RECORDS SUMMARY | 2024-01-14 17:58 | XMS_ITS | Encounter Summary ---
[place] [address] Care Team Providers Care Jewelry Casting Model Maker Name Role Phone Jelena Harris Primary Care Provider [phone]- [phone] Encounter Details Date Type Department Care Team (Late st Contact Info) Description 03/24/2016 [place] [id number] Jany Trejo, RN Social History Tobacco Use [...] 03/24/2016 1:30 PM EST Call received from [facility] F/U on info fax to [facility]. They called the wrong office and transferred them to Dr Branch's office. documented in this encounter Plan of Treatment Not on file documented as of this encounter Visit Diagnoses Not on filedocumented in this encounter Care Teams Jewelry Casting Model Maker Relationship Specialty Start Date End Date Jelena Harris PA [address] [place] [address] PCP - General 05/27/14 06/04/18 documented as of this encounter
--- OUTSIDE RECORDS SUMMARY | 2024-01-14 17:58 | XMS_ITS | Encounter Summary ---
Author [place] [address] Care Team Providers Care Fund Development Manager Name Role Phone Jelena Harris Primary Care Provider [phone]- [phone] Reason for Visit * Auth/Cert Specialty Diagnoses / Procedures Referred By Tonya hall Referred To Contact Diagnoses N62 - macromastia Tentative DOS - 02/21/2016 CPT: 46529 - yang Procedures PRO REDUCTION OF LARGE BREAST REDUCTION MAMMOPLASTY, YANG Referral ID Status Reason Start Date Expiration Date Visits Re quested Visits Authorized [id number] 1 1 Encounter Details Date Type Department Care Team (Latest Contact Info) Description 03/23/2016 5:44 AM EST - 03/25/2016 1:08 PM [facility] [address] [place] [address] Michael Jenkins MD [facility] [place] [address] H/O exertional chest pain Discharge Disposition: Home [...] Gina Henderson Patient Age: 56 y.o. Language: Macedonian Race: White Ethnicity: Not nor Admit date: [...] 16.03) performed by Michael Jenkins MD at [facility] MAIN OR Procedures: 03/23/2016 Surgeon(s) and Role: * Michael Jenkins MD - Primary * Dagoberto Alexis MD - Resident-Surgeon Ishaan * Ortiz Lopez MD - Resident-Surgeon Ishaan: Procedure(s): REDUCTION MAMMOPLASTY, YANG (WRVU 16.03) MODIFIER ROBERTS Hospital Course: Patient was admitted electively to [facility] via the same day surgery program and [...] QTC Calculated (Bezet) 427 ms Calculated P Chaseley 54 degrees Calculated R Chaseley -2 degrees Calculated T Chaseley 32 degrees INTERPRETATION Normal sinus rhythm Normal [...] good night sleep. Pain (short term and intermediate) ?? With any surgery there is some discomfort or pain. We will prescribe pain medication. Take as prescribed and only as needed. OK to take prescription medication or Tylenol. Do not take both. ?? We recommend taking an aant-sts-Fgrypmq stool softener, such as Colace (docusate) or [...] scheduling, please contact our administrative offices at [phone] ?? For clinical questions, please call our nurses at [phone] ?? Both offices are open Sunday thru Sunday 8a - 5p. With emergencies after hours, call the hospital rotary cutter operator at [phone] and ask for the Plastic Surgery Resident lamination machine operator. MEDICATIONS: Your Medications Notice Some of the [...] called in to our prescription line at [phone]. Narcotic renewals may be requested from 8am-4pm [...] Sunday 8 am to 5 pm Call [phone] On weekends or after hours: Call [phone] and ask the rotary cutter operator to page the Plastic Surgery Resident lamination machine operator. General Instructions SAME DAY SURGERY JONATHAN DRAIN [...] future appointments. Primary Care Provider: RAQUEL Beatty [phone] VNA: No discharge procedures on file. General [...] was managed by the Plastic SurgeryTeam at [facility]. If you haveany questions or concerns, please feel free to contact us. Provider Contact Information: Plastic Surgery Clinic: [facility] (after business hours): documented in this encounter [...] good night sleep. Pain (short term and director long term care) ?? With any surgery there is some discomfort or pain. We will prescribe pain medication. Take as prescribed and only as needed. OK to take prescription medication or Tylenol. Do not take both. ?? We recommend taking an onnx-hrp-Mfbgngs stool softener, such as Colace (docusate) or [...] scheduling, please contact our administrative offices at [phone] ?? For clinical questions, please call our nurses at [phone] ?? Both offices are open Sunday thru Sunday 8a - 5p. With emergencies after hours, call the hospital rotary cutter operator at [phone] and ask for the Plastic Surgery Resident lamination machine operator. MEDICATIONS: Your Medications Notice Some of the [...] called in to our prescription line at [phone]. Narcotic renewals may be requested from 8am-4pm [...] Sunday 8 am to 5 pm Call [phone] On weekends or after hours: Call [phone] and ask the rotary cutter operator to page the Plastic Surgery Resident lamination machine operator. documented in this encounter Medications at Time [...] recommendations Elizabeth Mensah PA-C Plastic Surgery Pager [phone] Attn: continues to require supplemental O2 but [...] 16.03) performed by Michael Jenkins MD at [facility] MAIN OR Hospitalizations Within the Past 30 Days: None at [facility], nor at outside hospitals. 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 Home Environment: Lives with her , Shaw, in [place], [place]. Social & Family Supports/Community Resources: Emergency Contact 1 Emergency Contact 2 ? Shaw Henderson (Spouse) [address] [facility] [phone] (H) [phone] (W) Stefani Li (Child) [phone] (H) Behavioral Health History: None per H&P. Substance Use/Abuse: Former smoker. EtOH: 2 glasses of wine/week. No illicit drug use. Other Pertinent/Service Specific Information: None Health/Prescription Coverage: Primary Insurance: Errand [employer] Business Plan Secondary Insurance: None Prescription Coverage: Yes Preferred Pharmacy: [facility], [place], [place] Other: None Primary Care Provider: RAQUEL Beatty [phone] Patient/Caregiver Goals of Treatment: To return home with her and to resume work when givenmedical clearance. Potential Needs for Transition of Care: Rehab/SNF: N/A Home Health: Declined VNA services. ([facility] serves her area). DME: N/A Dialysis: N/A Community Resources: None Transportation: Pt's will transport pt home at discharge. Other: None Anticipated Barriers to Discharge/Special Considerations: None identified. Plan: A member of the Care Management team will continue to monitor progress, follow for continuity of care and assist with transition of care planning. NAGI SHAW RN Pager: [phone] for today. Assisting Rebeca Lee Pt's Primary Shaper Operator, pager [phone] * Consult Note - Adri Parra - 03/24/2016 9:36 AM EST Medicine Consult Note, Pager [phone] Patient Name: Gina Henderson Patient Age: 56 [...] History and Habits: - , lives in [facility] with her of 30+ years - [...] consult. Please contact the consult pager at [phone] with any questions. Adri Parra MD PGY-3, Department of Internal Medicine Consult Pager [phone] 03/24/2016 Associated attestation - Santiago Stallworth MD [...] Jenkins MD - 03/23/2016 9:33 AM EST [facility] Operative Note Patient Name: Gina Henderson : 1960 MR#: [id number] Case Date: 03/23/2016 Surgeon: Surgeon(s) and Role: [...] fitting, review post-op activity restrictions 6 months: [facility] f/u with surgeon Indication for procedure: This [...] Lopez MD - 03/23/2016 9:32 AM EST [facility] Brief Operative Note Patient Name: Gina Henderson : 1960 MR#: [id number] Case Date: 03/23/2016 Surgeon: Surgeon(s) and Role: [...] fitting, review post-op activity restrictions 6 months: [facility] f/u with surgeon Ortiz Lopez MD Plastic [...] (Bezet) 427 ms MUSE SYSTEM Calculated P Chaseley 54 degrees MUSE SYSTEM Calculated R Chaseley -2 degrees MUSE SYSTEM Calculated T Chaseley 32 degrees MUSE SYSTEM INTERPRETATION Normal sinus [...] pH, Arterial 7.25(Criti anderson) 7.35 - 7.45 [facility] Comment:Noted by hearing instrument specialist. PCO2, Arterial 64(Critica l) 35 - [address] [facility] Comment:Noted by hearing instrument specialist. PO2, Arterial 47(Critica l) 85 - [address] [facility] Comment:Noted by hearing instrument specialist. Bicarbonate, Arterial 27.0(H) 20.0 - 26.0 mmol/L [facility] Base Excess, Arterial -0.4 -3.0 - 3.0 mmol/L [facility] Hgb Blood Gas 14.2 11.7 - 15.5 gm/dL [facility] Oxyhemoglobin, Arterial 80.4(L) 94.0 - 97.0 % [facility] Carboxyhemoglob in, Arterial 0.9 % [facility] Comment: Nonsmokers: 0.5-1.5% COHB Smokers: Variable, but usually less than 10% Toxic: 20-30% COHB Lethal: Greater than 60% COHB Methemoglobin, Arterial 0.3 <=1.5 % [facility] Na Whole Blood 139 135 - 145 mmol/L [facility] K Whole Blood 4.1 3.5 - 5.0 mmol/L [facility] Comment: Please note: Patients with WBC >100,000 may have falsely elevated Potassium levels. Contact the Clinical Chemistry Laboratory if there are any questions. ICa Whole Blood 1.22 1.15 - 1.33 mmol/L [facility] Comment: Note: ??Total bilirubin higher than 20 mg/dL may lead to falsely low ionized calcium. CL Whole Blood 102 98 - 107 mmol/L [facility] Gluc Whole Bld 148 65 - 199 mg/dL [facility] Comment:Diabetes: >=200 mg/d L plus symptoms. Lactate WB 2.0 0.5 - 2.2 mmol/L [facility] Blood specimen (specimen) 03/23/2016 1:33 PM EST 03/23/2016 1:33 PM EST Michael Jenkins MD POINT OF CARE TEST O KAYLA Performing Organization Address [facility] Co de Phone Number [facility] [place] [address] * Specimen to Pathology (surgical or derm) (03/23/2016 8:37 AM EST) AP Specimen 03/23/2016 8:37 AM EST 03/23/2016 8:[address] [facility] - 03/23/2016 8:37 AM EST Specimen requisition ordered. ??Separate Pathology report to follow Michael Jenkins MD PATHOLOGY/CYTOLOGY O KAYLA Performing Organization Address [facility] Co de Phone Number [facility] [place] [address] * Surgical Pathology Report (03/23/2016 8:36 AM EST) Final Diagnosis [id number] ?Location: 3WST; 0318; B The signing pathologist [...] (R3) ?? yal 03/28/2016 11:[address] [facility] BREAST STRUCTURE / Unknown 03/23/2016 8:36 AM EST 03/23/2016 8:36 AM EST BREAST STRUCTURE / Unknown 03/23/2016 8:36 AM EST 03/23/2016 8:36 AM EST Michael Jenkins MD PATHOLOGY/CYTOLOGY O RDERABLES Performing Organization Address [facility]/ZIP Co de Phone Number [facility] [place] [address] * Specimen to Pathology (surgical or derm) (03/23/2016 8:36 AM EST) AP Specimen 03/23/2016 8:36 AM EST 03/23/2016 8:[address] [facility] - 03/23/2016 8:36 AM EST Specimen requisition ordered. ??Separate Pathology report to follow Michael Jenkins MD PATHOLOGY/CYTOLOGY O RDALE Performing Organization Address [facility] [place] [address] * POCT HGB (03/23/2016) POC Hemoglobin 15 [...] Unit) documented in this encounter Care Teams Fund Development Manager Relationship Specialty Start Date End Date Jelena Harris PA [address] [place] [address] PCP - General 05/27/14 06/04/18 documented as of this encounter
--- OUTSIDE RECORDS SUMMARY | 2024-01-14 17:58 | XMS_ITS | Encounter Summary ---
Author Organization [facility] Address [address] [place] [address] Care Team Providers Care Lav Crewman Name Role Phone Unavailable Primary Care Provider Unavailabl e Encounter Details Date Type Department Care Team (Late st Contact Info) Description 06/29/2004 Results Only [facility] conversion [address] [place] [address] Amara Arzola, SALES SUPPORT COORDINATOR [facility] [address] [place] [address] Social History Tobacco Use Types [...] ? GINA HENDERSON ? Accession #: ? [id number] : ? 1960 (Age: 44) ??F ?Collect [...] NP PATHOLOGY ORDERABLES [facility] [address] [place] [address] documented in this encounter Visit Diagnoses Not on filedocumented in this encounter
--- OUTSIDE RECORDS SUMMARY | 2024-01-14 17:58 | XMS_ITS | Encounter Summary ---
Author Organization [facility] Address [address] [place] [address] Care Team Providers Care Industrial Conveyor Belt Repairer Name Role Phone Unavailable Primary Care Provider Unavailabl e Encounter Details Date Type Department Care Team (Late st Contact Info) Description 06/18/2002 Results Only [facility] conversion [address] [place] [address] Amara Arzola, CERAMIC COATER MACHINE [facility] [address] [place] [address] Social History Tobacco Use Types [...] ? GINA HENDERSON ? Accession #: ? [id number] : ? 1960 (Age: 42) ??F ?Collect Date: ? 06/18/2002 Location: ? [facility] ? Receive Date: ? 06/20/2002 Provider: ?AMARA ARZOLA CERAMIC COATER MACHINE Copy to: ? Specimen/Source: ?ThinPrep Pap Test, [...] Arzola NP PATHOLOGY ORDERABLES [facility] [address] [place] [address] documented in this encounter Visit Diagnoses Not on filedocumented in this encounter
--- OUTSIDE RECORDS SUMMARY | 2024-01-14 17:58 | XMS_ITS | Encounter Summary ---
[place] [address] Care Team Providers Care Pull Through Hooker Name Role Phone Jelena Harris Primary Care Provider +1- [phone] Reason for Visit * Auth/Cert Specialty Diagnoses / Procedures Referred By Tonya hall Referred To Contact Diagnoses N62 - macromastia Tentative DOS - 02/21/2016 CPT: 38488 - yang Procedures PRO REDUCTION OF LARGE BREAST REDUCTION MAMMOPLASTY, YANG Referral ID Status Reason Start Date Expiration Date Visits Re quested Visits Authorized [id number] 1 1 Encounter Details Date Type Department Care Team (Late st Contact Info) Description 03/23/2016 7:32 AM EST Anesthesia [place] [address] Solo Melendez MD [facility] [place] [address] Anesthesia Record Procedure Summary Procedure Name Responsible [...] 0840 Break/Relief In ANETA M QU ILL, TANYARD WORKER 0857 Break/Relief Out 0953 Extubation/LMA Out 0953 [...] Removal Time: 95203/23/16 0748 by Mat Mar, TANYARD WORKER 03/23/16 0953 by Mat Mar, PINKY Incision [...] Melendez MD - 03/23/2016 11:26 AM EST [facility] Department of Anesthesiology Post-procedure Note Patient: Gina Henderson Procedure Summary Date Anesthesia Start Anesthesia Stop Room / Location 03/23/[address] [place] [address] OR / [facility] MAIN OR Procedure Diagnosis Surgeon Responsible Provider REDUCTION MAMMOPLASTY, YANG (WRVU 16.03) (Bilateral Breast); MODIFIER ROBERTS (N/A ) (macromastia) Michael Branch MD Pouliot, Ryan C, MD All Anesthesia Providers: Anesthesiologist: Solo Melendez MD TANYARD WORKER: Mat Mar CRNA Last (1hr) Vitals: BP 102/85 (03/23/16 1115) Temp Pulse Resp SpO2 96 % (03/23/16 1115) Patient Location: PACU/[facility] Level of Consciousness: Awake and Alert Pain [...] with patient and spouse. Plan discussed with TANYARD WORKER. PAT Staff Note documented in this encounter [...] 0740, Until Mary Ellen 03/23/16 at 1002, Pain, [...] mg documented in this encounter Care Teams Pull Through Hooker Relationship Specialty Start Date End Date Jelena Harris PA [address] [place] [address] PCP - General 05/27/14 06/04/18 documented as of this encounter
--- OUTSIDE RECORDS SUMMARY | 2024-01-14 17:58 | XMS_ITS | Encounter Summary ---
Author Organization [facility] [place] [address] Care Team Providers Care Network Administrator Name Role Phone Jelena Harris Primary Care Provider +1- [phone] Encounter Details Date Type Department Care Team (Late st Contact Info) Description 03/16/2016 External Results Radiology Library at [facility] [place] [place] [address] Anna Kimble MD [facility] [place] [address] Social History Tobacco Use Types Packs/Day Years [...] on filedocumented in this encounter Care Teams Network Administrator Relationship Specialty Start Date End Date eJlena Harris PA [address] [place] [address] PCP - General 05/27/14 06/04/18 documented as of this encounter
--- OUTSIDE RECORDS SUMMARY | 2024-01-14 17:58 | XMS_ITS | Clinical Summary ---
Author Organization [facility] [place] [address] Care Team Providers Care Accessories Repairer Name Role Phone Justyn Qian MARY Primary Care Provider [phone] Allergies No known active allergies Medications Medication [...] HIV screen 1977 Hepatitis C Screening 1977 Tetanus/Diphtheria/Pertussis Vaccines (1 - Tdap) 02/23 HPV test 1989 PAP Smear 1989 Breast Cancer Share Decision Needed 1999 Zoster vaccine (1 of 2) 2009 Advance Directive 2014 Breast Cancer screening 06/05/2020 06/05/2018 Covid-19 Vaccine ( - season) 2023 Influenza (Flu) vaccine (1 o f 1 [...] BIRADS CATEGORY 2: Benign findings. * ??The [employer] and The Society of [...] below. ? Electronically signed by: Amor Hollingsworth [facility] ([phone]), at 06/06/2018 7:39 AM Qian Alejandra APRN IMG MAMMO ORDERABLES from Last 3 Months or Most Recently Relevant to Health Maintenance Advance Directives * Full Code (Latest Code Status on File) Date Activated Date Inactivated Comments 03/23/2016 4:10 PM 03/25/2016 3:09 PM Question Answer Comments Does patient have capacity to make decision: Yes Care Teams Accessories Repairer Relationship Specialty Start Date End Date Qian Alejandra APRN [address] [place] [address] PCP - General Family Medicine 06/05/18
--- OUTSIDE RECORDS SUMMARY | 2024-01-14 17:58 | XMS_ITS | Encounter Summary ---
[place] [address] Care Team Providers Care Shredder Tender Name Role Phone Jelena Harris Primary Care Provider +1- [phone] Encounter Details Date Type Department Care Team (Late st Contact Info) Description 05/09/2018 Telephone Mammography/[place] [address] iQan Alejandra APRN [address] [place] [address] Social History Tobacco Use Types [...] on filedocumented in this encounter Care Teams Shredder Tender Relationship Specialty Start Date End Date Jelena Harris PA [address] [place] [address] PCP - General 05/27/14 06/04/18 documented as of this encounter
--- OUTSIDE RECORDS SUMMARY | 2024-01-14 17:58 | XMS_ITS | Referral Summary ---
Author Organization [facility] Address [address] [place] [address] Care Team Providers Care Fruit Loader Name Role Phone Amara Ding NP Primary Care Provider [phone] Social History Tobacco Use Types Packs/Day Years [...] C Antibody Negative Negative 03/01/2020 9:51 EST [facility] Blood VENOUS BLOOD / Unknown 02/27/2020 15:46 EST 02/29/2020 17:20 EST Provider Outr Resulting Lab CHEMISTRY & BLOOD GAS ORDERABLES [facility] [address] [place] [address] from Last 3 Months or Most Recently Relevant to Health Maintenance Care Teams Fruit Loader Relationship Specialty Start Date End Date Amara Ding, YONG [facility] [address] [place] [address] PCP - General 01/30/15
--- OUTSIDE RECORDS SUMMARY | 2024-01-14 17:58 | XMS_ITS | Encounter Summary ---
Author Organization [facility] Address [address] [place] [address] Care Team Providers Care Genetic Coordinator Name Role Phone Unavailable Primary Care Provider Unavailabl e Encounter Details Date Type Department Care Team (Late st Contact Info) Description 06/24/2003 Results Only [facility] conversion [address] [place] [address] Amara Arzola, CONDOMINIUM ASSOCIATION MANAGER [facility] [address] [place] [address] Social History Tobacco Use Types [...] ? GINA HENDERSON ? Accession #: ? [id number] : ? 1960 (Age: 43) ??F ?Collect Date: ? 06/24/2003 Location: ? [facility] ? Receive Date: ? 06/26/2003 Provider: ?AMARA ARZOLA CONDOMINIUM ASSOCIATION MANAGER Copy to: ? Specimen/Source: ?ThinPrep Pap Test, [...] Arzola NP PATHOLOGY ORDERABLES [facility] [address] [place] [address] documented in this encounter Visit Diagnoses Not on filedocumented in this encounter
--- OUTSIDE RECORDS SUMMARY | 2024-01-14 17:58 | XMS_ITS | Encounter Summary ---
[place] [address] Care Team Providers Care Speech Teacher Name Role Phone Jelena Harris Primary Care Provider [phone] Reason for Visit * Reason Comments Follow-up still having a lot o f tenderness /BBR Encounter Details Date Type Department Care Team (Late st Contact Info) Description 10/23/2016 4:15 PM EDT Office [place] [address] Michael Jenkins MD [facility] [place] [address] Macromastia Social History Tobacco Use Types Packs/Day [...] breast documented in this encounter Care Teams Speech Teacher Relationship Specialty Start Date End Date Jelena Harris PA [address] [place] [address] PCP - General 05/27/14 06/04/18 documented as of this encounter
--- OUTSIDE RECORDS SUMMARY | 2024-01-14 17:58 | XMS_ITS | Encounter Summary ---
Author Organization [facility] Address [address] [place] [address] Care Team Providers Care Avionics Engineer Name Role Phone Unavailable Primary Care Provider Unavailabl e Encounter Details Date Type Department Care Team (Late st Contact Info) Description 12/11/2011 Results Only [facility] Laboratory Services - [facility] ([facility] [address] [place], [place] [address] Gamaliel Norton FNP [address] [place], [place] [id number] Social History Tobacco Use Types Packs/Day Years [...] ? GINA HENDERSON ? Accession #: ? [id number] : ? 1960 (Age: 51) ??F ?Collect Date: ? 12/11/2011 Location: ? [facility] ? Receive Date: ? 12/13/2011 Provider: ?GAMALIEL NORTON EQUIPMENT MONITOR PHOTOTYPESETTING Copy to: ? Specimen/Source: ?Pap Test, Cervix, [...] Report [facility] 12/11/2011 12/13/2011 Gamaliel Norton EQUIPMENT MONITOR PHOTOTYPESETTING PATHOLOGY ORDERABLES [facility] [address] [place] [address] documented in this encounter Visit Diagnoses Not on filedocumented in this encounter
--- OUTSIDE RECORDS SUMMARY | 2024-01-14 17:58 | XMS_ITS | Encounter Summary ---
Author Organization [facility] Address [address] [place] [address] Care Team Providers Care High School Coordinator Name Role Phone Unavailable Primary Care Provider Unavailabl e Encounter Details Date Type Department Care Team (Late st Contact Info) Description 06/01/2006 Results Only [facility] [place] conversion [address] [place] [address] Ortiz Wei, DO [address] [facility] [address] [place] [address] Social History Tobacco Use Types [...] ? GINA HENDERSON ? Accession #: ? [id number] ? : ? 1960 (Age: 46) ??F ? Collect Date: ? 06/01/2006 ? Location: ? [facility] ? Receive Date: ? 06/01/2006 ? Provider: ORTIZ WEI DO Copy to: PRINCESS ARZOLA RESPIRATORY PRACTITIONER ? Final Pathologic Diagnosis: ? Skin of [...] A3 ?Distal tips, reverse en face (Dr. Lozano)/[facility] End of Report [facility] 06/01/2006 06/01/2006 15: 03 EST Ortiz Wei DO PATHOLOGY ORDER [place] [facility] [address] [place] [address] documented in this encounter Visit Diagnoses Not on filedocumented in this encounter
--- OUTSIDE RECORDS SUMMARY | 2024-01-14 17:58 | XMS_ITS | Encounter Summary ---
Author Organization [facility] [place] [address] Care Team Providers Care Broke Beater Name Role Phone Jelena Harris Primary Care Provider [phone]- [phone] Encounter Details Date Type Department Care Team (Late st Contact Info) Description 03/21/2016 External Results Radiology Library at [facility] [place] [address] Amor Hollingsworth MD [facility] [place] [address] Social History Tobacco Use Types Packs/Day Years [...] Mammogram (07/13/2010) Anatomical Region Laterality Modality Other Aomr Hollingsworth MD MEDIA MGR SCAN EXT O [...] on filedocumented in this encounter Care Teams Broke Beater Relationship Specialty Start Date End Date Jelena Harris PA [address] [place] [address] PCP - General 05/27/14 06/04/18 documented as of this encounter
--- OUTSIDE RECORDS SUMMARY | 2024-01-14 17:58 | XMS_ITS | Clinical Summary ---
Author Organization [facility] Address [address] [place] [address] Care Team Providers Care Rn Family Practice Name Role Phone Amara Ding NP Primary Care Provider [phone] Social History Tobacco Use Types Packs/Day Years [...] C Antibody Negative Negative 03/01/2020 9:51 EST [facility] Blood VENOUS BLOOD / Unknown 02/27/2020 15:46 EST 02/29/2020 17:20 EST Provider Outr Resulting Lab CHEMISTRY & BLOOD GAS ORDERABLES [facility] [address] [place] [address] from Last 3 Months or Most Recently Relevant to Health Maintenance Care Teams Rn Family Practice Relationship Specialty Start Date End Date Amara Ding NP [facility] [address] [place] [address] PCP - General 01/30/15
--- OUTSIDE RECORDS SUMMARY | 2024-01-14 17:59 | XMS_ITS | Encounter Summary ---
[place] [address] Care Team Providers Care Fish Seiner Name Role Phone Jelena Harris Primary Care Provider [phone] Reason for Visit * Reason Comments Skin Check Encounter Details Date Type Department Care Team (Late st Contact Info) Description 05/27/2014 2:45 PM EST Office Visit Dermatology at [address] [id number] Wilder Holt MD [address] [facility] [place] [address] Irritant hand dermatitis Discharge Disposition: Home Social [...] from the original note were not included. [facility] Dermatitis: After Your Visit Your Care Instructions [...] help for plant rashes. ?? Try an rgct-nmy-gcaazhr antihistamine such as diphenhydramine (Benadryl) or chlorpheniramine [...] more? Visit our health information library at [email or web address] You can also view health information on [employer], your personal patient account. Log in or sign up today. Enter F270 in the search box to learn more about Dermatitis: After Your Visit. ?? [id number] [facility], [place]. Care instructions adapted under license by [facility]. This care instruction is for use with your licensed healthcare professional. If you have questions about a medical condition or this instruction, always ask your healthcare professional. [employer] disclaims any warranty or liability for your use of this information. Content Version: 10.3.238944; Current as of: June 04, 2013 documented in this encounter Progress Notes * Wilder Holt MD - 05/27/2014 3:08 PM EST Problem: Irritant hand dermatitis. Gina follows up after last seeing me in 2007. 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 She [...] doing the dishes. They do have a tire wrapper. d. Return to clinic here p.r.n. for new lesions/concerns. COPY: Jelena Kennedy P.A.-C. documented in this encounter Plan of Treatment Not on file documented as of this encounter Visit Diagnoses Diagnosis Irritant hand dermatitis Contact dermatitis and other eczema, due to unspecified cause documented in this encounter Care Teams Fish Seiner Relationship Specialty Start Date End Date Jelena Harris PA [address] [place] [address] PCP - General 05/27/14 06/04/18 documented as of this encounter
--- OUTSIDE RECORDS SUMMARY | 2024-01-14 17:59 | XMS_ITS | Encounter Summary ---
Author Organization [facility] [place] [address] Care Team Providers Care Pusher Runner Name Role Phone Unavailable Primary Care Provider Unavailabl e Encounter Details Date Type Department Care Team (Latest Contact Info) Description 07/16/2008 12:15 AM EDT - 07/16/2008 11:59 PM EDT Hospital Encounter Radiology Library at [facility] [place] [address] Amor Hollingsworth MD [facility] [place] [address] Pain Discharge Disposition: Home Social History Tobacco [...] Only Mammo (07/16/2008 12:15 AM EDT) Narrative [facility] - 03/21/2016 11:07 AM EST This exam is for storage only and is auto-finalizing. Amor Hollingsworth MD IM FILM LIBRARY ORD ERABLES [place], [place] documented in this encounter Visit Diagnoses Diagnosis Pain Generalized pain documented in this encounter
--- OUTSIDE RECORDS SUMMARY | 2024-01-14 17:59 | XMS_ITS | Encounter Summary ---
Author Organization [facility] [place] [address] Care Team Providers Care Senior Dot Net Developer Name Role Phone Jelena Harris Primary Care Provider [phone]- [phone] Encounter Details Date Type Department Care Team (Latest Contact Info) Description 06/09/2014 - 06/09/2014 11:59 PM EDT Hospital Encounter Radiology Library at [facility] [place] [address] Michael Branch MD [facility] [place] [address] Pain Discharge Disposition: Home Social History Tobacco [...] Branch MD IMG FILM LIBRARY ORD ERABLES [place], [place] documented in this encounter Visit Diagnoses Diagnosis Pain Generalized pain documented in this encounter Care Teams Senior Dot Net Developer Relationship Specialty Start Date End Date Jelena Harris PA [address] [place] [address] PCP - General 05/27/14 06/04/18 documented as of this encounter
--- OUTSIDE RECORDS SUMMARY | 2024-01-14 17:59 | XMS_ITS | Encounter Summary ---
Author Organization [facility] [place] [address] Care Team Providers Care Wool Fleece Grader Name Role Phone Jelena Harris Primary Care Provider [phone] Encounter Details Date Type Department Care Team (Latest Contact Info) Description 03/15/2016 - 03/15/2016 11:59 PM EST Hospital Encounter Radiology Library at [facility] [place] [address] Michael Branch MD [facility] [place] [address] Pain Discharge Disposition: Home Social History Tobacco [...] Only Mammo (03/15/2016 12:00 AM EST) Narrative [facility] - 03/16/2016 11:05 AM EST This exam is for storage only and is auto-finalizing. Michael Branch MD IMG FILM LIBRARY ORD ERABLES [place], [place] documented in this encounter Visit Diagnoses Diagnosis Pain Generalized pain documented in this encounter Care Teams Wool Fleece Grader Relationship Specialty Start Date End Date Jelena Harris PA [address] [place] [address] PCP - General 05/27/14 06/04/18 documented as of this encounter
--- OUTSIDE RECORDS SUMMARY | 2024-01-14 17:59 | XMS_ITS | Encounter Summary ---
Author Organization [facility] [place] [address] Care Team Providers Care Utility Worker Forge Name Role Phone Owen, Amara Jack APRN Primary Care Provider [phone] Encounter Details Date Type Department Care Team (Latest Contact Info) Description 12/18/2011 - 12/18/2011 11:59 PM EDT Hospital Encounter Radiology Library at [facility] [place] [address] Amor Hollingsworth MD [facility] [place] [address] Pain Discharge Disposition: Home Social History Tobacco [...] Only Mammo (12/18/2011 12:00 AM EDT) Narrative [facility] - 03/21/2016 10:54 AM EST This exam is for storage only and is auto-finalizing. Amor Hollingsworth MD IM FILM LIBRARY ORD ERABLES [place], [place] documented in this encounter Visit Diagnoses Diagnosis Pain Generalized pain documented in this encounter Care Teams Utility Worker Forge Relationship Specialty Start Date End Date Amara Ding APRN PCP - General 02/15/10 05/26/14 documented as of this encounter
--- OUTSIDE RECORDS SUMMARY | 2024-01-14 17:59 | XMS_ITS | Encounter Summary ---
Author Organization [facility] [place] [address] Care Team Providers Care Welding Teacher Name Role Phone Unavailable Primary Care Provider Unavailabl e Encounter Details Date Type Department Care Team (Latest Contact Info) Description 07/16/2008 - 07/16/2008 12:14 AM EDT Hospital Encounter Radiology Library at [facility] [place] [address] Amor Hollingsworth MD [facility] [place] [address] Pain Discharge Disposition: Home Social History Tobacco [...] Only Mammo (07/16/2008 12:00 AM EDT) Narrative [facility] - 03/21/2016 10:56 AM EST This exam is for storage only and is auto-finalizing. Amor Hollingsworth MD [facility] FILM LIBRARY ORD ERABLES [place], [place] documented in this encounter Visit Diagnoses Diagnosis Pain Generalized pain documented in this encounter
--- OUTSIDE RECORDS SUMMARY | 2024-01-14 17:59 | XMS_ITS | Encounter Summary ---
Author Organization [facility] [place] [address] Care Team Providers Care Engineering Librarian Name Role Phone Unavailable Primary Care Provider Unavailabl e Encounter Details Date Type Department Care Team (Latest Contact Info) Description 07/13/2008 - 07/13/2008 11:59 PM EDT Hospital Encounter Radiology Library at [facility] [place] [address] Amor Hollingsworth MD [facility] [place] [address] Pain Discharge Disposition: Home Social History Tobacco [...] Only Mammo (07/13/2008 12:00 AM EDT) Narrative [facility] - 03/21/2016 10:57 AM EST This exam is for storage only and is auto-finalizing. Amor Hollingsworth MD [facility] FILM LIBRARY ORD ERABLES [place], [place] documented in this encounter Visit Diagnoses Diagnosis Pain Generalized pain documented in this encounter
--- OUTSIDE RECORDS SUMMARY | 2024-01-14 17:59 | XMS_ITS | Encounter Summary ---
[place] [address] Care Team Providers Care Performance Instructor Name Role Phone Jelena Harris Primary Care Provider [phone]- [phone] Reason for Visit * Reason Comments Advice Only bbr * Consultation (Routine) - Closed Specialty Diagnoses / Procedures Referred By Tonya hall Referred To Contact Plastic Surgery Diagnoses macromastia Jelean Harris PA [address] [place] [address] [facility] [address] [address] Referral ID Status Reason Start Date Expiration Date V isits Requested Visits Authorized [id number] Closed Consult, Test & Treat [facility] 12/24/2015 12/23/2016 1 1 Encounter Details Date Type Department Care Team (Late st Contact Info) Description 01/17/2016 4:30 PM EDT Office [place] [address] Michael Jenkins MD [facility] [place] [address] Macromastia Social History Tobacco Use [...] of breast disease. 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 She does not perform any heavy lifting. [...] 0 Physical Well-being 53 Conservative Therapy Treatments: [facility] PLASTICS CONSERVATIVE THERAPY TREATMENTS 01/17/2016 Physical [...] to persist following surgery. She watched the uiu video on breast reduction, and was provided [...] surgery is best done at a realistic senior care stable weight. We talked about the outpatient [...] revisions for scarring or asymmetry.) Erickson or [place] Pattern Incision: More scarring on breast, but [...] Timeframe: Elective Procedure: Bilateral breast reduction CPT: 19133 Surgical Technique: Erickson Surgical site: Breasts Side: [...] aspirin products (unless otherwise advised by patient's PCP/Traffic Sergeant for cardiac symptoms), fish oil, Vitamin E [...] breast documented in this encounter Care Teams Performance Instructor Relationship Specialty Start Date End Date Jelena Harris PA [address] [place] [address] PCP - General 05/27/14 06/04/18 documented as of this encounter
--- OUTSIDE RECORDS SUMMARY | 2024-01-14 17:59 | XMS_ITS | Encounter Summary ---
Author Organization [facility] [place] [address] Care Team Providers Care Emergency Department Manager Name Role Phone Unavailable Primary Care Provider Unavailabl e Encounter Details Date Type Department Care Team (Latest Contact Info) Description 10/05/2004 - 10/05/2004 11:59 PM EDT Hospital Encounter Radiology Library at [facility] [place] [address] Amor Hollingsworth MD [facility] [place] [address] Pain Discharge Disposition: Home Social History Tobacco [...] Only Mammo (10/05/2004 12:00 AM EDT) Narrative [facility] - 03/21/2016 10:59 AM EST This exam is for storage only and is auto-finalizing. Amor Hollingsworth MD [facility] FILM LIBRARY ORD ERABLES [place], [place] documented in this encounter Visit Diagnoses Diagnosis Pain Generalized pain documented in this encounter
--- OUTSIDE RECORDS SUMMARY | 2024-01-14 17:59 | XMS_ITS | Encounter Summary ---
Author Organization [facility] [place] [address] Care Team Providers Care Dry Goods Clerk Name Role Phone Toña Amara Jack APRN Primary Care Provider [phone] Encounter Details Date Type Department Care Team (Latest Contact Info) Description 07/13/2010 - 07/13/2010 11:59 PM EDT Hospital Encounter Radiology Library at [facility] [place] [address] Amor Hollingsworth MD [facility] [place] [address] Pain Discharge Disposition: Home Social History Tobacco [...] Mammo (07/13/2010 12:00 AM EDT) Narrative [facility] - 03/21/2016 11:05 AM EST This exam is for storage only and is auto-finalizing. Amor Hollingsworth MD IM FILM LIBRARY ORD ERABLES [place], [place] documented in this encounter Visit Diagnoses Diagnosis Pain Generalized pain documented in this encounter Care Teams Dry Goods Clerk Relationship Specialty Start Date End Date Amara Ding APRN PCP - General 02/15/10 05/26/14 documented as of this encounter
[2024-01-14] MEDS: Lactated Ringers 1,000 ML 75 ML IV (20:06)
[2024-01-14] MEDS: levoFLOXacin 750 MG/150 ML BAG 100 MG IVPB (20:06)
[2024-01-14] MEDS: Normal Saline Flush 10 ML SYR IVP (20:07)
[2024-01-15] VITALS (46 sets, daily range): BP systolic 94–137; BP diastolic 33–73; PULSE 66–79; RESP 14–26; TEMP 36–37.2; O2SAT 85–97; BMI 38.4
[2024-01-15] MEDS: ACETAMINOPHEN 1,000 MG/100 ML BAG 400 MG IV ×2 (03:55→22:09)
[2024-01-15 06:54] LABS: ALT 73 U/L (14-59); AST 28 U/L (15-37); Albumin 3.2 g/dL (3.4-5.0); Alkaline Phosphatase 159 U/L (46-116); Bilirubin, Direct 0.4 mg/dL (0.0-0.2); Bilirubin, Total 1.09 mg/dL (0.2-1.0); Total Protein 6.1 g/dL (6.4-8.2)
[2024-01-15] MEDS: Sertraline 25 MG TAB PO (10:39)
[2024-01-15] MEDS: Losartan 50 MG TAB PO (10:39)
[2024-01-15] MEDS: Indocyanine green 25 MG VIAL 5 MG IVP (11:05)
--- NOTE | 2024-01-15 11:24 | ANES.PREOP_ITS ---
General Info Date of Service Date Performed: 01/15/24 Height: 5 ft 2 in Weight: 95.3 kg Body Mass Index (BMI): 38.4 Surgical Procedure: Operation Date: 01/15/24 11:40 Proposed Procedure Side Surgeon p Cholecystectomy Laparoscopic Zoey Agosto, Meds Allergies and Home Medications Allergies Allergy/AdvReac Type Severity Reaction Status Date / Time latex Allergy Mild Skin Rash Verified 01/14/24 01:52 Penicillins Allergy Unknown Verified 01/14/24 01:52 steroids AdvReac Severe Other (See Uncoded 01/14/24 01:52 Comment) Home Medication ?Medication ?Instructions ?Recorded hydrochlorothiazide 25 mg tablet 25 mg PO DAILY 06/07/12 albuterol sulfate 90 mcg/actuation 2 puff inhalation Q6H PRN 05/25/21 aerosol inhaler (ProAir HFA) losartan 100 mg tablet (Cozaar) 50 mg PO DAILY 05/25/21 sertraline 25 mg tablet 25 mg PO DAILY 05/25/21 acetaminophen 500 mg tablet 500 mg PO Q6H PRN pain #60 tabs 03/01/22 ibuprofen 600 mg tablet 600 mg PO TID PRN pain #60 tabs 03/01/22 fluticasone propionate 44 2 puff inhalation BID 06/04/22 mcg/actuation HFA aerosol inhaler (Flovent HFA) Current Visit Medications: Current Medications Generic Name Dose Route Start Last Admin Trade Name Freq PRN Reason Stop Dose Admin Acetaminophen 1,000 mg 01/14/24 16:47 Acetaminophen 500 Mg Tab PO Q8H PRN PRN Abdominal Pain Albuterol Sulfate 2 puff 01/14/24 16:56 Albuterol Hfa 8 Gm 60 Puff Inh IH Q6H PRN PRN Device 1 each 01/14/24 17:00 Inhaler, Assist Device MC DIRECTED TIMMY Heparin Sodium (Porcine) 5,000 units 01/14/24 18:00 Heparin 5,000 Units/Ml Vial SC Q12H TIMMY Ringer's Solution 1,000 mls @ 75 mls/hr 01/14/24 17:00 01/14/24 21:37 IV 75 mls/hr INFUSION TIMMY Infusion Levofloxacin 750 mg in 150 mls @ 100 mls/hr 01/14/24 18:00 01/14/24 21:36 Levaquin Premixed Bag IVPB Infused Q24H TIMMY Infusion Acetaminophen 1,000 mg in 100 mls @ 400 mls/hr 01/15/24 03:40 01/15/24 04:10 Ofirmev IV Infused Q8H PRN PRN Infusion IV Miscellaneous Supplies 1 each 01/14/24 17:00 Iv Access IV DIRECTED TIMMY Indocyanine Green 5 mg 01/15/24 10:30 01/15/24 11:05 Indocyanine Green 25 Mg Vial IVP 01/15/24 18:00 5 mg PREOP TIMMY Administration Losartan Potassium 50 mg 01/15/24 08:30 01/15/24 10:39 Losartan 50 Mg Tab PO 50 mg DAILY TIMMY Administration Morphine Sulfate 2 mg 01/14/24 16:47 Morphine 2 Mg/Ml Syr IVP Q1H PRN PRN Ondansetron HCl 4 mg 01/14/24 16:47 Ondansetron 4 Mg/2 Ml Vial IVP Q4H PRN PRN Sertraline HCl 25 mg 01/15/24 08:30 01/15/24 10:39 Sertraline 25 Mg Tab PO 25 mg DAILY TIMMY Administration Sodium Chloride 0 ml 01/14/24 16:47 Normal Saline Flush 10 Ml Syr IVP PRN PRN Sodium Chloride 0 ml 01/14/24 20:00 01/15/24 07:50 Normal Saline Flush 10 Ml Syr IVP Not Given BID TIMMY Sodium Chloride 0 ml 01/14/24 16:47 Normal Saline 10 Ml Vial IJ DIRECTED PRN PFSH Active Problems Active Problems: Problem Status Onset Code Acute cholecystitis Acute K81.0 Right upper quadrant abdominal pain Acute R10.11 Abnormal mammogram of both breasts Acute R92.8 Osteopenia Acute M85.80 Hypertension Chronic I10 Obesity Chronic E66.9 Vitamin D deficiency Acute E55.9 Depression with anxiety Acute F41.8 Asthma, mild intermittent Acute J45.20 Hyperlipidemia Acute E78.5 GERD (gastroesophageal reflux disease) Chronic K21.9 Medical History Medical History Tobacco use Surgical History Surgical History History of section Left carpal tunnel syndrome S/P ECTR: 05/02/2022 Degenerative arthritis of carpometacarpal joint of thumb status post left trapezial resection arthroplasty with suture suspensionplasty on 03/01/22. Injection: 07/04/2021 H/O reduction mammoplasty H/O: hysterectomy Tobacco Smoking/Tobacco Use Status: Former Tobacco Use Alcohol Alcohol Intake: current Alcohol intake frequency: holidays/special occasions only Substance Use Substance use: Never Substance use type: does not use Vital Signs and Lab Results Vital Signs Most Recent Vital Signs in EMR: Most Recent Vital Signs Temp Pulse Resp BP Pulse Ox 37.2 C 79 16 137/68 92 01/15/24 11:16 01/15/24 11:16 01/15/24 11:16 01/15/24 11:16 01/15/24 11:16 Lab Results 01/14/24 01:15 01/14/24 01:15 Blood Type / Crossmatch: 2 No Data to Display Complete Blood Count: 2 White Blood Count 4.37 10^3/uL (4.4-10.8) L 01/14/24 01:15 Red Blood Count 4.85 10^6/uL (3.93-5.22) 01/14/24 01:15 Hemoglobin 14.1 g/dL (11.2-15.7) 01/14/24 01:15 Hematocrit 43.5 % (36.0-46.0) 01/14/24 01:15 Platelet Count 163 10^3/uL (130-400) 01/14/24 01:15 Complete Metabolic Panel: 2 Sodium 144 mmol/L (136-145) 01/14/24 01:15 Potassium 3.7 mmol/L (3.5-5.1) 01/14/24 01:15 Chloride 107 mmol/L (98-107) 01/14/24 01:15 Carbon Dioxide 31.3 mmol/L (21.0-32.0) 01/14/24 01:15 BUN 15 mg/dL (7-18) 01/14/24 01:15 Creatinine 0.9 mg/dL (0.55-1.02) 01/14/24 01:15 Est GFR (CKD-EPI 2020) 71.39 (mL/min/1.73m2) 01/14/24 01:15 Calcium 9.4 mg/dL (8.5-10.1) 01/14/24 01:15 Albumin 3.2 g/dL (3.4-5.0) L 01/15/24 06:10 Glucose 112 mg/dL (74-106) H 01/14/24 01:15 Liver Function Panel: 2 Alanine Aminotransferase (ALT/SGPT) 73 U/L (14-59) H 01/15/24 0 6:10 Aspartate Amino Transf (AST/SGOT) 28 U/L (15-37) 01/15/24 06:10 Coagulation Panel: 2 No Data to Display Cardiac Panel: 2 Troponin I 4 ng/L (<or=51) 01/14/24 Arterial Blood Gas: 2 No Data to Display Venous Blood Gas: 2 No Data to Display Pancreas Panel: 2 Lipase 62 U/L (16-77) 01/14/24 01:15 Thyroid Panel: 2 No Data to Display Infectious Disease: 2 No Data to Display Blood Cultures: 2 No Data to Display Toxicology Panel: 2 No Data to Display Imaging and Studies Imaging and Studies Study information below may be from another EMR and interpreted by another provider. Please see original notes in EMR for more complete details. EKG Summary: 01/14/24 Sinus rhythm...normal P axis, V-rate 60- 99 Physician: no significant ST elevation or depression, no Q waves. No STEMI I have reviewed and agree with the interpretation by the Physician Pulmonary Function Summary: 06/20/22 Moderate airflow obstruction with normal diffusion. This may represent COPD (chronic bronchitis) or poorly controlled asthma. Note: When compared to 07/19/2010, lung function has declined, even when accounting for aging. Clinical Correlation therefore is recommended. Anesthesia Assessment and Plan Anesthesia History Personal History: No History of Anesthesia Complications Family History: No Family History of Anesthesia Complications Exercise Tolerance Exercise Tolerance: Metabolic Equivalents>4 Pertinent Negatives Pertinent Negatives: No Symptoms of GERD, No Major Cardiovascular Symptoms or Complaints, No History of CVA/TIA and Other (Asthma - reports only using inhaler when sick, reports 1 week of upper respiratory symptoms, cough and nasal congestions. ) Cardiac & Pulmonary Exam Cardiac Exam: Normal S1/S2 Heart Sounds Pulmonary Exam: Wheezing Present Implantable Cardiac Device Does patient have a Pacemaker or an ICD?: No Airway Exam Known Difficult Airway: No Mallampati Class: 3 Mouth Opening: Normal (> 3cm) Thyromental Distance: Greater than 3 cm Neck Range of Motion: Full ROM Neck Circumference: Normal Teeth Condition: Generalized Poor Dentition (one missing) ASA Classification ASA Score: ASA 3 Emergency Case?: No NPO Status NPO Status: NPO Clears >2 hours, Solids >8 hours Anesthesia Plan Resuscitation Status: Full Code Anesthesia Technique: General Anesthesia Airway Planned: Endotracheal Tube Monitors Used: Standard Monitors and SedLine Preoperative Comments:: significant PMH: Obesity, GERD, HTN, Asthma, hyperlipids. acute upper respiratory illness x 1 week. Plan: GETA - TIVA w/ propofol infusion, adequate IV access, sedline, preoperative nebulizer
[2024-01-15] MEDS: Albuterol/Ipratropium 3 ML UPD VIAL UPD ×2 (12:05→15:46)
--- NOTE | 2024-01-15 13:20 | W.PM.PROGNOT ---
Date of Service Date of service: 01/15/24 Time of Service: 13:15 Assessment and Plan Assessment and plan (1) Hypertension: Status: Chronic (2) Hyperlipidemia: Status: Acute (3) Obesity: Status: Chronic (4) GERD (gastroesophageal reflux disease): Status: Chronic (5) Acute cholecystitis: Status: Acute Assessment and plan: Plan:? The patient is here today for laparoscopic cholecystectomy. The alternatives to surgery, risks, complications, and the possible need to convert to open cholecystectomy were discussed. Also bleeding, infection, pneumonia, blood clots, complications of anesthesia, damage to bowel, bladder, blood vessels, or bile ducts, liver, need for blood transfusions. Also: chronic pain, chronic diarrhea/post-paloma syndrome, reoccurrence of signs and symptoms, port site hernias, adhesions.? All questions were answered, and the patient elected to proceed with surgery. Also d/w pt dietary restrictions, (6) Asthma, mild intermittent: Status: Acute (7) Gallstones without obstruction of gallbladder: Status: Acute Subjective Subjective Interval history since last seen: Pt is doing better. no headaches. No CP or SOB. no productive cough. no dysuria. no leg pain or swelling. Not having any abdominal pain or nausea today. When she came into the ER she was having epigastric and chest pain with mild nausea. She has a she has a history of GERD/hypertension/asthma She is at had open history and a bilateral breast reduction. No problems with anesthesia she is allergic to penicillin and latex Exam Narrative Exam Narrative: PHYSICAL EXAM GENERAL APPEARANCE: Alert, healthy appearance, oriented, x 3,? in no acute distress HYDRATION: Well hydrated HEAD, EYES, EARS, NECK, THROAT: Head is normocephalic, pupils equal, round, reactive to light and accommodation, ocular movement intact, sclera clear and no jaundice. ?Dentition intact. LUNGS: normal respiration/normal chest excursion. ?Clear to auscultation bilaterally. ?No wheeze. ?HEART: Regular rate and rhythm. no murmurs ABDOMEN: soft and non-tender to palpation.? Normal bowel sounds.? No umbilical hernia. She has had a previous Pfannenstiel incision for open hysterectomy. She does not have any abdominal pain today Objective Last Vital Signs Temp 37.2 C 01/15/24 11:16 Pulse 79 01/15/24 11:16 Resp 16 01/15/24 11:16 BP 137/68 01/15/24 11:16 Pulse Ox 92 01/15/24 11:16 Laboratory Results - last 24 hr 01/15/24 06:10 Total Bilirubin 1.09 H Conjugated Bilirubin 0.4 H AST 28 ALT 73 H Alkaline Phosphatase 159 H Total Protein 6.1 L Albumin 3.2 L Time Spent with Patient Time Spent with Patient: <25 minutes Time was spent: preparing to see the patient(eg.review tests), obtaining and/or reviewing separately otained hiistory, ordering medications,tests, procedures, referring, communicating with other health critical care specialist, indepentently interpreting results, counseling the patient, care coordination and other
--- NOTE | 2024-01-15 13:42 | PHA.REVIEW2 ---
Pharmacy Admission Review Admission Clinical Review Admission Pharmacy Review: Gallstones without obstruction of gallbladder (Acute) Acute cholecystitis (Acute) Asthma, mild intermittent (Acute) Hyperlipidemia (Acute) latex Allergy (Mild, Verified 01/14/24 01:52) Skin Rash Penicillins Allergy (Verified 01/14/24 01:52) Unknown steroids Adverse Reaction (Severe, Uncoded 01/14/24 01:52) Other (See Comment) Resuscitation Status Full Code Height 5 ft 2 in Weight 95.3 kg Comments Comments/Follow Ups: POD#0 laparoscopic cholecystectomy, check on home meds and resuming heparin tomorrow if not done Pharmacy Admission Review Renal Dosing Renal Dosing: BUN 15 mg/dL (7-18) 01/14/24 01:15 Creatinine 0.9 mg/dL (0.55-1.02) 01/14/24 01:15 Medications needing adjustments: Reviewed (CrCl 61.17 mL/min) List of meds needing interventions: Current medications are okay Anticoagulation Anticoagulation: Hgb 14.1 g/dL (11.2-15.7) 01/14/24 01:15 Hct 43.5 % (36.0-46.0) 01/14/24 01:15 Plt Count 163 10^3/uL (130-400) 01/14/24 01:15 Creatinine 0.9 mg/dL (0.55-1.02) 01/14/24 01:15 DVT Prophylaxis: Reviewed Medications: Heparin (q12h - on hold, OR today) Opiate Usage Evaluate Pain Scale/Pains Meds: Reviewed (Morphine IVP PRN - no doses given) Scheduled Bowel Reg ordered if on Opiates?: No Relevant Labs Relevant Labs: Sodium 144 mmol/L (136-145) 01/14/24 01:15 Potassium 3.7 mmol/L (3.5-5.1) 01/14/24 01:15 Chloride 107 mmol/L (98-107) 01/14/24 01:15 Electrolytes, C-Reactive P, ESR: Reviewed (AST/ALT decreased from 95/176 to 73/159) Cardiac Review Cardiac Review: Troponin I Cancelled 01/14/24 04:17 BP, HR, EF%: Reviewed (HR and BP WNL) List meds needing interventions: Has order for losartan 50mg daily QTc Review QTc: Reviewed (417 from 01/14/24) IV to PO Switch IV Medications: Reviewed (APAP, levofloxacin, morphine and ondansetron) Home Meds Home Med List reviewed: Reviewed Relevent Home Meds Not ordered & why?: Flovent, HCTZ and ibuprofen (PRN) Will speak with provider regarding missing home meds if not added by tomorrow - patient in OR today and is NPO Current Meds Current Medication Order Review: Reviewed Pharmacy Antibiotic Review Relevant Labs: WBC 4.37 10^3/uL (4.4-10.8) L 01/14/24 01:15 Temperature 37.2 C Temperature 36.9 C Pharmacy Antibiotic Activity: Reviewed, no change Comments: Patient is on levofloxacin, day 1, for cholecystitis. Patient in OR today for laparoscopic cholecystectomy. No cultures pending. Comments Comments/Follow Ups: POD#0 laparoscopic cholecystectomy, check on home meds and resuming heparin tomorrow if not done
[2024-01-15] MEDS: Bupivacaine 0.25% Pres-Free W/EPI 30 ML VIAL (13:51)
--- NOTE | 2024-01-15 14:24 | GB_PTH ---
PATIENT: Gina Henderson LOC: [id number]#:[id number] AGE/SX: 63/F ROOM: RE01/14/[address]: Zoey Agosto : 1960 BED: A DIS: 01/16/2024 SPEC #: [id number] RECD: 01/15/24 18:26 STATUS: KRIS REQ #: [id number] CHRIS: 01/15/24 14:[address]: Zoey Agosto DEPT: Surgical Specimen RECD BY: Cammy Pozo ENTERED: 01/15/24 18:26 SP TYPE: GB OTHR DR: Qian Alejandra Tissues: 1 - GALLBLADDER Procedures: GROSS AND MICRO LEVEL 3 Comments: [id number]
--- NOTE | 2024-01-15 14:49 | DSE_ITS ---
Date of service: 01/15/24 Time of Service: 14:49 DS: Diagnosis Discharge Diagnosis (1) Hypertension: Status: Chronic (2) Hyperlipidemia: Status: Acute (3) Obesity: Status: Chronic (4) GERD (gastroesophageal reflux disease): Status: Chronic (5) Acute cholecystitis: Status: Acute (6) Asthma, mild intermittent: Status: Acute (7) Gallstones without obstruction of gallbladder: Status: Acute Discharge Plan Disposition Patient Disposition: Home Condition: Good Discharge Details Reason For Visit: acute paloma w/stones Admit Date/Time: 01/14/24 16:47 Admit Provider: Zoey Agosto Attending Provider: Zoey Agosto Primary Care Provider: Qian Alejandra Hospital Course Hospital Course: Patient was admitted on 12/2020 complaining of epigastric and chest pain and nausea. Acute cardiac disease was ruled out by the ED. She was found to have mild acute cholecystitis with gallstones. She was started on Cipro and Flagyl. She underwent complicated lap paloma on 01/14. She was kept overnight for pain control and she required IV pain medication for pain control. She is discharged home on 01/15. She is given instructions and wound care/activity/diet and warning signs. She is given a prescription for Levaquin Zofran and tramadol. She will follow-up in clinic on 01/30. Patient is discharged in stable and satisfactory condition. If she has any problems either contact the clinic or go to the ED. See discharge for specific instructions and medication and cares. Home Meds and New Rx's Prescriptions: New levofloxacin 500 mg tablet 500 mg PO DAILY 4 Days Qty: 4 0RF tramadol 50 mg tablet 50 mg PO Q4H PRNQty: 14 0RF ondansetron 4 mg tablet,disintegrating 4 mg PO DAILY PRN (Reason: nausea and vomiting) 4 Days Qty: 7 0RF Continued sertraline 25 mg tablet 25 mg PO DAILY albuterol sulfate [ProAir HFA] 90 mcg/actuation HFA aerosol inhaler 2 puff inhalation Q6H PRN hydrochlorothiazide 25 MG tablet 25 mg PO DAILY acetaminophen 500 mg tablet 500 mg PO Q6H PRN (Reason: pain) Qty: 60 2RF ibuprofen 600 mg tablet 600 mg PO TID PRN (Reason: pain) Qty: 60 0RF fluticasone propionate [Flovent HFA] 44 mcg/actuation HFA aerosol inhaler 2 puff INHALATION BID Patient Comments: INHALE TWO PUFFS BY MOUTH TWICE A DAY losartan 50 mg tablet 50 mg PO DAILY Patient Comments: TAKE ONE TABLET BY MOUTH EVERY DAY Discharge Instructions Additional Instructions: Care after Gallbladder Surgery -Pain control: ?For the first 72 hours after surgery, take your pain meds continuously, and not just when you have pain.?? Alternate Tylenol 1000mg by mouth every 8 hours, and Ibuprofen 600mg every 6 hours.? Make sure you take ibuprofen with food and not on an empty stomach.? ??Use the tramadol for breakthrough pain- pain that is greater than a 7. ?- Use ICE! Ice really helps to keep the swelling down, and swelling causes pain. ??Twenty minutes on, and then off, continuously for the first 72hours.? After the first 72hrs, you can just use the Tylenol, ibuprofen or Celebrex, and ice, when you have pain.?? If you are taking narcotic pain medication, follow the instructions on the label and do not drive. Pain medications can make you very constipated. Make sure you are moving your bowels daily. If not, take Jorge alax. - Anesthesia makes you very constipated.? Take a dose of Miralax the morning after surgery. ? Use an ice bag for the first 72 hours. This helps to decrease swelling, which causes pain. It is normal to be more sore/painful and swollen towards the end of the day and first thing in the morning. ? Gallbladder surgery can make you very nauseated; use Zofran for nausea, for the first 24 hours. The nausea generally stops after 24 hours. ? Use Miralax or prune juice to prevent constipation (this is a particular side effect of pain medication and anesthesia). Do not allow yourself to become constipated. ? Avoid fatty or greasy foods; introduce these slowly, with care, after about 1 month. High-fat foods include: ? Foods that are fried, like [place]oc[place] fries and potato chips ? High-fat meats, such as cai, bologna, sausage, ground beef, and ribs, pork products ? High-fat dairy products, such as cheese, ice cream, cream, whole milk, and sour cream ? Pizza ? Foods made with lard or butter ? Creamy soups or sauces ? Meat gravies ? Chocolate ? Oils, such as palm and coconut oil ? Skin of chicken or turkey ? Nuts and nut butters ? Avocadoes ? Start out eating very small, bland amounts of food. Do not take pain pills on an empty stomach. - You will notice purple discoloration around the incisions.? This is the ?skin glue?.? This will wear off on its own.? It is OK to shower after 24hrs.? You do not need to cover the incisions. -You should walk frequently, gradually, increasing the distance. You may climb stairs, just go slowly. ? Do not go swimming or sit in a hot tub for two weeks. ? There are no stitches to remove. ? Do not drive your car x72hrs and then only if you have no pain and can move freely. Do not drive if you are taking pain narcotic pain medications. ? You may resume sexual activity whenever pain and soreness subside, usually in 2 weeks. ? Do no lift anything over 5 lbs. for two weeks. ? You may return to work in one week, or when you feel able, provided you do not have to do any heavy lifting or prolonged standing. ? You should return to Dr. Agosto?s office for a post-op appointment about two weeks after surgery. F/u appt: 01/30 @ 10am w/ Dr. Agosto. Surgical [facility] at: [phone] My Medications for pain and nausea are: Tylenol/ibuprofen ?and ultram- for severe pain ?and Zofran-nausea levaquin- antibiotic for 4 days. When to Call the Office: ? If the incision becomes red or swollen, or there is more than a little drainage from it. ? If you develop a temperature higher than 100.5 F. ? If your eyes turn yellow ? Vomiting and can?t keep fluids down Activity:: see above Equipment/Supplies:: No Equipment Needed Diet:: low fat DS: Summary Time Spent with Patient providing and/or coordinating discharge services: Less than 30 minutes Status at Discharge Functional status at discharge: independent ambulation Overall status at discharge: patient is progressing back to baseline Mental Status: mental status grossly normal Speech and Movement: speech and movement normal Mood: congruent mood Affect: normal affect Quality:SDOH Health Related Social Needs: No Data to Display Exam Psych Mental Status: mental status grossly normal Speech and Movement: speech and movement normal Mood: congruent mood Affect: normal affect DS: Data Vitals/I&O Vitals and I&O: Vital Signs Temperature 37.2 C 01/15/24 11:16 Temperature Source Tympanic 01/15/24 11:16 Pulse 79 01/15/24 11:16 Pulse Rhythm Regular 01/14/24 18:15 Pulse 73 01/14/24 15:31 Respiratory Rate 16 01/15/24 11:16 Respiratory Effort Normal 01/14/24 18:15 Respiratory Depth Normal 01/14/24 18:15 Respiratory Pattern Normal 01/14/24 18:15 Blood Pressure 137/68 01/15/24 11:16 Blood Pressure Mean 82 01/14/24 15:30 Pulse Oximetry 92 01/15/24 11:16 Oxygen Delivery Method Room Air 01/15/24 11:16 Oxygen Flow Rate 0 01/15/24 11:16 Pain Level 0 01/15/24 11:16 Intake & Output 01/14/24 01/15/24 01/15/24 23:59 11:59 23:59 Intake Total 661.25 / 1061.25 100 / 600 500 / 600 Output Total 450 / 450 350 / 400 50 / 400 Balance 211.25 / 611.25 -250 / 200 450 / 200 Weight 95.3 kg 95.3 kg Intake: IV 261.25 / 661.25 100 / 600 500 / 600 Oral 400 / 400 Output: Urine 450 / 450 350 / 400 50 / 400 Other: Urine Color Light Clemencia Yellow Yellow Urine Appearance Clear Clear Clear Urine Odor Normal Normal Comment voided in toilet Data Completed and Pending Labs on day of discharge: Labs from last 24 hours 01/15/24 06:10 Total Bilirubin 1.09 H Conjugated Bilirubin 0.4 H AST 28 ALT 73 H Alkaline Phosphatase 159 H Total Protein 6.1 L Albumin 3.2 L PFSH All Active Problems (Updated 01/15/24 @ 13:24 by Zoey Agosto DO) Gallstones without obstruction of gallbladder (Acute) Acute cholecystitis (Acute) Right upper quadrant abdominal pain (Acute) Abnormal mammogram of both breasts (Acute) Osteopenia (Acute) Hypertension (Chronic) Obesity (Chronic) Vitamin D deficiency (Acute) Depression with anxiety (Acute) Asthma, mild intermittent (Acute) Hyperlipidemia (Acute) GERD (gastroesophageal reflux disease) (Chronic) Medical History Tobacco use Surgical History History of section Left carpal tunnel syndrome S/P ECTR: 05/02/2022 Degenerative arthritis of carpometacarpal joint of thumb status post left trapezial resection arthroplasty with suture suspensionplasty on 03/01/22. Injection: 07/04/2021 H/O reduction mammoplasty H/O: hysterectomy Social History Smoking/Tobacco Use Status: Former Tobacco Use Quit Date: 03/26/91 Smoking risk assessment performed?: Yes Alcohol Intake: current Alcohol Intake frequency: holidays/special occasions only Drug use: Never Substance use type: does not use Housing: house Do you feel safe at home: Yes Do you feel safe in your relationship?: Yes Time Spent with Patient Time Spent with Patient: <45 minutes Time was spent: preparing to see the patient(eg.review tests), obtaining and/or reviewing separately otained hiistory, ordering medications,tests, procedures, referring, communicating with other health direct support professional caregiver, indepentently interpreting results, counseling the patient, care coordination and other
--- NOTE | 2024-01-15 15:00 | INITIAL_ITS ---
Date of service: 01/15/24 Time of Service: 13:00 Care Management Initial Assmt Initial Assessment Reason for Hospitalization: acute cholecystitis with stones. Functional Status/Living Situation Patient Presentation: Gina was already in surgery when CM attempted to meet with her early this afternoon. She had not returned as of 1707. CM will complete the interview tomorrow. Town of Residence: [place] Resides with: Spouse (Karlo) Instrumental Activities of Daily Living (ADLs): Independent Advance Directives Advance Directives: Do you have an Advance Directive: N 06/04/12 16:16 AD On File at [facility]: N 05/21/12 17:55 Date Asked 01/14/24 01/14/24 01:44 AD Date Reviewed COLST On File at [facility] COLST Date Scanned Code Status Resuscitation Status Full Code Insurance Coverage/Financial Issues Insurance: [facility] Team Visit Care Team Role Provider Type Qian Alejandra Primary Care Provider NURSE PRACTITIONER Lc Diaz DO Emergency Provider [facility] STAFF PHYSICIAN Zoey Agosto DO Admit Provider OSTEOPATHIC DOCTOR Attending Provider Discharge Potential Discharge Needs: PCP F/U Appt and Surgical F/U Appt Anticipated Barriers to Discharge: None Identified Patient/Family Education Needs: Review discharge instructions, discuss Ask Me Three Transportation: Private vehicle Plan: Anticipate that Gina will be discharged home with no new services. She will f/u with the surgeon and likely her PCP and continue per the prescribed plan of care. Gina will transport home in a private vehicle with her family. CM will continue to monitor and update the plan as needed. PFSH All Active Problems (Updated 01/15/24 @ 13:24 by Zoey Agosto DO) Gallstones without obstruction of gallbladder (Acute) Acute cholecystitis (Acute) Right upper quadrant abdominal pain (Acute) Abnormal mammogram of both breasts (Acute) Osteopenia (Acute) Hypertension (Chronic) Obesity (Chronic) Vitamin D deficiency (Acute) Depression with anxiety (Acute) Asthma, mild intermittent (Acute) Hyperlipidemia (Acute) GERD (gastroesophageal reflux disease) (Chronic) Medical History Tobacco use Surgical History History of section Left carpal tunnel syndrome S/P ECTR: 05/02/2022 Degenerative arthritis of carpometacarpal joint of thumb status post left trapezial resection arthroplasty with suture suspensionplas ty on 03/01/22. Injection: 07/04/2021 H/O reduction mammoplasty H/O: hysterectomy Social History Smoking/Tobacco Use Status: Former Tobacco Use Quit Date: 03/26/91 Smoking risk assessment performed?: Yes Alcohol Intake: current Alcohol Intake frequency: holidays/special occasions only Drug use: Never Substance use type: does not use Housing: house Do you feel safe at home: Yes Do you feel safe in your relationship?: Yes Readmission Within the Past 30 Days Yes or No: No SDOH(Care Management) Screening Will the Patient Participate in the Screening?: Yes Do you worry about having a steady place to live?: no In the past 12 months, have you had to go without electric, gas, oil or water in your home?: no Have you or anyone in your house had to go without enough food to eat?: no Has lack of transportation kept you from medical appointments or from doing things needed for daily living?: no Has anyone in your support network made you feel unsafe for any reason?: no
--- NOTE | 2024-01-15 15:10 | ROE_ITS ---
Date of service: 01/15/24 Time of Service: 15:10 Operative Note Operative Note DATE OF PROCEDURE: 01/15/24 PRE-OP DIAGNOSIS: acute paloma w/ stones POST-OP DIAGNOSIS: same PROCEDURE: lap paloma SURGEON: Zoey Bae DIGITAL MARKETER: Yolande Kohler ANESTHESIA TYPE: Local By Surgeon and General LMA/ETT Refer to Anesthesia Record ESTIMATED BLOOD LOSS: 10 COMPLICATIONS: None Patient was transported to: PACU Patient's condition: stable Procedure Description: The patient agrees and is brought to the operative room suite and placed in supine position. Pt receives IV ICG preOp to aid w/ bile duct visualization.? Anesthesia was administered per the Department of Anesthesia. The patient did receive IV antibiotics. NG tube and Pierce catheter are placed. The patient was prepped and draped in the usual sterile fashion using DuraPrep scrub solution. Pause for the cause was done. 20 mL of 1% buffered lidocaine was used for local anesthetization. A stab incision was made in the umbilicus and the Verres inserted. Drop test was positive and insufflation was begun. When 15 mm of pressure was noted on the monitor, the Veress was removed and #5 port inserted. The camera was inserted through the port and shows no damage to underlying structures. A 10 mm port was then placed in the epigastric position under direct visualization following creation of local field blocks as well as two 5 mm ports in the right upper quadrant. The camera was moved to one of the secondary ports so we could view the umbilical trocar site, and there is are no hernias or adhesions. The gallbladder fundus was grasped and retracted towards the right shoulder. Infundibulum was grasped and retracted laterally. The hepat-duodenal ligament is entered. The cystic duct and artery are dissected out and the most inferior portion of the gallbladder plate is removed from the liver and the critical view of safety was obtained after clearing away all fatty material. Endo Clips were placed across the duct and artery and these structures are divided. The remainder of the gallbladder was excised from the liver bed. The gallbladder was placed in a bag and brought out. Examination of the gallbladder shows indeed the cystic duct and artery to have been divided. The remainder of the abdomen was copiously irrigated with a liter of saline. All saline is removed. Slip Floseal is placed in the liver bed to facilitate hemostasis. There is no bleeding or bile leakage from the liver bed or the clips sites. An EndoClose needle was used to close the 10 mm port site with an 0 Vicryl. All ports and instruments are removed. SPonge and needle counts are correct. Pneumoperitoneum is evacuated and the port sites are monitored to make sure there is no bleeding at the time of desufflation. ??Port sites are irrigated and the skin is closed with 4-0 Monocryl in a running subcuticular fashion. Skin glue sterile dressings are applied. The patient tolerated the procedure well wit hout complications, transferred to the recovery room in stable condition. ZOEY BAE, DO
[2024-01-15] MEDS: HYDROmorphone 1 MG/ML SYR IVP ×3 (15:51→16:37)
--- NOTE | 2024-01-15 16:24 | PGE_ITS ---
Date of Service Date of service: 01/15/24 Time of Service: 16:24 Assessment and Plan Assessment and plan (1) Hypertension: Status: Chronic (2) Hyperlipidemia: Status: Acute (3) Obesity: Status: Chronic (4) GERD (gastroesophageal reflux disease): Status: Chronic (5) Acute cholecystitis: Status: Acute (6) Gallstones without obstruction of gallbladder: Status: Acute Assessment and plan: The patient is doing well post-op. Their pain is well controlled. They are having no nausea or vomiting. The pt is not having any chest pain or SOB, productive cough; no calf pain or swelling. The pt is making good urine. The pt pain is adequately controlled. The case was discussed with nursing and patient?s progress reviewed. All of the pt's home medications were addressed and adjusted accordingly for their oral intact status. HEENT: no jaundice. no eye pain/drainage/redness/swelling. Mild sore throat Cardio- NSR no chest pain, BP stable. Pulm: no sob or productive cough. no hemoptysis Incision- clean/dry. Dressing intact no excessive bleeding or drainage I discussed with the patient and/or there family about the findings in surgery and the pt's progress. We reviewed expectations for progress in the hospital; what the pt could expect for recovery time and length of stay. We discussed the importance of walking and pulmonary toilet to avoid blood clots and pneumonia. Continue current plans for pulmonary toilet, GI and DVT prophylaxis. Appropriate measures will be taken for constipation prevention, and this was also reviewed with the pt. The wound care plan was reviewed with nursing as well. Pt c/o A. pain. adjusted pain plan. pt doesn't think she will be able to go home today. d/c summary completed and rx replaced. see orders (7) Asthma, mild intermittent: Status: Acute Objective Last Vital Signs Temp 36.6 C 01/15/24 16:15 Pulse 68 01/15/24 15:56 Resp 16 01/15/24 15:56 BP 115/59 L 01/15/24 15:56 Pulse Ox 95 01/15/24 15:56 Laboratory Results - last 24 hr 01/15/24 06:10 Total Bilirubin 1.09 H Conjugated Bilirubin 0.4 H AST 28 ALT 73 H Alkaline Phosphatase 159 H Total Protein 6.1 L Albumin 3.2 L Time Spent with Patient Time Spent with Patient: 25-34 minutes Time was spent: preparing to see the patient(eg.review tests), obtaining and/or reviewing separately otained hiistory, ordering medications,tests, procedures, referring, communicating with other health child care counselor, indepentently interpreting results, counseling the patient, care coordination and other
--- NOTE | 2024-01-15 17:16 | PDOC.ANES ---
Date of service: 01/15/24 Time of Service: 17:16 Anesthesia Note Report Anesthesia Note: Pt doing well in PACU. Discomfort is tolerable. Pt. had cold/URI prior to procedure today. She received preop Duoneb and intraop albuterol with good effect. No wheezes now, awake, and able to take deep breaths but requires NC oxygen between 4-6 LPM to maintain [id number]%. No cough, SOB or chest discomfort. Have discussed with surgeon and RT and will send patient to Medical floor where high flow cannula will be started.
[2024-01-15] MEDS: levoFLOXacin 750 MG/150 ML BAG 100 MG IVPB (18:13)
[2024-01-15] MEDS: Albuterol HFA 8 GM 60 PUFF INH IH (20:14)
[2024-01-15] MEDS: Normal Saline Flush 10 ML SYR IVP (21:35)
[2024-01-15] MEDS: Mometasone 220 MCG 14 DOSE INHALER 2 PUFF IH (21:36)
[2024-01-16] MEDS: Albuterol HFA 8 GM 60 PUFF INH IH ×2 (02:14→07:51)
[2024-01-16] MEDS: traMADol 50 MG TAB PO (04:29)
[2024-01-16 04:31] VITALS: BP 125/66; PULSE 61; RESP 18; TEMP 36.2; O2SAT 96
[2024-01-16] MEDS: Heparin 5,000 UNITS/ML VIAL 5000 UNITS SC (06:34)
[2024-01-16 07:25] VITALS: BP 125/60; PULSE 61; RESP 15; TEMP 36.9; O2SAT 95
[2024-01-16] MEDS: Mometasone 220 MCG 14 DOSE INHALER 2 PUFF IH (07:51)
[2024-01-16 07:55] VITALS: O2SAT 95
[2024-01-16 08:29] VITALS: O2SAT 93
[2024-01-16] MEDS: Sertraline 25 MG TAB PO (09:18)
[2024-01-16] MEDS: Polyethylene Glycol 3350 17 GM PACKET PO (09:18)
[2024-01-16] MEDS: Normal Saline Flush 10 ML SYR IVP ×2 (09:18→09:19)
[2024-01-16] MEDS: Losartan 50 MG TAB PO (09:18)
--- NOTE | 2024-01-16 09:57 | PGE_ITS ---
Date of Service Date of service: 01/16/24 Time of Service: 09:57 Assessment and Plan Assessment and plan (1) Hypertension: Status: Chronic (2) Hyperlipidemia: Status: Acute (3) Obesity: Status: Chronic (4) GERD (gastroesophageal reflux disease): Status: Chronic (5) Acute cholecystitis: Status: Acute (6) Gallstones without obstruction of gallbladder: Status: Acute Assessment and plan: Progress diet as tolerated Increased activity, ambulation and sitting in the chair. Pain is well controlled at this time. Incisions are clean and well approximated. Possible d/c home later today. (7) Asthma, mild intermittent: Status: Acute Subjective Subjective Interval history since last seen: Patient reports having some RUQ pain, that increases with transfers and ambulation. She denies any nausea or vomiting. She states she tolerated clear liquids well last night. She is eager to go home. Exam Const General: cooperative, healthy appearing and comfortable Orientation: alert and oriented x3 Resp Effort & Inspection: normal respiratory effort, no audible wheezes and no cough GI Other: Incisions are well approximated. Skin a fix in place. Ecchymosis noted around th e umbilical incision site. Objective Last Vital Signs Temp 36.9 C 01/16/24 08:05 Pulse 61 01/16/24 08:05 Resp 15 01/16/24 08:05 BP 125/60 01/16/24 08:05 Pulse Ox 93 01/16/24 08:29 Time Spent with Patient Time Spent with Patient: <25 minutes Time was spent: preparing to see the patient(eg.review tests), obtaining and/or reviewing separately otained hiistory and counseling the patient
--- NOTE | 2024-01-16 10:23 | W.PM.DS.N ---
Date of service: 01/16/24 Time of Service: : DS: Diagnosis Discharge Diagnosis (1) Hypertension: Status: Chronic (2) Hyperlipidemia: Status: Acute (3) Obesity: Status: Chronic (4) GERD (gastroesophageal reflux disease): Status: Chronic (5) Acute cholecystitis: Status: Acute Asessment and Plan: Postop day 1 from laparoscopic cholecystectomy. She is doing well and can be discharged home. (6) Gallstones without obstruction of gallbladder: Status: Acute (7) Asthma, mild intermittent: Status: Acute Discharge Plan Disposition Patient Disposition: Home Condition: Good Discharge Details Reason For Visit: acute paloma w/stones Admit Date/Time: 01/14/24 16:47 Admit Provider: Zoey Agosto Attending Provider: Zoey Agosto Primary Care Provider: Qian Alejandra [facility] Course Hospital Course: Patient was admitted on 12/2020 complaining of epigastric and chest pain and nausea. Acute cardiac disease was ruled out by the ED. She was found to have mild acute cholecystitis with gallstones. She was started on Cipro and Flagyl. She underwent complicated lap paloma on 01/14. She was kept overnight for pain control and she required IV pain medication for pain control. She is discharged home on 01/15. She is given instructions and wound care/activity/diet and warning signs. She is given a prescription for Levaquin Zofran and tramadol. She will follow-up in clinic on 01/30. Patient is discharged in stable and satisfactory condition. If she has any problems either contact the clinic or go to the ED. See discharge for specific instructions and medication and cares. Home Meds and New Rx's Prescriptions: New levofloxacin 500 mg tablet 500 mg PO DAILY 4 Days Qty: 4 0RF tramadol 50 mg tablet 50 mg PO Q4H PRNQty: 14 0RF ondansetron 4 mg tablet,disintegrating 4 mg PO DAILY PRN (Reason: nausea and vomiting) 4 Days Qty: 7 0RF Continued sertraline 25 mg tablet 25 mg PO DAILY albuterol sulfate [ProAir HFA] 90 mcg/actuation HFA aerosol inhaler 2 puff inhalation Q6H PRN hydrochlorothiazide 25 MG tablet 25 mg PO DAILY acetaminophen 500 mg tablet 500 mg PO Q6H PRN (Reason: pain) Qty: 60 2RF ibuprofen 600 mg tablet 600 mg PO TID PRN (Reason: pain) Qty: 60 0RF fluticasone propionate [Flovent HFA] 44 mcg/actuation HFA aerosol inhaler 2 puff INHALATION BID Patient Comments: INHALE TWO PUFFS BY MOUTH TWICE A DAY losartan 50 mg tablet 50 mg PO DAILY Patient Comments: TAKE ONE TABLET BY MOUTH EVERY DAY Discharge Instructions Additional Instructions: Care after Gallbladder Surgery -Pain control: ?For the first 72 hours after surgery, take your pain meds continuously, and not just when you have pain.?? Alternate Tylenol 1000mg by mouth every 8 hours, and Ibuprofen 600mg every 6 hours.? Make sure you take ibuprofen with food and not on an empty stomach.? ??Use the tramadol for breakthrough pain- pain that is greater than a 7. ?- Use ICE! Ice really helps to keep the swelling down, and swelling causes pain. ??Twenty minutes on, and then off, continuously for the first 72hours.? After the first 72hrs, you can just use the Tylenol, ibuprofen or Celebrex, and ice, when you have pain.?? If you are taking narcotic pain medication, follow the instructions on the label and do not drive. Pain medications can make you very constipated. Make sure you are moving your bowels daily. If not, take Miralax. - Anesthesia makes you very constipated.? Take a dose of Miralax the morning after surgery. ? Use an ice bag for the first 72 hours. This helps to decrease swelling, which causes pain. It is normal to be more sore/painful and swollen towards the end of the day and first thing in the morning. ? Gallbladder surgery can make you very nauseated; use Zofran for nausea, for the first 24 hours. The nausea generally stops after 24 hours. ? Use Miralax or prune juice to prevent constipation (this is a particular side effect of pain medication and anesthesia). Do not allow yourself to become constipated. ? Avoid fatty or greasy foods; introduce these slowly, with care, after about 1 month. High-fat foods include: ? Foods that are fried, like Thai fries and potato chips ? High-fat meats, such as cai, bologna, sausage, ground beef, and ribs, pork products ? High-fat dairy products, such as cheese, ice cream, cream, whole milk, and sour cream ? Pizza ? Foods made with lard or butter ? Creamy soups or sauces ? Meat gravies ? Chocolate ? Oils, such as palm and coconut oil ? Skin of chicken or turkey ? Nuts and nut butters ? Avocadoes ? Start out eating very small, bland amounts of food. Do not take pain pills on an empty stomach. - You will notice purple discoloration around the incisions.? This is the ?skin glue?.? This will wear off on its own.? It is OK to shower after 24hrs.? You do not need to cover the incisions. -You should walk frequently, gradually, increasing the distance. You may climb stairs, just go slowly. ? Do not go swimming or sit in a hot tub for two weeks. ? There are no stitches to remove. ? Do not drive your car x72hrs and then only if you have no pain and can move freely. Do not drive if you are taking pain narcotic pain medications. ? You may resume sexual activity whenever pain and soreness subside, usually in 2 weeks. ? Do no lift anything over 5 lbs. for two weeks. ? You may return to work in one week, or when you feel able, provided you do not have to do any heavy lifting or prolonged standing. ? You should return to Dr. Agosto?s office for a post-op appointment about two weeks after surgery. F/u appt: 01/30 @ 10am w/ Dr. Agosto. Surgical Clinic at: [phone] My Medications for pain and nausea are: Tylenol/ibuprofen ?and ultram- for severe pain ?and Zofran-nausea levaquin- antibiotic for 4 days. When to Call the Office: ? If the incision becomes red or swollen, or there is more than a little drainage from it. ? If you develop a temperature higher than 100.5 F. ? If your eyes turn yellow ? Vomiting and can?t keep fluids down Activity:: see above Equipment/Supplies:: No Equipment Needed Diet:: low fat DS: Summary Time Spent with Patient providing and/or coordinating discharge services: Less than 30 minutes Status at Discharge Functional status at discharge: independent ambulation Overall status at discharge: patient is progressing back to baseline Mental Status: mental status grossly normal Speech and Movement: speech and movement normal Mood: congruent mood Affect: normal affect Quality:SDOH Health Related Social Needs: No Data to Display Exam Psych Mental Status: mental status grossly normal Speech and Movement: speech and movement normal Mood: congruent mood Affect: normal affect DS: Data Vitals/I&O Vitals and I&O: Vital Signs Temperature 98.4 F 01/16/24 08:05 Temperature Source Skin 01/16/24 08:05 Pulse 61 01/16/24 08:05 Pulse Rhythm Regular 01/14/24 18:15 Pulse 70 01/15/24 16:17 Respiratory Rate 15 01/16/24 08:05 Respiratory Effort Normal 01/14/24 18:15 Respiratory Depth Normal 01/14/24 18:15 Respiratory Pattern Normal 01/14/24 18:15 Blood Pressure 125/60 01/16/24 08:05 Blood Pressure Mean 83 01/15/24 16:16 Pulse Oximetry 93 01/16/24 08:29 Respiratory End-tidal CO2 44 01/15/24 16:17 Oxygen Delivery Method Room Air 01/16/24 08:29 Oxygen Flow Rate 0 01/16/24 08:29 Pain Level 5 01/16/24 08:05 Comment MAP = 83 01/16/24 04:31 Comment INCENTIVE SPIROMETRY COACHED. 01/15/24 16:07 Intake & Output 01/15/24 01/15/24 01/16/24 11:59 23:59 11:59 Intake Total 100 / 1348.75 1248.75 / 1348.75 Output Total 350 / 800 450 / 800 775 / 775 Balance -250 / 548.75 798.75 / 548.75 -775 / -775 Weight 210 lb 1.608 oz Intake: IV 100 / 1348.75 1248.75 / 1348.75 Output: Urine 350 / 800 450 / 800 775 / 775 Other: Urine Color Yellow Light Clemencia Light Clemencia Urine Appearance Clear Clear Clear Urine Odor Normal None Comment voided in toilet Emesis Description None PFSH All Active Problems (Updated 01/15/24 @ 13:24 by Zoey Agosto DO) Gallstones without obstruction of gallbladder (Acute) Acute cholecystitis (Acute) Right upper quadrant abdominal pain (Acute) Abnormal mammogram of both breasts (Acute) Osteopenia (Acute) Hypertension (Chronic) Obesity (Chronic) Vitamin D deficiency (Acute) Depression with anxiety (Acute) Asthma, mild intermittent (Acute) Hyperlipidemia (Acute) GERD (gastroesophageal reflux disease) (Chronic) Medical History Tobacco use Surgical History History of section Left carpal tunnel syndrome S/P ECTR: 05/02/2022 Degenerative arthritis of carpometacarpal joint of thumb status post left trapezial resection arthroplasty with suture suspensionplasty on 03/01/22. Injection: 07/04/2021 H/O reduction mammoplasty H/O: hysterectomy Social History Smoking/Tobacco Use Status: Former Tobacco Use Quit Date: 03/26/91 Smoking risk assessment performed?: Yes Alcohol Intake: current Alcohol Intake frequency: holidays/special occasions only Drug use: Never Substance use type: does not use Housing: house Do you feel safe at home: Yes Do you feel safe in your relationship?: Yes Time Spent with Patient Time Spent with Patient: <45 minutes Time was spent: preparing to see the patient(eg.review tests), obtaining and/or reviewing separately otained hiistory, ordering medications,tests, procedures, referring, communicating with other health career services manager, indepentently interpreting results, counseling the patient, care coordination and other
--- NOTE | 2024-01-16 16:58 | W.ANESPOSTOP ---
Postoperative Evaluation Date, Time and Location Date Performed: 01/16/24 Time Performed: 16:59 Patient Location: Other (Attempted to contact Miss Henderson via phone, neither contact number in service. ) Vital Signs Most Recent Imported Vital Signs: Most Recent Vital Signs Temp Pulse Resp BP Pulse Ox 36.9 C 61 15 125/60 93 01/16/24 07:25 01/16/24 07:25 01/16/24 07:25 01/16/24 07:25 01/16/24 08:29 Pain Score Most Recent Pain Score: Most Recent Pain Score Pain Level [Abdomen] 5 01/16/24 04:39 Pain Level 5 01/16/24 07:25 Assessment Mental Status: Other Airway and Respiratory Function: Other Cardiovascular Function: Other Hydration Status: Adequately Hydrated Nausea & Vomiting: No Nausea or Vomiting Pain: Pain is tolerable per patient Peripheral Nerve Block: Patient did not receive a nerve block Postoperative Comments:: Patient discharged prior to being seen by anesthesia today, attempted to call x 2, see note above. Per nursing documentation and provider documentation pt doing well and appropriate for DC.
--- NOTE | 2024-01-16 17:26 | PDOC.CMDIS ---
Date of service: 01/16/24 Time of Service: 10:00 LACE Index Scoring Tool Questions: Length of Stay (in days): 2 Was the patient admitted via the E.D.?: Yes E.D. Visits: 2 Answers: Total Score: 7 Risk of Readmission: Low Risk Care Management Discharge Plan Reason for Hospitalization: acute cholecystitis with stones s/p lap choly Discharge Plan: Rae was discharged home this morning with no orders for new services. She was given excellent discharge instructions by the surgeon and denies any questions. She will f/u with her PCP on 01/16 and the surgeon on 01/30. She will continue per her prescribed plan of care and transport home with her . Patient/Family Education Needs: Review of discharge instructions, activity, limitations, and f/u plan. Discuss ask me 3. SDOH Health Related Social Needs: No Data to Display
== END 2024-01-16 12:01 | disposition home or self-care (01) | DRG 419 ==
LOC: ER 17:10 → MS 01-15 07:07
PROVIDERS: Admitting Provider Surgery; Emergency Provider Student in an Organized Health Care Education/Training Program; PCP Nurse Practitioner Family; Visit Provider Surgery
PROC: 0FT44ZZ Resection of Gallbladder, Percutaneous Endoscopic Approach (ICD-10-PCS; CPT 47562; principal; 2024-01-15 11:30)
DX: K80.12 Calculus of gallbladder with acute and chronic cholecystitis without obstruction (principal); I10 Essential (primary) hypertension; E78.5 Hyperlipidemia, unspecified; E66.9 Obesity, unspecified; K21.9 Gastro-esophageal reflux disease without esophagitis; Z68.38 Body mass index [BMI] 38.0-38.9, adult; J45.20 Mild intermittent asthma, uncomplicated; M85.80 Other specified disorders of bone density and structure, unspecified site; E55.9 Vitamin D deficiency, unspecified; F41.8 Other specified anxiety disorders
CPT/HCPCS: 47562; 00123; 36415; 74177; 80053; 80076; 83690; 93005; 94640; 96365; 96367; 96372; 96375; 96376; 99285; 71260; 84484; 85025; 88304; 93010; 94664; G0378; J0131; J0744; J1100; J1171; J1644; J1836; J1885; J1956; J2270; J2405; J2704; J3475; J3490; J7620

== ENCOUNTER 2024-01-17 11:54 | Observation (INO) | payer OTHER, SELFPAY ==
[2024-01-17] VITALS (63 sets, daily range): BP systolic 130–158; BP diastolic 39–84; PULSE 68–87; RESP 9–26; TEMP 36.1–36.7; O2SAT 85–100
--- NOTE | 2024-01-17 11:45 | RT.EKG_ITS ---
APPROVED REPORT Exam: Resting ECG Reason for Exam: chest pain/sob Patient Location: E HR:77 bpm ECG Measurements Heart Rate 77 AXIS [place] 157 P 61 QRSd 78 QRS 27 QT 351 T 62 QTc 398 Conclusion Sinus rhythm...normal P axis, V-rate 60- 99 ST elevation, consider inferior injury...ST >0.08mV, II III aVF
--- OUTSIDE RECORDS SUMMARY | 2024-01-17 11:59 | XMS_ITS | Encounter Summary ---
Author Organization [facility] Address [address] [place] [address] Care Team Providers Care Core Man Name Role Phone Unavailable Primary Care Provider Unavailabl e Encounter Details Date Type Department Care Team (Late st Contact Info) Description 06/29/2006 Results Only [facility] conversion [address] [place] [address] Amara Arzola, [facility] [address] [place] [address] Social History Tobacco Use Types [...] ? GINA HENDERSON ? Accession #: ? [id number] : ? 1960 (Age: 46) ??F ?Collect Date: ? 06/29/2006 Location: ? [facility] ? Receive Date: ? 07/03/2006 Provider: ?AMARA ARZOLA SHOPPER Copy to: ? Specimen/Source: ?ThinPrep Pap Test, Cervix Scar, processed on Hapten SciencesPrep Imaging System, with manual evaluation Last Menstrual [...] Arzola NP PATHOLOGY ORDERABLES [facility] [address] [place] [address] documented in this encounter Visit Diagnoses Not on filedocumented in this encounter
--- OUTSIDE RECORDS SUMMARY | 2024-01-17 11:59 | XMS_ITS | Clinical Summary ---
Author Organization [place] [address] Care Team Providers Care Incident Response Engineer Name Role Phone Justyn Qian MARY Primary Care Provider [phone] Allergies No known active allergies Medications Medication [...] BIRADS CATEGORY 2: Benign findings. * ??[employer] and The Society of [...] ? Qian Alejandra APRN IMG MAMMO ORDERABLES from Last 3 Months or Most Recently Relevant to Health Maintenance Advance Directives * Full Code (Latest Code Status on File) Date Activated Date Inactivated Comments 03/23/2016 4:10 PM 03/25/2016 3:09 PM Question Answer Comments Does patient have capacity to make decision: Yes Care Teams Incident Response Engineer Relationship Specialty Start Date End Date Qian Alejandra APRN [address] [place] [address] PCP - General Family Medicine 06/05/18
--- OUTSIDE RECORDS SUMMARY | 2024-01-17 11:59 | XMS_ITS | Encounter Summary ---
[place] [address] Care Team Providers Care Supervisor Delivery Department Name Role Phone Jelena Harris Primary Care Provider [phone]- [phone] Reason for Visit * Auth/Cert Specialty Diagnoses / Procedures Referred By Tonya hall Referred To Contact Diagnoses N62 - macromastia Tentative DOS - 02/21/2016 CPT: 45615 - yang Procedures PRO REDUCTION OF LARGE BREAST REDUCTION MAMMOPLASTY, YANG Referral ID Status Reason Start Date Expiration Date Visits Re quested Visits Authorized [id number] 1 1 Encounter Details Date Type Department Care Team (Late st Contact Info) Description 03/23/2016 7:30 AM EST - 03/23/2016 10:13 AM EST Surgery [place] [address] Michael Jenkins MD [facility] [place] [address] REDUCTION MAMMOPLASTY, YANG (WRVU 16.03) Social History [...] Gina Henderson Patient Age: 56 y.o. Language: Faroese Race: White Ethnicity: Not nor Admit date: [...] 16.03) performed by Michael Jenkins MD at [facility] MAIN OR Procedures: 03/23/2016 Surgeon(s) and Role: * Michael Jenkins MD - Primary * Dagoberto Alexis MD - Resident-Surgeon Ishaan * Ortiz Lopez MD - Resident-Surgeon Ishaan: Procedure(s): REDUCTION MAMMOPLASTY, YANG (WRVU 16.03) MODIFIER ROBERTS Hospital Course: Patient was admitted electively to [facility] via the same day surgery program and [...] QTC Calculated (Bezet) 427 ms Calculated P Crosby 54 degrees Calculated R Crosby -2 degrees Calculated T Crosby 32 degrees INTERPRETATION Normal sinus rhythm Normal [...] good night sleep. 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 With any surgery there is some discomfort or pain. We will prescribe pain medication. Take as prescribed and only as needed. OK to take prescription medication or Tylenol. Do not take both. ?? We recommend taking an koxn-hhc-Flxglfe stool softener, such as Colace (docusate) or [...] scheduling, please contact our administrative offices at [phone] ?? For clinical questions, please call our nurses at [phone] ?? Both offices are open Sunday thru Sunday 8a - 5p. With emergencies after hours, call the hospital ethylene plant operator at [phone] and ask for the Plastic Surgery Resident personal lines advisor. MEDICATIONS: Your Medications Notice Some of the [...] called in to our prescription line at [phone]. Narcotic renewals may be requested from 8am-4pm [...] Sunday 8 am to 5 pm Call [phone] On weekends or after hours: Call [phone] and ask the ethylene plant operator to page the Plastic Surgery Resident personal lines advisor. General Instructions SAME DAY SURGERY JONATHAN DRAIN [...] future appointments. Primary Care Provider: RAQUEL Beatty [phone] VNA: No discharge procedures on file. General [...] was managed by the Plastic SurgeryTeam at [facility]. If you haveany questions or concerns, please feel free to contact us. Provider Contact Information: Plastic Surgery Clinic: [facility] (after business hours): documented in this encounter [...] good night sleep. 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 With any surgery there is some discomfort or pain. We will prescribe pain medication. Take as prescribed and only as needed. OK to take prescription medication or Tylenol. Do not take both. ?? We recommend taking an qpyh-mcd-Npptdgb stool softener, such as Colace (docusate) or [...] scheduling, please contact our administrative offices at [phone] ?? For clinical questions, please call our nurses at [phone] ?? Both offices are open Sunday thru Sunday 8a - 5p. With emergencies after hours, call the hospital ethylene plant operator at [phone] and ask for the Plastic Surgery Resident personal lines advisor. MEDICATIONS: Your Medications Notice Some of the [...] called in to our prescription line at [phone]. Narcotic renewals may be requested from 8am-4pm [...] Sunday 8 am to 5 pm Call [phone] On weekends or after hours: Call [phone] and ask the ethylene plant operator to page the Plastic Surgery Resident personal lines advisor. documented in this encounter Medications at Time [...] recommendations Elizabeth Mensah PA-C Plastic Surgery Pager [phone] Attn: continues to require supplemental O2 but [...] 16.03) performed by Michael Jenkins MD at [facility] MAIN OR Hospitalizations Within the Past 30 Days: None at [facility], nor at outside hospitals. Anticipated Length Of Stay : Anticipate discharge home tomorrow, 03/25. IPI order cosigned by Dr.Gary Jenkins on 03/23/16 @ 1726. Current Decision-Making Capacity: Patient alert and oriented; capable decision maker. Advance Care Planning: Not on file in [facility], nor elsewhere. Current Coping/Education/Information Needs: Coping effectively. The staff are absolutely wonderful. I mean phenomenal. Current Functional Ability: On room air during my visit. Pt resting in bed. They think I probably haven't been taking deep breaths for years. Order for a [address] Pt looking comfortable. 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 Home Environment: Lives with her , Shaw, in [place], [place]. Social & Family Supports/Community Resources: Emergency Contact 1 Emergency Contact 2 ? Shaw Henderson (Spouse) [address] [facility] [phone] (H) [phone] (W) Stefani Li (Child) [phone] (H) Behavioral Health History: None per H&P. Substance Use/Abuse: Former smoker. EtOH: 2 glasses of wine/week. No illicit drug use. Other Pertinent/Service Specific Information: None Health/Prescription Coverage: Primary Insurance: [facility] Secondary Insurance: None Prescription Coverage: Yes Preferred Pharmacy: [facility], [place], [place] Other: None Primary Care Provider: RAQUEL Beatty [phone] Patient/Caregiver Goals of Treatment: To return home with her and to resume work when givenmedical clearance. Potential Needs for Transition of Care: Rehab/SNF: N/A Home Health: Declined VNA services. ([facility] serves her area). DME: N/A Dialysis: N/A Community Resources: None Transportation: Pt's will transport pt home at discharge. Other: None Anticipated Barriers to Discharge/Special Considerations: None identified. Plan: A member of the Care Management team will continue to monitor progress, follow for continuity of care and assist with transition of care planning. NAGI SHAW RN Pager: [phone] for today. Assisting Rebeca Lee Pt's Primary Activity Director, pager [phone] * Consult Note - Adri Parra - 03/24/2016 9:36 AM EST Medicine Consult Note, Pager [phone] Patient Name: Gina Henderson Patient Age: 56 y.o. Admit date: 03/23/2016 Attending Physician: Michael Jenkins MD PCP: RAQUEL Beatty Problem List: Active Hospital Problems Diagnosis ??? Macromastia Resolved Hospital Problems Diagnosis Date Resolved No resolved problems to display. Active Non-Hospital Problems Diagnosis ??? Irritant hand dermatitis ID: Gian Henderson is a 56 y.o. female with [...] History and Habits: - , lives in [facility] with her of 30+ years - [...] consult. Please contact the consult pager at [phone] with any questions. 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 Indication for procedure: This [...] Lopez MD - 03/23/2016 9:32 AM EST [facility] Brief Operative Note Patient Name: Gina Henderson : 1960 MR#: [id number] Case Date: 03/23/2016 Surgeon: Surgeon(s) and Role: [...] fitting, review post-op activity restrictions 6 months: shelter f/u with surgeon Ortiz Lopez MD Plastic [...] (Bezet) 427 ms MUSE SYSTEM Calculated P Crosby 54 degrees MUSE SYSTEM Calculated R Crosby -2 degrees MUSE SYSTEM Calculated T Crosby 32 degrees MUSE SYSTEM INTERPRETATION Normal sinus [...] pH, Arterial 7.25(Criti anderson) 7.35 - 7.45 [facility] Comment:Noted by percussion instrument repairer. PCO2, Arterial 64(Critica l) 35 - 45 mmHg [facility] Comment:Noted by percussion instrument repairer. PO2, Arterial 47(Critica l) 85 - 104 mmHg [facility] Comment:Noted by percussion instrument repairer. Bicarbonate, Arterial 27.0(H) 20.0 - 26.0 mmol/L [facility] Base Excess, Arterial -0.4 -3.0 - 3.0 mmol/L [facility] Hgb Blood Gas 14.2 11.7 - 15.5 gm/dL [facility] Oxyhemoglobin, Arterial 80.4(L) 94.0 - 97.0 % [facility] Carboxyhemoglob in, Arterial 0.9 % [facility] Comment: Nonsmokers: 0.5-1.5% COHB Smokers: Variable, but usually less than 10% Toxic: 20-30% COHB Lethal: Greater than 60% COHB Methemoglobin, Arterial 0.3 <=1.5 % [facility] Na Whole Blood 139 135 - 145 mmol/L [facility] K Whole Blood 4.1 3.5 - 5.0 mmol/L [facility] Comment: Please note: Patients with WBC >100,000 may have falsely elevated Potassium levels. Contact the Clinical Chemistry Laboratory if there are any questions. ICa Whole Blood 1.22 1.15 - 1.33 mmol/L [facility] Comment: Note: ??Total bilirubin higher than 20 mg/dL may lead to falsely low ionized calcium. CL Whole Blood 102 98 - 107 mmol/L [facility] Gluc Whole Bld 148 65 - 199 mg/dL [facility] Comment:Diabetes: >=200 mg/d L plus symptoms. Lactate WB 2.0 0.5 - 2.2 mmol/L [facility] Blood specimen (specimen) 03/23/2016 1:33 PM EST 03/23/2016 1:33 PM EST Michael Jenkins MD POINT OF CARE TEST O KAYLA Performing Organization Address [facility] Co de Phone Number [facility] [place] [address] * Specimen to Pathology (surgical or derm) (03/23/2016 8:37 AM EST) AP Specimen 03/23/2016 8:37 AM EST 03/23/2016 8:37 AM EST Narrative [facility] - 03/23/2016 8:37 AM EST Specimen requisition ordered. ??Separate Pathology report to follow Michael Jenkins MD PATHOLOGY/CYTOLOGY O KAYLA Performing Organization Address [facility]/State/ZIP Co de Phone Number [facility] [place] [address] * Surgical Pathology Report (03/23/2016 8:36 AM EST) Final Diagnosis [id number] ?Location: 3T; [facility]; B The signing pathologist has (i) examined [...] (R3) ?? yal 03/28/2016 11:05 AM EST [facility] BREAST STRUCTURE / Unknown 03/23/2016 8:36 AM EST 03/23/2016 8:36 AM EST BREAST STRUCTURE / Unknown 03/23/2016 8:36 AM EST 03/23/2016 8:36 AM EST Michael Jenkins MD PATHOLOGY/CYTOLOGY O RDERAMARK Performing Organization Address City/[facility]/ZIP Co de Phone Number [facility] [place] [address] * Specimen to Pathology (surgical or derm) (03/23/2016 8:36 AM EST) AP Specimen 03/23/2016 8:36 AM EST 03/23/2016 8:36 AM EST Narrative [facility] - 03/23/2016 8:36 AM EST Specimen requisition ordered. ??Separate Pathology report to follow Michael Jenkins MD PATHOLOGY/CYTOLOGY O KAYLA Performing Organization Address [facility] [place] [address] * POCT HGB (03/23/2016) POC Hemoglobin 15 [...] Routine 2116 (Given - Provider: Nikki Davis, EY) 0808 (Given - Provider: Dolores Huang RN)2006 [...] EVERY 30 MIN PRN, Starting on Mary Eleln 16 at 1019, Until Mary Ellen 16 [...] Unit) documented in this encounter Care Teams Supervisor Delivery Department Relationship Specialty Start Date End Date Jelena Harris PA [address] [place] [address] PCP - General 05/27/14 06/04/18 documented as of this encounter
--- OUTSIDE RECORDS SUMMARY | 2024-01-17 11:59 | XMS_ITS | Encounter Summary ---
Author Organization [facility] Address [address] [place] [address] Care Team Providers Care Joint Setter Name Role Phone Unavailable Primary Care Provider Unavailabl e Encounter Details Date Type Department Care Team (Late st Contact Info) Description 06/01/2006 Results Only [facility] conversion [address] [place] [address] Ortiz Wei, DO [address] [facility] [address] [place] [address] Social History Tobacco Use Types [...] ? GINA HENDERSON ? Accession #: ? [id number] ? : ? 1960 (Age: 46) ??F ? Collect Date: ? 06/01/2006 ? Location: ? [facility] ? Receive Date: ? 06/01/2006 ? Provider: ORTIZ WEI DO Copy to: PRINCESS ARZOLA SUPERVISOR PIGMENT MAKING ? Final Pathologic Diagnosis: ? Skin of [...] tips, reverse en face (Dr. Lozano)/[facility] End of Report PEG [facility] 06/01/2006 06/01/2006 15: 03 EST Ortiz Wei DO PATHOLOGY ORDER [place] [facility] [address] [place] [address] documented in this encounter Visit Diagnoses Not on filedocumented in this encounter
--- OUTSIDE RECORDS SUMMARY | 2024-01-17 11:59 | XMS_ITS | Encounter Summary ---
Author Organization [facility] [place] [address] Care Team Providers Care Distillation Operator Helper Name Role Phone Qian Alejandra MARY Primary Care Provider [phone] Reason for Referral * Consultation (Routine) - Closed Specialty Diagnoses / Procedures Referred By Tonya hall Referred To Contact Orthopaedics Diagnoses Osteoarthritis of first carpometacarpal (CMC) joint of one hand Carpal tunnel syndrome, left upper limb W/C INJ Procedures W/C INJ Dada Juarez MD [address] [place] [address] Andreas Pyle MD [facility] [place] [address] Referral ID Status Reason Start Date Expiration Date V isits Requested Visits Authorized [id number] Closed Consult, Test & Treat PCP Updated and/or Approved 01/18/2022 01/18/2023 6 6 Encounter Details Date Type Department Care Team (Latest Contact Info) Description 01/18/2022 Transcribe Orders eDH Incoming Referrals [phone] Dada Juarez MD [address] [place] [address] Osteoarthritis of first carpometacarpal (CMC) [...] limb documented in this encounter Care Teams Distillation Operator Helper Relationship Specialty Start Date End Date Qian Alejandra APRN [address] [place] [address] PCP - General Family Medicine 06/05/18 documented as of this encounter
--- OUTSIDE RECORDS SUMMARY | 2024-01-17 11:59 | XMS_ITS | Encounter Summary ---
[place] [address] Care Team Providers Care Data Processing Supervisor Name Role Phone Jelena Harris Primary Care Provider [phone] Encounter Details Date Type Department Care Team (Late st Contact Info) Description 05/09/2018 Telephone Mammography/[place] [id number] Qian Alejandra APRN [address] [place] [address] Social History Tobacco Use Types [...] on filedocumented in this encounter Care Teams Data Processing Supervisor Relationship Specialty Start Date End Date Jelena Harris PA [address] [place] [address] PCP - General 05/27/14 06/04/18 documented as of this encounter
--- OUTSIDE RECORDS SUMMARY | 2024-01-17 11:59 | XMS_ITS | Encounter Summary ---
Author Organization [facility] Address [address] [place] [address] Care Team Providers Care Sprue Cutting Press Operator Name Role Phone Unavailable Primary Care Provider Unavailabl e Encounter Details Date Type Department Care Team (Late st Contact Info) Description 06/18/2002 Results Only [facility] conversion [address] [place] [address] Amara Arzola, EDGE BANDING OFF BEARER [facility] [address] [place] [address] Social History Tobacco Use Types [...] ? GINA HENDERSON ? Accession #: ? [id number] : ? 1960 (Age: 42) ??F ?Collect Date: ? 06/18/2002 Location: ? [facility] ? Receive Date: ? 06/20/2002 Provider: ?AMARA ARZOLA ED[employer] B[employer]ING [employer] BEARER Copy to: ? Specimen/Source: ?ThinPrep Pap Test, [...] Arzola NP PATHOLOGY ORDERABLES [facility] [address] [place] [address] documented in this encounter Visit Diagnoses Not on filedocumented in this encounter
--- OUTSIDE RECORDS SUMMARY | 2024-01-17 11:59 | XMS_ITS | Encounter Summary ---
[place] [address] Care Team Providers Care Biology Instructor Name Role Phone Jelena Harris Primary Care Provider [phone] Reason for Visit * Reason Comments Follow Up Surgery 03/23/16 BBR Encounter Details Date Type Department Care Team (Latest Contact Info) Description 03/30/2016 2:00 PM EST Clinical [place] [id number] Surgery follow-up Social History Tobacco Use Types [...] symptoms please call our nurse's line at [phone] M - F 8 - 5 -SCAR [...] surgery documented in this encounter Care Teams Biology Instructor Relationship Specialty Start Date End Date Jelena Harris PA [address] [place] [address] PCP - General 05/27/14 06/04/18 documented as of this encounter
--- OUTSIDE RECORDS SUMMARY | 2024-01-17 11:59 | XMS_ITS | Encounter Summary ---
Author Organization [facility] Address [address] [place] [address] Care Team Providers Care Whitewasher Name Role Phone Unavailable Primary Care Provider Unavailabl e Encounter Details Date Type Department Care Team (Late st Contact Info) Description 06/09/2009 Results Only [facility] Laboratory Services - [facility] ([facility] [address] [place], [place] [id number] Amara Arzola, [facility] [address] [place] [address] Social History Tobacco Use Types [...] ? GINA HENDERSON ? Accession #: ? [id number] ? : ? 1960 (Age: 49) ??F [...] Arzola NP PATHOLOGY ORDERABLES [facility] [address] [place] [address] documented in this encounter Visit Diagnoses Not on filedocumented in this encounter
--- OUTSIDE RECORDS SUMMARY | 2024-01-17 11:59 | XMS_ITS | Encounter Summary ---
Author Organization [facility] Address [address] [place] [address] Care Team Providers Care Transactional Attorney Name Role Phone StoryAmara benavides [place] Primary Care Provider Encounter Details Date Type Department Care Team (Late st Contact Info) Description 03/31/2020 Lab Requisition [facility] Pathology & Laboratory Medicine - [facility] [address] [place] [address] Outr Resulting Lab, Provider Social History Tobacco [...] Outr Resulting Lab MICROBIOLOGY - GENERAL ORDERABLES [facility] [address] [place] [address] * COVID-19 TESTING (03/31/2020 13:00 EST) COVID-19 rt-PCR Result Negative Negative 04/01/2020 21:08 EST [facility] Comment: Negative results do not preclude 2019-nCoV infection and should not be used as the sole basis for treatment or other patient management decisions. Negative results must be combined with clinical observations, patient history, and epidemiological information. This test was developed and its performance characteristics determined by [facility]. It has not been cleared or approved [...] testing. This test is based on the [facility] COVID-19 Emergency Use Authorization (EUA) assay, with minor modification as defined by the FDA Performed on the [place] Flex. Performing Lab [facility] Lab 04/01/2020 21:08 EST [facility] Swab 03/31/2020 13:0 0 EST 03/31/2020 15:43 EST Provider Outr Resulting Lab MICROBIOLOGY - GENERAL ORDERABLES [facility] [address] [place] [address] documented in this encounter Visit Diagnoses Not on filedocumented in this encounter Care Teams Transactional Attorney Relationship Specialty Start Date End Date Amara Ding NP [facility] [address] [place] [address] PCP - General 01/30/15 documented as of this encounter
--- OUTSIDE RECORDS SUMMARY | 2024-01-17 11:59 | XMS_ITS | Encounter Summary ---
[place] [address] Care Team Providers Care Wine Cellar Worker Name Role Phone Jelena Harris Primary Care Provider [phone] Reason for Visit * Auth/Cert Specialty Diagnoses / Procedures Referred By Tonya hall Referred To Contact Diagnoses N62 - macromastia Tentative DOS - 02/21/2016 CPT: 82985 - yang Procedures PRO REDUCTION OF LARGE BREAST REDUCTION MAMMOPLASTY, YANG Referral ID Status Reason Start Date Expiration Date Visits Re quested Visits Authorized [id number] 1 1 Encounter Details Date Type Department Care Team (Latest Contact Info) Description 03/23/2016 5:44 AM EST - 03/25/2016 1:08 PM [facility] Hospital Encounter [address] [place] [address] Michael Jenkins MD [facility] [place] [address] H/O exertional chest pain Discharge Disposition: Home [...] Gina Henderson Patient Age: 56 y.o. Language: Latvian Race: White Ethnicity: Not nor Admit date: [...] 16.03) performed by Michael Jenkins MD at [facility] Procedures: 03/23/2016 Surgeon(s) and Role: * Michael Jenkins MD - Primary * Dagoberto Alexis MD - Resident-Surgeon Ishaan * Ortiz Lopez MD - Resident-Surgeon Ishaan: Procedure(s): REDUCTION MAMMOPLASTY, YANG (WRVU 16.03) MODIFIER [facility]ERTS Hospital Course: Patient was admitted electively to [facility] via the same day surgery program and [...] QTC Calculated (Bezet) 427 ms Calculated P [place] 54 degrees Calculated R [place] -2 degrees Calculated T [place] 32 degrees INTERPRETATION Normal sinus rhythm Normal [...] good night sleep. Pain (short term and penitentiary) ?? With any surgery there is some discomfort or pain. We will prescribe pain medication. Take as prescribed and only as needed. OK to take prescription medication or Tylenol. Do not take both. ?? We recommend taking an wwtw-epw-Vyxlayh stool softener, such as Colace (docusate) or [...] scheduling, please contact our administrative offices at [phone] ?? For clinical questions, please call our nurses at [phone] ?? Both offices are open Sunday thru Sunday 8a - 5p. With emergencies after hours, call the hospital ammonia still operator at [phone] and ask for the Plastic Surgery Resident applications sales representative. MEDICATIONS: Your Medications Notice Some of the [...] called in to our prescription line at [phone]. Narcotic renewals may be requested from 8am-4pm [...] Sunday 8 am to 5 pm Call [phone] On weekends or after hours: Call [phone] and ask the ammonia still operator to page the Plastic Surgery Resident applications sales representative. General Instructions SAME DAY SURGERY JONATHAN DRAIN [...] future appointments. Primary Care Provider: RAQUEL Beatty [phone] VNA: No discharge procedures on file. General [...] was managed by the Plastic SurgeryTeam at [facility]. If you haveany questions or concerns, please feel free to contact us. Provider Contact Information: Plastic Surgery Clinic: [facility] (after business hours): documented in this encounter [...] good night sleep. Pain (short term and long wall shear operator) ?? With any surgery there is some discomfort or pain. We will prescribe pain medication. Take as prescribed and only as needed. OK to take prescription medication or Tylenol. Do not take both. ?? We recommend taking an exok-ysh-Tgcjerr stool softener, such as Colace (docusate) or [...] scheduling, please contact our administrative offices at [phone] ?? For clinical questions, please call our nurses at [phone] ?? Both offices are open Sunday thru Sunday 8a - 5p. With emergencies after hours, call the hospital ammonia still operator at [phone] and ask for the Plastic Surgery Resident applications sales representative. MEDICATIONS: Your Medications Notice Some of the [...] called in to our prescription line at [phone]. Narcotic renewals may be requested from 8am-4pm [...] Sunday 8 am to 5 pm Call [phone] On weekends or after hours: Call [phone] and ask the ammonia still operator to page the Plastic Surgery Resident applications sales representative. documented in this encounter Medications at Time [...] recommendations Elizabeth Mensah PA-C Plastic Surgery Pager [phone] Attn: continues to require supplemental O2 but [...] 16.03) performed by Michael Jenkins MD at [facility] OR Hospitalizations Within the Past 30 Days: None at [facility], nor at outside hospitals. 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 Home Environment: Lives with her , Shaw, in [place], [place]. Social & Family Supports/Community Resources: Emergency Contact 1 Emergency Contact 2 ? Shaw Henderson (Spouse) [address] [facility] [id number] (H) [phone] (W) Stefani Li (Child) [phone] (H) Behavioral Health History: None per H&P. Substance Use/Abuse: Former smoker. EtOH: 2 glasses of wine/week. No illicit drug use. Other Pertinent/Service Specific Information: None Health/Prescription Coverage: Primary Insurance: [employer] Secondary Insurance: None Prescription Coverage: Yes Preferred Pharmacy: [facility], [place], [place] Other: None Primary Care Provider: RAQUEL Beatty [phone] Patient/Caregiver Goals of Treatment: To return home with her and to resume work when givenmedical clearance. Potential Needs for Transition of Care: Rehab/SNF: N/A Home Health: Declined VNA services. ([facility] serves her area). DME: N/A Dialysis: N/A Community Resources: None Transportation: Pt's will transport pt home at discharge. Other: None Anticipated Barriers to Discharge/Special Considerations: None identified. Plan: A member of the Care Management team will continue to monitor progress, follow for continuity of care and assist with transition of care planning. NAGI SHAW RN Pager: [phone] for today. Assisting Rebeca Lee Pt's Primary Senior Product Consultant, pager [phone] * Consult Note - Adri Parra - 03/24/2016 9:36 AM EST Medicine Consult Note, Pager [phone] Patient Name: Gina Henderson Patient Age: 56 [...] not tachycardic, and is not on a beta-gratn. She reports feeling slightly short of breath. [...] History and Habits: - , lives in [facility] with her of 30+ years [...] consult. Please contact the consult pager at [phone] with any questions. Adri Parra MD PGY-3, Department of Internal Medicine Consult Pager [phone] 03/24/2016 Associated attestation - Santiago Stallworth MD [...] Jenkins MD - 03/23/2016 9:[address] [facility] Operative Note Patient Name: Gina Henderson : 1960 MR#: [id number] Case Date: 03/23/2016 Surgeon: Surgeon(s) and Role: [...] fitting, review post-op activity restrictions 6 months: senior living f/u with surgeon Indication for procedure: This [...] Lopez MD - 03/23/2016 9:[address] [facility] Brief Operative Note Patient Name: Gina Henderson : 1960 MR#: [id number] Case Date: 03/23/2016 Surgeon: Surgeon(s) and Role: [...] fitting, review post-op activity restrictions 6 months: senior living f/u with surgeon Ortiz Lopez MD Plastic [...] (Bezet) 427 ms MUSE SYSTEM Calculated P [place] 54 degrees MUSE SYSTEM Calculated R [place] -2 degrees MUSE SYSTEM Calculated T [place] 32 degrees MUSE SYSTEM INTERPRETATION Normal sinus [...] pH, Arterial 7.25(Criti anderson) 7.35 - 7.45 [facility] Comment:Noted by instrumentation technician. PCO2, Arterial 64(Critica l) 35 - [address] [facility] Comment:Noted by instrumentation technician. PO2, Arterial 47(Critica l) 85 - [address] [facility] Comment:Noted by instrumentation technician. Bicarbonate, Arterial 27.0(H) 20.0 - 26.0 mmol/L [facility] Base Excess, Arterial -0.4 -3.0 - 3.0 mmol/L [facility] Hgb Blood Gas 14.2 11.7 - 15.5 gm/dL [facility] Oxyhemoglobin, Arterial 80.4(L) 94.0 - 97.0 % [facility] Carboxyhemoglob in, Arterial 0.9 % [facility] Comment: Nonsmokers: 0.5-1.5% COHB Smokers: Variable, but usually less than 10% Toxic: 20-30% COHB Lethal: Greater than 60% COHB Methemoglobin, Arterial 0.3 <=1.5 % [facility] Na Whole Blood 139 135 - 145 mmol/L [facility] K Whole Blood 4.1 3.5 - 5.0 mmol/L [facility] Comment: Please note: Patients with WBC >100,000 may have falsely elevated Potassium levels. Contact the Clinical Chemistry Laboratory if there are any questions. ICa Whole Blood 1.22 1.15 - 1.33 mmol/L [facility] Comment: Note: ??Total bilirubin higher than 20 mg/dL may lead to falsely low ionized calcium. CL Whole Blood 102 98 - 107 mmol/L [facility] Gluc Whole Bld 148 65 - 199 mg/dL [facility] Comment:Diabetes: >=200 mg/d L plus symptoms. Lactate WB 2.0 0.5 - 2.2 mmol/L [facility] Blood specimen (specimen) 03/23/2016 1:33 PM EST 03/23/2016 1:33 PM EST Michael Jenkins MD POINT OF CARE TEST O KAYLA Performing Organization Address [facility] Co de Phone Number [facility] [place] [address] * Specimen to Pathology (surgical or derm) (03/23/2016 8:37 AM EST) AP Specimen 03/23/2016 8:37 AM EST 03/23/2016 8:[address] [facility] - 03/23/2016 8:37 AM EST Specimen requisition ordered. ??Separate Pathology report to follow Michael Jenkins MD PATHOLOGY/CYTOLOGY O KAYLA Performing Organization Address [facility] Co de Phone Number [facility] [place] [address] * Surgical Pathology Report (03/23/2016 8:36 AM EST) Final Diagnosis [id number] ?Location: 3WST; 0318; B The signing pathologist [...] (R3) ?? yal 03/28/2016 11:[address] [facility] BREAST STRUCTURE / Unknown 03/23/2016 8:36 AM EST 03/23/2016 8:36 AM EST BREAST STRUCTURE / Unknown 03/23/2016 8:36 AM EST 03/23/2016 8:36 AM EST Michael Jenkins MD PATHOLOGY/CYTOLOGY O RDERABLES Performing Organization Address [facility]/ZIP Co de Phone Number [facility] [place] [address] * Specimen to Pathology (surgical or derm) (03/23/2016 8:36 AM EST) AP Specimen 03/23/2016 8:36 AM EST 03/23/2016 8:[address] [facility] - 03/23/2016 8:36 AM EST Specimen requisition ordered. ??Separate Pathology report to follow Michael Jenkins MD PATHOLOGY/CYTOLOGY O RDALE Performing Organization Address [facility] [place] [place] [address] * POCT HGB (03/23/2016) POC Hemoglobin 15 [...] Unit) documented in this encounter Care Teams Wine Cellar Worker Relationship Specialty Start Date End Date Jelena Harris PA [address] [place] [address] PCP - General 05/27/14 06/04/18 documented as of this encounter
--- OUTSIDE RECORDS SUMMARY | 2024-01-17 11:59 | XMS_ITS | Encounter Summary ---
Author Organization [facility] Address [address] [place] [address] Care Team Providers Care Rope Cleaner Name Role Phone Amara Ding NP Primary Care Provider [phone] Encounter Details Date Type Department Care Team (Late st Contact Info) Description 02/28/2020 Lab Requisition [facility] Pathology & Laboratory Medicine - [facility] [address] [place] [address] Outr Resulting Lab, Provider Social History Tobacco [...] C Antibody Negative Negative 03/01/2020 9:[address] [facility] Blood VENOUS BLOOD / Unknown 02/27/2020 15:46 EST 02/29/2020 17:20 EST Provider Outr Resulting Lab CHEMISTRY & BLOOD GAS ORDERABLES [facility] [address] [place] [address] documented in this encounter Visit Diagnoses Not on filedocumented in this encounter Care Teams Rope Cleaner Relationship Specialty Start Date End Date Amara Ding NP [facility] [address] [place] [address] PCP - General 01/30/15 documented as of this encounter
--- OUTSIDE RECORDS SUMMARY | 2024-01-17 11:59 | XMS_ITS | Encounter Summary ---
Author Organization [facility] Address [address] [place] [address] Care Team Providers Care Computer Specialist Name Role Phone Amara Ding ASSOCIATE PATHOLOGIST Primary Care Provider [phone] Encounter Details Date Type Department Care Team (Late st Contact Info) Description 01/16/2024 Lab Requisition [facility] Pathology & Laboratory Medicine - [facility] [address] [place] [address] Zoey Agosto, DO [address] [place], [place] [id number] Encounter for other general examination Social History Tobacco Use Types Packs/Day Years Used Date Smoking Tobacco: Never Assessed Sex and Gender Information Value Date Recorded Sex Assigned at Not on file Gender Identity Not on file Sexual Orientation Not on file documented as of this encounter Plan of Treatment Pending Results Name Type Priority Associated Diagnoses Date /Time SURGICAL PATHOLOGY Pathology Today Encounter for other general examination 01/15/2024 14:24 EDT documented as of this encounter Visit Diagnoses Diagnosis Encounter for other general examination documented in this encounter Care Teams Computer Specialist Relationship Specialty Start Date End Date Amara Ding NP [facility] [address] [place], [place] [id number] PCP - General 01/30/15 documented as of this encounter
--- OUTSIDE RECORDS SUMMARY | 2024-01-17 11:59 | XMS_ITS | Encounter Summary ---
Author Organization [facility] Address [address] [place] [address] Care Team Providers Care Equipment Service Associate Name Role Phone Unavailable Primary Care Provider Unavailabl e Encounter Details Date Type Department Care Team (Late st Contact Info) Description 08/25/2004 Results Only [facility] [address] [place] [address] Alice Abraham MD [address] [place] [address] DR TRONCOSO, ID Social History Tobacco Use Types Packs/Day Years [...] ? GINA HENDERSON ? Accession #: ? [id number] ? : ? 1960 (Age: 44) ??F [...] adhesions with mesothelial inclusion cysts. Comment: ? Radial Drill Press Operator sections have been reviewed at intradepartmental consultation conference. ??On gross and microscopic inspection, ectocervix is not definitively represented in the specimen. ??The findings have been discussed with Dr. Abraham via telephone on August 30, 2004. ?? (Dr. oVgel)/[facility] Document reviewed and electronically signed by: NICOLE [...] be consistent with ectocervix is not identified. ??Radial Drill Press Operator sections are submitted as follows: BLOCK PARKER A1, A2 ?Radial Drill Press Operator anterior/posterior cervix ? A3-A6 ? Radial Drill Press Operator lateral endomyometrium (A3, A4 contiguous full-thickness sections; A5, A6 contiguous full-thickness sections) ? A7 ?Radial Drill Press Operator fundic intramural nodule A8 ?Radial Drill Press Operator serosa to include hemorrhagic adhesions A9-A12 ?Additional perpendicular sections of cervix (A. Pierce)/[facility] End of Report [facility] 08/25/2004 08/26/2004 9:0 9 EDT Alice Abraham MD PATHOLOGY ORDERABLES [facility] [address] [place] [address] documented in this encounter Visit Diagnoses Not on filedocumented in this encounter
--- OUTSIDE RECORDS SUMMARY | 2024-01-17 11:59 | XMS_ITS | Encounter Summary ---
Author Organization [facility] Address [address] [place] [address] Care Team Providers Care Medical Leader Name Role Phone DuvalAmara benavides Guero [place] Primary Care Provider [phone] Encounter Details Date Type Department Care Team (Late st Contact Info) Description 06/09/2021 Lab Requisition [facility] Pathology & Laboratory Medicine - [facility] [address] [place] [address] Outr Resulting Lab, Provider Social History Tobacco [...] Priority Date/Time Associated Diagnosis Comments [facility]OVID[facility] Today 06/08/2021 11:30 EDT COVID-19 TESTING Routine 06/08/2021 11:3 0 EDT documented in this encounter Results * COVID-19 TEST [facility] LAB PCR (06/08/2021 11:30 EDT) Swab 06/08/2021 11:3 0 EDT 06/09/2021 21:38 EDT Provider Outr Resulting Lab MICROBIOLOGY - GENERAL ORDERABLES [facility] [address] [place] [address] * COVID-19 TESTING (06/08/2021 11:30 EDT) COVID-19 rt-PCR Result Negative Negative 06/10/2021 15:[address] [facility] Comment: This test has not [...] performed using the maria eugenia SARS-CoV-2 assay ([employer] on the Maria Eugenia 6800 System Performing Lab Maria Eugenia [address] [facility] Lab 06/10/2021 15:[address] [facility] Swab 06/08/2021 11:3 0 EDT 06/09/2021 21:38 EDT Provider Outr Resulting Lab MICROBIOLOGY - GENERAL ORDERABLES [facility] [address] [place] [address] documented in this encounter Visit Diagnoses Not on filedocumented in this encounter Care Teams Medical Leader Relationship Specialty Start Date End Date Amara Ding NP [facility] [address] [place], [place] [address] PCP - General 01/30/15 documented as of this encounter
--- OUTSIDE RECORDS SUMMARY | 2024-01-17 11:59 | XMS_ITS | Encounter Summary ---
Author Organization [facility] Address [address] [place] [address] Care Team Providers Care Skiff Operator Name Role Phone Unavailable Primary Care Provider Unavailabl e Encounter Details Date Type Department Care Team (Late st Contact Info) Description 06/29/[address] [facility] conversion [address] [place] [address] Amara Arzola, MANAGER CLINICAL PHARMACY [facility] [address] [place] [address] Social History Tobacco Use [...] ? GINA HENDERSON ? Accession #: ? [id number] : ? 1960 (Age: 44) ??F ?Collect [...] Arzola NP PATHOLOGY ORDERABLES [facility] [address] [place] [address] documented in this encounter Visit Diagnoses Not on filedocumented in this encounter
--- OUTSIDE RECORDS SUMMARY | 2024-01-17 11:59 | XMS_ITS | Encounter Summary ---
[place] [address] Care Team Providers Care Social Science Professor Name Role Phone Jelena Harris Primary Care Provider [phone] Reason for Visit * Reason Comments Follow-up BBR Encounter Details Date Type Department Care Team (Latest Contact Info) Description 04/07/2016 10:00 AM EST Clinical [place] [address] Surgery follow-up Social History Tobacco Use Types [...] symptoms please call our nurse's line at [phone] Sunday - Sunday 8 - 5. On nights, weekends, or holidays call the [facility] Hospital number [phone] and ask for the PlasticSurgeon stoner out. documented in this encounter Progress Notes * [...] surgery documented in this encounter Care Teams Social Science Professor Relationship Specialty Start Date End Date Jelena Harris PA [address] [place] [address] PCP - General 05/27/14 06/04/18 documented as of this encounter
--- OUTSIDE RECORDS SUMMARY | 2024-01-17 11:59 | XMS_ITS | Encounter Summary ---
[place] [address] Care Team Providers Care Tape Maker Name Role Phone Jelena Harris Primary Care Provider [phone] Reason for Visit * Reason Comments Follow-up still having a lot o f tenderness /BBR Encounter Details Date Type Department Care Team (Late st Contact Info) Description 10/23/2016 4:15 PM EDT Office [place] [address] Michael Jenkins MD [facility] [place] [address] Macromastia Social History Tobacco Use Types Packs/Day [...] breast documented in this encounter Care Teams Tape Maker Relationship Specialty Start Date End Date Jelena Harris PA [address] [place] [address] PCP - General 05/27/14 06/04/18 documented as of this encounter
--- OUTSIDE RECORDS SUMMARY | 2024-01-17 11:59 | XMS_ITS | Encounter Summary ---
Author Organization [facility] Address [address] [place] [address] Care Team Providers Care Retail Representative Name Role Phone Unavailable Primary Care Provider Unavailabl e Encounter Details Date Type Department Care Team (Late st Contact Info) Description 06/24/2003 Results Only [facility] [address] [place] [address] Amara Arzola, RECORD TESTER [facility] [address] [place] [address] Social History Tobacco Use Types [...] ? GINA HENDERSON ? Accession #: ? [id number] : ? 1960 (Age: 43) ??F ?Collect Date: ? 06/24/2003 Location: ? [facility] ? Receive Date: ? 06/26/2003 Provider: ?AMARA ARZOLA RECORD TESTER Copy to: ? Specimen/Source: ?ThinPrep Pap Test, [...] Arzola NP PATHOLOGY ORDERABLES [facility] [address] [place] [address] documented in this encounter Visit Diagnoses Not on filedocumented in this encounter
--- OUTSIDE RECORDS SUMMARY | 2024-01-17 11:59 | XMS_ITS | Encounter Summary ---
Author Organization [facility] Address [address] [place] [address] Care Team Providers Care Milk Receiver Name Role Phone Unavailable Primary Care Provider Unavailabl e Encounter Details Date Type Department Care Team (Late st Contact Info) Description 12/11/2011 Results Only [facility] Laboratory Services - [facility] ([facility] [address] [place], [place] [address] Gamaliel Norton FNP [address] [place], [place] [address] Social History Tobacco Use Types Packs/Day Years [...] ? GINA HENDERSON ? Accession #: ? [id number] : ? 1960 (Age: 51) ??F ?Collect Date: ? 12/11/2011 Location: ? [facility] ? Receive Date: ? 12/13/2011 Provider: ?GAMALIEL NORTON RELIABILITY TECHNICIAN Copy to: ? Specimen/Source: ?Pap Test, Cervix, [...] Report [facility] 12/11/2011 12/13/2011 Gamaliel Norton RELIABILITY TECHNICIAN PATHOLOGY ORDERABLES [facility] [address] [place] [address] documented in this encounter Visit Diagnoses Not on filedocumented in this encounter
--- OUTSIDE RECORDS SUMMARY | 2024-01-17 11:59 | XMS_ITS | Referral Summary ---
Author Organization [facility] Address [address] [place] [address] Care Team Providers Care Parole Officer Name Role Phone Amara Ding NP Primary Care Provider [phone] Encounters Date Type Department Care Team Description 01/16/2024 Lab Requisition [facility] Pathology & Laboratory Medicine - [facility] [address] [place] [address] Zoey Agosto, DO Encounter for other general examination from Last 3 Months Social History Tobacco Use Types Packs/Day Years [...] C Antibody Negative Negative 03/01/2020 9:51 EST [facility] Blood VENOUS BLOOD / Unknown 02/27/2020 15:46 EST 02/29/2020 17:20 EST Provider Outr Resulting Lab CHEMISTRY & BLOOD GAS ORDERABLES [facility] [address] [place] [address] from Last 3 Months or Most Recently Relevant to Health Maintenance Care Teams Parole Officer Relationship Specialty Start Date End Date Amara Ding NP [facility] [address] [place] [address] [facility] - General 01/30/15
--- OUTSIDE RECORDS SUMMARY | 2024-01-17 11:59 | XMS_ITS | Clinical Summary ---
Author Organization [facility] Address [address] [place] [address] Care Team Providers Care Executive Sales Assistant Name Role Phone CooperAmara benavides YONG Primary Care Provider [phone] Encounters Date Type Department Care Team Description 01/16/2024 Lab Requisition [facility] Pathology & Laboratory Medicine - [facility] [address] [place] [address] Zoey Agosto, DO Encounter for other general [...] - 1-dose 60+ series) 2019 COVID-19 Vaccine (2023- season) 2023 Hepatitis C Screen Completed 02/27/2020 Procedures Procedure [...] ORDERABLES [facility] [address] [place] [address] from Last 3 Months or Most Recently Relevant to Health Maintenance Care Teams Executive Sales Assistant Relationship Specialty Start Date End Date Amara Ding NP [facility] [address] [place] [address] PCP - General 01/30/15
--- OUTSIDE RECORDS SUMMARY | 2024-01-17 11:59 | XMS_ITS | Encounter Summary ---
[place] [address] Care Team Providers Care [facility] Shift Lead Name Role Phone Jelena Harris Primary Care Provider [phone]- [phone] Encounter Details Date Type Department Care Team (Late st Contact Info) Description 03/24/2016 Telephone [place] [id number] Jany Trejo, RN Social History Tobacco Use [...] 03/24/2016 1:30 PM EST Call received from [facility] F/U on info fax [facility] They called the wrong office and transferred them to Dr Branch's office. documented in this encounter Plan of Treatment Not on file documented as of this encounter Visit Diagnoses Not on filedocumented in this encounter Care Teams [facility] Shift Lead Relationship Specialty Start Date End Date Jelena Harris PA [address] [place] [address] PCP - General 05/27/14 06/04/18 documented as of this encounter
--- OUTSIDE RECORDS SUMMARY | 2024-01-17 11:59 | XMS_ITS | Encounter Summary ---
[place] [address] Care Team Providers Care Machine Deicer Element Winder Name Role Phone Qian Alejandra APRN Primary Care Provider [phone] Encounter Details Date Type Department Care Team (Latest Contact Info) Description 06/05/2018 3:33 PM EDT - 06/05/2018 11:59 PM EDT Hospital Encounter Mammography[place] [address] Qian Alejandra APRN [address] [place] [address] Visit for screening mammogram Discharge [...] Associated Diagnosis Comments MAMMO SCREENING CAD AND ANTHOYN BILATERAL Routine 06/05/2018 3:50 PM EDT Visit [...] mammogram documented in this encounter Care Teams Machine Deicer Element Winder Relationship Specialty Start Date End Date Qian Alejandra APRN [address] [place] [address] PCP - General Family Medicine 06/05/18 documented as of this encounter
--- OUTSIDE RECORDS SUMMARY | 2024-01-17 11:59 | XMS_ITS | Encounter Summary ---
[place] [address] Care Team Providers Care Senior Cognos Developer Name Role Phone Jelena Harris Primary Care Provider [phone]- [phone] Encounter Details Date Type Department Care Team (Late st Contact Info) Description 05/06/2018 Telephone Mammography/[place] [phone] Qian Alejandra APRN [address] [place] [address] Social History Tobacco Use Types [...] on filedocumented in this encounter Care Teams Senior Cognos Developer Relationship Specialty Start Date End Date Jelena Harris PA [address] [place] [address] PCP - General 05/27/14 06/04/18 documented as of this encounter
--- OUTSIDE RECORDS SUMMARY | 2024-01-17 12:00 | XMS_ITS | Encounter Summary ---
[place] [address] Care Team Providers Care Procedures Rn Name Role Phone Jelena Harris Primary Care Provider [phone]- [phone] Reason for Visit * Reason Comments Skin Check Encounter Details Date Type Department Care Team (Late st Contact Info) Description 05/27/2014 2:45 PM EST Office Visit Dermatology at [address] [phone] Wilder Holt MD [address] [facility] [place] [address] Irritant hand dermatitis Discharge Disposition: Home Social [...] from the original note were not included. [facility] Dermatitis: After Your Visit Your Care [...] help for plant rashes. ?? Try an shge-bju-fyavhjs antihistamine such as diphenhydramine (Benadryl) or chlorpheniramine [...] more? Visit our health information library at [email or web address] You can also view health information on Ecal, your personal patient account. Log in or sign up today. Enter F270 in the search box to learn more about Dermatitis: After Your Visit. ?? [id number] [facility], [employer]. Care instructions adapted under license by [facility]. This care instruction is for use with your licensed healthcare professional. If you have questions about a medical condition or this instruction, always ask your healthcare professional. [employer] disclaims any warranty or liability for your use of this information. Content Version: 10.3.454367; Current as of: June 04, 2013 documented in this encounter Progress Notes * Wilder Holt MD - 05/27/2014 3:08 PM EST Problem: Irritant hand dermatitis. Gina follows up after last seeing me in 2007. 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 She [...] doing the dishes. They do have a felt cutter. d. Return to clinic here p.r.n. for new lesions/concerns. COPY: Jelena Kennedy P.A.-C. documented in this encounter Plan of Treatment Not on file documented as of this encounter Visit Diagnoses Diagnosis Irritant hand dermatitis Contact dermatitis and other eczema, due to unspecified cause documented in this encounter Care Teams Procedures Rn Relationship Specialty Start Date End Date Jelena aHrris PA [address] [place] [address] PCP - General 05/27/14 06/04/18 documented as of this encounter
--- OUTSIDE RECORDS SUMMARY | 2024-01-17 12:00 | XMS_ITS | Encounter Summary ---
Author Organization [facility] [place] [address] Care Team Providers Care Wet Process Miller Head Assistant Name Role Phone Jelena Harris Primary Care Provider [phone]- [phone] Encounter Details Date Type Department Care Team (Late st Contact Info) Description 03/21/2016 External Results Radiology Library at [facility] [place] [address] Amor Hollingsworth MD [facility] [address] [place] [address] Social History Tobacco Use Types Packs/Day Years [...] on filedocumented in this encounter Care Teams Wet Process Miller Head Assistant Relationship Specialty Start Date End Date Jelena Harris PA [address] [place] [address] PCP - General 05/27/14 06/04/18 documented as of this encounter
--- OUTSIDE RECORDS SUMMARY | 2024-01-17 12:00 | XMS_ITS | Encounter Summary ---
Author Organization [facility] [place] [address] Care Team Providers Care Relocation Services Specialist Name Role Phone Unavailable Primary Care Provider Unavailabl e Encounter Details Date Type Department Care Team (Latest Contact Info) Description 07/16/2008 - 07/16/2008 12:14 AM EDT Hospital Encounter Radiology Library at [facility] [place] [address] Amor Hollingsworth MD [facility] [place] [address] Pain Discharge Disposition: Home Social History Tobacco [...] Only Mammo (07/16/2008 12:00 AM EDT) Narrative [facility] - 03/21/2016 10:56 AM EST This exam is for storage only and is auto-finalizing. Amor Hollingsworth MD [facility] [place] LIBRARY ORD ERABLES [place], [place] documented in this encounter Visit Diagnoses Diagnosis Pain Generalized pain documented in this encounter
--- OUTSIDE RECORDS SUMMARY | 2024-01-17 12:00 | XMS_ITS | Encounter Summary ---
Author Organization [facility] [place] [address] Care Team Providers Care Title Curative Specialist Name Role Phone Unavailable Primary Care Provider Unavailabl e Encounter Details Date Type Department Care Team (Latest Contact Info) Description 07/13/2008 - 07/13/2008 11:59 PM EDT Hospital Encounter Radiology Library at [facility] [place] [address] Amor Hollingsworth MD [facility] [address] [place] [address] Pain Discharge Disposition: Home Social History Tobacco [...] Only Mammo (07/13/2008 12:00 AM EDT) Narrative [facility] - 03/21/2016 10:57 AM EST This exam is for storage only and is auto-finalizing. Amor Hollingsworth MD [facility] [place] [place]D ERABLES [place], [place] documented in this encounter Visit Diagnoses Diagnosis Pain Generalized pain documented in this encounter
--- OUTSIDE RECORDS SUMMARY | 2024-01-17 12:00 | XMS_ITS | Encounter Summary ---
Author Organization [facility] [place] [address] Care Team Providers Care Compensation Vice President Name Role Phone Jelena Harris Primary Care Provider +1- [phone] Encounter Details Date Type Department Care Team (Late st Contact Info) Description 03/16/2016 External Results Radiology Library at [facility] [place] [address] Anna Kimble MD [facility] [place] [address] Social History Tobacco Use Types Packs/Day Years [...] on filedocumented in this encounter Care Teams Compensation Vice President Relationship Specialty Start Date End Date Jelena Harris PA [address] [place] [address] PCP - General 05/27/14 06/04/18 documented as of this encounter
--- OUTSIDE RECORDS SUMMARY | 2024-01-17 12:00 | XMS_ITS | Encounter Summary ---
[place] [address] Care Team Providers Care Ceramic Coater Name Role Phone Jelena Harris Primary Care Provider +1- [phone] Reason for Visit * Auth/Cert Specialty Diagnoses / Procedures Referred By Tonya hall Referred To Contact Diagnoses N62 - macromastia Tentative DOS - 02/21/2016 CPT: 02094 - yang Procedures PRO REDUCTION OF LARGE BREAST REDUCTION MAMMOPLASTY, YANG Referral ID Status Reason Start Date Expiration Date Visits Re quested Visits Authorized [id number] 1 1 Encounter Details Date Type Department Care Team (Late st Contact Info) Description 03/23/2016 7:32 AM EST Anesthesia Event [place] [address] Solo Melendez MD [facility] [place] [address] Anesthesia Record Procedure Summary Procedure Name Responsible [...] 0840 Break/Relief In ANETA M QU ILL, ANIMAL CYTOLOGIST 0857 Break/Relief Out 0953 Extubation/LMA Out 0953 [...] Removal Time: 95203/23/16 0748 by Mat Mar, ANIMAL CYTOLOGIST 03/23/16 0953 by Mat Mar, PINKY Incision [...] Melendez MD - 03/23/2016 11:26 AM EST [facility] Department of Anesthesiology Post-procedure Note Patient: Gina Henderson Procedure Summary Date Anesthesia Start Anesthesia Stop Room / Location 03/23/[address] [place] [address] OR / [facility] MAIN OR Procedure Diagnosis Surgeon Responsible Provider REDUCTION MAMMOPLASTY, YANG (WRVU 16.03) (Bilateral Breast); MODIFIER ROBERTS (N/A ) (macromastia) Michael Branch MD Pouliot, Ryan C, MD All Anesthesia Providers: Anesthesiologist: Solo Melendez MD ANIMAL CYTOLOGIST: Mat Mar CRNA Last (1hr) Vitals: BP 102/85 (03/23/16 1115) Temp Pulse Resp SpO2 96 % (03/23/16 1115) Patient Location: PACU/[facility] Level of Consciousness: Awake and Alert Pain [...] with patient and spouse. Plan discussed with ANIMAL CYTOLOGIST. PAT Staff Note documented in this encounter [...] mg documented in this encounter Care Teams Ceramic Coater Relationship Specialty Start Date End Date Jelena Harris PA [address] [place] [address] PCP - General 05/27/14 06/04/18 documented as of this encounter
--- OUTSIDE RECORDS SUMMARY | 2024-01-17 12:00 | XMS_ITS | Encounter Summary ---
Author Organization [facility] [place] [address] Care Team Providers Care Assistant Name Role Phone Unavailable Primary Care Provider Unavailabl e Encounter Details Date Type Department Care Team (Latest Contact Info) Description 10/05/2004 - 10/05/2004 11:59 PM EDT Hospital Encounter Radiology Library [facility] [place] [address] Amor Hollingsworth MD [facility] [place] [address] Pain Discharge Disposition: Home Social History Tobacco [...] Only Mammo (10/05/2004 12:00 AM EDT) Narrative [facility] - 03/21/2016 10:59 AM EST This exam is for storage only and is auto-finalizing. Amor Hollingsworth MD [facility] [place] FILM LIBRARY ORD ERABLES [place], [place] documented in this encounter Visit Diagnoses Diagnosis Pain Generalized pain documented in this encounter
--- OUTSIDE RECORDS SUMMARY | 2024-01-17 12:00 | XMS_ITS | Encounter Summary ---
Author Organization [facility] [place] [address] Care Team Providers Care Child And Family Services Specialist Name Role Phone Unavailable Primary Care Provider Unavailabl e Encounter Details Date Type Department Care Team (Latest Contact Info) Description 07/16/2008 12:15 AM EDT - 07/16/2008 11:59 PM EDT Hospital Encounter Radiology Library at [facility] [place] [place] [address] Amor Hollingsworth MD [facility] [place] [address] Pain Discharge Disposition: Home Social History Tobacco [...] Only Mammo (07/16/2008 12:15 AM EDT) Narrative [facility] - 03/21/2016 11:07 AM EST This exam is for storage only and is auto-finalizing. Amor Hollingsworth MD IM FILM LIBRARY ORD ERABLES [place], [place] documented in this encounter Visit Diagnoses Diagnosis Pain Generalized pain documented in this encounter
--- OUTSIDE RECORDS SUMMARY | 2024-01-17 12:00 | XMS_ITS | Encounter Summary ---
Author Organization [facility] [place] [address] Care Team Providers Care Talent Acquisition Manager Name Role Phone Toña Amara Jack APRN Primary Care Provider [phone] Encounter Details Date Type Department Care Team (Latest Contact Info) Description 07/13/2010 - 07/13/2010 11:59 PM EDT Hospital Encounter Radiology Library at [facility] [place] [address] Amor Hollingsworth MD [facility] [place] [address] Pain Discharge Disposition: Home Social History Tobacco [...] Only Mammo (07/13/2010 12:00 AM EDT) Narrative [facility] - 03/21/2016 11:05 AM EST This exam is for storage only and is auto-finalizing. Amor Hollingsworth MD IM FILM LIBRARY ORD ERABLES [place], [place] documented in this encounter Visit Diagnoses Diagnosis Pain Generalized pain documented in this encounter Care Teams Talent Acquisition Manager Relationship Specialty Start Date End Date Amara Ding APRN PCP - General 02/15/10 05/26/14 documented as of this encounter
--- OUTSIDE RECORDS SUMMARY | 2024-01-17 12:00 | XMS_ITS | Encounter Summary ---
[place] [address] Care Team Providers Care Financial Reserve Clerk Name Role Phone Jelena Harris Primary Care Provider [phone] Reason for Visit * Reason Comments Advice Only bbr * Consultation (Routine) - Closed Specialty Diagnoses / Procedures Referred By Tonya hall Referred To Contact Plastic Surgery Diagnoses macromastia Jelena Harris PA [address] [place] [address] [facility] [address] [address] Referral ID Status Reason Start Date Expiration Date V isits Requested Visits Authorized [id number] Closed Consult, Test [facility] 12/24/2015 12/23/2016 1 1 Encounter Details Date Type Department Care Team (Late st Contact Info) Description 01/17/2016 4:30 PM EDT Office [place] [address] Michael Jenkins MD [facility] [place] [address] Macromastia Social History Tobacco Use [...] of breast disease. 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 She does not perform any heavy [...] Well-being 53 Conservative Therapy Treatments: [facility] PLAST[facility] CONSERVATIVE THERAPY TREATMENTS 01/17/2016 Physical therapy [...] to persist following surgery. She watched the [employer] video on breast reduction, and was provided [...] surgery is best done at a realistic snf stable weight. We talked about the outpatient [...] revisions for scarring or asymmetry.) Erickson or Ramey Pattern Incision: More scarring on breast, but [...] Timeframe: Elective Procedure: Bilateral breast reduction CPT: 27998 Surgical Technique: Erickson Surgical site: Breasts Side: [...] aspirin products (unless otherwise advised by patient's PCP/Log Rider for cardiac symptoms), fish oil, Vitamin E [...] breast documented in this encounter Care Teams Financial Reserve Clerk Relationship Specialty Start Date End Date Jelena Harris PA [address] [place] [address] PCP - General 05/27/14 06/04/18 documented as of this encounter
--- OUTSIDE RECORDS SUMMARY | 2024-01-17 12:00 | XMS_ITS | Encounter Summary ---
Author Organization [facility] [place] [address] Care Team Providers Care Agriculture Research Director Name Role Phone Jelena Harris Primary Care Provider [phone]- [phone] Encounter Details Date Type Department Care Team (Latest Contact Info) Description 06/09/2014 - 06/09/2014 11:59 PM EDT Hospital Encounter Radiology Library at [facility] [place] [address] Michael Branch MD [facility] [place] [address] Pain Discharge Disposition: Home Social History Tobacco [...] Branch MD IMG FILM LIBRARY ORD ERABLES [place], [place] documented in this encounter Visit Diagnoses Diagnosis Pain Generalized pain documented in this encounter Care Teams Agriculture Research Director Relationship Specialty Start Date End Date Jelena Harris PA [address] [place] [address] PCP - General 05/27/14 06/04/18 documented as of this encounter
--- OUTSIDE RECORDS SUMMARY | 2024-01-17 12:00 | XMS_ITS | Encounter Summary ---
Author Organization [facility] [place] [address] Care Team Providers Care Business Office Director Name Role Phone Jelena Harris Primary Care Provider [phone]- [phone] Encounter Details Date Type Department Care Team (Latest Contact Info) Description 03/15/2016 - 03/15/2016 11:59 PM EST Hospital Encounter Radiology Library at [facility] [place] [address] Michael Branch MD [facility] [place] [address] Pain Discharge Disposition: Home Social History Tobacco [...] Only Mammo (03/15/2016 12:00 AM EST) Narrative [facility] - 03/16/2016 11:05 AM EST This exam is for storage only and is auto-finalizing. Michael Branch MD IMG FILM LIBRARY ORD ERABLES [place], [place] documented in this encounter Visit Diagnoses Diagnosis Pain Generalized pain documented in this encounter Care Teams Business Office Director Relationship Specialty Start Date End Date Jelena Harris PA [address] [place] [address] PCP - General 05/27/14 06/04/18 documented as of this encounter
--- OUTSIDE RECORDS SUMMARY | 2024-01-17 12:00 | XMS_ITS | Encounter Summary ---
Author Organization [facility] [place] [address] Care Team Providers Care Wellness Guide Name Role Phone WillacyEdie benavidessaed Jack APRN Primary Care Provider [phone] Encounter Details Date Type Department Care Team (Latest Contact Info) Description 12/18/2011 - 12/18/2011 11:59 PM EDT Hospital Encounter Radiology Library at [facility] [place] [address] [facility] [place] [address] Pain Discharge Disposition: Home Social History Tobacco [...] Only Mammo (12/18/2011 12:00 AM EDT) Narrative [facility] - 03/21/2016 10:54 AM EST This exam is for storage only and is auto-finalizing. Amor Hollingsworth MD IM FILM LIBRARY ORD ERABLES [place], [place] documented in this encounter Visit Diagnoses Diagnosis Pain Generalized pain documented in this encounter Care Teams Wellness Guide Relationship Specialty Start Date End Date Amara Ding APRN PCP - General 02/15/10 05/26/14 documented as of this encounter
--- NOTE | 2024-01-17 12:07 | ED.GENADUL_ITS ---
Discharge Plan Discharge Details Chief Complaint: Chest Pain Clinical Impression: Shortness of breath, Post-op pain, Hypoxia Primary Care Provider: Qian Alejandra ED Provider: Denys Duenas Home Meds and New Rx's Prescriptions: No Action sertraline 25 mg tablet 25 mg PO DAILY albuterol sulfate [ProAir HFA] 90 mcg/actuation HFA aerosol inhaler 2 puff inhalation Q6H PRN hydrochlorothiazide 25 MG tablet 25 mg PO DAILY acetaminophen 500 mg tablet 500 mg PO Q6H PRN (Reason: pain) Qty: 60 2RF ibuprofen 600 mg tablet 600 mg PO TID PRN (Reason: pain) Qty: 60 0RF fluticasone propionate [Flovent HFA] 44 mcg/actuation HFA aerosol inhaler 2 puff INHALATION BID Patient Comments: INHALE TWO PUFFS BY MOUTH TWICE A DAY losartan 50 mg tablet 50 mg PO DAILY Patient Comments: TAKE ONE TABLET BY MOUTH EVERY DAY levofloxacin 500 mg tablet 500 mg PO DAILY 4 Days Qty: 4 0RF tramadol 50 mg tablet 50 mg PO Q4H PRNQty: 14 0RF ondansetron 4 mg tablet,disintegrating 4 mg PO DAILY PRN (Reason: nausea and vomiting) 4 Days Qty: 7 0RF HPI General Mode of arrival: wheelchair . Date/Time Provider Initiated Documentation: 01/17/24 11:54 . Limitations to Documentation: no limitations . Information obtained by: patient . History of Present Illness 63 year old F presents to the emergency department with the chief complaint of shortness of breath, described as moderate, Patient reports no radiation. Patient start ed experiencing this day(s) (3) No relieving factors improve symptom(s), No exacerbating factors reported . Patient notes chest pain; denies fever/chills and nausea/vomiting. Patient did receive the following treatments prior to arrival, none Related Data Home Medications ?Medication ?Instructions ?Recorded ?Confirmed hydrochlorothiazide 25 mg tablet 25 mg PO DAILY 06/07/12 01/17/24 albuterol sulfate 90 mcg/actuation 2 puff inhalation Q6H PRN 05/25/21 01/17/24 aerosol inhaler (ProAir HFA) sertraline 25 mg tablet 25 mg PO DAILY 05/25/21 01/17/24 acetaminophen 500 mg tablet 500 mg PO Q6H PRN pain #60 tabs 03/01/22 01/17/24 ibuprofen 600 mg tablet 600 mg PO TID PRN pain #60 tabs 03/01/22 01/17/24 fluticasone propionate 44 2 puff inhalation BID 06/04/22 01/17/24 mcg/actuation HFA aerosol inhaler (Flovent HFA) levofloxacin 500 mg tablet 500 mg PO DAILY 4 days #4 tabs 01/15/24 01/17/24 losartan 50 mg tablet 50 mg PO DAILY 01/15/24 01/17/24 ondansetron 4 mg disintegrating 4 mg PO DAILY PRN nausea and 01/15/24 01/17/24 tablet vomiting 4 days #7 tabs tramadol 50 mg tablet 50 mg PO Q4H PRN #14 tabs 01/15/24 01/17/24 Previous Rx's ?Medication ?Instructions ?Recorded acetaminophen 500 mg tablet 500 mg PO Q6H PRN pain #60 tabs 03/01/22 ibuprofen 600 mg tablet 600 mg PO TID PRN pain #60 tabs 03/01/22 levofloxacin 500 mg tablet 500 mg PO DAILY 4 days #4 tabs 01/15/24 ondansetron 4 mg disintegrating 4 mg PO DAILY PRN nausea and 01/15/24 tablet vomiting 4 days #7 tabs tramadol 50 mg tablet 50 mg PO Q4H PRN #14 tabs 01/15/24 Allergies Allergy/AdvReac Type Severity Reaction Status Date / Time latex Allergy Mild Skin Rash Verified 01/14/24 01:52 Penicillins Allergy Unknown Verified 01/17/24 12:07 steroids AdvReac Severe Other (See Uncoded 01/17/24 12:07 Comment) General SARITA: 3 Review of Systems All systems reviewed & are unremarkable except as noted in HPI and below Constitutional Constitutional: Denies chills, Denies fever(s) and Denies weakness Cardiovascular Cardiovascular: Reports chest pain and Reports dyspnea Respiratory Respiratory: Denies cough and Reports dyspnea Gastrointestinal Gastrointestinal: Reports abdominal pain and Denies vomiting Musculoskeletal Musculoskeletal: Denies joint swelling Neurologic Neurologic: Denies weakness Endocrine Endocrine: Denies cold intolerance Medical Decision Making 63-year-old female with a history of hypertension, asthma, GERD, hyperlipidemia who underwent cholecystectomy earlier this week that was uncomplicated and discharged yesterday comes in with shortness of breath she says been going on for few days and also chest tightness. Denies any diaphoresis, vomiting, says she has upper abdominal pain but is unclear if this is worsened from postop. She is speaking clearly on exam. She is apical wheezing bilaterally otherwise clear lung sounds, her surgical site wounds appear well-healed without signs of infection, she does have tenderness in the upper abdomen. Given recent surgery and complaints of shortness of breath and her O2 sat being 88% on room air concern for possible PE, given her continued pain in her abdomen will obtain CTA of the chest and CT abdomen pelvis to evaluate for possible postop complications such as bleeding or abscess. Will check CBC, CMP and troponin and treat her wheezing with DuoNeb and Solu-Medrol and reassess. Patient's lab and CT show no significant abnormalities, no PE, does have atelectasis versus infiltrate but she does not have a white count or fever so doubt that this is a pneumonia. She is still in the mid 80s on room air, she does have limited full inspiration due to pain at her surgical site. Given her hypoxia I discussed the case with Dr. Kan general surgery who discharged her yesterday. Patient has been doing the incentive spirometer at home but again it has been limited with her breathing due to pain in her surgical site. Dr. Kan advised that the patient should be getting up and walking around and taking deep breaths and does not require hospitalization. I am concerned about sending her home given she is hypoxic, request of Dr. Kan see her and provide a consult note. Feel the patient would benefit from adequate pain control until she is able to take deep breaths and prove that she is no longer hypoxic. I will be signing the patient out to oncoming provider pending ambulatory trial and evaluation by Dr. Kan. Differential Diagnosis Differential Diagnosis: Asthma exacerbation, PE, NSTEMI Medical Records Medical records reviewed: Yes I reviewed the patient's medical records. Imaging Data Radiologic Study: Attestation: I personally reviewed and interpreted this imaging study as follows: Imaging: CT Scan Radiologist's impression: IMPRESSION: 1. No evidence of acute pulmonary emboli nor pulmonary infarction. Suboptimal inspiration. There is atelectasis or mild infiltrate in the bilateral lung bases. There is also additional ground-glass infiltrate in the left lower lobe left lung base. Small in lateral right pleural effusion. 2. There has been recent cholecystectomy. There is a fluid collection in the gallbladder fossa some surrounding streaking, this collection measuring 5.7 x 2.4 x 2.0 cm. There does not appear to be gas within this collection but cannot exclude possibly that this abnormal fluid collection is a postop abscess. Lab Data Lab results reviewed: Yes I reviewed the patient's lab results. ECG Data Attestation: I personally reviewed and interpreted this ECG (s) as follows: Prior ECG tracings: available for review Interpretation: sinus rate of 77 pr 157 no stemi Quality:SDOH Health Related Social Needs: No Data to Display PFSH All Active Problems (Updated 01/17/24 @ 16:41 by Denys Duenas MD) Hypoxia (Acute) Post-op pain (Acute) Shortness of breath (Acute) Right upper quadrant abdominal pain (Acute) Abnormal mammogram of both breasts (Acute) Osteopenia (Acute) Hypertension (Chronic) Obesity (Chronic) Vitamin D deficiency (Acute) Depression with anxiety (Acute) Asthma, mild intermittent (Acute) Hyperlipidemia (Acute) GERD (gastroesophageal reflux disease) (Chronic) Medical History Tobacco use Surgical History History of section Left carpal tunnel syndrome S/P ECTR: 05/02/2022 Degenerative arthritis of carpometacarpal joint of thumb status post left trapezial resection arthroplasty with suture suspensionplasty on 03/01/22. Injection: 07/04/2021 H/O reduction mammoplasty H/O: hysterectomy Social History Smoking/Tobacco Use Status: Former Tobacco Use Quit Date: 03/26/91 Smoking risk assessment performed?: Yes Alcohol Intake: current Alcohol Intake frequency: holidays/special occasions only Drug use: Never Substance use type: does not use Housing: house Do you feel safe at home: Yes Do you feel safe in your relationship?: Yes
--- NOTE | 2024-01-17 12:15 | DI.CT_ITS ---
Exam(s) CT CHEST PE ABD PELVIS W EXAM: CT CHEST PE ABD PELVIS W CLINICAL HISTORY: chest/abd pain, dyspnea, recent cholecystecomy. TECHNIQUE: Imaging Protocol: Axial CT angiography was performed with multi-slice acquisition and m ulti-planar and/or 3D reconstructions. CONTRAST MATERIAL: Intravenous: Omnipaque 350 Contrast volume:100 ml Oral: None COMPARISON: CT CT CHEST/ABD/PEL W from 01/14/2024 FINDINGS: CHEST: PULMONARY ARTERIES: There are no intra-arterial filling defects to suggest the presence of acute pulm onary emboli. LUNGS: Suboptimal inspiration. Elevated hemidiaphragms. There is some atelectasis in both lung base s evident. There is also ground-glass infiltrate in the left lung base left lower lobe. Small right pleural effusion.. No pleural effusion on the left side. MEDIASTINUM: There is no hilar nor mediastinal adenopathy. CARDIAC: Heart size is normal. There is no pericardial effusion. There is no significant shift of t interventricular septum.Caliber of the thoracic aorta is within normal limits. OSSEOUS: No significant osseous lesions.Fractures. ABDOMEN: There is no ascites. LIVER: There are no focal hepatic lesions nor dilatation of intrahepatic ducts. GALLBLADDER/BILIARY: There is surgical clips in the gallbladder fossa. A gallbladder like finding is noted which measures 5.7 x 2.4 by 2 cm, probably consistent with postoperative fluid collection in t gallbladder fossa. There is some surrounding streaking in this region. The CBD is not dilated. There are no calculi evident in the nondilated CBD. PANCREAS: No evidence of pancreatic mass nor dilatation of the pancreatic duct. SPLEEN: Spleen is not enlarged. There are no intrasplenic lesions. Splenic and portal veins are key nt. ADRENALS: There are no significant adrenal masses. KIDNEYS:Small sub cm cortical cysts noted in both kidneys. Do not require further workup. No solid renal lesions. No calculi nor hydronephrosis. No solid renal masses. ABDOMINAL AORTA: Abdominal aorta is calcified but not enlarged. Iliac arteries calcified but not enl arged. LYMPH NODES: There is no retroperitoneal or para-aortic adenopathy. ABDOMINAL WALL/GI: No evidence of significant anterior abdominal wall hernia. No bowel obstruction. PELVIS: LYMPH NODES: There is no intrapelvic nor inguinal adenopathy. GI: No evidence of appendicitis.No evidence of sigmoid diverticulitis. URINARY BLADDER: Thickened wall either due to cystitis or under distension. REPRODUCTIVE: Uterus surgically absent. No abnormal adnexal masses. No free fluid in the pelvis. OSSEOUS: No significant osseous lesions. Fractures. IMPRESSION: 1. No evidence of acute pulmonary emboli nor pulmonary infarction. Suboptimal inspiration. There is atelectasis or mild infiltrate in the bilateral lung bases. There is also additional ground-glass i nfiltrate in the left lower lobe left lung base. Small in lateral right pleural effusion. 2. There has been recent cholecystectomy. There is a fluid collection in the gallbladder fossa some surrounding streaking, this collection measuring 5.7 x 2.4 x 2.0 cm. There does not appear to be gas within this collection but cannot exclude possibly that this abnormal fluid collection is a postop a bscess. Findings discussed by phone with ER physician RADIATION DOSE DELIVERED: 906.99mGy.cm Total DLP DATA REPOSITORY: All CT scans at this facility are submitted to the National Radiology Data Registry (NRDR) Dose Index Registry (DIR) with the [employer] ([employer]). RADIATION OPTIMIZATION: All CT scans at this facility use at least one of these dose optimization te chniques: automated exposure control; mA and/or kV adjustment per patient size (includes targeted exa ms where dose is matched to clinical indication); or iterative reconstruction.
[2024-01-17] MEDS: Albuterol/Ipratropium 3 ML UPD VIAL UPD (12:35)
[2024-01-17] MEDS: methylPREDNISolone SUCC 125 MG VIAL IVP (12:36)
[2024-01-17 12:42] LABS: Abs Immature Grans 0.02 10^3/uL (0.0-0.06); Absolute Basophil Count 0.04 10^3/uL (0.0-0.2); Absolute Eosinophil Count 0.41 10^3/uL (0.0-0.7); Absolute Lymphocyte Count 0.78 10^3/uL (1.2-3.4); Absolute Monocyte Count 0.42 10^3/uL (0.1-0.8); Absolute Neutrophil Count 3.74 10^3/uL (1.2-6.7); Basophils % 0.7 %; Eosinophils % 7.6 %; HGB 12.9 g/dL (11.2-15.7); Immature Grans % 0.4 %; Lymphocytes % 14.4 %; MCH 29.3 pg (27.0-33.0); MCHC 32.3 % (32.0-36.0); MCV 91 fL (80-95); MPV 9.9 fL (8.0-11.0); Monocytes % 7.8 %; Neutrophils % 69.1 %; Platelet Count 137 10^3/uL (130-400); RDW 12.6 % (11.7-14.6); RDW-SD 42.5 fL; WBC 5.41 10^3/uL (4.4-10.8)
[2024-01-17 12:52] LABS: BE (Venous) 7 mmol/L (-2-3); HCO3 (Venous) 32 mmol/L (23-28); O2 Sat (Venous) 76 %; TCO2 (Venous) 29 mmol/L (24-29); pCO2 (Venous) 53 mmHg (41-51); pH (Venous) 7.39 (7.31-7.41); pO2 (Venous) 39 mmHg
[2024-01-17 13:31] LABS: Procalcitonin < 0.1 ng/mL
[2024-01-17 13:39] LABS: ALT 92 U/L (14-59); AST 55 U/L (15-37); Albumin 3.1 g/dL (3.4-5.0); Alkaline Phosphatase 145 U/L (46-116); Anion Gap 6.6 mmol/L (3-11); BUN 13 mg/dL (7-18); Bilirubin, Direct 0.4 mg/dL (0.0-0.2); Bilirubin, Total 1.15 mg/dL (0.2-1.0); CO2 29.4 mmol/L (21.0-32.0); CREATININE 0.8 mg/dL (0.55-1.02); Calcium 9.5 mg/dL (8.5-10.1); Chloride 108 mmol/L (98-107); Estimated GFR 82.23 (mL/min/1.73m2); Glucose 88 mg/dL (74-106); Lipase 52 U/L (16-77); Magnesium 2.2 mg/dL (1.8-2.4); Potassium 4.7 mmol/L (3.5-5.1); Sodium 144 mmol/L (136-145); Total Protein 6.5 g/dL (6.4-8.2); Troponin I 6 ng/L (<or=51)
[2024-01-17 13:45] LABS: INR 1.1 (0.9-1.1); PTT Activated 27.5 sec (23.6-32.8); Prothrombin Time 11.2 sec (9.1-11.1)
[2024-01-17] MEDS: Omnipaque 350 MG/ML 100 ML BTL IJ (14:07)
[2024-01-17 14:08] LABS: Troponin I 6 ng/L (<or=51)
[2024-01-17] MEDS: Normal Saline - Diluent 50 ML VIAL IJ (14:08)
[2024-01-17 14:30] LABS: Bilirubin Negative (Negative); Blood Negative (Negative); Clarity Clear (Clear); Glucose Negative (Negative); Ketones 15 mg/dL (Negative); Leukocyte Esterase Negative (Negative); Nitrite Negative (Negative); Specific Gravity 1.015 (1.005-1.025); pH 5.5 (5-8)
[2024-01-17 16:07] LABS: Troponin I 6 ng/L (<or=51)
--- NOTE | 2024-01-17 18:05 | W.SURGCON ---
Date of service: 01/17/24 Time of Service: 18:05 Assessment and Plan Assessment and plan (1) Post-op pain: Status: Acute Assessment and plan: 63-year-old woman postop day 2 from laparoscopic cholecystectomy. She is hemodynamically stable. She is in no distress. She is morbidly obese with a BMI of 41. She has asthma at baseline. She reportedly has had a cold before her acute hospitalization/surgery. At the bedside I had her perform slow, deep breathing exercises. When she performs these, her saturation goes from 87-88% at rest to 92%. I asked for an incentive spirometer. She is only able to pull 500-600 cc of volume. With encouragement I got her to slowly pull almost 1000 cc, and this resulted in a fit of coughing and significant phlegm production. Her saturation went to 94%. Assessment/plan: Moderate atelectasis secondary to her body habitus, her chronic pulmonary condition, her acute pulmonary condition and exacerbated by postoperative pain. I do not think her postoperative pain is unusual or worse than typical/anticipated. However, the combination of all of these issues is resulting in low lung volumes and that is why she is hypoxic. I do not have a suspicion for pneumonia in the absence of fever or cough. Indeed, any coughing she is doing is because of the atelectatic lungs opening back up and this is also where the phlegm is coming from. Unfortunately this is not managed by simply administering oxygen and pain medicine. She is very capable of performing the deep breathing despite the pain that results. The reality is that her lungs are atelectatic and it is going to take some effort to get them opened up again. She has a very large body habitus and that is playing a major role. I had a long and detailed discussion with her and her at the bedside and gave them clear and detailed discussions about incentive spirometer, 5?6 times every 30 minutes at bare minimum while awake. She needs to be out of bed. She needs to ambulate herself and mobilize herself to the restroom as well as getting herself food or drink. She is very capable of doing all of these things though there is some discomfort secondary to her surgery. Because she is only pulling 500-600 cc on I-S without guidance, I think she needs to be readmitted for encouragement and enforcement with nursing and respiratory therapy. If she cannot do this on her own tomorrow, she may need to go to a rehab facility. I discussed this in detail with the and his . They expressed their understanding. Overall plan: Incentive spirometer Out of bed in chair only -no bed Respiratory therapy Ambulate every 2 hours in the halls Nonnarcotic analgesia History of Present Illness Narrative: 63-year-old woman is postop day 2 from laparoscopic cholecystectomy. She went to see her primary care doctor today for reasons that are not very clear but she says I was told to. At her primary care office she was reportedly saturating in the high 80% range and was told to come to the ER. She has a history of asthma. She says that she has had a chest cold for the last week or so and has been coughing up phlegm. She reports that this was before her surgery. Her only complaint is epigastric pain over the extraction incision site - this is worsened on deep breathing. She said she slept fine last night. She has not taken any pain medicine since this morning. Both her and her admit that she has not been getting out of bed or out of the chair and has been just resting throughout the day. She had a PE study done by the ER which was normal. PFSH All Active Problems (Updated 01/17/24 @ 16:41 by Denys Duenas MD) Hypoxia (Acute) Post-op pain (Acute) Shortness of breath (Acute) Right upper quadrant abdominal pain (Acute) Abnormal mammogram of both breasts (Acute) Osteopenia (Acute) Hypertension (Chronic) Obesity (Chronic) Vitamin D deficiency (Acute) Depression with anxiety (Acute) Asthma, mild intermittent (Acute) Hyperlipidemia (Acute) GERD (gastroesophageal reflux disease) (Chronic) Medical History Tobacco use Surgical History History of section Left carpal tunnel syndrome S/P ECTR: 05/02/2022 Degenerative arthritis of carpometacarpal joint of thumb status post left trapezial resection arthroplasty with suture suspensionplasty on 03/01/22. Injection: 07/04/2021 H/O reduction mammoplasty H/O: hysterectomy Social History Smoking/Tobacco Use Status: Former Tobacco Use Quit Date: 03/26/91 Smoking risk assessment performed?: Yes Alcohol Intake: current Alcohol Intake frequency: holidays/special occasions only Drug use: Never Substance use type: does not use Housing: house Do you feel safe at home: Yes Do you feel safe in your relationship?: Yes Exam Narrative Exam Narrative: Gen: Non-toxic, comfortable and interactive Neuro: Alert and oriented x3 Psych: Good mood and affect. Good insight and understanding into condition. Chest: Non-labored breathing, no wheezing, no visible shortness of breath. Heart: Regular Abdomen: Soft, nondistended, focal tenderness over her incision which is expected/appropriate Results Last Vital Signs Temp 98.0 F 01/17/24 11:56 Pulse 77 01/17/24 13:45 Resp 18 01/17/24 16:40 BP 154/62 H 01/17/24 13:45 Pulse Ox 89 L 01/17/24 17:30 Labs 01/17/24 12:32 01/17/24 12:32 Labs: Laboratory Results - last 24 hr 01/17/24 01/17/24 01/17/24 12:32 13:00 13:35 WBC 5.41 RBC 4.40 Hgb 12.9 Hct 40.0 MCV 91 MCH 29.3 MCHC 32.3 RDW 12.6 Plt Count 137 MPV 9.9 Immature Gran % 0.4 Neutrophils % 69.1 Lymphocytes % 14.4 Monocytes % 7.8 Eosinophils % 7.6 Basophils % 0.7 Nucleated RBC % 0.0 Absolute Neutrophils 3.74 Absolute Lymphocytes 0.78 L Absolute Monocytes 0.42 Absolute Eosinophils 0.41 Absolute Basophils 0.04 PT Cancelled 11.2 H INR Cancelled 1.1 APTT Cancelled 27.5 VBG pH 7.39 VBG pCO2 53 H VBG pO2 39 VBG HCO3 32 H VBG Total CO2 29 VBG O2 Saturation 76 VBG Base Excess 7 H Sodium 144 Potassium 4.7 Chloride 108 H Carbon Dioxide 29.4 Anion Gap 6.6 BUN 13 Creatinine 0.8 Est GFR (CKD-EPI 2020) 82.23 Glucose 88 Calcium 9.5 Magnesium 2.2 Total Bilirubin 1.15 H Conjugated Bilirubin 0.4 H AST 55 H ALT 92 H Alkaline Phosphatase 145 H Troponin I 6 6 Total Protein 6.5 Albumin 3.1 L Lipase 52 Procalcitonin < 0.1 Urine Color Urine Clarity Urine pH Ur Specific [place] Urine Protein Urine Ketones Urine Blood Urine Nitrite Urine Bilirubin Urine Urobilinogen Ur Leukocyte Esterase Urine Glucose 01/17/24 01/17/24 14:09 15:40 WBC RBC Hgb Hct MCV MCH MCHC RDW Plt Count MPV Immature Gran % Neutrophils % Lymphocytes % Monocytes % Eosinophils % Basophils % Nucleated RBC % Absolute Neutrophils Absolute Lymphocytes Absolute Monocytes Absolute Eosinophils Absolute Basophils PT INR APTT VBG pH VBG pCO2 VBG pO2 VBG HCO3 VBG Total CO2 VBG O2 Saturation VBG Base Excess Sodium Potassium Chloride Carbon Dioxide Anion Gap BUN Creatinine Est GFR (CKD-EPI 2020) Glucose Calcium Magnesium Total Bilirubin Conjugated Bilirubin AST ALT Alkaline Phosphatase Troponin I 6 Total Protein Albumin Lipase Procalcitonin Urine Color Yellow Urine Clarity Clear Urine pH 5.5 Ur Specific [place] 1.015 Urine Protein Negative Urine Ketones 15 H Urine Blood Negative Urine Nitrite Negative Urine Bilirubin Negative Urine Urobilinogen 1.0 H Ur Leukocyte Esterase Negative Urine Glucose Negative
--- NOTE | 2024-01-17 18:24 | W.EDPROG ---
Date of service: 01/17/24 Time of Service: 18:24 Medical Decision Making Given hypoxia, poor inspiratory effort and continued pain, patient will be admitted to general surgery service for close monitoring pain control and oxygen overnight. Likely related to atelectasis Quality:SDOH Health Related Social Needs: No Data to Display Sign Out Sign Out Data: Sign Out Comment: s/p jeannie dow earlier this week, was discharged yesterday and came in with shortness of breath. His currently hypoxic in the mid 80s when she is taken off oxygen. She has been using a symptom spirometer at home was limited due to pain in her surgical site. Dr. Kan from general surgery recommended patient try and ambulate and take deep breaths. I did request that he consult is given the patient is hypoxic currently feel would be more reasonable to admit her to the hospital.[place] ambulation trial and general surgery consult Last updated by Deyns Duenas MD at 01/17/24 16:43 Discharge Plan Disposition Patient Disposition: Admit to [facility] Discharge Details Chief Complaint: Chest Pain Clinical Impression: Shortness of breath, Post-op pain, Hypoxia Primary Care Provider: Qian Alejandra ED Provider: Richardson Gold Home Meds and New Rx's Prescriptions: No Action sertraline 25 mg tablet 25 mg PO DAILY albuterol sulfate [ProAir HFA] 90 mcg/actuation HFA aerosol inhaler 2 puff inhalation Q6H PRN hydrochlorothiazide 25 MG tablet 25 mg PO DAILY acetaminophen 500 mg tablet 500 mg PO Q6H PRN (Reason: pain) Qty: 60 2RF ibuprofen 600 mg tablet 600 mg PO TID PRN (Reason: pain) Qty: 60 0RF fluticasone propionate [Flovent HFA] 44 mcg/actuation HFA aerosol inhaler 2 puff INHALATION BID Patient Comments: INHALE TWO PUFFS BY MOUTH TWICE A DAY losartan 50 mg tablet 50 mg PO DAILY Patient Comments: TAKE ONE TABLET BY MOUTH EVERY DAY levofloxacin 500 mg tablet 500 mg PO DAILY 4 Days Qty: 4 0RF tramadol 50 mg tablet 50 mg PO Q4H PRNQty: 14 0RF ondansetron 4 mg tablet,disintegrating 4 mg PO DAILY PRN (Reason: nausea and vomiting) 4 Days Qty: 7 0RF
[2024-01-17 18:59] LABS: COVID-19 PCR Negative (Negative); Influenza A PCR Negative (Negative); Influenza B PCR Negative (Negative); RSV PCR Negative (Negative)
[2024-01-17 19:03] LABS: Source Nasopharynx
[2024-01-17] MEDS: ACETAMINOPHEN 1,000 MG/100 ML BAG 400 MG IVPB (19:07)
--- NOTE | 2024-01-17 20:20 | W.PCEDHO ---
Registration Status: Primary Language: Preferred Language: ED Information & Data Chief Complaint Chest Pain 01/17/24 12:42 Chief Complaint Chest Pain 01/17/24 11:56 Triage Note patient presented to the ER 01/17/24 11:56 with chest pain and SOB since 2 days ago. reported that she feels as if someone is top of her chest and its hard for her to breathe. Medical / Surgical History Tobacco use (Last Reviewed 01/14/24 @ 02:09 by Lc Diaz DO) History of section Left carpal tunnel syndrome Degenerative arthritis of carpometacarpal joint of thumb H/O reduction mammoplasty H/O: hysterectomy Most Recent Vital Signs Temperature 36.7 C 01/17/24 11:56 Temperature Source Temporal Artery Scan 01/17/24 11:56 Pulse 69 01/17/24 18:30 Pulse 75 01/17/24 16:40 Respiratory Rate 18 01/17/24 16:40 Respiratory Effort Short of Breath, Splinting 01/17/24 12:47 Respiratory Depth Shallow 01/17/24 12:47 Respiratory Pattern Normal 01/17/24 12:47 Blood Pressure 154/62 H 01/17/24 13:45 Blood Pressure Mean 91 01/17/24 13:45 Pulse Oximetry 94 01/17/24 18:30 Oxygen Delivery Method Room Air 01/17/24 11:56 Oxygen Flow Rate 0 01/17/24 11:56 Pain Level 10 01/17/24 12:36 Comment initiated 2L oxygen 01/17/24 11:56 Comment 3l 01/17/24 18:30 Allergies latex Allergy (Mild, Verified 01/14/24 01:52) Skin Rash Penicillins Allergy (Verified 01/17/24 12:07) Unknown steroids Adverse Reaction (Severe, Uncoded 01/17/24 12:07) Other (See Comment) shaking and jittery Precautions Isolation Standard precaution 01/17/24 12:42 Active Medications Generic Name Dose Route Start Last Admin Trade Name Freq PRN Reason Stop Dose Admin Acetaminophen 1,000 mg in 100 mls @ 400 mls/hr 01/17/24 18:30 01/17/24 19:30 Ofirmev IVPB Infused Q6H TIMMY Infusion Iohexol 100 ml 01/17/24 14:15 01/17/24 14:07 Omnipaque 350 Mg/Ml 100 Ml Btl IJ 02/16/24 23:59 100 ml DIRECTED TIMMY Administration Sodium Chloride 50 ml 01/17/24 14:15 01/17/24 14:08 Normal Saline - Diluent 50 Ml Vial IJ 50 ml .FOR DI USE TIMMY Administration IV IV Catheter Type [Right Peripheral IV Antecubital] IV Catheter Gauge [Right 18 Antecubital] Diet Orders Category Date Time Status Regular/Normal [DIET] Nutrition 01/17/24 Dinner Active Diagnostics 01/17/24 01/17/24 01/17/24 Range/Units 18:15 15:40 14:09 WBC (4.4-10.8) 10^3/uL RBC (3.93-5.22) 10^6/uL Hgb (11.2-15.7) g/dL Hct (36.0-46.0) % MCV (80-95) fL MCH (27.0-33.0) pg MCHC (32.0-36.0) % RDW (11.7-14.6) % Plt Count (130-400) 10^3/uL MPV (8.0-11.0) fL Immature Gran % % Neutrophils % % Lymphocytes % % Monocytes % % Eosinophils % % Basophils % % Nucleated RBC % (0.0-0.3) % Absolute Neutrophils (1.2-6.7) 10^3/uL Absolute Lymphocytes (1.2-3.4) 10^3/uL Absolute Monocytes (0.1-0.8) 10^3/uL Absolute Eosinophils (0.0-0.7) 10^3/uL Absolute Basophils (0.0-0.2) 10^3/uL PT INR APTT VBG pH (7.31-7.41) VBG pCO2 (41-51) mmHg VBG pO2 mmHg VBG HCO3 (23-28) mmol/L VBG Total CO2 (24-29) mmol/L VBG O2 Saturation % VBG Base Excess (-2-3) mmol/L Sodium (136-145) mmol/L Potassium (3.5-5.1) mmol/L Chloride (98-107) mmol/L Carbon Dioxide (21.0-32.0) mmol/L Anion Gap (3-11) mmol/L BUN (7-18) mg/dL Creatinine (0.55-1.02) mg/dL Est GFR (CKD-EPI 2020) (mL/min/1.73m2) Glucose (74-106) mg/dL Calcium (8.5-10.1) mg/dL Magnesium (1.8-2.4) mg/dL Total Bilirubin (0.2-1.0) mg/dL Conjugated Bilirubin (0.0-0.2) mg/dL AST (15-37) U/L ALT (14-59) U/L Alkaline Phosphatase (46-116) U/L Troponin I 6 (<or=51) ng/L Total Protein (6.4-8.2) g/dL Albumin (3.4-5.0) g/dL Lipase (16-77) U/L Procalcitonin ng/mL Urine Color Yellow (Yellow) Urine Clarity Clear (Clear) Urine pH 5.5 (5-8) Ur Specific Musella 1.015 (1.005-1.025) Urine Protein Negative (Neg-Trace) mg/dL Urine Ketones 15 H (Negative) mg/dL Urine Blood Negative (Negative) Urine Nitrite Negative (Negative) Urine Bilirubin Negative (Negative) Urine Urobilinogen 1.0 H (Up to 0.2) mg/dL Ur Leukocyte Esterase Negative (Negative) Urine Glucose Negative (Negative) mg/dL COVID-19 Source Nasopharynx SARS-CoV-2 (PCR) Negative (Negative) Influenza Type A (PCR) Negative (Negative) Influenza Type B (PCR) Negative (Negative) RSV (PCR) Negative (Negative) 01/17/24 01/17/24 01/17/24 Range/Units 13:35 13:00 12:32 WBC 5.41 (4.4-10.8) 10^3/uL RBC 4.40 (3.93-5.22) 10^6/uL Hgb 12.9 (11.2-15.7) g/dL Hct 40.0 (36.0-46.0) % MCV 91 (80-95) fL MCH 29.3 (27.0-33.0) pg MCHC 32.3 (32.0-36.0) % RDW 12.6 (11.7-14.6) % Plt Count 137 (130-400) 10^3/uL MPV 9.9 (8.0-11.0) fL Immature Gran % 0.4 % Neutrophils % 69.1 % Lymphocytes % 14.4 % Monocytes % 7.8 % Eosinophils % 7.6 % Basophils % 0.7 % Nucleated RBC % 0.0 (0.0-0.3) % Absolute Neutrophils 3.74 (1.2-6.7) 10^3/uL Absolute Lymphocytes 0.78 L (1.2-3.4) 10^3/uL Absolute Monocytes 0.42 (0.1-0.8) 10^3/uL Absolute Eosinophils 0.41 (0.0-0.7) 10^3/uL Absolute Basophils 0.04 (0.0-0.2) 10^3/uL PT 11.2 H Cancelled INR 1.1 Cancelled APTT 27.5 Cancelled VBG pH 7.39 (7.31-7.41) VBG pCO2 53 H (41-51) mmHg VBG pO2 39 mmHg VBG HCO3 32 H (23-28) mmol/L VBG Total CO2 29 (24-29) mmol/L VBG O2 Saturation 76 % VBG Base Excess 7 H (-2-3) mmol/L Sodium 144 (136-145) mmol/L Potassium 4.7 (3.5-5.1) mmol/L Chloride 108 H (98-107) mmol/L Carbon Dioxide 29.4 (21.0-32.0) mmol/L Anion Gap 6.6 (3-11) mmol/L BUN 13 (7-18) mg/dL Creatinine 0.8 (0.55-1.02) mg/dL Est GFR (CKD-EPI 2020) 82.23 (mL/min/1.73m2) Glucose 88 (74-106) mg/dL Calcium 9.5 (8.5-10.1) mg/dL Magnesium 2.2 (1.8-2.4) mg/dL Total Bilirubin 1.15 H (0.2-1.0) mg/dL Conjugated Bilirubin 0.4 H (0.0-0.2) mg/dL AST 55 H (15-37) U/L ALT 92 H (14-59) U/L Alkaline Phosphatase 145 H (46-116) U/L Troponin I 6 6 (<or=51) ng/L Total Protein 6.5 (6.4-8.2) g/dL Albumin 3.1 L (3.4-5.0) g/dL Lipase 52 (16-77) U/L Procalcitonin < 0.1 ng/mL Urine Color (Yellow) Urine Clarity (Clear) Urine pH (5-8) Ur Specific Musella (1.005-1.025) Urine Protein (Neg-Trace) mg/dL Urine Ketones (Negative) mg/dL Urine Blood (Negative) Urine Nitrite (Negative) Urine Bilirubin (Negative) Urine Urobilinogen (Up to 0.2) mg/dL Ur Leukocyte Esterase (Negative) Urine Glucose (Negative) mg/dL COVID-19 Source SARS-CoV-2 (PCR) (Negative) Influenza Type A (PCR) (Negative) Influenza Type B (PCR) (Negative) RSV (PCR) (Negative) Intake and Output - 24 Hour Total 01/17/24 11:54 thru 01/17/24 19:30 Intake Total 100 Balance 100 Weight 98.5 kg Intake: IV 100 Falls Risk Assessment History of Falls No History 01/17/24 12:42 Contributing Factors No Factors 01/17/24 12:42 Ambulatory Aids Independent 01/17/24 12:42 Tubes/Lines None 01/17/24 12:42 Gait Evaluation No gait disturbance 01/17/24 12:42 Cognition No cognitive impairment 01/17/24 12:42 Fall Total Score 0 01/17/24 12:42 Level of Risk Standard/Low Risk 01/17/24 12:42 Problems (Last Reviewed 01/14/24 @ 02:09 by Lc Diaz DO) Post-op pain (Acute) v v v v v v v v v Sending and/or Receiving Nurses: Please use comment section below to note any information pertinent to the patient hand-off not included above. Information / Comments: Desats with ambulation, on 3 L NC, RA baseline. Report received from: Jacob Ocasio ED RN.
--- OUTSIDE RECORDS SUMMARY | 2024-01-17 20:29 | XMS_ITS | Encounter Summary ---
Author Organization [facility] Address [address] [place] [address] Care Team Providers Care Maintenance Equipment Operator Name Role Phone Unavailable Primary Care Provider Unavailabl e Encounter Details Date Type Department Care Team (Late st Contact Info) Description 06/24/2003 Results Only [facility] - [place] conversion [address] [place] [address] Amara Arzola, DEXIGRAPH OPERATOR [facility] [address] [place] [address] Social History Tobacco Use Types [...] ? GINA HENDERSON ? Accession #: ? [id number] : ? 1960 (Age: 43) ??F ?Collect Date: ? 06/24/2003 Location: ? [facility] ? Receive Date: ? 06/26/2003 Provider: ?AMARA ARZOLA DEXIGRAPH OPERATOR Copy to: ? Specimen/Source: ?ThinPrep Pap Test, [...] Arzola NP PATHOLOGY ORDERABLES [facility] [address] [place] [address] documented in this encounter Visit Diagnoses Not on filedocumented in this encounter
--- OUTSIDE RECORDS SUMMARY | 2024-01-17 20:29 | XMS_ITS | Clinical Summary ---
Author Organization [facility] Address [address] [place] [address] Care Team Providers Care Penal Officer Name Role Phone [place]itaAmara benavides YONG Primary Care Provider [phone] Encounters Date Type Department Care Team Description 01/16/2024 Lab Requisition [facility] Pathology & Laboratory Medicine - [facility] [address] [place] [address] Zoey Agosto, DO Encounter for other general [...] C Antibody Negative Negative 03/01/2020 9:51 EST [facility] Blood VENOUS BLOOD / Unknown 02/27/2020 15:46 EST 02/29/2020 17:20 EST Provider Outr Resulting Lab CHEMISTRY & BLOOD GAS ORDERABLES [facility] [address] [place] [address] from Last 3 Months or Most Recently Relevant to Health Maintenance Care Teams Penal Officer Relationship Specialty Start Date End Date Amara Ding NP [facility] [address] [place] [id number] PCP - General 01/30/15
--- OUTSIDE RECORDS SUMMARY | 2024-01-17 20:29 | XMS_ITS | Encounter Summary ---
Author Organization [facility] Address [address] [place] [address] Care Team Providers Care Service Attendant Cafeteria Name Role Phone Unavailable Primary Care Provider Unavailabl e Encounter Details Date Type Department Care Team (Late st Contact Info) Description 06/09/2009 Results Only [facility] - [facility] ([facility]) [address] [place], [place] [id number] Amara Arzola, YONG [facility] [address] [place] [address] Social History Tobacco Use Types [...] ? GINA HENDERSON ? Accession #: ? [id number] ? : ? 1960 (Age: 49) ??F [...] Arzola NP PATHOLOGY ORDERABLES [facility] [address] [place] [address] documented in this encounter Visit Diagnoses Not on filedocumented in this encounter
--- OUTSIDE RECORDS SUMMARY | 2024-01-17 20:29 | XMS_ITS | Encounter Summary ---
Author Organization [facility] Address [address] [place] [address] Care Team Providers Care Municipal Engineer Name Role Phone Unavailable Primary Care Provider Unavailabl e Encounter Details Date Type Department Care Team (Late st Contact Info) Description 06/01/2006 Results Only [facility] [place] conversion [address] [place] [address] Ortiz Wei, DO [address] [facility] [address] [place] [address] Social History Tobacco Use Types [...] ? GINA HENDERSON ? Accession #: ? [id number] ? : ? 1960 (Age: 46) ??F ? Collect Date: ? 06/01/2006 ? Location: ? [facility] ? Receive Date: ? 06/01/2006 ? Provider: ORTIZ WEI DO Copy to: PRINCESS ARZOLA VEHICLE TRIMMER ? Final Pathologic Diagnosis: ? Skin of [...] A3 ?Distal tips, reverse en face (Dr. Lozano)/[facility] End of Report [facility] 06/01/2006 06/01/2006 15: 03 EST Ortiz Wei DO PATHOLOGY ORDER [place] [facility] [address] [place] [address] documented in this encounter Visit Diagnoses Not on filedocumented in this encounter
--- OUTSIDE RECORDS SUMMARY | 2024-01-17 20:29 | XMS_ITS | Encounter Summary ---
Author Organization [facility] Address [address] [place] [address] Care Team Providers Care Radio Technician Name Role Phone Amara Ding NP Primary Care Provider [phone] Encounter Details Date Type Department Care Team (Late st Contact Info) Description 02/28/2020 Lab Requisition [facility] Pathology & Laboratory Medicine - [facility] [address] [place] [address] Outr Resulting Lab, Provider Social History Tobacco [...] C Antibody Negative Negative 03/01/2020 9:51 EST [facility] Blood VENOUS BLOOD / Unknown 02/27/2020 15:46 EST 02/29/2020 17:20 EST Provider Outr Resulting Lab CHEMISTRY & BLOOD GAS ORDERABLES [facility] [address] [place] [address] documented in this encounter Visit Diagnoses Not on filedocumented in this encounter Care Teams Radio Technician Relationship Specialty Start Date End Date Amara Ding NP [facility] [address] [place] [address] PCP - General 01/30/15 documented as of this encounter
--- OUTSIDE RECORDS SUMMARY | 2024-01-17 20:29 | XMS_ITS | Encounter Summary ---
Author Organization [facility] Address [address] [place] [address] Care Team Providers Care Enterprise Project Manager Name Role Phone [place]ell[place]Amara benavides [place] Primary Care Provider [phone] Encounter Details Date Type Department Care Team (Late st Contact Info) Description 03/31/2020 Lab Requisition [facility] Pathology & Laboratory Medicine - [facility] [address] [place] [address] Outr Resulting Lab, Provider Social History Tobacco [...] Outr Resulting Lab MICROBIOLOGY - GENERAL ORDERABLES [facility] [address] [place] [address] * COVID-19 TESTING (03/31/2020 13:00 EST) COVID-19 rt-PCR Result Negative Negative 04/01/2020 21:08 EST [facility] Comment: Negative results do not preclude 2019-nCoV infection and should not be used as the sole basis for treatment or other patient management decisions. Negative results must be combined with clinical observations, patient history, and epidemiological information. This test was developed and its performance characteristics determined by [facility]. It has not been cleared or approved [...] testing. This test is based on the [facility] COVID-19 Emergency Use Authorization (EUA) assay, with minor modification as defined by the FDA Performed on the [employer] Flex. Performing Lab [facility] Lab 04/01/2020 21:08 EST [facility] Swab 03/31/2020 13:0 0 EST 03/31/2020 15:43 EST Provider Outr Resulting Lab MICROBIOLOGY - GENERAL ORDERABLES [facility] [address] [place] [address] documented in this encounter Visit Diagnoses Not on filedocumented in this encounter Care Teams Enterprise Project Manager Relationship Specialty Start Date End Date Amara Ding NP [facility] [address] [place] [address] PCP - General 01/30/15 documented as of this encounter
--- OUTSIDE RECORDS SUMMARY | 2024-01-17 20:29 | XMS_ITS | Encounter Summary ---
Author Organization [facility] Address [address] [place] [address] Care Team Providers Care Court Usher Name Role Phone Unavailable Primary Care Provider Unavailabl e Encounter Details Date Type Department Care Team (Late st Contact Info) Description 12/11/2011 Results Only [facility] - [facility] ([facility]) [address] [place], [place] [address] Gamaliel Norton FNP [address] [place], [place] [id number] Social History Tobacco Use Types Packs/Day Years [...] ? GINA HENDERSON ? Accession #: ? [id number] : ? 1960 (Age: 51) ??F ?Collect Date: ? 12/11/2011 Location: ? [facility] ? Receive Date: ? 12/13/2011 Provider: ?GAMALIEL NORTON BOTANY LABORATORY ASSISTANT Copy to: ? Specimen/Source: ?Pap Test, Cervix, [...] Report [facility] 12/11/2011 12/13/2011 Gamaliel Norton BOTANY LABORATORY ASSISTANT PATHOLOGY ORDERABLES [facility] [address] [place] [address] documented in this encounter Visit Diagnoses Not on filedocumented in this encounter
--- OUTSIDE RECORDS SUMMARY | 2024-01-17 20:29 | XMS_ITS | Encounter Summary ---
Author Organization [facility] Address [address] [place] [address] Care Team Providers Care Generation Technician Name Role Phone Unavailable Primary Care Provider Unavailabl e Encounter Details Date Type Department Care Team (Late st Contact Info) Description 06/29/2006 Results Only [facility] conversion [address] [place] [address] Amara Arzola, DISTRIBUTION SUPERVISOR [facility] [address] [place] [address] Social History Tobacco Use Types [...] ? GINA HENDERSON ? Accession #: ? [id number] : ? 1960 (Age: 46) ??F ?Collect Date: ? 06/29/2006 Location: ? [facility] ? Receive Date: ? 07/03/2006 Provider: ?AMARA ARZOLA DISTRIBUTION SUPERVISOR Copy to: ? Specimen/Source: ?ThinPrep Pap Test, Cervix Scar, processed on [employer] System, with manual evaluation Last Menstrual [...] Arzola NP PATHOLOGY ORDERABLES [facility] [address] [place] [address] documented in this encounter Visit Diagnoses Not on filedocumented in this encounter
--- OUTSIDE RECORDS SUMMARY | 2024-01-17 20:29 | XMS_ITS | Referral Summary ---
Author Organization [facility] Address [address] [place] [address] Care Team Providers Care Buildings And Grounds Supervisor Name Role Phone Amara Ding NP Primary Care Provider [phone] Encounters Date Type Department Care Team Description 01/16/2024 Lab Requisition [facility] Pathology & Laboratory Medicine - [facility] [address] [place] [address] Zoey Agosto, DO Encounter for other general [...] C Antibody Negative Negative 03/01/2020 9:51 EST [facility] Blood VENOUS BLOOD / Unknown 02/27/2020 15:46 EST 02/29/2020 17:20 EST Provider Outr Resulting Lab CHEMISTRY & BLOOD GAS ORDERABLES [facility] [address] [place] [address] from Last 3 Months or Most Recently Relevant to Health Maintenance Care Teams Buildings And Grounds Supervisor Relationship Specialty Start Date End Date Amara Ding NP [facility] [address] [place] [address] [facility] - General 01/30/15
--- OUTSIDE RECORDS SUMMARY | 2024-01-17 20:29 | XMS_ITS | Encounter Summary ---
Author Organization [facility] Address [address] [place] [address] Care Team Providers Care Binder And Wrapper Packer Name Role Phone Amara Ding SHARE HOLDER Primary Care Provider [phone] Encounter Details Date Type Department Care Team (Late st Contact Info) Description 01/16/2024 Lab Requisition [facility] Pathology & Laboratory Medicine - [facility] [address] [place] [address] Zoey Agosto, DO [address] [facility] [address] [place], [place] [id number] Encounter for other general examination Social History [...] examination documented in this encounter Care Teams Binder And Wrapper Packer Relationship Specialty Start Date End Date Amara Ding NP [facility] [address] [place], [place] [id number] PCP - General 01/30/15 documented as of this encounter
--- OUTSIDE RECORDS SUMMARY | 2024-01-17 20:29 | XMS_ITS | Encounter Summary ---
Author Organization [facility] Address [address] [place] [address] Care Team Providers Care Car Head Liner Installer Name Role Phone [place] benavides [place] Primary Care Provider [phone] Encounter Details Date Type Department Care Team (Late st Contact Info) Description 06/09/2021 Lab Requisition [facility] Pathology & Laboratory Medicine - [facility] [address] [place] [address] Outr Resulting Lab, Provider Social History Tobacco [...] Priority Date/Time Associated Diagnosis Comments [facility] 06/08/2021 11:30 EDT COVID-19 TESTING Routine 06/08/2021 11:3 0 EDT documented in this encounter Results * COVID-19 TEST [facility] LAB PCR (06/08/2021 11:30 EDT) Swab 06/08/2021 11:3 0 EDT 06/09/2021 21:38 EDT Provider Outr Resulting Lab MICROBIOLOGY - GENERAL ORDERABLES [facility] [address] [place] [address] * COVID-19 TESTING (06/08/2021 11:30 EDT) COVID-19 rt-PCR Result Negative Negative 06/10/2021 15:51 EDT [facility] Comment: This test has [...] performed using the maria eugenia SARS-CoV-2 assay ([employer] on the Maria Eugenia 6800 System Performing Lab Maria Eugenia [address] [facility] Lab 06/10/2021 15:51 EDT [facility] Swab 06/08/2021 11:3 0 EDT 06/09/2021 21:38 EDT Provider Outr Resulting Lab MICROBIOLOGY - GENERAL ORDERABLES [facility] [address] [place] [address] documented in this encounter Visit Diagnoses Not on filedocumented in this encounter Care Teams Car Head Liner Installer Relationship Specialty Start Date End Date Amara Ding NP [facility] [address] [place], [place] [address] PCP - General 01/30/15 documented as of this encounter
--- OUTSIDE RECORDS SUMMARY | 2024-01-17 20:29 | XMS_ITS | Encounter Summary ---
Author Organization [facility] Address [address] [place] [address] Care Team Providers Care Gluer Machine Setup Operator Name Role Phone Unavailable Primary Care Provider Unavailabl e Encounter Details Date Type Department Care Team (Late st Contact Info) Description 06/29/2004 Results Only [facility] conversion [address] [place] [address] Amara Arzola, TONGUE AND GROOVE MACHINE FEEDER [facility] [address] [place] [address] Social History Tobacco Use Types [...] ? GINA HENDERSON ? Accession #: ? [id number] : ? 1960 (Age: 44) ??F ?Collect [...] Arzola NP PATHOLOGY ORDERABLES [facility] [address] [place] [address] documented in this encounter Visit Diagnoses Not on filedocumented in this encounter
--- OUTSIDE RECORDS SUMMARY | 2024-01-17 20:29 | XMS_ITS | Encounter Summary ---
Author Organization [facility] Address [address] [place] [address] Care Team Providers Care Vacuum Truck Driver Name Role Phone Unavailable Primary Care Provider Unavailabl e Encounter Details Date Type Department Care Team (Late st Contact Info) Description 06/18/2002 Results Only [facility] conversion [address] [place] [address] Amara Arzola, REIMBURSEMENT REPRESENTATIVE [facility] [address] [place] [address] Social History Tobacco Use Types [...] ? GINA HENDERSON ? Accession #: ? [id number] : ? 1960 (Age: 42) ??F ?Collect Date: ? 06/18/2002 Location: ? [facility] ? Receive Date: ? 06/20/2002 Provider: ?AMARA ARZOLA REIMBURSEMENT REPRESENTATIVE Copy to: ? Specimen/Source: ?ThinPrep Pap Test, [...] Arzola NP PATHOLOGY ORDERABLES [facility] [address] [place] [address] documented in this encounter Visit Diagnoses Not on filedocumented in this encounter
--- OUTSIDE RECORDS SUMMARY | 2024-01-17 20:29 | XMS_ITS | Encounter Summary ---
Author Organization [facility] Address [address] [place] [address] Care Team Providers Care Fire Alarm Operator Name Role Phone Unavailable Primary Care Provider Unavailabl e Encounter Details Date Type Department Care Team (Late st Contact Info) Description 08/25/[address] [facility] conversion [address] [place] [address] Alice Abraham MD [address] [place] [address] [place], [place] Social History Tobacco Use Types Packs/Day Years [...] ? GINA HENDERSON ? Accession #: ? [id number] ? : ? 1960 (Age: 44) ??F [...] adhesions with mesothelial inclusion cysts. Comment: ? Emergency Vehicle Operator sections have been reviewed at intradepartmental consultation conference. ??On gross and microscopic inspection, ectocervix is not definitively represented in the specimen. ??The findings have been discussed with Dr. Abraham via telephone on August 30, 2004. ?? (Dr. Vogel)/[facility] Document reviewed and electronically signed by: [...] be consistent with ectocervix is not identified. ??Emergency Vehicle Operator sections are submitted as follows: BLOCK PARKER A1, A2 ?Emergency Vehicle Operator anterior/posterior cervix ? A3-A6 ? Emergency Vehicle Operator lateral endomyometrium (A3, A4 contiguous full-thickness sections; A5, A6 contiguous full-thickness sections) ? A7 ?Emergency Vehicle Operator fundic intramural nodule A8 ?Emergency Vehicle Operator serosa to include hemorrhagic adhesions A9-A12 ?Additional perpendicular sections of cervix (A. Pierce)/[facility] End of Report [facility] 08/25/2004 08/26/2004 9:0 9 EDT Alice Abraham MD PATHOLOGY ORDERABLES [facility] [address] [place] [address] documented in this encounter Visit Diagnoses Not on filedocumented in this encounter
--- OUTSIDE RECORDS SUMMARY | 2024-01-17 20:30 | XMS_ITS | Encounter Summary ---
[place] [address] Care Team Providers Care Celebrity Chef Entrepreneur Media Personality Name Role Phone Jelena Harris Primary Care Provider [phone] Encounter Details Date Type Department Care Team (Late st Contact Info) Description 03/24/2016 Telephone [place] [id number] Jany Trejo, RN Social History Tobacco Use [...] 03/24/2016 1:30 PM EST Call received from [facility] F/U on info [place] [facility] They called the wrong office and transferred them to Dr Branch's office. documented in this encounter Plan of Treatment Not on file documented as of this encounter Visit Diagnoses Not on filedocumented in this encounter Care Teams Celebrity Chef Entrepreneur Media Personality Relationship Specialty Start Date End Date Jelena Harris PA [address] [place] [address] PCP - General 05/27/14 06/04/18 documented as of this encounter
--- OUTSIDE RECORDS SUMMARY | 2024-01-17 20:30 | XMS_ITS | Encounter Summary ---
[place] [address] Care Team Providers Care Strap Sewer Name Role Phone Jelena Harris Primary Care Provider [phone] Reason for Visit * Reason Comments Advice Only bbr * Consultation (Routine) - Closed Specialty Diagnoses / Procedures Referred By Tonya hall Referred To Contact Plastic Surgery Diagnoses macromastia Jelena Harris PA [address] [place] [address] [facility] [place] [address] [address] Referral ID Status Reason Start Date Expiration Date V isits Requested Visits Authorized [id number] Closed Consult, Test & Treat Connection Center 12/24/2015 12/23/2016 1 1 Encounter Details Date Type Department Care Team (Late st Contact Info) Description 01/17/2016 4:30 PM EDT Office [place] [address] Michael Jenkins MD [facility] [place] [address] Macromastia Social History Tobacco Use [...] of breast disease. 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 She does not perform any heavy lifting. [...] 0 Physical Well-being 53 Conservative Therapy Treatments: [facility] PLAST[facility] CONSERVATIVE THERAPY TREATMENTS 01/17/2016 Physical therapy [...] to persist following surgery. She watched the [employer] video on breast reduction, and was provided [...] surgery is best done at a realistic fci stable weight. We talked about the outpatient [...] revisions for scarring or asymmetry.) Erickson or [place] Pattern Incision: More scarring on breast, but [...] Timeframe: Elective Procedure: Bilateral breast reduction CPT: 42131 Surgical Technique: Erickson Surgical site: Breasts Side: [...] aspirin products (unless otherwise advised by patient's PCP/Technology Project Manager for cardiac symptoms), fish oil, Vitamin E [...] breast documented in this encounter Care Teams Strap Sewer Relationship Specialty Start Date End Date Jelena Harris PA [address] [place] [address] PCP - General 05/27/14 06/04/18 documented as of this encounter
--- OUTSIDE RECORDS SUMMARY | 2024-01-17 20:30 | XMS_ITS | Clinical Summary ---
Author Organization [facility] [place] [address] Care Team Providers Care Surgical Aides Teacher Name Role Phone Justyn Qian MARY Primary Care Provider [phone] Allergies No known active allergies Medications Medication [...] BIRADS CATEGORY 2: Benign findings. * ??[employer] and The Society of [...] below. ? Electronically signed by: Amor Hollingsworth [facility] ([phone]), at 06/06/2018 7:39 AM Qian Alejandra APRN IMG MAMMO ORDERABLES from Last 3 Months or Most Recently Relevant to Health Maintenance Advance Directives * Full Code (Latest Code Status on File) Date Activated Date Inactivated Comments 03/23/2016 4:10 PM 03/25/2016 3:09 PM Question Answer Comments Does patient have capacity to make decision: Yes Care Teams Surgical Aides Teacher Relationship Specialty Start Date End Date Qian Alejandra APRN [address] [place] [address] PCP - General Family Medicine 06/05/18
--- OUTSIDE RECORDS SUMMARY | 2024-01-17 20:30 | XMS_ITS | Encounter Summary ---
Author Organization [facility] [place] [address] Care Team Providers Care Veneer Marker Name Role Phone Unavailable Primary Care Provider Unavailabl e Encounter Details Date Type Department Care Team (Latest Contact Info) Description 10/05/2004 - 10/05/2004 11:59 PM EDT Hospital Encounter Radiology Library at [facility] [place] [address] Amor Hollingsworth MD [facility] [place] [address] Pain Discharge Disposition: Home Social History Tobacco [...] Only Mammo (10/05/2004 12:00 AM EDT) Narrative [facility] - 03/21/2016 10:59 AM EST This exam is for storage only and is auto-finalizing. Amor Hollingsworth MD [facility] [place] LIBRARY ORD ERABLES [place], [place] documented in this encounter Visit Diagnoses Diagnosis Pain Generalized pain documented in this encounter
--- OUTSIDE RECORDS SUMMARY | 2024-01-17 20:30 | XMS_ITS | Encounter Summary ---
Author Organization [facility] [place] [address] Care Team Providers Care Animal Nurse Name Role Phone Qian Alejandra MARY Primary Care Provider [phone] Reason for Referral * Consultation (Routine) - Closed Specialty Diagnoses / Procedures Referred By Tonya hall Referred To Contact Orthopaedics Diagnoses Osteoarthritis of first carpometacarpal (CMC) joint of one hand Carpal tunnel syndrome, left upper limb W/C INJ Procedures W/C INJ Dada Juarez MD [address] [place] [address] Andreas Pyle MD [facility] DR ORTHOPAEDIC [place] [address] Referral ID Status Reason Start Date Expiration Date V isits Requested Visits Authorized [id number] Closed Consult, Test & Treat PCP Updated and/or Approved 01/18/2022 01/18/2023 6 6 Encounter Details Date Type Department Care Team (Latest Contact Info) Description 01/18/2022 Transcribe Orders eDH Incoming Referrals [phone] Dada Juarez MD [address] [place] [address] Osteoarthritis of first carpometacarpal (CMC) [...] limb documented in this encounter Care Teams Animal Nurse Relationship Specialty Start Date End Date Qian Alejandra APRN [address] [place] [address] PCP - General Family Medicine 06/05/18 documented as of this encounter
--- OUTSIDE RECORDS SUMMARY | 2024-01-17 20:30 | XMS_ITS | Encounter Summary ---
Author [place] [address] Care Team Providers Care Service Parts Coordinator Name Role Phone Jelena Harris Primary Care Provider [phone] Encounter Details Date Type Department Care Team (Late st Contact Info) Description 05/06/2018 Telephone Mammography/[place] [phone] Qian Alejandra APRN [address] [place] [address] Social History Tobacco Use Types [...] on filedocumented in this encounter Care Teams Service Parts Coordinator Relationship Specialty Start Date End Date Jelena Harris PA [address] [place] [address] PCP - General 05/27/14 06/04/18 documented as of this encounter
--- OUTSIDE RECORDS SUMMARY | 2024-01-17 20:30 | XMS_ITS | Encounter Summary ---
[place] [address] Care Team Providers Care Investment Broker Name Role Phone Jelena Harris Primary Care Provider [phone] Reason for Visit * Reason Comments Follow-up BBR Encounter Details Date Type Department Care Team (Latest Contact Info) Description 04/07/2016 10:00 AM EST Clinical Support [place] [address] Surgery follow-up Social History Tobacco Use Types [...] symptoms please call our nurse's line at [phone] Sunday - Sunday 8 - 5. On nights, weekends, or holidays call the [facility] Hospital number [phone] and ask for the PlasticSurgeon cell operation supervisor. documented in this encounter Progress Notes * [...] surgery documented in this encounter Care Teams Investment Broker Relationship Specialty Start Date End Date Jelena Harris PA [address] [place] [address] PCP - General 05/27/14 06/04/18 documented as of this encounter
--- OUTSIDE RECORDS SUMMARY | 2024-01-17 20:30 | XMS_ITS | Encounter Summary ---
Author Organization [facility] [place] [address] Care Team Providers Care Surface Supervisor Name Role Phone Toña Amraa Jack APRN Primary Care Provider [phone] Encounter Details Date Type Department Care Team (Latest Contact Info) Description 07/13/2010 - 07/13/2010 11:59 PM EDT Hospital Encounter Radiology Library at [facility] [place] [address] Amor Hollingsworth MD [facility] [place] [address] Pain Discharge Disposition: Home Social History Tobacco [...] Hollingsworth MD IM FILM LIBRARY ORD ERABLES [place], [place] documented in this encounter Visit Diagnoses Diagnosis Pain Generalized pain documented in this encounter Care Teams Surface Supervisor Relationship Specialty Start Date End Date Amara Ding APRN PCP - General 02/15/10 05/26/14 documented as of this encounter
--- OUTSIDE RECORDS SUMMARY | 2024-01-17 20:30 | XMS_ITS | Encounter Summary ---
Author Organization [facility] [place] [address] Care Team Providers Care Vinyl Installer Name Role Phone Jelena Harris Primary Care Provider [phone] Encounter Details Date Type Department Care Team (Latest Contact Info) Description 03/15/2016 - 03/15/2016 11:59 PM EST Hospital Encounter Radiology Library at [facility] [place] [address] Michael Branch MD [facility] [place] [address] Pain Discharge Disposition: Home Social History Tobacco [...] Only Mammo (03/15/2016 12:00 AM EST) Narrative [facility] - 03/16/2016 11:05 AM EST This exam is for storage only and is auto-finalizing. Michael Branch MD IMG FILM LIBRARY ORD ERABLES [place], [place] documented in this encounter Visit Diagnoses Diagnosis Pain Generalized pain documented in this encounter Care Teams Vinyl Installer Relationship Specialty Start Date End Date Jelena Harris PA [address] [place] [address] PCP - General 05/27/14 06/04/18 documented as of this encounter
--- OUTSIDE RECORDS SUMMARY | 2024-01-17 20:30 | XMS_ITS | Encounter Summary ---
[place] [address] Care Team Providers Care Sorting Machine Operator Name Role Phone Jelena Harris Primary Care Provider +1- [phone] Reason for Visit * Auth/Cert Specialty Diagnoses / Procedures Referred By Tonya hall Referred To Contact Diagnoses N62 - macromastia Tentative DOS - 02/21/2016 CPT: 50373 - yang Procedures PRO REDUCTION OF LARGE BREAST REDUCTION MAMMOPLASTY, YANG Referral ID Status Reason Start Date Expiration Date Visits Re quested Visits Authorized [id number] 1 1 Encounter Details Date Type Department Care Team (Late st Contact Info) Description 03/23/2016 7:30 AM EST - 03/23/2016 10:13 AM EST Surgery [place] [address] Michael Jenkins MD [facility] [place] [address] REDUCTION MAMMOPLASTY, YANG (WRVU 16.03) Social History [...] Gina Henderson Patient Age: 56 y.o. Language: Irish Race: White Ethnicity: Not nor Admit date: [...] 16.03) performed by Michael Jenkins MD at [facility] Procedures: 03/23/2016 Surgeon(s) and Role: * Michael Jenkins MD - Primary * Dagoberto Alexis MD - Resident-Surgeon Ishaan * Ortiz Lopez MD - Resident-Surgeon Ishaan: Procedure(s): REDUCTION MAMMOPLASTY, YANG (WRVU 16.03) MODIFIER ROBERTS Hospital Course: Patient was admitted electively to [facility] via the same day surgery program and [...] QTC Calculated (Bezet) 427 ms Calculated P [place] 54 degrees Calculated R [place] -2 degrees Calculated T [place] 32 degrees INTERPRETATION Normal sinus rhythm Normal [...] good night sleep. 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 With any surgery there is some discomfort or pain. We will prescribe pain medication. Take as prescribed and only as needed. OK to take prescription medication or Tylenol. Do not take both. ?? We recommend taking an aicw-tmx-Lenuzmc stool softener, such as Colace (docusate) or [...] scheduling, please contact our administrative offices at [phone] ?? For clinical questions, please call our nurses at [phone] ?? Both offices are open Sunday thru Sunday 8a - 5p. With emergencies after hours, call the hospital gauge operator at [phone] and ask for the Plastic Surgery Resident secondary teacher. MEDICATIONS: Your Medications Notice Some of the [...] called in to our prescription line at [phone]. Narcotic renewals may be requested from 8am-4pm [...] Sunday 8 am to 5 pm Call [phone] On weekends or after hours: Call [phone] and ask the gauge operator to page the Plastic Surgery Resident secondary teacher. General Instructions SAME DAY SURGERY JONATHAN DRAIN [...] future appointments. Primary Care Provider: RAQUEL Beatty [phone] VNA: No discharge procedures on file. General [...] was managed by the Plastic SurgeryTeam at [facility]. If you haveany questions or concerns, please feel free to contact us. Provider Contact Information: Plastic Surgery Clinic: [facility] (after business hours): documented in this encounter [...] good night sleep. 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 With any surgery there is some discomfort or pain. We will prescribe pain medication. Take as prescribed and only as needed. OK to take prescription medication or Tylenol. Do not take both. ?? We recommend taking an mudi-ivq-Vpequqe stool softener, such as Colace (docusate) or [...] scheduling, please contact our administrative offices at [phone] ?? For clinical questions, please call our nurses at [phone] ?? Both offices are open Sunday thru Sunday 8a - 5p. With emergencies after hours, call the hospital gauge operator at [phone] and ask for the Plastic Surgery Resident secondary teacher. MEDICATIONS: Your Medications Notice Some of the [...] called in to our prescription line at [phone]. Narcotic renewals may be requested from 8am-4pm [...] Sunday 8 am to 5 pm Call [phone] On weekends or after hours: Call [phone] and ask the gauge operator to page the Plastic Surgery Resident secondary teacher. documented in this encounter Medications at Time [...] q1hr IS. Hospital medicine consulted for recommendations Eilzabeth Mensah PA-C Plastic Surgery Pager [phone] Attn: continues to require supplemental O2 but [...] 16.03) performed by Michael Jenkins MD at [facility] Hospitalizations Within the Past 30 Days: None at [facility], nor at outside hospitals. Anticipated Length Of Stay : Anticipate discharge home tomorrow, 03/25. IPI order cosigned by Dr.Gary Jenkins on 03/23/16 @ 1726. Current Decision-Making Capacity: Patient alert and oriented; capable decision maker. Advance Care Planning: Not on file in [facility], nor elsewhere. Current Coping/Education/Information Needs: Coping effectively. The staff are absolutely wonderful. I mean phenomenal. Current Functional Ability: On room air during my visit. Pt resting in bed. They think I probably haven't been taking deep breaths for years. Order for a [address] Pt looking comfortable. 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 Home Environment: Lives with her , Shaw, in [place], [place]. Social & Family Supports/Community Resources: Emergency Contact 1 Emergency Contact 2 ? Shaw Henderson (Spouse) [address] [facility] [id number] (H) [phone] (W) Stefani Li (Child) [phone] (H) Behavioral Health History: None per H&P. Substance Use/Abuse: Former smoker. EtOH: 2 glasses of wine/week. No illicit drug use. Other Pertinent/Service Specific Information: None Health/Prescription Coverage: Primary Insurance: [facility] Secondary Insurance: None Prescription Coverage: Yes Preferred Pharmacy: [facility], [place], [place] Other: None Primary Care Provider: RAQUEL Beatty [phone] Patient/Caregiver Goals of Treatment: To return home with her and to resume work when givenmedical clearance. Potential Needs for Transition of Care: Rehab/SNF: N/A Home Health: Declined VNA services. ([facility] serves her area). DME: N/A Dialysis: N/A Community Resources: None Transportation: Pt's will transport pt home at discharge. Other: None Anticipated Barriers to Discharge/Special Considerations: None identified. Plan: A member of the Care Management team will continue to monitor progress, follow for continuity of care and assist with transition of care planning. NAGI SHAW RN Pager: [phone] for today. Assisting Rebeca Lee Pt's Primary Looper Operator, pager [phone] * Consult Note - Adri Parra - 03/24/2016 9:36 AM EST Medicine Consult Note, Pager [phone] Patient Name: Gina Henderson Patient Age: 56 [...] osseous abnormalities.No acute cardiopulmonary abnormality. Assessment: Gina Henderosn is a 56 y.o. female with a [...] consult. Please contact the consult pager at [phone] with any questions. Adri Parra MD PGY-3, Department of Internal Medicine Consult Pager [phone] 03/24/2016 Associated attestation - Santiago Stallworth MD [...] Jenkins MD - 03/23/2016 9:33 AM EST [facility] Operative Note Patient Name: Gina Henderson : 1960 MR#: [id number] Case Date: 03/23/2016 Surgeon: Surgeon(s) and Role: [...] fitting, review post-op activity restrictions 6 months: technician terminal and repeater f/u with surgeon Indication for procedure: This [...] Lopez MD - 03/23/2016 9:32 AM EST [facility] Brief Operative Note Patient Name: Gina Henderson : 1960 MR#: [id number] Case Date: 03/23/2016 Surgeon: Surgeon(s) and Role: [...] (Bezet) 427 ms MUSE SYSTEM Calculated P [place] 54 degrees MUSE SYSTEM Calculated R [place] -2 degrees MUSE SYSTEM Calculated T [place] 32 degrees MUSE SYSTEM INTERPRETATION Normal sinus [...] pH, Arterial 7.25(Criti anderson) 7.35 - 7.45 [facility] Comment:Noted by woodwind instrument repairer. PCO2, Arterial 64(Critica l) 35 - 45 mmHg [facility] Comment:Noted by woodwind instrument repairer. PO2, Arterial 47(Critica l) 85 - 104 mmHg [facility] Comment:Noted by woodwind instrument repairer. Bicarbonate, Arterial 27.0(H) 20.0 - 26.0 mmol/L [facility] Base Excess, Arterial -0.4 -3.0 - 3.0 mmol/L [facility] Hgb Blood Gas 14.2 11.7 - 15.5 gm/dL [facility] Oxyhemoglobin, Arterial 80.4(L) 94.0 - 97.0 % [facility] Carboxyhemoglob in, Arterial 0.9 % [facility] Comment: Nonsmokers: 0.5-1.5% COHB Smokers: Variable, but usually less than 10% Toxic: 20-30% COHB Lethal: Greater than 60% COHB Methemoglobin, Arterial 0.3 <=1.5 % [facility] Na Whole Blood 139 135 - 145 mmol/L [facility] K Whole Blood 4.1 3.5 - 5.0 mmol/L [facility] Comment: Please note: Patients with WBC >100,000 may have falsely elevated Potassium levels. Contact the Clinical Chemistry Laboratory if there are any questions. ICa Whole Blood 1.22 1.15 - 1.33 mmol/L [facility] Comment: Note: ??Total bilirubin higher than 20 mg/dL may lead to falsely low ionized calcium. CL Whole Blood 102 98 - 107 mmol/L [facility] Gluc Whole Bld 148 65 - 199 mg/dL [facility] Comment:Diabetes: >=200 mg/d L plus symptoms. Lactate WB 2.0 0.5 - 2.2 mmol/L [facility] Blood specimen (specimen) 03/23/2016 1:33 PM EST 03/23/2016 1:33 PM EST Michael Jenkins MD POINT OF CARE TEST O KAYLA Performing Organization Address [facility] Co de Phone Number [facility] [place] [address] * Specimen to Pathology (surgical or derm) (03/23/2016 8:37 AM EST) AP Specimen 03/23/2016 8:37 AM EST 03/23/2016 8:37 AM EST Narrative [facility] - 03/23/2016 8:37 AM EST Specimen requisition ordered. ??Separate Pathology report to follow Michael Jenkins MD PATHOLOGY/CYTOLOGY O KAYLA Performing Organization Address [facility]/State/ZIP Co de Phone Number [facility] [place] [address] * Surgical Pathology Report (03/23/2016 8:36 AM EST) Final Diagnosis [id number] ?Location: 3T; [facility]8; B The signing pathologist has (i) examined [...] (R3) ?? yal 03/28/2016 11:05 AM EST [facility] BREAST STRUCTURE / Unknown 03/23/2016 8:36 AM EST 03/23/2016 8:36 AM EST BREAST STRUCTURE / Unknown 03/23/2016 8:36 AM EST 03/23/2016 8:36 AM EST Michael Jenkins MD PATHOLOGY/CYTOLOGY O RDERAMARK Performing Organization Address City/[facility]/ZIP Co de Phone Number [facility] [place] [address] * Specimen to Pathology (surgical or derm) (03/23/2016 8:36 AM EST) AP Specimen 03/23/2016 8:36 AM EST 03/23/2016 8:36 AM EST Narrative [facility] - 03/23/2016 8:36 AM EST Specimen requisition ordered. ??Separate Pathology report to follow Michael Jenkins MD PATHOLOGY/CYTOLOGY O KAYLA Performing Organization Address [facility] [place] [address] * POCT HGB (03/23/2016) POC Hemoglobin 15 [...] cabinet override 1315 (Given - Provider: Sadie Jonse RN - Comment: 2.5 mg/ 3 ml) [...] Unit) documented in this encounter Care Teams Sorting Machine Operator Relationship Specialty Start Date End Date Jelena Harris PA [address] [place] [address] PCP - General 05/27/14 06/04/18 documented as of this encounter
--- OUTSIDE RECORDS SUMMARY | 2024-01-17 20:30 | XMS_ITS | Encounter Summary ---
[place] [address] Care Team Providers Care Manager Consumer Name Role Phone Jelena Harris Primary Care Provider +1- [phone] Reason for Visit * Auth/Cert Specialty Diagnoses / Procedures Referred By Tonya hall Referred To Contact Diagnoses N62 - macromastia Tentative DOS - 02/21/2016 CPT: 73834 - yang Procedures PRO REDUCTION OF LARGE BREAST REDUCTION MAMMOPLASTY, YANG Referral ID Status Reason Start Date Expiration Date Visits Re quested Visits Authorized [id number] 1 1 Encounter Details Date Type Department Care Team (Latest Contact Info) Description 03/23/2016 5:44 AM EST - 03/25/2016 1:[address] [facility] Hospital Encounter [address] [place] [address] Michael Jenkins MD [facility] [place] [address] H/O exertional chest pain Discharge Disposition: Home [...] Gina Henderson Patient Age: 56 y.o. Language: Setswana Race: White Ethnicity: Not nor Admit date: [...] 16.03) performed by Michael Jenkins MD at [facility] Procedures: 03/23/2016 Surgeon(s) and Role: * Michael Jenkins MD - Primary * Dagoberto Alexis MD - Resident-Surgeon Ishaan * Ortiz Lopez MD - Resident-Surgeon Ishaan: Procedure(s): REDUCTION MAMMOPLASTY, YANG (WRVU 16.03) MODIFIER [facility]ERTS Hospital Course: Patient was admitted electively to [facility] via the same day surgery program [...] QTC Calculated (Bezet) 427 ms Calculated P [place] 54 degrees Calculated R [place] -2 degrees Calculated T [place] 32 degrees INTERPRETATION Normal sinus rhythm Normal [...] good night sleep. Pain (short term and [facility]) ?? With any surgery there is some discomfort or pain. We will prescribe pain medication. Take as prescribed and only as needed. OK to take prescription medication or Tylenol. Do not take both. ?? We recommend taking an dkmw-hhb-Aoogmmj stool softener, such as Colace (docusate) or [...] scheduling, please contact our administrative offices at [phone] ?? For clinical questions, please call our nurses at [phone] ?? Both offices are open Sunday thru Sunday 8a - 5p. With emergencies after hours, call the hospital flatbed owner operator at [phone] and ask for the Plastic Surgery Resident clinical documentation consultant. MEDICATIONS: Your Medications Notice Some of [...] called in to our prescription line at [phone]. Narcotic renewals may be requested from 8am-4pm [...] Sunday 8 am to 5 pm Call [phone] On weekends or after hours: Call [phone] and ask the flatbed owner operator to page the Plastic Surgery Resident clinical documentation consultant. General Instructions SAME DAY SURGERY JONATHAN [...] future appointments. Primary Care Provider: RAQUEL Beatty [phone] VNA: No discharge procedures on file. General [...] us. Provider Contact Information: Plastic Surgery Clinic: [facility] (after business hours): documented in this [...] good night sleep. 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 With any surgery there is some discomfort or pain. We will prescribe pain medication. Take as prescribed and only as needed. OK to take prescription medication or Tylenol. Do not take both. ?? We recommend taking an bslv-yrj-Cedcvrj stool softener, such as Colace (docusate) or [...] scheduling, please contact our administrative offices at [phone] ?? For clinical questions, please call our nurses at [phone] ?? Both offices are open Sunday thru Sunday 8a - 5p. With emergencies after hours, call the hospital flatbed owner operator at [phone] and ask for the Plastic Surgery Resident clinical documentation consultant. MEDICATIONS: Your Medications Notice Some of [...] called in to our prescription line at [phone]. Narcotic renewals may be requested from 8am-4pm [...] Sunday 8 am to 5 pm Call [phone] On weekends or after hours: Call [phone] and ask the flatbed owner operator to page the Plastic Surgery Resident clinical documentation consultant. documented in this encounter Medications at [...] recommendations Elizabeth Mensah PA-C Plastic Surgery Pager [phone] Attn: continues to require supplemental O2 but [...] 16.03) performed by Michael Jenkins MD at [facility] Hospitalizations Within the Past 30 Days: None at [facility], nor at outside hospitals. 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 Home Environment: Lives with her , Shaw, in [place], [place]. Social & Family Supports/Community Resources: Emergency Contact 1 Emergency Contact 2 ? Shaw Henderson (Spouse) [address] [facility] [id number] (H) [phone] (W) Stefani Li (Child) [phone] (H) Behavioral Health History: None per H&P. Substance Use/Abuse: Former smoker. EtOH: 2 glasses of wine/week. No illicit drug use. Other Pertinent/Service Specific Information: None Health/Prescription Coverage: Primary Insurance: [employer] Secondary Insurance: None Prescription Coverage: Yes Preferred Pharmacy: [facility], [place], [place] Other: None Primary Care Provider: RAQUEL Beatty [phone] Patient/Caregiver Goals of Treatment: To return home with her and to resume work when givenmedical clearance. Potential Needs for Transition of Care: Rehab/SNF: N/A Home Health: Declined VNA services. ([facility] serves her area). DME: N/A Dialysis: N/A Community Resources: None Transportation: Pt's will transport pt home at discharge. Other: None Anticipated Barriers to Discharge/Special Considerations: None identified. Plan: A member of the Care Management team will continue to monitor progress, follow for continuity of care and assist with transition of care planning. NAGI SHAW RN Pager: [phone] for today. Assisting Rebeca Lee Pt's Primary Casework Manager, pager [phone] * Consult Note - Adri Parra - 03/24/2016 9:36 AM EST Medicine Consult Note, Pager [phone] Patient Name: Gina Henderson Patient Age: 56 [...] History and Habits: - , lives in [facility] with her of 30+ [...] consult. Please contact the consult pager at [phone] with any questions. Adri Parra MD PGY-3, Department of Internal Medicine Consult Pager [phone] 03/24/2016 Associated attestation - Santiago Stallworth MD [...] Jenkins MD - 03/23/2016 9:33 AM EST [facility] Operative Note Patient Name: Gina Henderson : 1960 MR#: [id number] Case Date: 03/23/2016 Surgeon: Surgeon(s) and Role: [...] fitting, review post-op activity restrictions 6 months: FDC f/u with surgeon Indication for procedure: This [...] Lopez MD - 03/23/2016 9:32 AM EST [facility] Brief Operative Note Patient Name: Gina Henderson : 1960 MR#: [id number] Case Date: 03/23/2016 Surgeon: Surgeon(s) and Role: [...] fitting, review post-op activity restrictions 6 months: FDC f/u with surgeon Ortiz Lopez MD Plastic [...] (Bezet) 427 ms MUSE SYSTEM Calculated P [place] 54 degrees MUSE SYSTEM Calculated R [place] -2 degrees MUSE SYSTEM Calculated T [place] 32 degrees MUSE SYSTEM INTERPRETATION Normal sinus [...] pH, Arterial 7.25(Criti anderson) 7.35 - 7.45 [facility] Comment:Noted by instrument installer. PCO2, Arterial 64(Critica l) 35 - 45 mmHg [facility] Comment:Noted by instrument installer. PO2, Arterial 47(Critica l) 85 - 104 mmHg [facility] Comment:Noted by instrument installer. Bicarbonate, Arterial 27.0(H) 20.0 - 26.0 mmol/L [facility] Base Excess, Arterial -0.4 -3.0 - 3.0 mmol/L [facility] Hgb Blood Gas 14.2 11.7 - 15.5 gm/dL [facility] Oxyhemoglobin, Arterial 80.4(L) 94.0 - 97.0 % [facility] Carboxyhemoglob in, Arterial 0.9 % [facility] Comment: Nonsmokers: 0.5-1.5% COHB Smokers: Variable, but usually less than 10% Toxic: 20-30% COHB Lethal: Greater than 60% COHB Methemoglobin, Arterial 0.3 <=1.5 % [facility] Na Whole Blood 139 135 - 145 mmol/L [facility] K Whole Blood 4.1 3.5 - 5.0 mmol/L [facility] Comment: Please note: Patients with WBC >100,000 may have falsely elevated Potassium levels. Contact the Clinical Chemistry Laboratory if there are any questions. ICa Whole Blood 1.22 1.15 - 1.33 mmol/L [facility] Comment: Note: ??Total bilirubin higher than 20 mg/dL may lead to falsely low ionized calcium. CL Whole Blood 102 98 - 107 mmol/L [facility] Gluc Whole Bld 148 65 - 199 mg/dL [facility] Comment:Diabetes: >=200 mg/d L plus symptoms. Lactate WB 2.0 0.5 - 2.2 mmol/L [facility] Blood specimen (specimen) 03/23/2016 1:33 PM EST 03/23/2016 1:33 PM EST Michael Jenkins MD POINT OF CARE TEST O KAYLA Performing Organization Address [facility] Co de Phone Number [facility] [place] [address] * Specimen to Pathology (surgical or derm) (03/23/2016 8:37 AM EST) AP Specimen 03/23/2016 8:37 AM EST 03/23/2016 8:37 AM EST Narrative [facility] - 03/23/2016 8:37 AM EST Specimen requisition ordered. ??Separate Pathology report to follow Michael Jenkins MD PATHOLOGY/CYTOLOGY O KAYLA Performing Organization Address [facility] Co de Phone Number [facility] [place] [address] * Surgical Pathology Report (03/23/2016 8:36 AM EST) Final Diagnosis [id number] ?Location: 3WST; 0318; B The signing pathologist [...] (R3) ?? yal 03/28/2016 11:05 AM EST [facility] BREAST STRUCTURE / Unknown 03/23/2016 8:36 AM EST 03/23/2016 8:36 AM EST BREAST STRUCTURE / Unknown 03/23/2016 8:36 AM EST 03/23/2016 8:36 AM EST Michael Jenkins MD PATHOLOGY/CYTOLOGY O RDERABLES Performing Organization Address [facility]/ZIP Co de Phone Number [facility] [place] [address] * Specimen to Pathology (surgical or derm) (03/23/2016 8:36 AM EST) AP Specimen 03/23/2016 8:36 AM EST 03/23/2016 8:36 AM EST Narrative [facility] - 03/23/2016 8:36 AM EST Specimen requisition ordered. ??Separate Pathology report to follow Michael Jenkins MD PATHOLOGY/CYTOLOGY O RDALE Performing Organization Address [facility] [place] [address] * POCT HGB (03/23/2016) POC Hemoglobin 15 [...] Unit) documented in this encounter Care Teams Manager Consumer Relationship Specialty Start Date End Date Jelena Harris PA [address] [place] [address] PCP - General 05/27/14 06/04/18 documented as of this encounter
--- OUTSIDE RECORDS SUMMARY | 2024-01-17 20:30 | XMS_ITS | Encounter Summary ---
Author Organization [facility] [place] [address] Care Team Providers Care Carbonizer Tester Name Role Phone Jelena Harris Primary Care Provider +1- [phone] Encounter Details Date Type Department Care Team (Latest Contact Info) Description 06/09/2014 - 06/09/2014 11:59 PM EDT Hospital Encounter Radiology Library at [facility] [place] [address] Michael Branch MD [facility] [place] [address] Pain Discharge Disposition: Home Social History Tobacco [...] Branch MD IMG FILM LIBRARY ORD ERABLES [place], [place] documented in this encounter Visit Diagnoses Diagnosis Pain Generalized pain documented in this encounter Care Teams Carbonizer Tester Relationship Specialty Start Date End Date Jelena Harris PA [address] [place] [address] PCP - General 05/27/14 06/04/18 documented as of this encounter
--- OUTSIDE RECORDS SUMMARY | 2024-01-17 20:30 | XMS_ITS | Encounter Summary ---
[place] [address] Care Team Providers Care Automation Technologist Name Role Phone Qian Alejandra APRN Primary Care Provider [phone] Encounter Details Date Type Department Care Team (Latest Contact Info) Description 06/05/2018 3:33 PM EDT - 06/05/2018 11:59 PM EDT Hospital Encounter Mammography/[place] [address] Qian Alejandra APRN [address] [place] [address] Visit for screening mammogram Discharge [...] BIRADS CATEGORY 2: Benign findings. * ??[employer] and The Society of [...] mammogram documented in this encounter Care Teams Automation Technologist Relationship Specialty Start Date End Date Qian Alejandra APRN [address] [place] [address] PCP - General Family Medicine 06/05/18 documented as of this encounter
--- OUTSIDE RECORDS SUMMARY | 2024-01-17 20:30 | XMS_ITS | Encounter Summary ---
[place] [address] Care Team Providers Care Register In Chancery Name Role Phone Jelena Harris Primary Care Provider [phone]- [phone] Reason for Visit * Reason Comments Skin Check Encounter Details Date Type Department Care Team (Late st Contact Info) Description 05/27/2014 2:45 PM EST Office Visit Dermatology at [address] [id number] Wilder Holt MD [address] [facility] [place] [address] Irritant hand dermatitis Discharge Disposition: Home Social [...] from the original note were not included. [facility] Dermatitis: After Your Visit Your Care Instructions [...] help for plant rashes. ?? Try an zcag-jsi-yxxxjjd antihistamine such as diphenhydramine (Benadryl) or chlorpheniramine [...] more? Visit our health information library at [email or web address] You can also view health information on [employer], your personal patient account. Log in or sign up today. Enter F270 in the search box to learn more about Dermatitis: After Your Visit. ?? [id number] [facility], [employer]. Care instructions adapted under license by [facility]. This care instruction is for use with your licensed healthcare professional. If you have questions about a medical condition or this instruction, always ask your healthcare professional. [employer] disclaims any warranty or liability for your use of this information. Content Version: 10.3.402276; Current as of: June 04, 2013 documented in this encounter Progress Notes * Wilder Holt MD - 05/27/2014 3:08 PM EST Problem: Irritant hand dermatitis. Gina follows up after last seeing me in 2007. 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 She [...] doing the dishes. They do have a agricultural production engineer. d. Return to clinic here p.r.n. for new lesions/concerns. COPY: Jelena Kennedy P.A.-C. documented in this encounter Plan of Treatment Not on file documented as of this encounter Visit Diagnoses Diagnosis Irritant hand dermatitis Contact dermatitis and other eczema, due to unspecified cause documented in this encounter Care Teams Register In Chancery Relationship Specialty Start Date End Date Jelena Harris PA [address] [place] [address] PCP - General 05/27/14 06/04/18 documented as of this encounter
--- OUTSIDE RECORDS SUMMARY | 2024-01-17 20:30 | XMS_ITS | Encounter Summary ---
[place] [address] Care Team Providers Care Solar Sales Energy Advisor Name Role Phone Jelena Harris Primary Care Provider [phone]- [phone] Reason for Visit * Auth/Cert Specialty Diagnoses / Procedures Referred By Tonya hall Referred To Contact Diagnoses N62 - macromastia Tentative DOS - 02/21/2016 CPT: 65327 - yang Procedures PRO REDUCTION OF LARGE BREAST REDUCTION MAMMOPLASTY, YANG Referral ID Status Reason Start Date Expiration Date Visits Re quested Visits Authorized [id number] 1 1 Encounter Details Date Type Department Care Team (Late st Contact Info) Description 03/23/2016 7:32 AM EST Anesthesia Event [place] [address] Solo Melendez MD [facility] [place] [address] Anesthesia Record Procedure Summary Procedure Name Responsible [...] 0840 Break/Relief In ANETA M QU ILL, ROSE GRADING SUPERVISOR 0857 Break/Relief Out 0953 Extubation/LMA Out 0953 [...] Removal Time: 95203/23/16 0748 by Mat Mar, ROSE GRADING SUPERVISOR 03/23/16 0953 by Mat Mar, PINKY Incision [...] Melendez MD - 03/23/2016 11:26 AM EST [facility] Department of Anesthesiology Post-procedure Note Patient: Gina Henderson Procedure Summary Date Anesthesia Start Anesthesia Stop Room / Location 03/23/[address] [place] [address] OR / [facility] MAIN OR Procedure Diagnosis Surgeon Responsible Provider REDUCTION MAMMOPLASTY, YANG (WRVU 16.03) (Bilateral Breast); MODIFIER ROBERTS (N/A ) (macromastia) Michael Branch MD Pouliot, Ryan C, MD All Anesthesia Providers: Anesthesiologist: Solo Melendez MD ROSE GRADING SUPERVISOR: Mat Mar CRNA Last (1hr) Vitals: BP 102/85 (03/23/16 1115) Temp Pulse Resp SpO2 96 % (03/23/16 1115) Patient Location: PACU/[facility] Level of Consciousness: Awake and Alert Pain [...] with patient and spouse. Plan discussed with ROSE GRADING SUPERVISOR. PAT Staff Note documented in this encounter [...] mg documented in this encounter Care Teams Solar Sales Energy Advisor Relationship Specialty Start Date End Date Jelena Harris PA [address] [place] [address] PCP - General 05/27/14 06/04/18 documented as of this encounter
--- OUTSIDE RECORDS SUMMARY | 2024-01-17 20:30 | XMS_ITS | Encounter Summary ---
Author Organization [facility] [place] [address] Care Team Providers Care Social Welfare Research Worker Name Role Phone Unavailable Primary Care Provider Unavailabl e Encounter Details Date Type Department Care Team (Latest Contact Info) Description 07/16/2008 12:15 AM EDT - 07/16/2008 11:59 PM EDT Hospital Encounter Radiology Library at [facility] [place] [place] [address] Amor Hollingsworth MD [facility] [place] [address] Pain Discharge Disposition: Home Social History Tobacco [...] Only Mammo (07/16/2008 12:15 AM EDT) Narrative [facility] - 03/21/2016 11:07 AM EST This exam is for storage only and is auto-finalizing. Amor Hollingsworth MD IM FILM LIBRARY ORD ERABLES [place] documented in this encounter Visit Diagnoses Diagnosis Pain Generalized pain documented in this encounter
--- OUTSIDE RECORDS SUMMARY | 2024-01-17 20:30 | XMS_ITS | Encounter Summary ---
Author Organization [facility] [place] [address] Care Team Providers Care Cable Systems Installer Name Role Phone Jelena Harris Primary Care Provider +1- [phone] Encounter Details Date Type Department Care Team (Late st Contact Info) Description 03/16/2016 External Results Radiology Library at [facility] [place] [address] Anna Kimble MD [facility] [place] [address] Social History Tobacco Use Types Packs/Day Years [...] on filedocumented in this encounter Care Teams Cable Systems Installer Relationship Specialty Start Date End Date Jelena Harris PA [address] [place] [address] PCP - General 05/27/14 06/04/18 documented as of this encounter
--- OUTSIDE RECORDS SUMMARY | 2024-01-17 20:30 | XMS_ITS | Encounter Summary ---
[place] [address] Care Team Providers Care Rn Oncology Research Name Role Phone Jelena Harris Primary Care Provider +1- [phone] Reason for Visit * Reason Comments Follow Up Surgery 03/23/16 BBR Encounter Details Date Type Department Care Team (Latest Contact Info) Description 03/30/2016 2:00 PM EST Clinical [place] [id number] Surgery follow-up Social History Tobacco Use Types [...] symptoms please call our nurse's line at [phone] M - F 8 - 5 -SCAR [...] documented in this encounter Care Teams Rn Oncology Research Relationship Specialty Start Date End Date Jelena Harris PA [address] [place] [address] PCP - General 05/27/14 06/04/18 documented as of this encounter
--- OUTSIDE RECORDS SUMMARY | 2024-01-17 20:30 | XMS_ITS | Encounter Summary ---
[place] [address] Care Team Providers Care Physician Practice Market Manager Name Role Phone Jelena Harris Primary Care Provider +1- [phone] Reason for Visit * Reason Comments Follow-up still having a lot o f tenderness /BBR Encounter Details Date Type Department Care Team (Late st Contact Info) Description 10/23/2016 4:15 PM EDT Office [place] [address] Michael Jenkins MD [facility] [place] [address] Macromastia Social History Tobacco Use Types Packs/Day [...] breast documented in this encounter Care Teams Physician Practice Market Manager Relationship Specialty Start Date End Date Jelena Harris PA [address] [place] [address] PCP - General 05/27/14 06/04/18 documented as of this encounter
--- OUTSIDE RECORDS SUMMARY | 2024-01-17 20:30 | XMS_ITS | Encounter Summary ---
Author Organization [facility] [place] [address] Care Team Providers Care Coagulation Operator Name Role Phone Unavailable Primary Care Provider Unavailabl e Encounter Details Date Type Department Care Team (Latest Contact Info) Description 07/16/2008 - 07/16/2008 12:14 AM EDT Hospital Encounter Radiology Library at [facility] [place] [address] Amor Hollingsworth MD [facility] [place] [address] Pain Discharge Disposition: Home Social History Tobacco [...] Mammo (07/16/2008 12:00 AM EDT) Narrative [facility] - 03/21/2016 10:56 AM EST This exam is for storage only and is auto-finalizing. Amor Hollingsworth MD [facility] FILM LIBRARY ORD ERABLES [place], [place] documented in this encounter Visit Diagnoses Diagnosis Pain Generalized pain documented in this encounter
--- OUTSIDE RECORDS SUMMARY | 2024-01-17 20:30 | XMS_ITS | Encounter Summary ---
[place] [address] Care Team Providers Care Litigation Examiner Name Role Phone Jelena Harris Primary Care Provider [phone]- [phone] Encounter Details Date Type Department Care Team (Late st Contact Info) Description 05/09/2018 Telephone Mammography/[place] [phone] Qian Alejandra APRN [address] [place] [address] Social History Tobacco Use Types [...] on filedocumented in this encounter Care Teams Litigation Examiner Relationship Specialty Start Date End Date Jelena Harris PA [address] [place] [address] PCP - General 05/27/14 06/04/18 documented as of this encounter
--- OUTSIDE RECORDS SUMMARY | 2024-01-17 20:30 | XMS_ITS | Encounter Summary ---
Author Organization [facility] [place] [address] Care Team Providers Care Director Employment Name Role Phone Jelena Harris Primary Care Provider +1- [phone] Encounter Details Date Type Department Care Team (Late st Contact Info) Description 03/21/2016 External Results Radiology Library at [facility] [place] [address] Amor Hollingsworth MD [facility] [place] [address] Social History Tobacco Use Types Packs/Day Years [...] filedocumented in this encounter Care Teams Director Employment Relationship Specialty Start Date End Date Jelena Harris PA [address] [place] [address] PCP - General 05/27/14 06/04/18 documented as of this encounter
--- OUTSIDE RECORDS SUMMARY | 2024-01-17 20:30 | XMS_ITS | Encounter Summary ---
Author Organization [facility] [place] [address] Care Team Providers Care Clinical Pharmacy Coordinator Name Role Phone Unavailable Primary Care Provider Unavailabl e Encounter Details Date Type Department Care Team (Latest Contact Info) Description 07/13/2008 - 07/13/2008 11:59 PM EDT Hospital Encounter Radiology Library at [facility] [place] [address] Amor Hollingsworth MD [facility] [place] [address] Pain Discharge Disposition: Home Social History Tobacco [...] Only Mammo (07/13/2008 12:00 AM EDT) Narrative [facility] - 03/21/2016 10:57 AM EST This exam is for storage only and is auto-finalizing. Amor Hollingsworth MD [facility] FILM LIBRARY ORD ERABLES [place], [place] documented in this encounter Visit Diagnoses Diagnosis Pain Generalized pain documented in this encounter
--- OUTSIDE RECORDS SUMMARY | 2024-01-17 20:30 | XMS_ITS | Encounter Summary ---
Author Organization [facility] [place] [address] Care Team Providers Care Package Liner Name Role Phone OttawaEdie benavidessade Jack APRN Primary Care Provider [phone] Encounter Details Date Type Department Care Team (Latest Contact Info) Description 12/18/2011 - 12/18/2011 11:59 PM EDT Hospital Encounter Radiology Library at [facility] [place] [address] Amor Hollingsworth MD [facility] [address] [place] [address] Pain Discharge Disposition: Home Social History Tobacco [...] Mammo (12/18/2011 12:00 AM EDT) Narrative [facility] - 03/21/2016 10:54 AM EST This exam is for storage only and is auto-finalizing. Amor Hollingsworth MD IM FILM LIBRARY ORD ERABLES [place], [place] documented in this encounter Visit Diagnoses Diagnosis Pain Generalized pain documented in this encounter Care Teams Package Liner Relationship Specialty Start Date End Date Amara Ding APRN PCP - General 02/15/10 05/26/14 documented as of this encounter
[2024-01-17] MEDS: Enoxaparin 40 MG/0.4 ML SYR SC (21:41)
[2024-01-17] MEDS: Normal Saline Flush 10 ML SYR IVP (21:44)
[2024-01-17] MEDS: Ketorolac 30 MG/ML VIAL IVP (21:50)
[2024-01-18] MEDS: ACETAMINOPHEN 1,000 MG/100 ML BAG 400 MG IVPB ×2 (00:46→05:52)
[2024-01-18] MEDS: Normal Saline Flush 10 ML SYR IVP ×2 (04:23→08:55)
[2024-01-18] MEDS: Ketorolac 30 MG/ML VIAL IVP (04:23)
[2024-01-18 07:27] VITALS: BP 145/67; PULSE 56; RESP 17; TEMP 36.7; O2SAT 98
--- NOTE | 2024-01-18 07:50 | W.PM.PROGNOT ---
Date of Service Date of service: 01/18/24 Time of Service: 07:51 Assessment and Plan Assessment and plan (1) Hypoxia: Status: Acute Assessment and plan: 63-year-old woman is postop day 3 from laparoscopic cholecystectomy. Oxygen saturation is completely adequate on room air. She has been compliant with being out of bed, ambulating and performing deep incentive spirometry. She has not been given any narcotic analgesia. She still has expected postoperative incisional tenderness. She will be discharged home. Subjective Subjective Interval history since last seen: Drastically proved. No complaints. Oxygen saturation 98% on room air. Exam Narrative Exam Narrative: Gen: Non-toxic, comfortable and interactive. Her color is better today Neuro: Alert and oriented x3 Psych: Good mood and affect. Good insight and understanding into condition. Chest: Non-labored breathing, no wheezing, no visible shortness of breath. Heart: Regular Abdomen: Obese, soft, nondistended, appropriate tenderness. Incisions look perfect. Objective Last Vital Signs Temp 98.1 F 01/18/24 07:27 Pulse 56 L 01/18/24 07:27 Resp 17 01/18/24 07:27 BP 145/67 H 01/18/24 07:27 Pulse Ox 98 01/18/24 07:27 Laboratory Results - last 24 hr 01/17/24 01/17/24 01/17/24 12:32 13:00 13:35 WBC 5.41 RBC 4.40 Hgb 12.9 Hct 40.0 MCV 91 MCH 29.3 MCHC 32.3 RDW 12.6 Plt Count 137 MPV 9.9 Immature Gran % 0.4 Neutrophils % 69.1 Lymphocytes % 14.4 Monocytes % 7.8 Eosinophils % 7.6 Basophils % 0.7 Nucleated RBC % 0.0 Absolute Neutrophils 3.74 Absolute Lymphocytes 0.78 L Absolute Monocytes 0.42 Absolute Eosinophils 0.41 Absolute Basophils 0.04 PT Cancelled 11.2 H INR Cancelled 1.1 APTT Cancelled 27.5 VBG pH 7.39 VBG pCO2 53 H VBG pO2 39 VBG HCO3 32 H VBG Total CO2 29 VBG O2 Saturation 76 VBG Base Excess 7 H Sodium 144 Potassium 4.7 Chloride 108 H Carbon Dioxide 29.4 Anion Gap 6.6 BUN 13 Creatinine 0.8 Est GFR (CKD-EPI 2020) 82.23 Glucose 88 Calcium 9.5 Magnesium 2.2 Total Bilirubin 1.15 H Conjugated Bilirubin 0.4 H AST 55 H ALT 92 H Alkaline Phosphatase 145 H Troponin I 6 6 Total Protein 6.5 Albumin 3.1 L Lipase 52 Procalcitonin < 0.1 Urine Color Urine Clarity Urine pH Ur Specific [place] Urine Protein Urine Ketones Urine Blood Urine Nitrite Urine Bilirubin Urine Urobilinogen Ur Leukocyte Esterase Urine Glucose COVID-19 Source SARS-CoV-2 (PCR) Influenza Type A (PCR) Influenza Type B (PCR) RSV (PCR) 01/17/24 01/17/24 01/17/24 14:09 15:40 18:15 WBC RBC Hgb Hct MCV MCH MCHC RDW Plt Count MPV Immature Gran % Neutrophils % Lymphocytes % Monocytes % Eosinophils % Basophils % Nucleated RBC % Absolute Neutrophils Absolute Lymphocytes Absolute Monocytes Absolute Eosinophils Absolute Basophils PT INR APTT VBG pH VBG pCO2 VBG pO2 VBG HCO3 VBG Total CO2 VBG O2 Saturation VBG Base Excess Sodium Potassium Chloride Carbon Dioxide Anion Gap BUN Creatinine Est GFR (CKD-EPI 2020) Glucose Calcium Magnesium Total Bilirubin Conjugated Bilirubin AST ALT Alkaline Phosphatase Troponin I 6 Total Protein Albumin Lipase Procalcitonin Urine Color Yellow Urine Clarity Clear Urine pH 5.5 Ur Specific [place] 1.015 Urine Protein Negative Urine Ketones 15 H Urine Blood Negative Urine Nitrite Negative Urine Bilirubin Negative Urine Urobilinogen 1.0 H Ur Leukocyte Esterase Negative Urine Glucose Negative COVID-19 Source Nasopharynx SARS-CoV-2 (PCR) Negative Influenza Type A (PCR) Negative Influenza Type B (PCR) Negative RSV (PCR) Negative Time Spent with Patient Time Spent with Patient: <25 minutes Time was spent: preparing to see the patient(eg.review tests), indepentently interpreting results, counseling the patient and care coordination
[2024-01-18 08:28] VITALS: O2SAT 93
[2024-01-18 09:10] VITALS: O2SAT 98
[2024-01-18] MEDS: Calcium Carbonate *TUMS* 500 MG CHEW PO (09:18)
--- NOTE | 2024-01-18 10:25 | W.PM.DS.N ---
Date of service: 01/18/24 Time of Service: 10:27 DS: Diagnosis Discharge Diagnosis (1) Post-op pain: Status: Acute Asessment and Plan: 63-year-old woman postop day 3 from laparoscopic cholecystectomy. She has been ambulatory and using incentive spirometry and has been coughing and is now saturating as high as 98% on room air. She did not get any narcotic pain medicine -only Tylenol and NSAIDs. She can be discharged home. She will continue aggressive ambulatory and respiratory efforts at her home Discharge Plan Disposition Patient Disposition: Home Condition: Good Discharge Details Reason For Visit: Hypoxia Admit Date/Time: 01/17/24 18:22 Admit Provider: Karlo Kan Attending Provider: Karlo Kan Primary Care Provider: Qian Alejandra Hospital Course Hospital Course: 63-year-old woman presented to the emergency department because of shortness of breath 2 days after her gallbladder removal. She has morbid obesity and significant asthma. She was found to have mild hypoxia. She was admitted overnight for observation and aggressive respiratory efforts. The next morning she was saturating as high as 98% on room air. She was set up for discharge home with incentive spirometry and instructions. Home Meds and New Rx's Prescriptions: Continued sertraline 25 mg tablet 25 mg PO DAILY albuterol sulfate [ProAir HFA] 90 mcg/actuation HFA aerosol inhaler 2 puff inhalation Q6H PRN hydrochlorothiazide 25 MG tablet 25 mg PO DAILY acetaminophen 500 mg tablet 500 mg PO Q6H PRN (Reason: pain) Qty: 60 2RF ibuprofen 600 mg tablet 600 mg PO TID PRN (Reason: pain) Qty: 60 0RF fluticasone propionate [Flovent HFA] 44 mcg/actuation HFA aerosol inhaler 2 puff INHALATION BID Patient Comments: INHALE TWO PUFFS BY MOUTH TWICE A DAY losartan 50 mg tablet 50 mg PO DAILY Patient Comments: TAKE ONE TABLET BY MOUTH EVERY DAY levofloxacin 500 mg tablet 500 mg PO DAILY 4 Days Qty: 4 0RF tramadol 50 mg tablet 50 mg PO Q4H PRNQty: 14 0RF ondansetron 4 mg tablet,disintegrating 4 mg PO DAILY PRN (Reason: nausea and vomiting) 4 Days Qty: 7 0RF Discharge Instructions Additional Instructions: Incisions: - Some bruising, swelling, pain and soreness is expected. Symptoms that are worsening are not expected and you should call Dr. Kan. - Keep incisions clean and dry, but they do not need to be covered. It is okay to shower, but no tub bathing/swimming for one week from surgery date. Pat-dry the incision when drying. The glue will fall off in 5-7 days. You can remove it if it does not. - Call Dr. Kan if you experience worsening pain, swelling, redness, pus, bleeding or fever>101. - Go to the Emergency Department for chest pain, shortness of breath, difficulty breathing or changes in mental status. For next few days: - Do not consume alcoholic beverages or other mood-altering drugs. - Avoid strenuous activity. - Call and schedule a followup appointment to be seen in next 2-3 weeks - If you are unable to urinate, or are only able to urinate tiny amounts, go to Emergency Department for assessment. Diet: -You can eat anything you want however greasy and fatty foods may cause bloating, abdominal discomfort and diarrhea for the first few weeks. If this happens avoid them. Medications: - Resume all of your regular home medications. Activity: - Light activity and work without any strenuous activity or heavy lifting until cleared at followup. - Despite light duty activity, remain ambulatory and out of bed unless you are sleeping. - It is recommended to sleep in a chair for the first week or so. Pain: - Take Tylenol on a schedule, 1000mg every 6 hours for the next 3 days. Use ice and/or heat as needed. - Take ibuprofen in between if needed For mild irritation at needle site where your iv was removed: ? Apply warm, moist pack to area for 20 minutes four times a day for 2-3 days. ? Call physician if persistent redness, increasing redness or fever and/or drainage at needle site occurs. If you have any problems, concerns or questions after surgery, do not hesitate to contact your physician's office or the Emergency Room if needed. For emergencies, call 911. Activity:: Activity as Tolerated Equipment/Supplies:: Incentive spirometer Diet:: As Tolerated DS: Summary Time Spent with Patient providing and/or coordinating discharge services: Greater than 30 minutes Status at Discharge Functional status at discharge: independent ambulation Overall status at discharge: patient is progressing back to baseline Mental Status: mental status grossly normal Speech and Movement: speech and movement normal Mood: congruent mood Affect: normal affect Quality:SDOH Health Related Social Needs: No Data to Display Exam Narrative Exam Narrative: Gen: Non-toxic, comfortable and interactive. Better color. Neuro: Alert and oriented x3 Psych: Good mood and affect. Good insight and understanding into condition. Chest: Non-labored breathing, no wheezing, no visible shortness of breath. Heart: Regular Abdomen: Soft, nondistended, obese, appropriate tenderness over incision sites only which is appropriate/minimal. No erythema. Incisions look perfect. Psych Mental Status: mental status grossly normal Speech and Movement: speech and movement normal Mood: congruent mood Affect: normal affect DS: Data Vitals/I&O Vitals and I&O: Vital Signs Temperature 98.1 F 01/18/24 07:27 Temperature Source Skin 01/18/24 07:27 Pulse 56 L 01/18/24 07:27 Pulse Rhythm Regular 01/17/24 20:39 Pulse 82 01/17/24 20:20 Respiratory Rate 17 01/18/24 07:27 Respiratory Effort Normal 01/17/24 20:39 Respiratory Depth Shallow 01/17/24 20:39 Respiratory Pattern Normal 01/17/24 20:39 Blood Pressure 145/67 H 01/18/24 07:27 Blood Pressure Mean 91 01/17/24 20:23 Pulse Oximetry 98 01/18/24 09:10 Oxygen Delivery Method Room Air 01/18/24 09:10 Oxygen Flow Rate 0 01/18/24 09:10 Pain Level 0 01/18/24 04:23 Comment c/o heartburn 01/18/24 07:27 Comment 3l 01/17/24 18:30 Intake & Output 01/17/24 01/17/24 01/18/24 11:59 23:59 11:59 Intake Total 321 / 321 450 / 450 Balance 321 / 321 450 / 450 Weight 217 lb 2.485 oz 209 lb 9.6 oz Intake: IV 100 / 100 100 / 100 Oral 221 / 221 350 / 350 Other: Urine Color Yellow Urine Appearance Clear Urine Odor None Comment in toilet unmeasurable Data Completed and Pending Labs on day of discharge: Labs from last 24 hours 01/17/24 01/17/24 01/17/24 18:15 15:40 14:09 WBC RBC Hgb Hct MCV MCH MCHC RDW Plt Count MPV Immature Gran % Neutrophils % Lymphocytes % Monocytes % Eosinophils % Basophils % Nucleated RBC % Absolute Neutrophils Absolute Lymphocytes Absolute Monocytes Absolute Eosinophils Absolute Basophils PT INR APTT VBG pH VBG pCO2 VBG pO2 VBG HCO3 VBG Total CO2 VBG O2 Saturation VBG Base Excess Sodium Potassium Chloride Carbon Dioxide Anion Gap BUN Creatinine Est GFR (CKD-EPI 2020) Glucose Calcium Magnesium Total Bilirubin Conjugated Bilirubin AST ALT Alkaline Phosphatase Troponin I 6 Total Protein Albumin Lipase Procalcitonin Urine Color Yellow Urine Clarity Clear Urine pH 5.5 Ur Specific [place] 1.015 Urine Protein Negative Urine Ketones 15 H Urine Blood Negative Urine Nitrite Negative Urine Bilirubin Negative Urine Urobilinogen 1.0 H Ur Leukocyte Esterase Negative Urine Glucose Negative COVID-19 Source Nasopharynx SARS-CoV-2 (PCR) Negative Influenza Type A (PCR) Negative Influenza Type B (PCR) Negative RSV (PCR) Negative 01/17/24 01/17/24 01/17/24 13:35 13:00 12:32 WBC 5.41 RBC 4.40 Hgb 12.9 Hct 40.0 MCV 91 MCH 29.3 MCHC 32.3 RDW 12.6 Plt Count 137 MPV 9.9 Immature Gran % 0.4 Neutrophils % 69.1 Lymphocytes % 14.4 Monocytes % 7.8 Eosinophils % 7.6 Basophils % 0.7 Nucleated RBC % 0.0 Absolute Neutrophils 3.74 Absolute Lymphocytes 0.78 L Absolute Monocytes 0.42 Absolute Eosinophils 0.41 Absolute Basophils 0.04 PT 11.2 H Cancelled INR 1.1 Cancelled APTT 27.5 Cancelled VBG pH 7.39 VBG pCO2 53 H VBG pO2 39 VBG HCO3 32 H VBG Total CO2 29 VBG O2 Saturation 76 VBG Base Excess 7 H Sodium 144 Potassium 4.7 Chloride 108 H Carbon Dioxide 29.4 Anion Gap 6.6 BUN 13 Creatinine 0.8 Est GFR (CKD-EPI 2020) 82.23 Glucose 88 Calcium 9.5 Magnesium 2.2 Total Bilirubin 1.15 H Conjugated Bilirubin 0.4 H AST 55 H ALT 92 H Alkaline Phosphatase 145 H Troponin I 6 6 Total Protein 6.5 Albumin 3.1 L Lipase 52 Procalcitonin < 0.1 Urine Color Urine Clarity Urine pH Ur Specific [place] Urine Protein Urine Ketones Urine Blood Urine Nitrite Urine Bilirubin Urine Urobilinogen Ur Leukocyte Esterase Urine Glucose COVID-19 Source SARS-CoV-2 (PCR) Influenza Type A (PCR) Influenza Type B (PCR) RSV (PCR) PFSH All Active Problems (Updated 01/17/24 @ 20:28 by ANU MAHONEY) Hypoxia (Acute) Post-op pain (Acute) Shortness of breath (Acute) Right upper quadrant abdominal pain (Acute) Abnormal mammogram of both breasts (Acute) Osteopenia (Acute) Hypertension (Chronic) Obesity (Chronic) Vitamin D deficiency (Acute) Depression with anxiety (Acute) Asthma, mild intermittent (Acute) Hyperlipidemia (Acute) GERD (gastroesophageal reflux disease) (Chronic) Medical History Tobacco use Surgical History History of section Left carpal tunnel syndrome S/P ECTR: 05/02/2022 Degenerative arthritis of carpometacarpal joint of thumb status post left trapezial resection arthroplasty with suture suspensionplasty on 03/01/22. Injection: 07/04/2021 H/O reduction mammoplasty H/O: hysterectomy Social History Smoking/Tobacco Use Status: Unknown Smoking risk assessment performed?: Yes Alcohol Intake: current Alcohol Intake frequency: holidays/special occasions only Drug use: Never Substance use type: does not use Housing: house Do you feel safe at home: Yes Do you feel safe in your relationship?: Yes Time Spent with Patient Time Spent with Patient: <45 minutes Time was spent: preparing to see the patient(eg.review tests), obtaining and/or reviewing separately otained hiistory, indepentently interpreting results, counseling the patient and care coordination
--- NOTE | 2024-01-18 10:57 | PDOC.CMIN ---
Date of service: 01/18/24 Time of Service: 10:57 Care Management Initial Assmt Initial Assessment Reason for Hospitalization: hypoxia. s/p cholecystectomy 01/15/24 Functional Status/Living Situation Patient Presentation: Gina was admitted through the ER yesterday after she was sent by her PCP who was not pleased with her presentation and low O2 sat. Gina is s/p cholecystectomy on 01/14. She was discharged home on 01/15 and had a f/u with her PCP on 01/16. She was found to be pale and hypoxic and was sent to the ED by the PCP. She was found to have O2 sat in the mid 80s on room air. She was wheezy and CXR noted atelectasis. She was given a duoneb and solumedrol, and was encouraged to cough and do some deep breathing. This morning, Gina was up in the chair, and was stating she was eager to go home. Town of Residence: [place] Resides with: Spouse (Karlo) Significant Other/Family: Local (Son and grandson that are local and close knit. 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.) Instrumental Activities of Daily Living (ADLs): Independent Activities/Hobbies/SocialSupport: Enjoys watching her grandson play sports Medications Medication Management: No Issues/Barriers identified Advance Directives Advance Directives: Do you have an Advance Directive: N 06/04/12 16:16 AD On File at [facility]: N 05/21/12 17:55 Date Asked 01/17/24 01/17/24 20:28 AD Date Reviewed COLST On File at [facility] COLST Date Scanned Code Status Resuscitation Status Full Code Portal Pt does not currently have a portal and education provided: Yes Insurance Coverage/Financial Issues Insurance: [facility] Financial Issues: declines Care Team Visit Care Team Role Provider Type Qian Alejandra Primary Care Provider NURSE PRACTITIONER Richardson Gold MD Emergency Provider [facility] STAFF PHYSICIAN Karlo Kan MD Admit Provider [facility] STAFF PHYSICIAN Attending Provider Discharge Potential Discharge Needs: PCP F/U Appt and Surgical F/U Appt Anticipated Barriers to Discharge: None Identified Patient/Family Education Needs: Review discharge instructions, discuss Ask Me Three Transportation: Private vehicle Plan: Anticipate that Gina will be discharged later today with no new services. She will transport home with her , Karlo. PFSH All Active Problems (Updated 01/17/24 @ 20:28 by ANU MAHONEY) Hypoxia (Acute) Post-op pain (Acute) Shortness of breath (Acute) Right upper quadrant abdominal pain (Acute) Abnormal mammogram of both breasts (Acute) Osteopenia (Acute) Hypertension (Chronic) Obesity (Chronic) Vitamin D deficiency (Acute) Depression with anxiety (Acute) Asthma, mild intermittent (Acute) Hyperlipidemia (Acute) GERD (gastroesophageal reflux disease) (Chronic) Medical History Tobacco use Surgical History History of section Left carpal tunnel syndrome S/P ECTR: 05/02/2022 Degenerative arthritis of carpometacarpal joint of thumb status post left trapezial resection arthroplasty with suture suspensionplasty on 03/01/22. Injection: 07/04/2021 H/O reduction mammoplasty H/O: hysterectomy Social History Smoking/Tobacco Use Status: Unknown Smoking risk assessment performed?: Yes Alcohol Intake: current Alcohol Intake frequency: holidays/special occasions only Drug use: Never Substance use type: does not use Housing: house Do you feel safe at home: Yes Do you feel safe in your relationship?: Yes Readmission Within the Past 30 Days Yes or No: No Date of First Admission Date of 1st Admission: 01/14/24 Date of this Admission Date of Admission: 01/17/24 This admission was: Through ED (PCP sent her over) Office Visit Since 1st Admission Have you seen your PCP in the office since discharge?: Yes Date of PCP Appointment: 01/17/24 Speicalist Appointments Have you seen any other specialist since your 1st Admission?: No I. Interview patient and/or Family Difficulty reaching your doctor or getting an office appt?: No Have you had trouble purchasing/ or taking medication?: No Have you had trouble with getting meals at home?: No Did you feel ready for discharge when you left the last time: Yes Reason there were no orders at discharge: not needed Did you call your physician beore you came to the ED?: Yes (was at the MD office) Did your physician tell you to come in?: Yes How do you think you became sick enough to come back?: I didn't do any deep breathing or use my breathing device. (incentive spirometer) Ask the Care Team Members: What do you think caused the patient to be readmitted: Did not open lungs enough after surgery due to pain when taking deep breaths. ED visits How many ED visits in the past 12 months: 3 SDOH(Care Management) Screening Will the Patient Participate in the Screening?: Yes Do you worry about having a steady place to live?: no In the past 12 months, have you had to go without electric, gas, oil or water in your home?: no Have you or anyone in your house had to go without enough food to eat?: no Has lack of transportation kept you from medical appointments or from doing things needed for daily living?: no Has anyone in your support network made you feel unsafe for any reason?: no
[2024-01-18 11:12] VITALS: BP 150/76; PULSE 76; O2SAT 94
--- NOTE | 2024-01-18 12:53 | PDOC.CMDIS ---
Date of service: 01/18/24 Time of Service: 12:53 LACE Index Scoring Tool Questions: Length of Stay (in days): 1 Was the patient admitted via the E.D.?: Yes E.D. Visits: 3 Answers: Total Score: 7 Risk of Readmission: Low Risk Care Management Discharge Plan Reason for Hospitalization: hypoxia s/p cholecystectomy Discharge Plan: Gina was discharged home today with new orders to use her incentive spirometer and do cough and deep breathing exercises. She was also instructed to take RTC Tylenol/alternating with ibuprofen for at least a week. She will f/u with both her PCP and the surgeon on 01/30. She will continue per her plan of care. She will transport home with her . Patient/Family Education Needs: Review of discharge instructions, activity, limitations and f/u plan. Discuss ask me 3 SDOH Health Related Social Needs: No Data to Display
== END 2024-01-18 11:21 | disposition home or self-care (01) ==
LOC: ER 18:24 → MS 20:28
PROVIDERS: Emergency Medicine; Admitting Provider Student in an Organized Health Care Education/Training Program; Emergency Provider Emergency Medicine; PCP Nurse Practitioner Family; Visit Provider Student in an Organized Health Care Education/Training Program
DX: G89.18 Other acute postprocedural pain (principal); R09.02 Hypoxemia; J98.11 Atelectasis; E66.01 Morbid (severe) obesity due to excess calories; Z68.41 Body mass index [BMI] 40.0-44.9, adult; J45.909 Unspecified asthma, uncomplicated; M85.80 Other specified disorders of bone density and structure, unspecified site; E55.9 Vitamin D deficiency, unspecified; F41.8 Other specified anxiety disorders; J45.20 Mild intermittent asthma, uncomplicated; E78.5 Hyperlipidemia, unspecified; K21.9 Gastro-esophageal reflux disease without esophagitis
CPT/HCPCS: 00123; 36415; 71275; 74177; 80053; 82805; 83690; 84145; 87040; 87637; 93005; 94640; 96365; 96366; 96372; 96375; 96376; 99285; J1650; 81003; 82248; 83735; 84484; 85025; 85610; 85730; 93010; G0378; J0131; J1885; J2919; J3490; J7620

== ENCOUNTER 2024-02-14 02:06 | Outpatient (CLI) | payer OTHER, SELFPAY ==
--- NOTE | 2024-02-14 | DI.CT_ITS ---
Exam(s) CT CHEST W EXAM: CT CHEST W CLINICAL HISTORY: HYPOXEMIA, R09.02. TECHNIQUE: Multi planar reconstructions were performed. CONTRAST MATERIAL: Omnipaque 350; 75 cc COMPARISON: CT CT CHEST PE ABD PELVIS W from 01/17/2024 FINDINGS: CHEST: LUNGS: No infiltrates nor pleural effusions. No ominous pulmonary nodules. No pneumothorax. No signif icant focal findings in trachea and mainstem bronchi. There is no bronchiectasis. There are no central pulmonary emboli. The more peripheral pulmonary arteries cannot be assessed as t his was not a pulmonary arterial CTA study MEDIASTINUM: There is no hilar nor mediastinal adenopathy. There is a wider than taller nodule eviden t in the left thyroid lobe. Thyroid gland is only partially included in the field of view. CARDIAC: Heart size is normal. There is no pericardial effusion.Diameter of the ascending thoracic a vandana is within normal limits as is the diameter of the aortic arch and descending thoracic aorta. The re is no evidence of aortic dissection. VISUALIZED UPPER ABDOMEN:There are no significant adrenal masses. OSSEOUS: No significant osseous lesions.No fractures. IMPRESSION: 1. No significant pulmonary findings. 2. No central pulmonary emboli. Cannot assess the peripheral pulmonary arteries as this was not a pul monary embolus study. 3. No evidence of aortic dissection nor pericardial effusion. Incidentally noted is a nodule in the left thyroid lobe which is only partially included in the field of view of this study. It measures approximately 1 cm by 0.8 cm. If clinically indicated can be furt her studied with thyroid ultrasound. RADIATION DOSE DELIVERED: 194.85mGy.cm Total DLP DATA REPOSITORY: All CT scans at this facility are submitted to the National Radiology Data Registry (NRDR) Dose Index Registry (DIR) with the [employer] (ACR). RADIATION OPTIMIZATION: All CT scans at this facility use at least one of these dose optimization te chniques: automated exposure control; mA and/or kV adjustment per patient size (includes targeted exa ms where dose is matched to clinical indication); or iterative reconstruction.
--- NOTE | 2024-02-14 | DI.DEXA_ITS ---
Exam(s) XR DEXA BONE DENSITY W/WO ALLYN EXAM: XR DEXA BONE DENSITY W/WO ALLYN CLINICAL HISTORY: M85.88 BONE DENSITY FINDING, DISORDER BONE DENSITY AND STRUCTURE TECHNIQUE: Hologic Horizon C densitometer analysis of left hip, lumbar spine and right forearm. La teral survey image of the thoracic and lumbar spine. COMPARISON: DX DEXA BONE DENSITY WITH ALLYN from 06/09/2014 DEXA bone density 2006 FINDINGS: Lateral view of the thoracic and lumbar spine shows no evidence of compression fractures. Bone mineral density measurements of the lumbar spine correspond to a total T-score of -1.1, in the osteopenic range. This is are represents 2.6 percent increase from 2014 and an 8.3 percent decrease compared to 2006. Bone mineral density measurements of the left hip correspond to a total T-score of -0.7. This repre sents a 3.6 percent decrease in total hip bone density from 2014 and an 11.9 percent decrease from 12 10. The femoral neck T-score is -2.7, in the osteoporotic range.. Theright forearm bone mineral density measurements correspond to a T-score of the distal 3rd of -1.3 , in the osteopenic range. This is not significantly changed from 2014. The forearm was not analyze d in 2006. IMPRESSION: Osteopeniaof the lumbar spine and forearm. Osteoporosis of the left hip.
--- NOTE | 2024-02-14 10:06 | DI.MAMMO_ITS ---
Exam(s) MAMMO SCREENING EXAM: MAMMO SCREENING CLINICAL HISTORY: SCREENING, Z12.31. TECHNIQUE: Bilateral full field digital CC and MLO mammographic images were obtained with 3D tomosyn thesis and utilizing computer aided detection (CAD). COMPARISON: Prior mammograms were reviewed. FINDINGS: There has been no significant change in the appearance and distribution of the fibroglandular tissue. There are no new spiculated masses nor malignant appearing microcalcification groups. There is no significant architectural distortion nor skin thickening-retraction. IMPRESSION: No radiographic evidence of malignancy. BI-RADS Category 1 - Negative Breast Density - Category B - Scattered areas of fibroglandular density Breast density Category C or D implies that the patient has dense breast tissue. Dense breast tissue can make it harder to find cancer on a mammogram. Dense breast tissue is also associated with an incr eased risk of breast cancer. This information about the result of the mammogram report was provided to the patient to raise their awareness. Use this report when you speak with the patient about their risks for breast cancer, which includes their family history. At that time, you may recommend additional screening tests (Ultrasoun d or MRI) as these tests may add significant information. A negative radiographic report should not delay biopsy if a dominant or clinically suspicious mass is present. Up to ten percent of cancers are not identified on mammography. A negative report may reinforce clinical impression. Adenosis and dense breasts may obscure an underlying neoplasm. False positive reports average 6 to 10%. Patient will receive a letter notifying them of these results.
[2024-02-14] MEDS: Normal Saline - Diluent 50 ML VIAL IJ (10:22)
[2024-02-14] MEDS: Omnipaque 350 MG/ML 100 ML BTL IJ (10:24)
== END 2024-02-14 02:26 ==
PROVIDERS: PCP Nurse Practitioner Family; Visit Provider Nurse Practitioner Family
DX: Z12.31 Encounter for screening mammogram for malignant neoplasm of breast (principal); R09.02 Hypoxemia; M85.88 Other specified disorders of bone density and structure, other site
CPT/HCPCS: 77063; 77067; 77080; 71260; J3490

== ENCOUNTER 2024-03-11 08:38 | Outpatient (REF) | payer OTHER, SELFPAY ==
[2024-03-11 16:50] LABS: ALT 36 U/L (14-59); AST 32 U/L (15-37); Albumin 3.7 g/dL (3.4-5.0); Alkaline Phosphatase 120 U/L (46-116); Anion Gap 3.3 mmol/L (3-11); BUN 11 mg/dL (7-18); Bilirubin, Total 1.13 mg/dL (0.2-1.0); CO2 31.7 mmol/L (21.0-32.0); CREATININE 0.8 mg/dL (0.55-1.02); Calcium 9.6 mg/dL (8.5-10.1); Calculated LDL 123 mg/dL (<100); Chloride 107 mmol/L (98-107); Cholesterol 215 mg/dL (<200); Estimated GFR 81.72 (mL/min/1.73m2); Glucose 79 mg/dL (74-106); HDL Cholesterol 75 mg/dL (40-60); Potassium 3.7 mmol/L (3.5-5.1); Sodium 142 mmol/L (136-145); Total Protein 6.4 g/dL (6.4-8.2); Triglyceride 86 mg/dL (<150); Vitamin D 25 Total 30.5 ng/mL (30-100)
== END 2024-03-11 08:39 | disposition home or self-care (01) ==
LOC: NCHCN 08:38
PROVIDERS: PCP Nurse Practitioner Family; Visit Provider Nurse Practitioner Family
DX: I10 Essential (primary) hypertension (principal); E78.5 Hyperlipidemia, unspecified; M85.89 Other specified disorders of bone density and structure, multiple sites; E55.9 Vitamin D deficiency, unspecified; E04.1 Nontoxic single thyroid nodule
CPT/HCPCS: 80053; 80061; 82306; 84443

== ENCOUNTER 2024-12-04 11:07 | Emergency (ER) | payer OTHER, SELFPAY ==
[2024-12-04 11:14] VITALS: BP 138/49; PULSE 78; RESP 16; TEMP 36.4; O2SAT 98
--- NOTE | 2024-12-04 11:45 | DI.RAD_ITS ---
Exam(s) XR KNEE LT 3V AP,LAT,JASMYNE EXAM: XR KNEE LT 3V AP,LAT,JASMYNE CLINICAL HISTORY: medial pain, swelling. TECHNIQUE: 2D digital imaging was performed. COMPARISON: No exams were available for comparison FINDINGS: Two views-AP and lateral There is no evidence of fracture. There is a small amount of increased joint fluid noted. There is significant degenerative narrowing of the medial compartment and small marginal osteophytes in the medial compartment. Lesser amount of degenerative changes noted in the lateral compartment. Some degenerative change also noted in the patellofemoral compartment. There are also 3 adjacent loose intra-articular bodies in the joint space posteriorly in the posterior aspect of the intercondylar notch. These would be in proximity to the cruciate ligaments. IMPRESSION: Degenerative changes as above. In addition, there are 3 calcified loose intra- articular bodies in the posterior joint space. Largest of these measures approximately 8 x 7 mm. There is a small joint effusion. DATA REPOSITORY: RADIATION DOSE DELIVERED:
[2024-12-04] MEDS: Ibuprofen 600 MG TAB PO (11:53)
[2024-12-04] MEDS: Acetaminophen 500 MG TAB 1000 MG PO (11:53)
--- NOTE | 2024-12-04 12:12 | W.ED.GENAD ---
Discharge Plan Disposition Patient Disposition: Home Condition: Stable Discharge Details Clinical Impression: Osteoarthritis of left knee Primary Care Provider: Qian Alejandra ED Provider: Jia Lloyd Home Meds and New Rx's Prescriptions: No Action multivitamin [Daily Multi-Vitamin] Tablet 1 tab PO DAILY docusate sodium [Colace] 100 mg capsule 100 mg PO DAILY sertraline 25 mg tablet 25 mg PO DAILY albuterol sulfate [ProAir HFA] 90 mcg/actuation HFA aerosol inhaler 2 puff inhalation Q6H PRN hydrochlorothiazide 25 MG tablet 25 mg PO DAILY acetaminophen 500 mg tablet 500 mg PO Q6H PRN (Reason: pain) Qty: 60 2RF ibuprofen 600 mg tablet 600 mg PO TID PRN (Reason: pain) Qty: 60 0RF fluticasone propionate [Flovent HFA] 44 mcg/actuation HFA aerosol inhaler 2 puff INHALATION BID Patient Comments: INHALE TWO PUFFS BY MOUTH TWICE A DAY losartan 50 mg tablet 50 mg PO DAILY Patient Comments: TAKE ONE TABLET BY MOUTH EVERY DAY Discharge Instructions Instructions: Osteoarthritis Additional Instructions: You were seen in the emergency department today for evaluation of left knee pain, likely due to [id number] changes due to your physical job. In our department you had an x-ray performed that showed degenerative changes largely in the middle or medial aspect of your knee where your pain is. You had some swelling in that area, but otherwise had a reassuring examination with no sign of infection. You had a ultrasound performed that did not show any concern for blood clots, though certainly if you were to develop worsening leg swelling, calf pain, your primary care provider should be made aware as you may require a repeat formal ultrasound. I placed you in a hinged knee brace which you should wear for comfort when up and about. Please use therapeutic dosing of Tylenol (acetaminophen) & Advil (ibuprofen) in an alternating fashion as follows: Take 1000mg of Tylenol every 6 hours without missing doses- that is 4 times per day. [place] in between the Tylenol doses, take 600mg of Advil also on a 6 hour schedule, that is also 4 times per day. With this strategy, you will be taking something for fever/pain as often as every 3 hours. The daily maximum dosing of Tylenol is 4000mg, and the daily maximum dosing of Advil is 2400mg. Please note that some common cold medications & prescription pain medications may contain acetaminophen and you need to read OTC drug labels and factor that in to maximum daily doses. You should continue to use ice and elevation, and if you find that the ibuprofen dosing above is causing you abdominal discomfort, you can transition to taking only the Tylenol, 1000 mg every 6 hours, and use diclofenac or Voltaren gel, which can be purchased [id number]. This contains an NSAID medication and should not be utilized in conjunction with ibuprofen. I have placed a referral to orthopedics to discuss next steps in workup and management. Please follow-up with your primary care provider in the next few days to discuss this visit and any symptoms that change, worsen, or persist. Thank you for allowing us to be part of your care. Stand Alone Forms: Work Release Referrals: [facility] [Provider Group] HPI General Mode of arrival: ambulatory. Date/Time Provider Initiated Documentation: 12/04/24 11:19. Limitations to Documentation: no limitations. Information obtained by: patient, family and old records reviewed. HPI Narrative: This is a 64-year-old female patient with a past medical history significant for hypertension, mild asthma, hyperlipidemia, presenting for evaluation of left knee pain. 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 It is located in the medial aspect of her knee, makes it difficult to walk. She cannot recall any specific inciting event such as falls or injuries. She reports that she has been using Tylenol, ice and heat, and topical therapies with some success, though she states the pain is starting to come back and the Tylenol is wearing off. She reports that she felt like her foot was very cold last night, and still feels cold and tingly right now. She states that she has not had fevers or chills, does not have pain in any other area of her body. She reports that she called her PCP nurse line, who recommended that she come to the emergency department for evaluation. Specifically the nurse line stated that she should ask about DVT rule out given the swelling in her knee. The patient has no personal history of thromboembolic disease or calf tenderness/swelling. Related Data Home Medications ?Medication ?Instructions ?Recorded ?Confirmed hydrochlorothiazide 25 mg tablet 25 mg PO DAILY 06/07/12 12/04/24 albuterol sulfate 90 mcg/actuation 2 puff inhalation Q6H PRN 05/25/21 12/04/24 aerosol inhaler (ProAir HFA) sertraline 25 mg tablet 25 mg PO DAILY 05/25/21 12/04/24 acetaminophen 500 mg tablet 500 mg PO Q6H PRN pain #60 tabs 03/01/22 12/04/24 ibuprofen 600 mg tablet 600 mg PO TID PRN pain #60 tabs 03/01/22 12/04/24 fluticasone propionate 44 2 puff inhalation BID 06/04/22 12/04/24 mcg/actuation HFA aerosol inhaler (Flovent HFA) losartan 50 mg tablet 50 mg PO DAILY 01/15/24 12/04/24 docusate sodium 100 mg capsule 100 mg PO DAILY 03/31/24 12/04/24 (Colace) multivitamin (Daily Multi-Vitamin 1 tab PO DAILY 03/31/24 12/04/24 tablet) Previous Rx's ?Medication ?Instructions ?Recorded acetaminophen 500 mg tablet 500 mg PO Q6H PRN pain #60 tabs 03/01/22 ibuprofen 600 mg tablet 600 mg PO TID PRN pain #60 tabs 03/01/22 Allergies Allergy/AdvReac Type Severity Reaction Status Date / Time latex Allergy Mild Skin Rash Verified 12/04/24 11:27 Penicillins Allergy Unknown Verified 12/04/24 11:27 betamethasone AdvReac Other (See Verified 12/04/24 11:27 Comment) steroids AdvReac Severe Other (See Uncoded 12/04/24 11:27 Comment) General Stated Complaint: Orthopedic SARITA: 3 Exam Narrative Exam Narrative: Gen: Awake and alert, in no apparent distress HEENT: Non-icteric sclera Neck: Supple Lungs: No apparent respiratory distress, normal respiratory effort. CV: Appears well perfused, strong distal pulses, heart with regular rate and rhythm Abdomen: Non-distended MSK: Moves 4 extremities without apparent limitation in ROM. The patient has mild swelling of the left knee, primarily in the medial aspect. She has no redness or warmth, is able to range her knee without significant discomfort or limitation. She has preserved extension of the knee. Tenderness to palpation along the medial greater than lateral joint lines, no popliteal fullness or tenderness. The patient has some reproduction of pain with valgus and varus stress testing, though the pain localizes to the medial joint line during both of these tests. She has strong DP pulses, brisk capillary refill of the affected left foot, no temperature changes, preserved sensation and strength. No unilateral calf swelling or tenderness. Skin: Visualized skin without rashes, cyanosis. Neuro: No obvious focal deficits or facial asymmetry. Speaks in full, clear sentences. Psych: Appropriate for situation. Course Vital Signs Vital signs: Vital Signs Temperature 36.4 C 12/04/24 11:14 Pulse 78 12/04/24 11:14 Respiratory Rate 16 12/04/24 11:14 Blood Pressure 138/49 L 12/04/24 11:14 Pulse Oximetry 98 12/04/24 11:14 Temperature 36.4 C 12/04/24 11:14 Pulse 78 12/04/24 11:14 Respiratory Rate 16 12/04/24 11:14 Blood Pressure 138/49 L 12/04/24 11:14 Pulse Oximetry 98 12/04/24 11:14 Pain Level 6 12/04/24 11:53 Medical Decision Making This is a 64-year-old female patient presenting for evaluation of left knee pain. Differential includes but is not limited to [id number] changes including osteoarthritis, certainly considered internal derangement including ligamentous injury, meniscal injury. Mechanism less concerning for fracture or dislocation. No evidence for neurovascular derangement on my physical examination. The patient does not have any warmth or overlying skin changes to increase my concern for septic arthritis, gout, pseudogout. I considered DVT though primary knee injury/condition is the more likely differential. I will provide the patient with Tylenol and ibuprofen for management of her pain. Will obtain an x-ray of the affected knee. Given the patient's personal concern of DVT it is reasonable to perform a bedside DVT study. I do not see an indication at this time to proceed with laboratory studies. - Bedside ultrasound without evidence of DVT, x-ray shows extensive degenerative changes in the medial compartment of the knee with a small effusion, concerning for osteoarthritis. Additionally, I did consider internal derangement such as meniscus and ligamentous injuries, though she reassuringly had no acute traumatic inciting event. No evidence of fracture or dislocation, and the patient remains neurovascularly intact. I provided her with a hinged knee brace for support and she was able to ambulate without crutches. We discussed multimodal pain management, and the patient is desiring of avoidance of narcotics at this time. I counseled her on Tylenol and ibuprofen, and Voltaren gel if the ibuprofen is bothersome to her stomach. A referral to orthopedics was placed, and at this time, the patient has had a full medical evaluation and is safe for discharge to home. They are hemodynamically stable, ambulatory, and tolerating PO. They are understanding of the follow-up plan and return precautions. They left our facility without incident. Jia Lloyd MD [facility] All Active Problems (Updated 12/04/24 @ 13:00 by Jia Lloyd MD) Osteoarthritis of left knee (Acute) Thyroid nodule (Acute) Hypoxia (Acute) Right upper quadrant abdominal pain (Acute) Abnormal mammogram of both breasts (Acute) Osteopenia (Acute) Hypertension (Chronic) Obesity (Chronic) Vitamin D deficiency (Acute) Depression with anxiety (Acute) Asthma, mild intermittent (Acute) Hyperlipidemia (Acute) GERD (gastroesophageal reflux disease) (Chronic) Medical History Senile osteoporosis Tobacco use Surgical History History of section Left carpal tunnel syndrome S/P ECTR: 05/02/2022 Degenerative arthritis of carpometacarpal joint of thumb status post left trapezial resection arthroplasty with suture suspensionplasty on 03/01/22. Injection: 07/04/2021 H/O reduction mammoplasty H/O: hysterectomy Social History Smoking/Tobacco Use Status: Unknown Smoking risk assessment performed?: Yes Alcohol Intake: current Alcohol Intake frequency: holidays/special occasions only Drug use: Never Substance use type: does not use Housing: house Do you feel safe at home: Yes Do you feel safe in your relationship?: Yes POCUS Exam (ED) Limited Vascular Exam DATE OF EXAM: 12/04/24 TIME OF EXAM: 12:30 PROVIDER THAT PERFORMED THE STUDY: Jia Lloyd Vascular Exam: Left lower extremity REASON FOR EXAM: Left lower extremity pain VISUALIZED STRUCTURES: Left common femoral vein and Left popliteal vein PERTINENT FINDINGS/IMPRESSION: Compressible veins left leg and No apparent abnormalities Exam Complete
[2024-12-04 13:13] VITALS: BP 109/54; PULSE 61; RESP 16; TEMP 36.6; O2SAT 96
== END 2024-12-04 13:14 | disposition home or self-care (01) ==
LOC: ER 13:04
PROVIDERS: Emergency Provider Emergency Medicine; PCP Nurse Practitioner Family
DX: M17.12 Unilateral primary osteoarthritis, left knee (principal)
CPT/HCPCS: 99284; 99283; 73562; 93971

== ENCOUNTER → 2025-02-16 02:10 | Outpatient (CLI) | payer OTHER, SELFPAY ==
--- NOTE | 2025-02-16 09:21 | DI.MAMMO_ITS ---
Exam(s) MAMMO SCREENING EXAM: MAMMO SCREENING CLINICAL HISTORY: Z12.31 Screening TECHNIQUE: Bilateral full field digital CC and MLO mammographic images were obtained with 3D tomosynthesis and utilizing computer aided detection (CAD). COMPARISON: Comparison is made with prior examinations. FINDINGS: Masses/Architectural Distortion: No suspicious masses or areas of architectural distortion are present. Microcalcifications: No suspicious pleomorphic-type are seen. Skin Thickening/Nipple Retraction: None. IMPRESSION: 1. No significant interval change with no specific features of malignancy noted. 2. Unless there is more urgent need, screening mammography is recommended, as per [place] [employer] guidelines. BI-RADS Category 1 - Negative Breast Density - Category B - There are scattered areas of fibroglandular density. Breast density Category C or D implies that the patient has dense breast tissue. Dense breast tissue can make it harder to find cancer on a mammogram. Dense breast tissue is also associated with an increased risk of breast cancer. This information about the result of the mammogram report was provided to the patient to raise their awareness. Use this report when you speak with the patient about their risks for breast cancer, which includes their family history. At that time, you may recommend additional screening tests (Ultrasound or MRI) as these tests may add significant information. A negative radiographic report should not delay biopsy if a dominant or clinically suspicious mass is present. Up to ten percent of cancers are not identified on mammography. A negative report may reinforce clinical impression. Adenosis and dense breasts may obscure an underlying neoplasm. False positive reports average 6 to 10%. Patient will receive a letter notifying them of these results.
== END ==
LOC: DI 02:10
PROVIDERS: PCP Nurse Practitioner Family; Visit Provider Nurse Practitioner Family
DX: Z12.31 Encounter for screening mammogram for malignant neoplasm of breast (principal)
CPT/HCPCS: 77063; 77067

== ENCOUNTER 2025-03-04 10:42 | Outpatient (REF) | payer OTHER, SELFPAY ==
[2025-03-04 17:15] LABS: Abs Immature Grans 0.01 10^3/uL (0.0-0.06); HCT 41.7 % (36.0-46.0); HGB 14.0 g/dL (11.2-15.7); Immature Grans % 0.3 %; MCH 29.4 pg (27.0-33.0); MCHC 33.6 % (32.0-36.0); MCV 87 fL (80-95); MPV 10.1 fL (8.0-11.0); Platelet Count 193 10^3/uL (130-400); RBC 4.77 10^6/uL (3.93-5.22); RDW 12.6 % (11.7-14.6); RDW-SD 40.3 fL; WBC 3.82 10^3/uL (4.4-10.8)
[2025-03-04 17:33] LABS: Vitamin D 25 Total 57 ng/mL (30-100)
[2025-03-04 17:34] LABS: TSH 3.15 uIU/mL (0.55-4.78)
[2025-03-04 18:02] LABS: ALT 26 U/L (10-49); AST 30 U/L (<34); Albumin 3.8 g/dL (3.2-5.0); Alkaline Phosphatase 104 U/L (46-116); Anion Gap 8.2 mmol/L (3-11); BUN 15 mg/dL (9-23); Bilirubin, Total 0.9 mg/dL (0.2-1.2); CO2 29.8 mmol/L (20.0-31.0); Calcium 9.4 mg/dL (8.3-10.6); Chloride 106 mmol/L (98-107); Cholesterol 215 mg/dL (<200); Glucose 112 mg/dL (74-106); HDL Cholesterol 74 mg/dL (>40); Potassium 3.8 mmol/L (3.5-5.1); Sodium 144 mmol/L (136-145); Total Protein 6.1 g/dL (5.7-8.2)
[2025-03-05 17:54] LABS: T3,Free 4.6 pg/mL (2.8-5.3)
== END 2025-03-04 10:43 | disposition home or self-care (01) ==
LOC: NCHCN 10:42
PROVIDERS: PCP Nurse Practitioner Family; Visit Provider Nurse Practitioner Family
DX: E04.1 Nontoxic single thyroid nodule (principal); M81.0 Age-related osteoporosis without current pathological fracture; R74.01 Elevation of levels of liver transaminase levels; I10 Essential (primary) hypertension
CPT/HCPCS: 80053; 80061; 82306; 84439; 84443; 84481; 85025